=== PATIENT | male | born 1970 | race Caucasian/White ===

== ENCOUNTER 2022-08-15 14:50 | Inpatient (IN) | payer OTHER, MEDICAID, SELFPAY ==
--- NOTE | 2022-08-15 | ECG_ITS ---
Test Reason : medical clearance Blood Pressure : / mmHG Vent. Rate : 087 BPM Atrial Rate : 087 BPM P-R Int : 200 ms QRS Dur : 102 ms QT Int : 394 ms P-R-T Axes : 066 -36 052 degrees QTc Int : 474 ms Normal sinus rhythm Left axis deviation Borderline ECG No previous ECGs available Referred By: Ros Moreira Electronically Signed By:DOUG HALL
--- NOTE | ~2022-08-15 | XR_ITS ---
EXAMINATION: XR CHEST CLINICAL INFORMATION: Right rib pain COMPARISON: 02/07/2019 TECHNIQUE: 2 views of the chest were obtained. FINDINGS: The lungs are well expanded. There is no focal consolidation, edema, or effusion. No pneumothorax. The cardiomediastinal silhouette is within normal limits. No acute osseous abnormality. XR/XR chest 2V IMPRESSION: Clear lungs. No displaced fractures are seen.
[2022-08-15 15:13] VITALS: BP 103/72; BP 110/78; PULSE 80; PULSE 85; RESP 20; TEMP 36.6; O2SAT 95; O2SAT 96; BMI 25.7
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
[2022-08-15] MEDS: Lidocaine 4 % Patch ADH..PATCH 1 PATCH TRANSDERMA (16:22)
[2022-08-15] MEDS: LORazepam 1 MG TABLET 2 MG PO ×2 (16:22→23:20)
[2022-08-15 16:25] LABS: MANUAL DIFF FLAG NO
[2022-08-15 16:28] LABS: Basophils Absolute Auto 0.1 X10*3/uL (0.0-0.2); Basophils Percent Auto 0.9 % (0-2); Eosinophils Absolute Auto 0.3 X10*3/uL (0.0-0.4); Eosinophils Percent Auto 4.3 % (0-4); Hematocrit 39.9 % (42.0-52.0); Hemoglobin 13.8 g/dl (14.0-18.0); Imm Gran Abs Auto 0.02 X10*3/uL (0.00-0.03); Imm Gran Pct Auto 0.3 % (0.0-0.4); Lymphocytes Absolute Auto 2.2 X10*3/uL (1.2-4.9); Lymphocytes Percent Auto 37.1 % (20-40); Mean Corpuscular HGB Conc 34.6 g/dl (31.0-36.0); Mean Corpuscular Hemoglobin 32.3 pg (27.0-33.0); Mean Corpuscular Volume 93.4 fL (80.0-98.0); Mean Platelet Volume 10.5 fL (9.4-12.4); Monocytes Absolute Auto 0.4 X10*3/uL (0.1-1.2); Neutrophils Absolute Auto 2.9 x10*3/uL (2.0-8.3); Neutrophils Percent Auto 50.4 % (45-73); Platelet Count 159 X10*3/uL (160-400); Red Blood Count 4.27 X10*6/uL (4.60-5.80); Red Cell Distribution Width 15.7 % (11.0-16.0); White Blood Count 5.8 X10*3/uL (4.8-10.8)
--- NOTE | 2022-08-15 16:28 | PC.NURSE ---
labs drawn, 1:1 sitter at bedside, pt medicated per order, pt refused suboxone at this time as pt wished to eat prior to taking the med. provider has been notified, will continue to monitor
[2022-08-15 16:40] LABS: COVID-19 Test Negative (Negative); IDNOW Serial# BCCEAD1C
[2022-08-15 16:49] LABS: Ethanol 279 mg/dL
[2022-08-15 16:51] LABS: Alanine Aminotransferase 66 U/L (0-40); Albumin Level 3.7 g/dL (3.5-5.0); Alkaline Phosphatase 209 U/L (39-117); Anion Gap 17 (12-20); Aspartate Amino Transferase 147 U/L (5-37); Bilirubin Direct 0.2 mg/dL (0.0-0.5); Bilirubin Total 0.4 mg/dL (0.0-1.0); Blood Urea Nitrogen 5 mg/dL (9-16); Calcium 8.4 mg/dL (8.4-10.2); Carbon Dioxide 23 mmol/L (22-29); Chloride 108 mmol/L (96-108); Creatinine Clr Calc Pharmacy 113.2; Estimated Glomerular Filt Rate > 60; Glucose Random 112 mg/dL (60-115); Potassium 2.9 mmol/L (3.3-5.1); Sodium 145 mmol/L (135-145); Total Protein 7.4 g/dL (6.5-8.0)
[2022-08-15 17:35] VITALS: BP 131/66; PULSE 91; RESP 20; TEMP 36.7; O2SAT 89
[2022-08-15 18:00] VITALS: BP 108/76; PULSE 82; RESP 16; TEMP 36.7; O2SAT 91
--- NOTE | 2022-08-15 19:48 | PC.NURSE ---
Assumed care of pt. at 1900. Pt. asleep in bed at this time. Respirations are even and unlabored. 1:1 sitter is at bedside. Will continue to monitor.
[2022-08-15] MEDS: Potassium Chloride ER 20 MEQ TAB.ER.PRT 40 MEQ PO (20:44)
[2022-08-15 20:58] LABS: Appearance Urine Clear; Color Urine Dark Yellow; Glucose Urine UA Negative (Negative); Leukocyte Esterase Urine Negative (Negative); Nitrite Urine Negative (Negative); PH 5.5 (5.0-9.0); UMIC TRIGGER UA YES; Urine Blood Negative (Negative); Urine Ketones Trace mg/dL (Negative); Urine Protein 30 (1+) mg/dL (Neg-Trace)
[2022-08-15 21:08] LABS: Amphetamine Screen Urine Not Detected (Not Detect); Barbiturates, Urine POSITIVE (Not Detect); Benzodiazepines Screen Urine Not Detected (Not Detect); Cannabinoid Screen Urine Not Detected (Not Detect); Cocaine Screen Urine Not Detected (Not Detect); Fentanyl, urine Not Detected (Not Detect); Opiate Screen Urine Not Detected (Not Detect); Phencyclidine Screen Urine Not Detected (Not Detect)
[2022-08-15 21:17] LABS: Bacteria Urine None Seen (None Seen); Hyaline Casts Urine 0-2 /LPF (0-2); RBC Urine 0-2 /HPF (0-2); Squamous Epithelial Cell Urine 0-2 /HPF (0-2); WBC Urine 0-5 /HPF (0-5)
[2022-08-15] MEDS: Albuterol Sulfate 90 MCG 8 GM INHALER 1 PUFF INHALE (23:16)
[2022-08-15] MEDS: Ibuprofen 400 MG TABLET PO (23:19)
[2022-08-15] MEDS: Gabapentin 300 MG CAPSULE PO ×2 (23:20→23:22)
[2022-08-16 04:29] VITALS: BP 133/88; PULSE 103; RESP 17; O2SAT 95
[2022-08-16] MEDS: LORazepam 1 MG TABLET 2 MG PO ×2 (05:06→18:11)
--- NOTE | 2022-08-16 05:33 | PC.NURSE ---
Patient slept through the night, no distress observed/reported at this time, Ativan 2 mg PO administered at 2329 & 0506, CIWA at 0502 was 8, patient intermittently reporting ribs pain, PRN ibuprofen administered as ordered, patient will be evaluated by care team in the morning, VSS, medication compliant, will continue to monitor.
[2022-08-16] MEDS: Albuterol Sulfate 90 MCG 8 GM INHALER 1 PUFF INHALE ×2 (07:39→17:30)
--- NOTE | 2022-08-16 07:45 | PC.NURSE ---
Diffuse wheezing heard. Speaking full sentences. airway patent. pt given prn Albuterol.
[2022-08-16 07:57] VITALS: BP 136/84; PULSE 95; RESP 15; TEMP 36.6; O2SAT 95
[2022-08-16] MEDS: Docusate Sodium 100 MG CAPSULE PO ×2 (08:36→20:27)
[2022-08-16] MEDS: FLUoxetine HCl 20 MG CAPSULE 40 MG PO (08:36)
--- NOTE | 2022-08-16 10:19 | MHC.CARE ---
Patient's [facility] Plant Reliability Engineer Jake Darren [phone] or [phone] would like to be called with disposition information when patient placement.
[2022-08-16] MEDS: hydrOXYzine HCL 50 MG TABLET PO (10:20)
--- NOTE | 2022-08-16 11:33 | MHC.CARE ---
t/w left VM w patient's Pediatric Genetic Counselor, Jake Banks re: patient dispo to [facility].
[2022-08-16 11:50] LABS: Alanine Aminotransferase 61 U/L (0-40); Albumin Level 3.5 g/dL (3.5-5.0); Alkaline Phosphatase 203 U/L (39-117); Anion Gap 13 (12-20); Aspartate Amino Transferase 118 U/L (5-37); Bilirubin Total 0.8 mg/dL (0.0-1.0); Blood Urea Nitrogen 8 mg/dL (9-16); Calcium 8.6 mg/dL (8.4-10.2); Carbon Dioxide 26 mmol/L (22-29); Chloride 105 mmol/L (96-108); Creatinine Clr Calc Pharmacy 119.4; Estimated Glomerular Filt Rate > 60; Glucose Random 106 mg/dL (60-115); Potassium 3.4 mmol/L (3.3-5.1); Sodium 141 mmol/L (135-145); Total Protein 6.9 g/dL (6.5-8.0)
[2022-08-16 13:39] VITALS: BP 149/98; PULSE 84; RESP 16; TEMP 37.8; O2SAT 95
[2022-08-16] MEDS: Gabapentin 300 MG CAPSULE PO ×2 (16:10→20:28)
[2022-08-16 16:14] VITALS: TEMP 37.9
[2022-08-16 17:03] LABS: Influenza A PCR NEGATIVE (Negative); Influenza B PCR NEGATIVE (Negative); Resp Syncy Virus RNA Qual PCR NEGATIVE (Negative); SARS COV2 PCR INHOUSE NEGATIVE (Negative)
[2022-08-16 17:50] VITALS: BP 135/89; PULSE 73; TEMP 37.4
[2022-08-16] MEDS: Acetaminophen 325 MG TABLET 650 MG PO (18:10)
[2022-08-16] MEDS: traZODone HCL 50 MG TABLET PO (20:27)
[2022-08-16] MEDS: Ibuprofen 400 MG TABLET PO (20:31)
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
[2022-08-17] MEDS: Ibuprofen 400 MG TABLET PO ×2 (03:40→19:40)
[2022-08-17] MEDS: LORazepam 1 MG TABLET 2 MG PO ×2 (03:40→09:58)
[2022-08-17] MEDS: Albuterol Sulfate 90 MCG 8 GM INHALER 1 PUFF INHALE ×3 (03:41→19:57)
[2022-08-17 07:00] VITALS: BMI 25.6
[2022-08-17 08:35] VITALS: BP 152/91; PULSE 66; RESP 16; TEMP 37.7; O2SAT 97
[2022-08-17] MEDS: Thiamine HCL 100 MG TABLET PO (09:05)
[2022-08-17] MEDS: Docusate Sodium 100 MG CAPSULE PO ×2 (09:05→19:39)
[2022-08-17] MEDS: FLUoxetine HCl 20 MG CAPSULE 40 MG PO (09:05)
[2022-08-17] MEDS: Multivitamin TABLET 1 TAB PO (09:05)
[2022-08-17] MEDS: Acetaminophen 325 MG TABLET 650 MG PO (09:05)
[2022-08-17] MEDS: Gabapentin 300 MG CAPSULE PO ×3 (09:05→19:38)
[2022-08-17] MEDS: Buprenorphine/Naloxone 8/2 mg FILM 3 FILM SUBLINGUAL (09:11)
--- NOTE | 2022-08-17 09:11 | PC.NURSE ---
pt reports he takes suboxone 8mg/2mg TID; ordered dose is 3 8mg/2mg once daily; provider notified
[2022-08-17 09:16] LABS: Estimated Average Glucose 91 mg/dL; Hemoglobin A1c % 4.8 %
[2022-08-17 09:53] LABS: Cholesterol 172 mg/dL; HDL Cholesterol 30 mg/dL; LDL Cholesterol Calculated 110 mg/dl; Magnesium 1.5 mg/dL (1.6-2.6); Triglycerides 160 mg/dL
[2022-08-17 10:03] LABS: Free T4 (Free Thyroxine) 0.88 ng/dL (0.71-1.85); Thyroid Stimulating Hormone 0.68 uIU/mL (0.32-4.0)
[2022-08-17 10:16] LABS: Folate 9.1 ng/mL (> or = 4.0); Vitamin B12 308 pg/mL (200-900)
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
--- NOTE | 2022-08-17 12:20 | MHC.CLN ---
RE: CONSULT HT70 WT 179# IBW 166#+/-10% PT IS 108% IBW INDICATES ADEQUATE WT FOR HT; BMI 25.7 PT REPORTS 22# WT LOSS R/T PANCREATITIS UBW 200# REVIEWED LABS -UNREMARKABLE DIET REGULAR-APPROPRIATE PLAN: MONITOR PO INTAKE CLOSELY IF POOR PO X3 DAYS (</=25%); ADD ENSURE SUPPLEMENT TID SUPP WILL PROVIDE 1050KCALS, 60G PROTEIN WITH 100% ACCEPTANCE
[2022-08-17] MEDS: LORazepam 1 MG TABLET PO ×3 (12:56→19:38)
[2022-08-17] MEDS: Nicotine 21 MG PATCH.TD24 TRANSDERMA (12:56)
[2022-08-17 13:03] VITALS: TEMP 36.7
[2022-08-17] MEDS: Buprenorphine/Naloxone 8/2 mg FILM 1 FILM SUBLINGUAL (14:36)
[2022-08-17 17:42] VITALS: BP 124/84; PULSE 106; TEMP 36.6; O2SAT 93
[2022-08-17] MEDS: hydrOXYzine HCL 25 MG TABLET PO (19:37)
[2022-08-17] MEDS: traZODone HCL 50 MG TABLET PO (19:39)
[2022-08-18] MEDS: Albuterol Sulfate 90 MCG 8 GM INHALER 1 PUFF INHALE (05:14)
[2022-08-18 08:30] VITALS: BP 124/77; PULSE 93; RESP 17; TEMP 37.1; O2SAT 91
[2022-08-18] MEDS: Buprenorphine/Naloxone 8/2 mg FILM 1 FILM SUBLINGUAL ×2 (08:31→14:12)
[2022-08-18] MEDS: Nicotine 21 MG PATCH.TD24 TRANSDERMA (08:31)
[2022-08-18] MEDS: Thiamine HCL 100 MG TABLET PO (08:31)
[2022-08-18] MEDS: Acamprosate Calcium 333 MG TABLET.DR PO ×2 (08:31→14:12)
[2022-08-18] MEDS: Folic Acid 1 MG TABLET PO (08:32)
[2022-08-18] MEDS: Multivitamin TABLET 1 TAB PO (08:32)
[2022-08-18] MEDS: Docusate Sodium 100 MG CAPSULE PO ×2 (08:32→20:47)
[2022-08-18] MEDS: Gabapentin 300 MG CAPSULE PO ×3 (08:32→20:46)
[2022-08-18] MEDS: FLUoxetine HCl 20 MG CAPSULE 60 MG PO (08:32)
--- NOTE | 2022-08-18 08:40 | P.PNPSI_ITS ---
Subjective Subjective Date of Service: 08/18/22 Reason For Visit: Depression, SI, Polysubstance/ETOH Use D/O; Grief Interim History: met w/ patient; discussed in Teams; reviewed nursing notes and still scoring on CIWA so will keep assessment Pt remains depressed, tearful; talks about missing his and how unhappy his current situation is, worries about money and being lonely. pt has intermittent passive SI. Reports continued etoh w/drawal symptoms. Agrees to start Acamprosate tomorrow (he was already prescribed this at home). Discussed medications and pt agrees to start Zyprexa (policy writer typist discussed this med; pt did not want to know risks/side-effects at this time) Mental Status Exam Mental Status Exam Narrative: Pt is alert and oriented; behavior is cooperative, friendly, tearful; patient is in emotional distress; dressed in Hospital attire, improved grooming and adequate hygiene; mood is described as depressed and affect congruent, tearful; eye contact appropriate; Speech is normal rate, volume and prosody and not pressured; some psychomotor retardation present; thought process is organized and goal directed; Thought content is on missing his , struggles with family members, tx; otherwise pertinent to relevant topics and without any delusional content, paranoid ideations or grandiosity; passive SI; no HI. No AVH and no evidence of perceptual disturbance. Patients insight and judgment are impaired. Diagnostics Vital Signs (24Hr): Vital Signs - 24 hr 08/17/22 13:03 08/17/22 17:42 Temperature 98.0 F 97.8 F Pulse Rate 106 H Blood Pressure 124/84 Pulse Oximetry 93 Oxygen Delivery Method Room Air BMI result Body Mass Index 25.6 Labs 08/15/22 16:18 08/16/22 11:27 Labs: Laboratory Results - last 48 hr 08/16/22 08/16/22 08/17/22 11:27 16:20 08:34 Sodium 141 Potassium 3.4 Chloride 105 Carbon Dioxide 26 Anion Gap 13 BUN 8 L Creatinine 0.73 Estim Creat Clear Calc 119.4 Estimated GFR > 60 Random Glucose 106 Estimat Average Glucose 91 Hemoglobin A1c % 4.8 Calcium 8.6 Magnesium Total Bilirubin 0.8 AST 118 H ALT 61 H Alkaline Phosphatase 203 H Total Protein 6.9 Albumin 3.5 Triglycerides Cholesterol LDL Cholesterol, Calc HDL Cholesterol Vitamin B12 Folate TSH Free T4 Influenza Type A (PCR) NEGATIVE Influenza Type B (PCR) NEGATIVE RSV RNA Qual (PCR) NEGATIVE SARS-CoV-2 RNA (RT-PCR) NEGATIVE 08/17/22 08/17/22 08:34 08:34 Sodium Potassium Chloride Carbon Dioxide Anion Gap BUN Creatinine Estim Creat Clear Calc Estimated GFR Random Glucose Estimat Average Glucose Hemoglobin A1c % Calcium Magnesium 1.5 L Total Bilirubin AST ALT Alkaline Phosphatase Total Protein Albumin Triglycerides 160 Cholesterol 172 LDL Cholesterol, Calc 110 HDL Cholesterol 30 Vitamin B12 308 Folate 9.1 TSH 0.68 Free T4 0.88 Influenza Type A (PCR) Influenza Type B (PCR) RSV RNA Qual (PCR) SARS-CoV-2 RNA (RT-PCR) Imaging Radiology Impressions: ITS Impressions Chest X-Ray 08/15/22 15:58 IMPRESSION: Clear lungs. No displaced fractures are seen. Medications Medications Current Medications Acamprosate (Acamprosate Calcium 333 Mg Tablet.) 333 mg PO TID [facility] Last Admin: 08/18/22 08:31 Dose: 333 mg Acetaminophen (Acetaminophen 325 Mg Tablet) 650 mg PO Q6H PRN PRN Reason: Headache/Pain Mild Scale (1-3) Last Admin: 08/17/22 09:05 Dose: 650 mg Al Hydroxide/Mg Hydroxide (Magnesium Hydrox/Alum Hydrox 30 Ml Oral.Susp) 30 ml PO Q6H PRN PRN Reason: Heartburn/Nausea Albuterol Sulfate (Albuterol Sulfate 90 Mcg 8 Gm Inhaler) 1 puff INHALE Q6H PRN PRN Reason: wheezing Last Admin: 08/18/22 05:14 Dose: 1 puff Buprenorphine/Naloxone (Buprenorphine/Naloxone 8/2 Mg Film) 1 film SUBLINGUAL TID [facility] Last Admin: 08/18/22 08:31 Dose: 1 film Docusate Sodium (Docusate Sodium 100 Mg Capsule) 100 mg PO BID [facility] Last Admin: 08/18/22 08:32 Dose: 100 mg Fluoxetine HCl (Fluoxetine Hcl 20 Mg Capsule) 60 mg PO DAILY [facility] Last Admin: 08/18/22 08:32 Dose: 60 mg Folic Acid (Folic Acid 1 Mg Tablet) 1 mg PO DAILY [facility] Last Admin: 08/18/22 08:32 Dose: 1 mg Gabapentin (Gabapentin 300 Mg Capsule) 300 mg PO TID [facility] Last Admin: 08/18/22 08:32 Dose: 300 mg Hydroxyzine HCl (Hydroxyzine Hcl 25 Mg Tablet) 25 mg PO Q6H PRN PRN Reason: Anxiety Last Admin: 08/17/22 19:37 Dose: 25 mg Ibuprofen (Ibuprofen 400 Mg Tablet) 400 mg PO TID PRN PRN Reason: mild pain Last Admin: 08/17/22 19:40 Dose: 400 mg Lorazepam (Lorazepam 1 Mg Tablet) 1 mg PO Q2H PRN PRN Reason: CIWA 6-10 Lorazepam (Lorazepam 1 Mg Tablet) 2 mg PO Q2H PRN PRN Reason: CIWA 11 and above Lorazepam (Lorazepam 1 Mg Tablet) 1 mg PO BID [facility] Stop: 08/20/22 23:50 Lorazepam (Lorazepam 1 Mg Tablet) 1 mg PO DAILY [facility] Lorazepam (Lorazepam 1 Mg Tablet) 1 mg PO TID [facility] Stop: 08/18/22 23:50 Last Admin: 08/17/22 19:38 Dose: 1 mg Magnesium Hydroxide (Milk Of Magnesia 30 Ml Oral.Susp) 30 ml PO DAILY PRN PRN Reason: Constipation Multivitamins/Vitamin C (Multivitamin Tablet) 1 tab PO DAILY [facility] Last Admin: 08/18/22 08:32 Dose: 1 tab Multivitamins/Vitamin C (Multivitamin Tablet) 1 tab PO DAILY [facility] Nicotine (Nicotine 21 Mg Patch.Td24) 21 mg TRANSDERMA DAILY [facility] Last Admin: 08/18/22 08:31 Dose: 21 mg Thiamine HCl (Thiamine Hcl 100 Mg Tablet) 100 mg PO DAILY [facility] Last Admin: 08/18/22 08:31 Dose: 100 mg Trazodone HCl (Trazodone Hcl 50 Mg Tablet) 50 mg PO BEDTIME PRN PRN Reason: Insomnia Last Admin: 08/17/22 19:39 Dose: 50 mg Allergies Allergies Allergy/AdvReac Type Severity Reaction Status Date / Time levofloxacin Allergy Unknown Unknown Verified 08/16/22 16:48 chlorpromazine Allergy Unknown unknown Uncoded 08/16/22 16:47 Assessment & Plan Assessment & Plan (1) MDD (major depressive disorder): Status: Acute Code(s): F32.9 - Major depressive disorder, single episode, unspecified (2) Alcohol use disorder, severe, dependence: Status: Acute Code(s): F10.20 - Alcohol dependence, uncomplicated Plan pt is a 52 yo male with hx of depression/anxiety and alcohol dependence, hx pancreatitis, currently with (rt?) fractured rib who presents for depression/SI in the face of 's 6 months ago and continued alcoholism -Chronic depression plus mourning , worsened by chronic alcoholism; active SI resolved, but passive remains -Ciwa and ativan taper for etoh w/drawal; Will increase Prozac; pt wants to start acamproset; his gabapentin was increased in ED and may just leave on it -pt would like help w/ aftercare, including support group -pt minimizes etoh abuse, but talks about pursuing sobriety Admit for safety, to tx w/drawal and med management Hospital Course: 08/19 remains depressed; passive SI and feeling miserable about his life. Start Zyprexa 2.5mg for anxious depression PLAN: CV q15min will START Zyprexa 2.5mg for anxious depression CIWA/ativan prn Ativan Taper Gabapentin 300mg TID (had been increased in ED from 100mg TID); may leave or taper START Acamprosate 333mg TID on 08/19 INCREASE prozac to 60mg repeat lft's pt reports appointment with GI as outpatient for possible Endoscopy? will reschedule Patient educated on: diagnosis, medication risk/benefits and substance abuse Informed Consent: understands Reason for contiued inpatient stay Substantial Risk for: rapid decompensation Time Spent With Patient Time: Total time managing care of this patient today ____ minutes.
[2022-08-18] MEDS: LORazepam 1 MG TABLET PO ×3 (08:46→20:47)
[2022-08-18] MEDS: OLANZapine 2.5 MG TABLET PO (15:56)
[2022-08-18] MEDS: Acetaminophen 325 MG TABLET 650 MG PO (17:28)
[2022-08-18] MEDS: LORazepam 1 MG TABLET 2 MG PO (17:29)
[2022-08-18 21:14] VITALS: BP 109/59; PULSE 68; RESP 16; TEMP 36; O2SAT 91
[2022-08-19] MEDS: Albuterol Sulfate 90 MCG 8 GM INHALER 1 PUFF INHALE ×2 (05:39→20:16)
[2022-08-19 06:00] VITALS: BP 128/82; PULSE 70; RESP 16; TEMP 36.9; O2SAT 95
[2022-08-19] MEDS: LORazepam 1 MG TABLET PO ×3 (08:38→20:09)
[2022-08-19] MEDS: Nicotine 21 MG PATCH.TD24 TRANSDERMA (08:38)
[2022-08-19] MEDS: Buprenorphine/Naloxone 8/2 mg FILM 1 FILM SUBLINGUAL ×2 (08:38→15:53)
[2022-08-19] MEDS: Docusate Sodium 100 MG CAPSULE PO ×2 (08:39→20:09)
[2022-08-19] MEDS: Acetaminophen 325 MG TABLET 650 MG PO ×2 (08:39→14:01)
[2022-08-19] MEDS: Gabapentin 300 MG CAPSULE PO ×3 (08:39→20:09)
[2022-08-19] MEDS: FLUoxetine HCl 20 MG CAPSULE 60 MG PO (08:40)
[2022-08-19] MEDS: OLANZapine 2.5 MG TABLET PO (08:40)
[2022-08-19] MEDS: hydrOXYzine HCL 25 MG TABLET PO ×2 (08:40→20:12)
[2022-08-19] MEDS: Folic Acid 1 MG TABLET PO (08:40)
[2022-08-19] MEDS: Thiamine HCL 100 MG TABLET PO (08:40)
[2022-08-19] MEDS: Multivitamin TABLET 1 TAB PO (08:41)
[2022-08-19] MEDS: LORazepam 1 MG TABLET 2 MG PO ×2 (11:06→14:01)
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
[2022-08-19 18:00] VITALS: BP 129/72; PULSE 87; TEMP 36.3; O2SAT 99
[2022-08-19] MEDS: traZODone HCL 50 MG TABLET PO (20:12)
[2022-08-20] MEDS: Albuterol Sulfate 90 MCG 8 GM INHALER 1 PUFF INHALE ×2 (06:10→14:18)
[2022-08-20 08:09] VITALS: BP 130/77; PULSE 85; RESP 16; TEMP 37.1; O2SAT 95
[2022-08-20] MEDS: Nicotine 21 MG PATCH.TD24 TRANSDERMA (08:25)
[2022-08-20] MEDS: Buprenorphine/Naloxone 8/2 mg FILM 1 FILM SUBLINGUAL ×3 (08:25→19:27)
[2022-08-20] MEDS: Gabapentin 300 MG CAPSULE PO ×3 (08:26→19:29)
[2022-08-20] MEDS: FLUoxetine HCl 20 MG CAPSULE 60 MG PO (08:26)
[2022-08-20] MEDS: Acamprosate Calcium 333 MG TABLET.DR PO ×3 (08:27→19:29)
[2022-08-20] MEDS: Docusate Sodium 100 MG CAPSULE PO ×2 (08:27→19:28)
[2022-08-20] MEDS: Thiamine HCL 100 MG TABLET PO (08:27)
[2022-08-20] MEDS: Multivitamin TABLET 1 TAB PO (08:27)
[2022-08-20] MEDS: LORazepam 1 MG TABLET PO ×5 (08:27→19:28)
[2022-08-20] MEDS: Folic Acid 1 MG TABLET PO (08:27)
[2022-08-20] MEDS: OLANZapine 2.5 MG TABLET PO (08:27)
--- NOTE | 2022-08-20 13:55 | HO.PSYCHPN ---
Subjective Subjective Date of Service: 08/20/22 Reason For Visit: Depression, SI, Polysubstance/ETOH Use D/O; Grief Interim History: met w/ patient; discussed with nursing. Continues to report anxiety and shakes . He appears better than he was yesterday in terms of objective tremors. He reports ongoing sadness over the loss of his . Reports the more I don't want to drink the more I want to drink. He has restarted Acamprosate for cravings and tolerating well. He continues to think he sees his 's shadow.Says he is having nightmares. Still scoring on CIWA so will keep assessment. Ativan is helpful. Review of Systems Review of Systems Constitutional : No Fever, No Chills ENT/Mouth : No Ear Pain, No Nasal Congestion, No sore throat Eyes: No Eye Pain, No Swelling, No Redness Cardiovascular : No Chest Pain, No SOB Chest: pos rib pain Respiratory : No Cough, No Sputum, No Dyspnea Gastrointestinal : No Nausea, No Vomiting, No Diarrhea, No Hematochezia, No Melena Genitourinary : No Dysuria, No Urinary Frequency, No Hematuria Musculoskeletal : No Myalgias Skin : No Skin Lesions, No rash Neuro : No Weakness, No Numbness, No Paresthesias, No Dizziness, No Headache Psych : positive Anxiety, positive Depression, positive SI no HI Heme/Lymph: No Lymphadenopathy Endocrine : No Polyuria, No Polydipsia All other systems reviewed and are negative Mental Status Exam Mental Status Exam Narrative: Pt is alert and oriented; behavior is cooperative, friendly, tearful; patient is in emotional distress; dressed in Hospital attire, improved grooming and adequate hygiene; mood is described as depressed and affect congruent, tearful; eye contact appropriate; Speech is normal rate, volume and prosody and not pressured; some psychomotor retardation present; thought process is organized and goal directed; Thought content is on missing his , struggles with family members, tx; otherwise pertinent to relevant topics and without any delusional content, paranoid ideations or grandiosity; passive SI; no HI. No AVH and no evidence of perceptual disturbance. Patients insight and judgment are impaired. Diagnostics Vital Signs (24Hr): Vital Signs - 24 hr 08/20/22 08:09 08/20/22 16:55 Temperature 98.7 F 98.2 F Pulse Rate 85 91 Respiratory Rate 16 16 Blood Pressure 130/77 122/66 Pulse Oximetry 95 97 Oxygen Delivery Method Room Air Room Air BMI result Body Mass Index 25.6 Labs 08/15/22 16:18 08/16/22 11:27 Imaging Radiology Impressions: ITS Impressions Chest X-Ray 08/15/22 15:58 IMPRESSION: Clear lungs. No displaced fractures are seen. Medications Medications Current Medications Acamprosate (Acamprosate Calcium 333 Mg Tablet.Dr) 333 mg PO TID [facility] Last Admin: 08/20/22 19:29 Dose: 333 mg Acetaminophen (Acetaminophen 325 Mg Tablet) 650 mg PO Q6H PRN PRN Reason: Headache/Pain Mild Scale (1-3) Last Admin: 08/19/22 14:01 Dose: 650 mg Al Hydroxide/Mg Hydroxide (Magnesium Hydrox/Alum Hydrox 30 Ml Oral.Susp) 30 ml PO Q6H PRN PRN Reason: Heartburn/Nausea Albuterol Sulfate (Albuterol Sulfate 90 Mcg 8 Gm Inhaler) 1 puff INHALE Q6H PRN PRN Reason: wheezing Last Admin: 08/20/22 14:18 Dose: 1 puff Buprenorphine/Naloxone (Buprenorphine/Naloxone 8/2 Mg Film) 1 film SUBLINGUAL TID [facility] Last Admin: 08/20/22 19:27 Dose: 1 film Docusate Sodium (Docusate Sodium 100 Mg Capsule) 100 mg PO BID [facility] Last Admin: 08/20/22 19:28 Dose: 100 mg Fluoxetine HCl (Fluoxetine Hcl 20 Mg Capsule) 60 mg PO DAILY [facility] Last Admin: 08/20/22 08:26 Dose: 60 mg Folic Acid (Folic Acid 1 Mg Tablet) 1 mg PO DAILY [facility] Last Admin: 08/20/22 08:27 Dose: 1 mg Gabapentin (Gabapentin 300 Mg Capsule) 300 mg PO TID [facility] Last Admin: 08/20/22 19:29 Dose: 300 mg Hydroxyzine HCl (Hydroxyzine Hcl 25 Mg Tablet) 25 mg PO Q6H PRN PRN Reason: Anxiety Last Admin: 08/20/22 21:36 Dose: 25 mg Ibuprofen (Ibuprofen 400 Mg Tablet) 400 mg PO TID PRN PRN Reason: mild pain Last Admin: 08/17/22 19:40 Dose: 400 mg Lorazepam (Lorazepam 1 Mg Tablet) 1 mg PO Q2H PRN PRN Reason: CIWA 6-10 Last Admin: 08/20/22 17:33 Dose: 1 mg Lorazepam (Lorazepam 1 Mg Tablet) 2 mg PO Q2H PRN PRN Reason: CIWA 11 and above Last Admin: 08/19/22 14:01 Dose: 2 mg Lorazepam (Lorazepam 1 Mg Tablet) 1 mg PO BID [facility] Stop: 08/20/22 23:50 Last Admin: 08/20/22 19:28 Dose: 1 mg Lorazepam (Lorazepam 1 Mg Tablet) 1 mg PO DAILY [facility] Magnesium Hydroxide (Milk Of Magnesia 30 Ml Oral.Susp) 30 ml PO DAILY PRN PRN Reason: Constipation Multivitamins/Vitamin C (Multivitamin Tablet) 1 tab PO DAILY [facility] Last Admin: 08/20/22 08:27 Dose: 1 tab Nicotine (Nicotine 21 Mg Patch.Td24) 21 mg TRANSDERMA DAILY [facility] Last Admin: 08/20/22 08:25 Dose: 21 mg Olanzapine (Olanzapine 2.5 Mg Tablet) 2.5 mg PO DAILY [facility] Last Admin: 08/20/22 08:27 Dose: 2.5 mg Thiamine HCl (Thiamine Hcl 100 Mg Tablet) 100 mg PO DAILY [facility] Last Admin: 08/20/22 08:27 Dose: 100 mg Trazodone HCl (Trazodone Hcl 50 Mg Tablet) 50 mg PO BEDTIME PRN PRN Reason: Insomnia Last Admin: 08/20/22 21:36 Dose: 50 mg Allergies Allergies Allergy/AdvReac Type Severity Reaction Status Date / Time levofloxacin Allergy Unknown Unknown Verified 08/16/22 16:48 chlorpromazine Allergy Unknown unknown Uncoded 08/16/22 16:47 Assessment & Plan Assessment & Plan (1) MDD (major depressive disorder): Status: Acute Code(s): F32.9 - Major depressive disorder, single episode, unspecified (2) Alcohol use disorder, severe, dependence: Status: Acute Code(s): F10.20 - Alcohol dependence, uncomplicated Plan pt is a 52 yo male with hx of depression/anxiety and alcohol dependence, hx pancreatitis, currently with (rt?) fractured rib who presents for depression/SI in the face of 's 6 months ago and continued alcoholism -Chronic depression plus mourning , worsened by chronic alcoholism; active SI resolved, but passive remains -Ciwa and ativan taper for etoh w/drawal; Will increase Prozac; pt wants to start acamproset; his gabapentin was increased in ED and may just leave on it -pt would like help w/ aftercare, including support group -pt minimizes etoh abuse, but talks about pursuing sobriety Admit for safety, to tx w/drawal and med management Hospital Course: 08/18 remains depressed; passive SI and feeling miserable about his life. Start Zyprexa 2.5mg for anxious depression 08/19: Continue current tx plan. 08/20: Continue tx plan. PLAN: CV q15min will START Zyprexa 2.5mg for anxious depression CIWA/ativan prn Ativan Taper Gabapentin 300mg TID (had been increased in ED from 100mg TID); may leave or taper START Acamprosate 333mg TID on 08/19 INCREASE prozac to 60mg repeat lft's pt reports appointment with GI as outpatient for possible Endoscopy? will reschedule Reason for contiued inpatient stay Substantial Risk for: harm to self, inability to function and rapid decompensation Time Spent With Patient Time: Total time managing care of this patient today ____ minutes.
[2022-08-20 16:55] VITALS: BP 122/66; PULSE 91; RESP 16; TEMP 36.8; O2SAT 97
[2022-08-20] MEDS: hydrOXYzine HCL 25 MG TABLET PO (21:36)
[2022-08-20] MEDS: traZODone HCL 50 MG TABLET PO (21:36)
[2022-08-21 08:02] VITALS: BP 125/90; PULSE 97; RESP 16; TEMP 37.2; O2SAT 90
[2022-08-21] MEDS: Acamprosate Calcium 333 MG TABLET.DR PO ×2 (08:05→12:41)
[2022-08-21] MEDS: Albuterol Sulfate 90 MCG 8 GM INHALER 1 PUFF INHALE (08:05)
[2022-08-21] MEDS: FLUoxetine HCl 20 MG CAPSULE 60 MG PO (08:05)
[2022-08-21] MEDS: Thiamine HCL 100 MG TABLET PO (08:05)
[2022-08-21] MEDS: OLANZapine 2.5 MG TABLET PO (08:05)
[2022-08-21] MEDS: Multivitamin TABLET 1 TAB PO (08:06)
[2022-08-21] MEDS: LORazepam 1 MG TABLET PO (08:06)
[2022-08-21] MEDS: Folic Acid 1 MG TABLET PO (08:06)
[2022-08-21] MEDS: Docusate Sodium 100 MG CAPSULE PO (08:06)
[2022-08-21] MEDS: Gabapentin 300 MG CAPSULE PO ×2 (08:06→12:41)
[2022-08-21] MEDS: Nicotine 21 MG PATCH.TD24 TRANSDERMA (08:08)
[2022-08-21] MEDS: Buprenorphine/Naloxone 8/2 mg FILM 1 FILM SUBLINGUAL (08:08)
[2022-08-21 08:20] VITALS: O2SAT 94
--- NOTE | 2022-08-21 11:59 | PM.PSYDC ---
DS: Providers Provider Date of Service: 08/21/22 Date of admission: 08/16/22 16:46 Date of discharge: 08/21/22 Primary care physician: Daniel Cottrell MD Attending physician on admission: Pk Rey Attending physician on discharge: Pk Rey DS: Diagnosis Discharge Diagnosis (1) MDD (major depressive disorder): Status: Acute (2) Alcohol use disorder, severe, dependence: Status: Acute DS: Medications Discharge Medications Home Medications: Home Medications Medication Instructions Recorded Confirmed albuterol sulfate 90 mcg/actuation 1 puff inhalation Q6H PRN wheezing 08/15/22 08/15/22 aerosol inhaler (Ventolin HFA) buprenorphine 8 mg-naloxone 2 mg 3 strip sublingual DAILY 08/15/22 08/15/22 sublingual film (Suboxone) docusate sodium 100 mg capsule 1 cap PO BID 08/15/22 08/15/22 gabapentin 100 mg capsule 3 cap PO TID 08/15/22 08/15/22 ibuprofen 400 mg tablet 1 tab PO TID PRN mild pain 08/15/22 08/15/22 Previous Rx's Medication Instructions Recorded acamprosate 333 mg tablet,delayed 333 mg PO TID #0 tabs 08/21/22 release fluoxetine 20 mg capsule 60 mg PO DAILY 30 days #90 caps 08/21/22 folic acid 1 mg tablet 1 mg PO DAILY 30 days #30 tabs 08/21/22 lorazepam 1 mg tablet 1 mg PO DAILY 3 days #3 tabs 08/21/22 multivitamin (Daily-Melania tablet) 1 tab PO DAILY 30 days #30 tabs 08/21/22 nicotine 21 mg/24 hr daily 21 mg transdermal DAILY #0 ea 08/21/22 transdermal patch olanzapine 2.5 mg tablet 2.5 mg PO DAILY 30 days #30 tabs 08/21/22 thiamine mononitrate (vit B1) 100 100 mg PO DAILY 30 days #30 tabs 08/21/22 mg tablet trazodone 50 mg tablet 50 mg PO BEDTIME PRN Insomnia 30 08/21/22 days #30 tabs Mental Status Exam Mental Status Exam Narrative: Pt is alert and oriented; behavior is cooperative, friendly, cam; dressed in casual attire, adequate hygiene; mood is described as a little better and affect congruent; calm; eye contact appropriate; Speech is normal rate, volume and prosody and not pressured; no psychomotor retardation present; thought process is organized and goal directed; Thought content is on missing his , tx, aftercare; otherwise pertinent to relevant topics and without any delusional content, paranoid ideations or grandiosity; no SI; no HI. No AVH and no evidence of perceptual disturbance. Patients insight and judgment are fair. Data Data Completed and Pending Completed studies during hospitalization [Text1]: 08/15/22 08/15/22 08/15/22 16:18 16:18 16:18 WBC 5.8 RBC 4.27 L Hgb 13.8 L Hct 39.9 L MCV 93.4 MCH 32.3 MCHC 34.6 RDW 15.7 Plt Count 159 L MPV 10.5 Immature Gran % (Auto) 0.3 Neut % (Auto) 50.4 Lymph % (Auto) 37.1 [place] % (Auto) 7.0 Eos % (Auto) 4.3 H Baso % (Auto) 0.9 Lymph # (Auto) 2.2 [place] # (Auto) 0.4 Eos # (Auto) 0.3 Baso # (Auto) 0.1 Abs Immat Gran (auto) 0.02 Absolute Neuts (auto) 2.9 Absolute Nucleated RBC 0.000 Nucleated RBC % (auto) 0.0 Sodium 145 Potassium 2.9 L Chloride 108 Carbon Dioxide 23 Anion Gap 17 BUN 5 L Creatinine 0.77 Estim Creat Clear Calc 113.2 Estimated GFR > 60 Random Glucose 112 Estimat Average Glucose Hemoglobin A1c % Calcium 8.4 Magnesium Total Bilirubin 0.4 Direct Bilirubin 0.2 AST 147 H ALT 66 H Alkaline Phosphatase 209 H Total Protein 7.4 Albumin 3.7 Triglycerides Cholesterol LDL Cholesterol, Calc HDL Cholesterol Vitamin B12 Folate TSH Free T4 Urine Color Urine Appearance Urine pH Ur Specific [place] Urine Protein Urine Glucose (UA) Urine Ketones Urine Blood Urine Nitrite Ur Leukocyte Esterase Urine RBC Urine WBC Ur Squamous Epith Cells Urine Bacteria Hyaline Casts Urine Opiates Screen Urine Fentanyl Screen Ur Barbiturates Screen Ur Phencyclidine Scrn Ur Amphetamines Screen U Benzodiazepines Scrn Urine Cocaine Screen U Marijuana (THC) Screen Ethyl Alcohol COVID-19 (BD) Negative COVID-19 Clin Com See Note Influenza Type A (PCR) Influenza Type B (PCR) RSV RNA Qual (PCR) SARS-CoV-2 RNA (RT-PCR) 0108/15/22 08/15/22 16:18 20:49 20:49 WBC RBC Hgb Hct MCV MCH MCHC RDW Plt Count MPV Immature Gran % (Auto) Neut % (Auto) Lymph % (Auto) [place] % (Auto) Eos % (Auto) Baso % (Auto) Lymph # (Auto) [place] # (Auto) Eos # (Auto) Baso # (Auto) Abs Immat Gran (auto) Absolute Neuts (auto) Absolute Nucleated RBC Nucleated RBC % (auto) Sodium Potassium Chloride Carbon Dioxide Anion Gap BUN Creatinine Estim Creat Clear Calc Estimated GFR Random Glucose Estimat Average Glucose Hemoglobin A1c % Calcium Magnesium Total Bilirubin Direct Bilirubin AST ALT Alkaline Phosphatase Total Protein Albumin Triglycerides Cholesterol LDL Cholesterol, Calc HDL Cholesterol Vitamin B12 Folate TSH Free T4 Urine Color Dark Yellow Urine Appearance Clear Urine pH 5.5 Ur Specific [place] 1.020 Urine Protein 30 (1+) H Urine Glucose (UA) Negative Urine Ketones Trace Urine Blood Negative Urine Nitrite Negative Ur Leukocyte Esterase Negative Urine RBC 0-2 Urine WBC 0-5 Ur Squamous Epith Cells 0-2 Urine Bacteria None Seen Hyaline Casts 0-2 Urine Opiates Screen Not Detected Urine Fentanyl Screen Not Detected Ur Barbiturates Screen POSITIVE H Ur Phencyclidine Scrn Not Detected Ur Amphetamines Screen Not Detected U Benzodiazepines Scrn Not Detected Urine Cocaine Screen Not Detected U Marijuana (THC) Screen Not Detected Ethyl Alcohol 279 COVID-19 (DB) COVID-19 Clin Com Influenza Type A (PCR) Influenza Type B (PCR) RSV RNA Qual (PCR) SARS-CoV-2 RNA (RT-PCR) 08/16/22 08/16/22 08/17/22 11:27 16:20 08:34 WBC RBC Hgb Hct MCV MCH MCHC RDW Plt Count MPV Immature Gran % (Auto) Neut % (Auto) Lymph % (Auto) [place] % (Auto) Eos % (Auto) Baso % (Auto) Lymph # (Auto) [place] # (Auto) Eos # (Auto) Baso # (Auto) Abs Immat Gran (auto) Absolute Neuts (auto) Absolute Nucleated RBC Nucleated RBC % (auto) Sodium 141 Potassium 3.4 Chloride 105 Carbon Dioxide 26 Anion Gap 13 BUN 8 L Creatinine 0.73 Estim Creat Clear Calc 119.4 Estimated GFR > 60 Random Glucose 106 Estimat Average Glucose 91 Hemoglobin A1c % 4.8 Calcium 8.6 Magnesium Total Bilirubin 0.8 Direct Bilirubin AST 118 H ALT 61 H Alkaline Phosphatase 203 H Total Protein 6.9 Albumin 3.5 Triglycerides Cholesterol LDL Cholesterol, Calc HDL Cholesterol Vitamin B12 Folate TSH Free T4 Urine Color Urine Appearance Urine pH Ur Specific [place] Urine Protein Urine Glucose (UA) Urine Ketones Urine Blood Urine Nitrite Ur Leukocyte Esterase Urine RBC Urine WBC Ur Squamous Epith Cells Urine Bacteria Hyaline Casts Urine Opiates Screen Urine Fentanyl Screen Ur Barbiturates Screen Ur Phencyclidine Scrn Ur Amphetamines Screen U Benzodiazepines Scrn Urine Cocaine Screen U Marijuana (THC) Screen Ethyl Alcohol COVID-19 (DB) COVID-19 Clin Com Influenza Type A (PCR) NEGATIVE Influenza Type B (PCR) NEGATIVE RSV RNA Qual (PCR) NEGATIVE SARS-CoV-2 RNA (RT-PCR) NEGATIVE 08/17/22 08/17/22 08:34 08:34 WBC RBC Hgb Hct MCV MCH MCHC RDW Plt Count MPV Immature Gran % (Auto) Neut % (Auto) Lymph % (Auto) [place] % (Auto) Eos % (Auto) Baso % (Auto) Lymph # (Auto) [place] # (Auto) Eos # (Auto) Baso # (Auto) Abs Immat Gran (auto) Absolute Neuts (auto) Absolute Nucleated RBC Nucleated RBC % (auto) Sodium Potassium Chloride Carbon Dioxide Anion Gap BUN Creatinine Estim Creat Clear Calc Estimated GFR Random Glucose Estimat Average Glucose Hemoglobin A1c % Calcium Magnesium 1.5 L Total Bilirubin Direct Bilirubin AST ALT Alkaline Phosphatase Total Protein Albumin Triglycerides 160 Cholesterol 172 LDL Cholesterol, Calc 110 HDL Cholesterol 30 Vitamin B12 308 Folate 9.1 TSH 0.68 Free T4 0.88 Urine Color Urine Appearance Urine pH Ur Specific [place] Urine Protein Urine Glucose (UA) Urine Ketones Urine Blood Urine Nitrite Ur Leukocyte Esterase Urine RBC Urine WBC Ur Squamous Epith Cells Urine Bacteria Hyaline Casts Urine Opiates Screen Urine Fentanyl Screen Ur Barbiturates Screen Ur Phencyclidine Scrn Ur Amphetamines Screen U Benzodiazepines Scrn Urine Cocaine Screen U Marijuana (THC) Screen Ethyl Alcohol COVID-19 (DB) COVID-19 Clin Com Influenza Type A (PCR) Influenza Type B (PCR) RSV RNA Qual (PCR) SARS-CoV-2 RNA (RT-PCR) Imaging Diagnostic Imaging Impressions Chest X-Ray 08/15/22 15:58 IMPRESSION: Clear lungs. No displaced fractures are seen. DS: Summary Hospital Course Hospital Course: pt is a 52 yo male with hx of depression/anxiety and alcohol dependence, hx pancreatitis, currently with (rt?) fractured rib who presents for depression/SI in the face of 's 6 months ago and continued alcoholism -Chronic depression plus mourning , worsened by chronic alcoholism; active SI resolved, but passive remains, however patient denies he would never actually hurt himself. Hospital Course: On admission, patient was depressed; passive SI and feeling miserable about his life. He was started on Zyprexa 2.5mg for anxious depression which he found helpful. Patient's Prozac was increased to 60 mg. Patient was detoxed from alcohol without issue; during detox he was started on gabapentin which proved helpful for anxiety and so was continued; patient also started on Acamprosate which outpatient provider had already prescribed but pt had not yet taken. Soon, patient's mood improved. He said he would never actually harm himself but that he was just very sad and felt lost without her. He was engaged in treatment and had aftercare plans to join a would towards group as well as go to meetings for alcoholism. Throughout his stay, patient patient was overall appropriate with peers and staff (though would sometimes make sexually inappropriate comments with females), demonstrating good behavioral and impulse control. Though tearful when talking about his , he felt his mood had improved and he continued to deny any SI. He was social in the milieu, socializing frequently and reported feeling better. Pt eating and sleeping well. Patient felt stable and able to return home. Though depressed, He remained future oriented. While patient remains vulnerable to relapse and decompensation, he is not in imminent risk for harm to self or others and his request for discharge honored. Time spent discussing smoking cessation with patient: 3 to 10 minutes Status at Discharge Functional status at discharge: independent ambulation Overall status at discharge: patient is progressing back to baseline Time Spent with Patient Time attestation: Total time managing care of this patient today ____ minutes. Time spent: Less than 30 minutes Discharge Plan Discharge Anticipated Discharge Date/Time: 08/21/22 13:00 Patient Disposition: Home, Self-Care Discharge Diagnosis: MDD, recurrent, severe without psychotic symptoms, in partial remission Referrals: [facility] [Other] - 09/20/22 7:00 pm (Group Sessions: Sunday's @ 7pm-8:30pm, September 20-December 20 ) Therapy Intake: Gela Linder ([facility]) [Other] - 08/24/22 2:00 pm (In person at the office- after this appointment you can request future therapy appointments are Telehealth ) Psych Prescriber: Shayna Saucedo ([facility]) [Other] - 09/21/22 9:00 am (Telehealth- Shayna will call your phone at the appointment time; your next appointment is scheduled at the office but you can ask at this time to change it to Telehealth.) Psych Prescriber: Shayna Saucedo ([facility]) [Other] - 10/18/22 10:00 am (Appointment is scheduled in person at the office but you can request it be changed to Telehealth during upcoming therapy or psych appointments ) Offset Duplicating Machine Operator: Jake Banks ([facility]) [Other] - 1 Day (Call Jake will you arrive home to schedule your intake assessment with him. Call for support and assistance with obtaining any further services as needed.) Daniel Cottrell MD [Primary Care Provider] - 1 Week (office will call pt.at home with f/u appointment.) Discharge Medications: New nicotine 21 mg/24 hr Patch 24 Hour 21 mg transdermal DAILY Qty: 0 0RF trazodone 50 mg Tablet 50 mg PO BEDTIME PRN (Reason: Insomnia) 30 Days Qty: 30 0RF folic acid 1 mg Tablet 1 mg PO DAILY 30 Days Qty: 30 0RF thiamine mononitrate (vit B1) 100 mg Tablet 100 mg PO DAILY 30 Days Qty: 30 0RF Continued docusate sodium 100 mg capsule 1 cap PO BID gabapentin 100 mg capsule 3 cap PO TID albuterol sulfate [Ventolin HFA] 90 mcg/actuation HFA aerosol inhaler 1 puff INHALATION Q6H PRN (Reason: wheezing) 30 Days Qty: 6.7 1RF Changed fluoxetine 20 mg capsule 60 mg PO DAILY 30 Days Qty: 90 1RF Discontinued acetaminophen 325 mg tablet 2 tab PO Q4H No Action clonidine HCl 0.1 mg Tablet 0.1 mg PO Q4H PRN (Reason: anxiety) 30 Days Qty: 60 0RF Protocol: Hold for SBP< HOLD for SBP < : 90 olanzapine 2.5 mg Tablet 2.5 mg PO BID@0900,1400 30 Days Qty: 60 0RF bupropion HCl 300 mg Tablet Extended Release 24 Hr 300 mg PO DAILY 30 Days Qty: 30 0RF prednisone 10 mg tablet 40 mg PO DAILY Qty: 16 0RF buprenorphine-naloxone [Suboxone] 8-2 mg film 1 film sublingual TID PRN (Reason: pain, severe) 4 Days Qty: 10 0RF Discharge Orders: Discharge Order (Routine); Ordered 08/21/22 Ordered By: Pk Rey Diet: Regular diet Activity on Discharge: As tolerated Stand Alone Forms: Patient Portal Discharge page, Community Support Care Plan Goals: Maintain mood and safe behaviors Take medications as prescribed Continue to pursue sobriety Practice coping skills Continue with outpatient providers and reach out to them as needed Health Concerns: Mood stability and behaviors Sobriety COPD Plan of Treatment: Follow up with your PCP, psychiatric provider and other outpatient providers regarding above concerns Take medications as prescribed Assessment: Risk assessment at time of discharge:? Patient was interviewed prior to discharge and found to be fully oriented and without any SI or HI. Patient has insight and demonstrates good judgment in terms of wanting to pursue treatment. Patient is not in imminent risk of harm to self or others and has a safety plan that includes presenting to the closest ER or calling 911 if feeling unsafe.? Patient has been observed closely by nursing and unit staff throughout admission; patient has not engaged in any behaviors that suggest dangerousness to self or others and has demonstrated appropriate behaviors and impulse control Discharge Date/Time: 08/21/22 13:15
[2022-08-21] MEDS: hydrOXYzine HCL 25 MG TABLET PO (12:41)
== END 2022-08-21 13:15 | disposition home or self-care (01) | DRG 751 ==
LOC: HO.ED 08-16 14:40 → HO.PM5 08-16 16:57
PROVIDERS: Emergency Medicine; Admitting Provider Clinical Nurse Specialist Psychiatric/Mental Health, Adult; Emergency Provider Emergency Medicine; PCP Internal Medicine; Visit Provider Psychiatry & Neurology Psychiatry
DX: F33.2 Major depressive disorder, recurrent severe without psychotic features (principal); R45.851 Suicidal ideations; F10.20 Alcohol dependence, uncomplicated; F11.20 Opioid dependence, uncomplicated; F41.9 Anxiety disorder, unspecified; F17.210 Nicotine dependence, cigarettes, uncomplicated; J45.909 Unspecified asthma, uncomplicated; Y90.8 Blood alcohol level of 240 mg/100 ml or more; Z20.822 Contact with and (suspected) exposure to COVID-19; Z71.6 Tobacco abuse counseling; Z88.8 Allergy status to other drugs, medicaments and biological substances; Z79.899 Other long term (current) drug therapy
CPT/HCPCS: 0241U; 36415; 71046; 80048; 80053; 80061; 80076; 80307; 81001; 82077; 82607; 82746; 83036; 83735; 84439; 84443; 85025; 87635; 93005; 99285; S9485

== ENCOUNTER 2022-08-25 13:12 | Inpatient (IN) | payer MEDICAID, OTHER, SELFPAY ==
--- NOTE | 2022-08-25 | ECG_ITS ---
Test Reason : MEDICAL CLEARANCE/POISON CONTROL Blood Pressure : / mmHG Vent. Rate : 079 BPM Atrial Rate : 079 BPM P-R Int : 176 ms QRS Dur : 092 ms QT Int : 416 ms P-R-T Axes : 025 -28 030 degrees QTc Int : 477 ms Normal sinus rhythm Low voltage QRS Borderline ECG When compared with ECG of 25-AUG-2022 14:27, No significant change was found Referred By: Yael Sutherland Electronically Signed By:Meño Muller
--- NOTE | ~2022-08-25 | XR_ITS ---
EXAMINATION: XR CHEST CLINICAL INFORMATION: Short of breath COMPARISON: 08/15/2022 TECHNIQUE: Frontal view of the chest was obtained. FINDINGS: The lungs are well expanded. Linear left basilar atelectasis. No dense consolidation. No edema or effusion. No pneumothorax. The cardiomediastinal silhouette is within normal limits. No osseous abnormality. XR/XR chest 1V IMPRESSION: Linear left basilar atelectasis. Otherwise clear lungs.
[2022-08-25 13:47] VITALS: BP 107/65; BP 113/78; PULSE 79; PULSE 84; RESP 16; TEMP 36.8; O2SAT 92; O2SAT 93; BMI 25.5
--- NOTE | 2022-08-25 14:05 | ECG_ITS ---
Test Reason : od Blood Pressure : / mmHG Vent. Rate : 083 BPM Atrial Rate : 083 BPM P-R Int : 174 ms QRS Dur : 082 ms QT Int : 384 ms P-R-T Axes : 035 -19 039 degrees QTc Int : 451 ms Normal sinus rhythm Possible Inferior infarct , age undetermined Abnormal ECG When compared with ECG of 15-AUG-2022 17:00, QRS duration has decreased Referred By: Generic ED Physician Electronically Signed By:Meño Muller
[2022-08-25 14:29] VITALS: BP 96/60; PULSE 82; RESP 13; O2SAT 95
[2022-08-25 14:34] LABS: MANUAL DIFF FLAG NO
[2022-08-25 14:37] LABS: Basophils Absolute Auto 0.1 X10*3/uL (0.0-0.2); Basophils Percent Auto 1.1 % (0-2); Eosinophils Absolute Auto 0.2 X10*3/uL (0.0-0.4); Eosinophils Percent Auto 2.8 % (0-4); Hemoglobin 12.1 g/dl (14.0-18.0); Imm Gran Abs Auto 0.03 X10*3/uL (0.00-0.03); Imm Gran Pct Auto 0.4 % (0.0-0.4); Lymphocytes Absolute Auto 1.5 X10*3/uL (1.2-4.9); Lymphocytes Percent Auto 20.6 % (20-40); Mean Corpuscular HGB Conc 33.6 g/dl (31.0-36.0); Mean Corpuscular Hemoglobin 32.4 pg (27.0-33.0); Mean Corpuscular Volume 96.3 fL (80.0-98.0); Monocytes Absolute Auto 0.6 X10*3/uL (0.1-1.2); Monocytes Percent Auto 8.6 % (2-11); Neutrophils Absolute Auto 4.9 x10*3/uL (2.0-8.3); Neutrophils Percent Auto 66.5 % (45-73); Platelet Count 168 X10*3/uL (160-400); Red Blood Count 3.74 X10*6/uL (4.60-5.80); Red Cell Distribution Width 15.1 % (11.0-16.0); White Blood Count 7.4 X10*3/uL (4.8-10.8)
[2022-08-25 14:39] LABS: Appearance Urine Clear; Color Urine Yellow; Glucose Urine UA Negative (Negative); Leukocyte Esterase Urine Negative (Negative); Nitrite Urine Negative (Negative); Urine Blood Negative (Negative); Urine Ketones Negative (Negative); Urine Protein Negative (Neg-Trace)
[2022-08-25 14:44] LABS: Bacteria Urine None Seen (None Seen); Hyaline Casts Urine 0-2 /LPF (0-2); RBC Urine 0-2 /HPF (0-2); Squamous Epithelial Cell Urine 0-2 /HPF (0-2); WBC Urine 0-5 /HPF (0-5)
[2022-08-25 14:48] LABS: Amphetamine Screen Urine Not Detected (Not Detect); Barbiturates, Urine POSITIVE (Not Detect); Benzodiazepines Screen Urine Not Detected (Not Detect); Cannabinoid Screen Urine Not Detected (Not Detect); Cocaine Screen Urine Not Detected (Not Detect); Fentanyl, urine Not Detected (Not Detect); Opiate Screen Urine Not Detected (Not Detect); Phencyclidine Screen Urine Not Detected (Not Detect)
[2022-08-25 14:54] LABS: COVID-19 Test Negative (Negative); IDNOW Serial# 9DB6401D
[2022-08-25 14:59] LABS: Alanine Aminotransferase 56 U/L (0-40); Albumin Level 3.7 g/dL (3.5-5.0); Alkaline Phosphatase 175 U/L (39-117); Anion Gap 14 (12-20); Aspartate Amino Transferase 116 U/L (5-37); Bilirubin Direct < 0.2 mg/dL (0.0-0.5); Bilirubin Total 0.4 mg/dL (0.0-1.0); Blood Urea Nitrogen 4 mg/dL (9-16); Calcium 8.5 mg/dL (8.4-10.2); Carbon Dioxide 22 mmol/L (22-29); Chloride 108 mmol/L (96-108); Creatinine Clr Calc Pharmacy 134.1; Estimated Glomerular Filt Rate > 60; Glucose Random 89 mg/dL (60-115); Lipase 38 U/L (8-78); Potassium 3.4 mmol/L (3.3-5.1); Sodium 141 mmol/L (135-145); Total Protein 7.1 g/dL (6.5-8.0)
[2022-08-25 15:00] LABS: Ethanol 197 mg/dL
--- NOTE | 2022-08-25 15:16 | ED.PSYCH ---
HPI - Psych General Chief Complaint: Psychiatric Symptoms Stated Complaint: SI,TOOK [id number] PROZAC Time Seen by Provider: 08/25/22 14:22 Source: patient Mode of arrival: EMS Limitations: no limitations History of Present Illness HPI Narrative: patient is an alcoholic and is losing everything. Patient was admitted last week to . Patient states he tried to kill himself by taking 18 prozacs 3 hours ago. MD complaint: suicidal ideation Onset (ago): year(s) Duration: constant Context: recent alcohol abuse Associated psychiatric symptoms: depression and suicidal ideation If self harm: admits thoughts of self harm, has plan and has acted on plan Related Data Home Medications Medication Instructions Recorded Confirmed buprenorphine 8 mg-naloxone 2 mg 1 strip sublingual TID 08/15/22 08/25/22 sublingual film (Suboxone) docusate sodium 100 mg capsule 1 cap PO BID 08/15/22 08/25/22 gabapentin 100 mg capsule 3 cap PO TID 08/15/22 08/25/22 Previous Rx's Medication Instructions Recorded acamprosate 333 mg tablet,delayed 333 mg PO TID #0 tabs 08/21/22 release fluoxetine 20 mg capsule 60 mg PO DAILY 30 days #90 caps 08/21/22 folic acid 1 mg tablet 1 mg PO DAILY 30 days #30 tabs 08/21/22 nicotine 21 mg/24 hr daily 21 mg transdermal DAILY #0 ea 08/21/22 transdermal patch olanzapine 2.5 mg tablet 2.5 mg PO DAILY 30 days #30 tabs 08/21/22 thiamine mononitrate (vit B1) 100 100 mg PO DAILY 30 days #30 tabs 08/21/22 mg tablet trazodone 50 mg tablet 50 mg PO BEDTIME PRN Insomnia 30 08/21/22 days #30 tabs albuterol sulfate 90 mcg/actuation 1 puff inhalation Q6H PRN wheezing 08/23/22 aerosol inhaler (Ventolin HFA) 30 days #6.7 grams Allergies Allergy/AdvReac Type Severity Reaction Status Date / Time levofloxacin Allergy Unknown Unknown Verified 08/16/22 16:48 chlorpromazine Allergy Unknown unknown Uncoded 08/16/22 16:47 Review of Systems Review of Systems: Yes all other systems are reviewed and are negative Neurologic: Denies Sensory deficit (Neuro) Psychiatric: Psychiatric: Reports suicidal ideation PMFSH Past Medical History Medical History Alcohol use disorder, severe, dependence Asthma COPD (chronic obstructive pulmonary disease) MDD (major depressive disorder) Pancreatitis Social History Social History Household Members: None Housing: Apartment Do you presently have visiting nurse or other home services: No Alcohol intake: current Alcohol intake frequency: a few times a week Patient Tobacco Use Status: Current everyday Tobacco user Tobacco use type: Cigarette Cigarette Packs Per Day: 0.5 Cigarettes Per Day: 10.0 Years Smoked: 38 e-Cigarette/Vaping Use: Never Used Second Hand Smoke Exposure: Yes Advance Directives: No Advance Directives Information Provided: No Healthcare Proxy: No Guardian: No service: No Sexual orientation: Straight/Heterosexual Physical Exam Vital Signs: Vital Signs: Last Vital Signs Temp 97.1 F 08/25/22 22:03 Pulse 66 08/25/22 22:03 Resp 18 08/25/22 22:03 BP 112/75 08/25/22 22:03 Pulse Ox 98 08/25/22 22:03 O2 Del Method 08/25/22 22:03 O2 Flow Rate 2 08/25/22 16:00 BMI result Body Mass Index 25.5 Const: Other: tearful General: healthy appearing Nutritional Appearance: average body habitus Orientation/consciousness: oriented to person and patient oriented x3 Limitations: no limitations HEENT: Head: Yes normal to inspection Ears: external ears normal General nose exam: Normal external nose present Mouth: Normal oral and palatal mucosa present and oropharynx normal Throat: Yes posterior oropharynx normal Eyes: General: appearance normal, both eyes and all related structures Neck: Other: supple Neck: Yes normal visual inspection Chest: Chest palpation & inspection: normal inspection of the chest Resp: Auscultation: clear to auscultation bilaterally Cardio: Jugular venous distension: no JVD Rate: regular rate Rhythm: regular rhythm Heart sounds: S1 normal heart sound present and S2 normal heart sound present GI: Inspection: Yes normal to inspection Palpation (GI): Soft to palpation, nontender and No hepatosplenomegaly present Auscultation: normal bowel sounds : General: Yes no CVA tenderness Back/Spine/Pelvis: Back: no CVA tenderness Skin: General skin exam: no rashes or lesions noted Neuro: General: oriented to person and patient oriented x3 Cranial nerves: Yes CN's II-XII intact bilaterally Motor exam (neuro): 5/5 motor strength present throughout Sensory Exam: No Sensory deficit (Neuro) Extrem: General: Yes normal to inspection Psych: Other: tearful Medications Administered Discontinued Medications Generic Name Dose Route Start Last Admin Trade Name Freq PRN Reason Stop Dose Admin Albuterol Sulfate 5 mg 08/25/22 19:47 08/25/22 20:14 Albuterol Sulfate (0.083%) 2.5 Mg/3 Ml Vial.Neb INHALE 08/25/22 19:48 5 mg ONCE ONE Administration Medical Decision Making Differential Diagnosis Differential Diagnoses: The differential diagnosis associated with the presentation includes (depression, overdose, suicide attempt) Lab Data 08/25/22 14:27 08/25/22 14:27 Labs: Lab Results 08/25/22 08/25/22 08/25/22 Range/Units 14:27 14:27 14:27 WBC 7.4 (4.8-10.8) X10*3/uL RBC 3.74 L (4.60-5.80) X10*6/uL Hgb 12.1 L (14.0-18.0) g/dl Hct 36.0 L (42.0-52.0) % MCV 96.3 (80.0-98.0) fL MCH 32.4 (27.0-33.0) pg MCHC 33.6 (31.0-36.0) g/dl RDW 15.1 (11.0-16.0) % Plt Count 168 (160-400) X10*3/uL MPV 11.0 (9.4-12.4) fL Immature Gran % (Auto) 0.4 (0.0-0.4) % Neut % (Auto) 66.5 (45-73) % Lymph % (Auto) 20.6 (20-40) % [place] % (Auto) 8.6 (2-11) % Eos % (Auto) 2.8 (0-4) % Baso % (Auto) 1.1 (0-2) % Lymph # (Auto) 1.5 (1.2-4.9) X10*3/uL [place] # (Auto) 0.6 (0.1-1.2) X10*3/uL Eos # (Auto) 0.2 (0.0-0.4) X10*3/uL Baso # (Auto) 0.1 (0.0-0.2) X10*3/uL Abs Immat Gran (auto) 0.03 (0.00-0.03) X10*3/uL Absolute Neuts (auto) 4.9 (2.0-8.3) x10*3/uL Absolute Nucleated RBC 0.000 (0.0-0.012) X10*3/uL Nucleated RBC % (auto) 0.0 (0.0-0.2) /100WBC Sodium 141 (135-145) mmol/L Potassium 3.4 (3.3-5.1) mmol/L Chloride 108 (96-108) mmol/L Carbon Dioxide 22 (22-29) mmol/L Anion Gap 14 (12-20) BUN 4 L (9-16) mg/dL Creatinine 0.65 (0.5-1.4) mg/dL Estim Creat Clear Calc 134.1 Estimated GFR > 60 Random Glucose 89 (60-115) mg/dL Calcium 8.5 (8.4-10.2) mg/dL Magnesium (1.6-2.6) mg/dL Total Bilirubin 0.4 (0.0-1.0) mg/dL Direct Bilirubin < 0.2 (0.0-0.5) mg/dL AST 116 H (5-37) U/L ALT 56 H (0-40) U/L Alkaline Phosphatase 175 H (39-117) U/L Total Protein 7.1 (6.5-8.0) g/dL Albumin 3.7 (3.5-5.0) g/dL Lipase 38 (8-78) U/L Urine Color Urine Appearance Urine pH (5.0-9.0) Ur Specific [place] (1.005-1.025) Urine Protein (Neg-Trace) mg/dL Urine Glucose (UA) (Negative) mg/dL Urine Ketones (Negative) mg/dL Urine Blood (Negative) Urine Nitrite (Negative) Ur Leukocyte Esterase (Negative) Urine RBC (0-2) /HPF Urine WBC (0-5) /HPF Ur Squamous Epith Cells (0-2) /HPF Urine Bacteria (None Seen) Hyaline Casts (0-2) /LPF Salicylates (15-30) mg/dL Urine Opiates Screen (Not Detect) Urine Fentanyl Screen (Not Detect) Acetaminophen (<30) mcg/mL Ur Barbiturates Screen (Not Detect) Ur Phencyclidine Scrn (Not Detect) Ur Amphetamines Screen (Not Detect) U Benzodiazepines Scrn (Not Detect) Urine Cocaine Screen (Not Detect) U Marijuana (THC) Screen (Not Detect) Ethyl Alcohol 197 mg/dL COVID-19 (DB) (Negative) COVID-19 Clin Com 08/25/22 08/25/22 08/25/22 Range/Units 14:27 14:27 14:27 WBC (4.8-10.8) X10*3/uL RBC (4.60-5.80) X10*6/uL Hgb (14.0-18.0) g/dl Hct (42.0-52.0) % MCV (80.0-98.0) fL MCH (27.0-33.0) pg MCHC (31.0-36.0) g/dl RDW (11.0-16.0) % Plt Count (160-400) X10*3/uL MPV (9.4-12.4) fL Immature Gran % (Auto) (0.0-0.4) % Neut % (Auto) (45-73) % Lymph % (Auto) (20-40) % [place] % (Auto) (2-11) % Eos % (Auto) (0-4) % Baso % (Auto) (0-2) % Lymph # (Auto) (1.2-4.9) X10*3/uL [place] # (Auto) (0.1-1.2) X10*3/uL Eos # (Auto) (0.0-0.4) X10*3/uL Baso # (Auto) (0.0-0.2) X10*3/uL Abs Immat Gran (auto) (0.00-0.03) X10*3/uL Absolute Neuts (auto) (2.0-8.3) x10*3/uL Absolute Nucleated RBC (0.0-0.012) X10*3/uL Nucleated RBC % (auto) (0.0-0.2) /100WBC Sodium (135-145) mmol/L Potassium (3.3-5.1) mmol/L Chloride (96-108) mmol/L Carbon Dioxide (22-29) mmol/L Anion Gap (12-20) BUN (9-16) mg/dL Creatinine (0.5-1.4) mg/dL Estim Creat Clear Calc Estimated GFR Random Glucose (60-115) mg/dL Calcium (8.4-10.2) mg/dL Magnesium (1.6-2.6) mg/dL Total Bilirubin (0.0-1.0) mg/dL Direct Bilirubin (0.0-0.5) mg/dL AST (5-37) U/L ALT (0-40) U/L Alkaline Phosphatase (39-117) U/L Total Protein (6.5-8.0) g/dL Albumin (3.5-5.0) g/dL Lipase (8-78) U/L Urine Color Yellow Urine Appearance Clear Urine pH 6.0 (5.0-9.0) Ur Specific [place] 1.010 (1.005-1.025) Urine Protein Negative (Neg-Trace) mg/dL Urine Glucose (UA) Negative (Negative) mg/dL Urine Ketones Negative (Negative) mg/dL Urine Blood Negative (Negative) Urine Nitrite Negative (Negative) Ur Leukocyte Esterase Negative (Negative) Urine RBC 0-2 (0-2) /HPF Urine WBC 0-5 (0-5) /HPF Ur Squamous Epith Cells 0-2 (0-2) /HPF Urine Bacteria None Seen (None Seen) Hyaline Casts 0-2 (0-2) /LPF Salicylates (15-30) mg/dL Urine Opiates Screen Not Detected (Not Detect) Urine Fentanyl Screen Not Detected (Not Detect) Acetaminophen (<30) mcg/mL Ur Barbiturates Screen POSITIVE H (Not Detect) Ur Phencyclidine Scrn Not Detected (Not Detect) Ur Amphetamines Screen Not Detected (Not Detect) U Benzodiazepines Scrn Not Detected (Not Detect) Urine Cocaine Screen Not Detected (Not Detect) U Marijuana (THC) Screen Not Detected (Not Detect) Ethyl Alcohol mg/dL COVID-19 (DB) Negative (Negative) COVID-19 Clin Com See Note 02/03/23 Range/Units 16:01 WBC (4.8-10.8) X10*3/uL RBC (4.60-5.80) X10*6/uL Hgb (14.0-18.0) g/dl Hct (42.0-52.0) % MCV (80.0-98.0) fL MCH (27.0-33.0) pg MCHC (31.0-36.0) g/dl RDW (11.0-16.0) % Plt Count (160-400) X10*3/uL MPV (9.4-12.4) fL Immature Gran % (Auto) (0.0-0.4) % Neut % (Auto) (45-73) % Lymph % (Auto) (20-40) % [place] % (Auto) (2-11) % Eos % (Auto) (0-4) % Baso % (Auto) (0-2) % Lymph # (Auto) (1.2-4.9) X10*3/uL [place] # (Auto) (0.1-1.2) X10*3/uL Eos # (Auto) (0.0-0.4) X10*3/uL Baso # (Auto) (0.0-0.2) X10*3/uL Abs Immat Gran (auto) (0.00-0.03) X10*3/uL Absolute Neuts (auto) (2.0-8.3) x10*3/uL Absolute Nucleated RBC (0.0-0.012) X10*3/uL Nucleated RBC % (auto) (0.0-0.2) /100WBC Sodium (135-145) mmol/L Potassium (3.3-5.1) mmol/L Chloride (96-108) mmol/L Carbon Dioxide (22-29) mmol/L Anion Gap (12-20) BUN (9-16) mg/dL Creatinine (0.5-1.4) mg/dL Estim Creat Clear Calc Estimated GFR Random Glucose (60-115) mg/dL Calcium (8.4-10.2) mg/dL Magnesium 1.8 (1.6-2.6) mg/dL Total Bilirubin (0.0-1.0) mg/dL Direct Bilirubin (0.0-0.5) mg/dL AST (5-37) U/L ALT (0-40) U/L Alkaline Phosphatase (39-117) U/L Total Protein (6.5-8.0) g/dL Albumin (3.5-5.0) g/dL Lipase (8-78) U/L Urine Color Urine Appearance Urine pH (5.0-9.0) Ur Specific [place] (1.005-1.025) Urine Protein (Neg-Trace) mg/dL Urine Glucose (UA) (Negative) mg/dL Urine Ketones (Negative) mg/dL Urine Blood (Negative) Urine Nitrite (Negative) Ur Leukocyte Esterase (Negative) Urine RBC (0-2) /HPF Urine WBC (0-5) /HPF Ur Squamous Epith Cells (0-2) /HPF Urine Bacteria (None Seen) Hyaline Casts (0-2) /LPF Salicylates < 5.0 L (15-30) mg/dL Urine Opiates Screen (Not Detect) Urine Fentanyl Screen (Not Detect) Acetaminophen < 17 (<30) mcg/mL Ur Barbiturates Screen (Not Detect) Ur Phencyclidine Scrn (Not Detect) Ur Amphetamines Screen (Not Detect) U Benzodiazepines Scrn (Not Detect) Urine Cocaine Screen (Not Detect) U Marijuana (THC) Screen (Not Detect) Ethyl Alcohol mg/dL COVID-19 (DB) (Negative) COVID-19 Clin Com Independent Interpretation I performed an independent interpretation of an: EKG (sinus 80, no st or twave changes) Discharge Plan Discharge Clinical Impression: Suicidal ideation, MDD (major depressive disorder), Suicide attempt by substance overdose Patient Disposition: Admitted As Inpatient Interventions: [place]on-Suicide Risk Severity Scale Last Done: 08/25/22 21:08
--- NOTE | 2022-08-25 15:28 | PC.NURSE ---
pt belongings is in locker 8 in the pod.
[2022-08-25 16:00] VITALS: BP 106/70; PULSE 74; RESP 16; TEMP 36.8; O2SAT 95
--- NOTE | 2022-08-25 16:23 | PC.NURSE ---
Patient talking inappropriately with MHT saying he can make her feel real good and other things. Going to switch her out with male MHT.
[2022-08-25 16:26] LABS: Acetaminophen LAB < 17 mcg/mL (<30); Magnesium 1.8 mg/dL (1.6-2.6); Salicylate < 5.0 mg/dL (15-30)
[2022-08-25 18:00] VITALS: BP 102/74; PULSE 86; RESP 16; TEMP 37.1; O2SAT 96
[2022-08-25] MEDS: Albuterol Sulfate (0.083%) 2.5 MG/3 ML VIAL.NEB 5 MG INHALE (20:14)
--- NOTE | 2022-08-25 20:38 | PC.NURSE ---
Spoke with poison control for an update on the pt. Reported pt has been stable, vitals WNL, pt is A&Ox4. Poison Control reccomended 1 EKG prior to transfer upstairs. Yael aware, order will be put in.
[2022-08-25 22:03] VITALS: BP 112/75; PULSE 66; RESP 18; TEMP 36.2; O2SAT 98
--- NOTE | 2022-08-25 22:42 | PC.NURSE ---
Spoke with poison control to report results of EKG.
[2022-08-26 00:19] VITALS: BP 110/63; PULSE 77; RESP 13; TEMP 36.8; O2SAT 94
[2022-08-26 00:46] VITALS: BP 140/84; PULSE 96; RESP 18; TEMP 36.9; O2SAT 95
[2022-08-26] MEDS: Albuterol Sulfate 90 MCG 8 GM INHALER 1 PUFF INHALE ×3 (01:14→23:15)
[2022-08-26] MEDS: LORazepam 1 MG TABLET 2 MG PO ×4 (01:17→23:10)
[2022-08-26] MEDS: traZODone HCL 50 MG TABLET PO ×2 (01:17→23:10)
[2022-08-26] MEDS: hydrOXYzine HCL 25 MG TABLET PO ×2 (01:17→23:10)
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
[2022-08-26 06:00] VITALS: BP 138/82; PULSE 88; RESP 16; TEMP 36.7; O2SAT 95
[2022-08-26] MEDS: Acetaminophen 325 MG TABLET 650 MG PO (10:12)
[2022-08-26] MEDS: Folic Acid 1 MG TABLET PO (10:12)
[2022-08-26] MEDS: FLUoxetine HCl 20 MG CAPSULE 60 MG PO (10:12)
[2022-08-26] MEDS: Acamprosate Calcium 333 MG TABLET.DR PO ×3 (10:12→23:09)
[2022-08-26] MEDS: Gabapentin 300 MG CAPSULE PO ×3 (10:13→23:10)
[2022-08-26] MEDS: Thiamine HCL 100 MG TABLET PO (10:13)
[2022-08-26] MEDS: Docusate Sodium 100 MG CAPSULE PO ×2 (10:13→23:10)
[2022-08-26] MEDS: Nicotine 21 MG PATCH.TD24 TRANSDERMA (10:13)
[2022-08-26] MEDS: OLANZapine 2.5 MG TABLET PO (10:13)
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
[2022-08-26 22:55] VITALS: BP 139/89; PULSE 65; RESP 18; TEMP 37.2; O2SAT 93
[2022-08-27 06:00] VITALS: BP 128/82; PULSE 68; RESP 16; TEMP 36.8; O2SAT 95
[2022-08-27] MEDS: Folic Acid 1 MG TABLET PO (08:27)
[2022-08-27] MEDS: Acetaminophen 325 MG TABLET 650 MG PO ×2 (08:27→21:32)
[2022-08-27] MEDS: Acamprosate Calcium 333 MG TABLET.DR PO ×3 (08:27→21:32)
[2022-08-27] MEDS: LORazepam 1 MG TABLET 2 MG PO ×2 (08:28→15:16)
[2022-08-27] MEDS: OLANZapine 2.5 MG TABLET PO (08:28)
[2022-08-27] MEDS: Thiamine HCL 100 MG TABLET PO (08:28)
[2022-08-27] MEDS: FLUoxetine HCl 20 MG CAPSULE 60 MG PO (08:28)
[2022-08-27] MEDS: Nicotine 21 MG PATCH.TD24 TRANSDERMA (08:28)
[2022-08-27] MEDS: Gabapentin 300 MG CAPSULE PO ×3 (08:28→21:31)
[2022-08-27] MEDS: Docusate Sodium 100 MG CAPSULE PO ×2 (08:28→21:32)
--- NOTE | 2022-08-27 15:42 | P.PNPSI_ITS ---
Subjective Subjective Date of Service: 08/27/22 Reason For Visit: Suicide attempt Interim History: same presentation as yesterday. lying in bed in darkened room. feeling crappy, and physically week. per staff, no change from yesterday. isolative, wants sleep. scoring 12-ry on CIWA. declining suboxone. anx/dep /. slept well overnight. Mental Status Exam Mental Status Exam Narrative: Pt is rousable and oriented; behavior is cooperative; patient is not in emoti onal distress; dressed in Hospital attire, scruffy, unkempt hair, marginal hygiene; mood is described as crappy and affect congruent; eye contact appropriate; Speech is normal rate, volume and prosody are not pressured; some psychomotor retardation present; thought process is organized and goal directed; Thought content is on missing his ; denies SI/HI/AVH. Patients insight and judgment are intact. Diagnostics Vital Signs (24Hr): Vital Signs - 24 hr 08/26/22 22:55 08/27/22 06:00 Temperature 99.0 F 98.3 F Pulse Rate 65 68 Respiratory Rate 18 16 Blood Pressure 139/89 128/82 Pulse Oximetry 93 95 Oxygen Delivery Method Room Air Room Air BMI result Body Mass Index 25.5 Labs 08/25/22 14:27 08/25/22 14:27 Labs: Laboratory Results - last 48 hr 08/25/22 16:01 Magnesium 1.8 Salicylates < 5.0 L Acetaminophen < 17 Medications Medications Current Medications Acamprosate (Acamprosate Calcium 333 Mg Tablet.) 333 mg PO TID [facility] Last Admin: 08/27/22 15:16 Dose: 333 mg Acetaminophen (Acetaminophen 325 Mg Tablet) 650 mg PO Q6H PRN PRN Reason: Headache/Pain Mild Scale (1-3) Last Admin: 08/27/22 08:27 Dose: 650 mg Al Hydroxide/Mg Hydroxide (Magnesium Hydrox/Alum Hydrox 30 Ml Oral.Susp) 30 ml PO Q6H PRN PRN Reason: Heartburn/Nausea Albuterol Sulfate (Albuterol Sulfate 90 Mcg 8 Gm Inhaler) 1 puff INHALE RQ6H PRN PRN Reason: wheezing Last Admin: 08/26/22 23:15 Dose: 1 puff Buprenorphine/Naloxone (Buprenorphine/Naloxone 8/2 Mg Film) 1 film SUBLINGUAL TID PRN PRN Reason: severe pain Docusate Sodium (Docusate Sodium 100 Mg Capsule) 100 mg PO BID [facility] Last Admin: 08/27/22 08:28 Dose: 100 mg Fluoxetine HCl (Fluoxetine Hcl 20 Mg Capsule) 60 mg PO DAILY [facility] Last Admin: 08/27/22 08:28 Dose: 60 mg Folic Acid (Folic Acid 1 Mg Tablet) 1 mg PO DAILY [facility] Last Admin: 08/27/22 08:27 Dose: 1 mg Gabapentin (Gabapentin 300 Mg Capsule) 300 mg PO TID [facility] Last Admin: 08/27/22 15:16 Dose: 300 mg Hydroxyzine HCl (Hydroxyzine Hcl 25 Mg Tablet) 25 mg PO Q6H PRN PRN Reason: Anxiety Last Admin: 08/26/22 23:10 Dose: 25 mg Lorazepam (Lorazepam 1 Mg Tablet) 1 mg PO Q2H PRN PRN Reason: CIWA 8-11 Lorazepam (Lorazepam 1 Mg Tablet) 2 mg PO Q2H PRN PRN Reason: CIWA > 11 Last Admin: 08/27/22 15:16 Dose: 2 mg Magnesium Hydroxide (Milk Of Magnesia 30 Ml Oral.Susp) 30 ml PO DAILY PRN PRN Reason: Constipation Nicotine (Nicotine 21 Mg Patch.Td24) 21 mg TRANSDERMA DAILY [facility] Last Admin: 08/27/22 08:28 Dose: 21 mg Nicotine Polacrilex (Nicotine Polacrilex 2 Mg Gum) 4 mg BUCCAL Q2H PRN PRN Reason: Nicotine Cravings Olanzapine (Olanzapine 2.5 Mg Tablet) 2.5 mg PO DAILY [facility] Last Admin: 08/27/22 08:28 Dose: 2.5 mg Thiamine HCl (Thiamine Hcl 100 Mg Tablet) 100 mg PO DAILY [facility] Last Admin: 08/27/22 08:28 Dose: 100 mg Trazodone HCl (Trazodone Hcl 50 Mg Tablet) 50 mg PO BEDTIME PRN PRN Reason: Insomnia Last Admin: 08/26/22 23:10 Dose: 50 mg Trazodone HCl (Trazodone Hcl 50 Mg Tablet) 50 mg PO BEDTIME MRX1 PRN PRN Reason: Insomnia Last Admin: 08/26/22 01:17 Dose: 50 mg Allergies Allergies Allergy/AdvReac Type Severity Reaction Status Date / Time levofloxacin Allergy Unknown Unknown Verified 08/16/22 16:48 chlorpromazine Allergy Unknown unknown Uncoded 08/16/22 16:47 Assessment & Plan Assessment & Plan (1) Suicide attempt by substance overdose: Status: Acute Code(s): T65.92XA - Toxic effect of unspecified substance, intentional self-harm, initial encounter (2) Alcohol use disorder, severe, dependence: Status: Acute Code(s): F10.20 - Alcohol dependence, uncomplicated (3) Opioid use disorder: Status: Acute Code(s): F11.90 - Opioid use, unspecified, uncomplicated (4) MDD (major depressive disorder): Status: Acute Code(s): F32.9 - Major depressive disorder, single episode, unspecified Plan 08/26: restart meds from most recent stay on [facility]. detox from alcohol and barbiturates, although pt denies use of barbiturates and only discharged from [facility] 5 days ago. 08/27: make suboxone PRN as pt declined it and says he only takes it for pain. plan to structure taper tomorrow. otherwise continue current mgmt. Reason for contiued inpatient stay Substantial Risk for: harm to self, inability to function and rapid decompensation Time Spent With Patient Time: Total time managing care of this patient today ____ minutes.
[2022-08-27] MEDS: Albuterol Sulfate 90 MCG 8 GM INHALER 1 PUFF INHALE (21:28)
[2022-08-27 21:30] VITALS: BP 136/83; PULSE 74; RESP 20; TEMP 36.8; O2SAT 93
[2022-08-27] MEDS: traZODone HCL 50 MG TABLET PO (21:31)
[2022-08-28 08:50] VITALS: BP 125/89; PULSE 89; TEMP 36.9; O2SAT 97
[2022-08-28] MEDS: Albuterol Sulfate 90 MCG 8 GM INHALER 1 PUFF INHALE ×2 (08:50→18:03)
[2022-08-28] MEDS: FLUoxetine HCl 20 MG CAPSULE 60 MG PO (08:55)
[2022-08-28] MEDS: Nicotine 21 MG PATCH.TD24 TRANSDERMA (08:55)
[2022-08-28] MEDS: Acamprosate Calcium 333 MG TABLET.DR PO (08:56)
[2022-08-28] MEDS: Gabapentin 300 MG CAPSULE PO ×3 (08:56→20:47)
[2022-08-28] MEDS: Docusate Sodium 100 MG CAPSULE PO ×2 (08:56→20:47)
[2022-08-28] MEDS: Thiamine HCL 100 MG TABLET PO (08:57)
[2022-08-28] MEDS: OLANZapine 2.5 MG TABLET PO (08:57)
[2022-08-28] MEDS: Folic Acid 1 MG TABLET PO (08:57)
[2022-08-28] MEDS: Buprenorphine/Naloxone 8/2 mg FILM 1 FILM SUBLINGUAL (09:01)
--- NOTE | 2022-08-28 14:20 | HO.PSYCHPN ---
Subjective Subjective Date of Service: 08/28/22 Reason For Visit: Suicide attempt Interim History: up and about today, seen eating at his desk with room lights on. able to laugh, engaged, clearly no longer as physically uncomfortable as prior. anxious, depressed, though. interested in antabuse, informed of ativan taper to be done today. campral DCed. per staff, isolative, napping. pleasant but guarded. did not eat yesterday. scored 2, 3 on CIWA today. 12s yesterday. Mental Status Exam Mental Status Exam Narrative: Pt is alert and oriented; behavior is cooperative; patient is not in emotional distress; dressed in street clothes, adequate hygiene; moo depressed and anxious; eye contact appropriate; Speech is normal rate, volume and prosody are not pressured; some psychomotor agitation present - leg bouncing; thought process is organized and goal directed; Thought content is on missing his ; denies SI/HI/AVH. Patients insight and judgment are intact. Diagnostics Vital Signs (24Hr): Vital Signs - 24 hr 08/27/22 21:30 08/28/22 08:50 Temperature 98.2 F 98.5 F Pulse Rate 74 89 Respiratory Rate 20 Blood Pressure 136/83 125/89 Pulse Oximetry 93 97 Oxygen Delivery Method Room Air Room Air BMI result Body Mass Index 25.5 Labs 08/25/22 14:27 08/25/22 14:27 Medications Medications Current Medications Acetaminophen (Acetaminophen 325 Mg Tablet) 650 mg PO Q6H PRN PRN Reason: Headache/Pain Mild Scale (1-3) Last Admin: 08/27/22 21:32 Dose: 650 mg Al Hydroxide/Mg Hydroxide (Magnesium Hydrox/Alum Hydrox 30 Ml Oral.Susp) 30 ml PO Q6H PRN PRN Reason: Heartburn/Nausea Albuterol Sulfate (Albuterol Sulfate 90 Mcg 8 Gm Inhaler) 1 puff INHALE RQ6H PRN PRN Reason: wheezing Last Admin: 08/28/22 08:50 Dose: 1 puff Buprenorphine/Naloxone (Buprenorphine/Naloxone 8/2 Mg Film) 1 film SUBLINGUAL TID PRN PRN Reason: severe pain Last Admin: 08/28/22 09:01 Dose: 1 film Docusate Sodium (Docusate Sodium 100 Mg Capsule) 100 mg PO BID [facility] Last Admin: 08/28/22 08:56 Dose: 100 mg Fluoxetine HCl (Fluoxetine Hcl 20 Mg Capsule) 60 mg PO DAILY [facility] Last Admin: 08/28/22 08:55 Dose: 60 mg Folic Acid (Folic Acid 1 Mg Tablet) 1 mg PO DAILY [facility] Last Admin: 08/28/22 08:57 Dose: 1 mg Gabapentin (Gabapentin 300 Mg Capsule) 300 mg PO TID [facility] Last Admin: 08/28/22 08:56 Dose: 300 mg Hydroxyzine HCl (Hydroxyzine Hcl 25 Mg Tablet) 25 mg PO Q6H PRN PRN Reason: Anxiety Last Admin: 08/26/22 23:10 Dose: 25 mg Lorazepam (Lorazepam 1 Mg Tablet) 1 mg PO Q2H PRN PRN Reason: CIWA 8-11 Lorazepam (Lorazepam 1 Mg Tablet) 2 mg PO Q2H PRN PRN Reason: CIWA > 11 Last Admin: 08/27/22 15:16 Dose: 2 mg Magnesium Hydroxide (Milk Of Magnesia 30 Ml Oral.Susp) 30 ml PO DAILY PRN PRN Reason: Constipation Nicotine (Nicotine 21 Mg Patch.Td24) 21 mg TRANSDERMA DAILY [facility] Last Admin: 08/28/22 08:55 Dose: 21 mg Nicotine Polacrilex (Nicotine Polacrilex 2 Mg Gum) 4 mg BUCCAL Q2H PRN PRN Reason: Nicotine Cravings Olanzapine (Olanzapine 2.5 Mg Tablet) 2.5 mg PO DAILY [facility] Last Admin: 08/28/22 08:57 Dose: 2.5 mg Thiamine HCl (Thiamine Hcl 100 Mg Tablet) 100 mg PO DAILY [facility] Last Admin: 08/28/22 08:57 Dose: 100 mg Trazodone HCl (Trazodone Hcl 50 Mg Tablet) 50 mg PO BEDTIME PRN PRN Reason: Insomnia Last Admin: 08/27/22 21:31 Dose: 50 mg Trazodone HCl (Trazodone Hcl 50 Mg Tablet) 50 mg PO BEDTIME MRX1 PRN PRN Reason: Insomnia Last Admin: 08/26/22 01:17 Dose: 50 mg Allergies Allergies Allergy/AdvReac Type Severity Reaction Status Date / Time levofloxacin Allergy Unknown Unknown Verified 08/16/22 16:48 chlorpromazine Allergy Unknown unknown Uncoded 08/16/22 16:47 Assessment & Plan Assessment & Plan (1) Suicide attempt by substance overdose: Status: Acute Code(s): T65.92XA - Toxic effect of unspecified substance, intentional self-harm, initial encounter (2) Alcohol use disorder, severe, dependence: Status: Acute Code(s): F10.20 - Alcohol dependence, uncomplicated (3) Opioid use disorder: Status: Acute Code(s): F11.90 - Opioid use, unspecified, uncomplicated (4) MDD (major depressive disorder): Status: Acute Code(s): F32.9 - Major depressive disorder, single episode, unspecified Plan 08/26: restart meds from most recent stay on [facility]. detox from alcohol and barbiturates, although pt denies use of barbiturates and only discharged from [facility] 5 days ago. 08/27: make suboxone PRN as pt declined it and says he only takes it for pain. plan to structure taper tomorrow. otherwise continue current mgmt. 08/28: ativan taper, DC CIWA and PRN ativan. DC campral and start antabuse. arrange for supportive neonatal social worker after discharge. Reason for contiued inpatient stay Substantial Risk for: harm to self, inability to function and rapid decompensation Time Spent With Patient Time: Total time managing care of this patient today __25__ minutes.
[2022-08-28] MEDS: LORazepam 1 MG TABLET PO ×3 (15:33→20:47)
[2022-08-28] MEDS: Acetaminophen 325 MG TABLET 650 MG PO (18:03)
[2022-08-28 20:00] VITALS: BP 121/75; PULSE 83; RESP 16; TEMP 36.8; O2SAT 93
[2022-08-28] MEDS: traZODone HCL 50 MG TABLET PO (20:47)
[2022-08-29 06:00] VITALS: BP 124/87; PULSE 75; RESP 18; TEMP 37.1; O2SAT 92
[2022-08-29] MEDS: Albuterol Sulfate 90 MCG 8 GM INHALER 1 PUFF INHALE ×2 (08:54→15:54)
[2022-08-29] MEDS: FLUoxetine HCl 20 MG CAPSULE 60 MG PO (09:05)
[2022-08-29] MEDS: Nicotine 21 MG PATCH.TD24 TRANSDERMA (09:05)
[2022-08-29] MEDS: Docusate Sodium 100 MG CAPSULE PO ×2 (09:06→20:19)
[2022-08-29] MEDS: LORazepam 1 MG TABLET PO ×2 (09:06→20:19)
[2022-08-29] MEDS: Gabapentin 300 MG CAPSULE PO ×3 (09:06→20:19)
[2022-08-29] MEDS: Thiamine HCL 100 MG TABLET PO (09:06)
[2022-08-29] MEDS: Folic Acid 1 MG TABLET PO (09:06)
[2022-08-29] MEDS: OLANZapine 2.5 MG TABLET PO (09:06)
[2022-08-29] MEDS: Buprenorphine/Naloxone 8/2 mg FILM 1 FILM SUBLINGUAL ×2 (09:50→15:43)
--- NOTE | 2022-08-29 19:15 | HO.PSYCHPN ---
Subjective Subjective Date of Service: 08/29/22 Reason For Visit: Suicide attempt Interim History: feeling improved in mood, c/o withdrawal Sx. educated re ativan taper and likelihood of some discomfort. shaky, feel like crap. tough sleeping. more future oriented, talking about plans to work and get services. 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 per staff, dep/anx 05/01. insomnia, hopelessness. pain 8 - ribs. eating well. attending to ADLs. slept through the night. Mental Status Exam Mental Status Exam Narrative: Pt is alert and oriented; behavior is cooperative; patient is not in emotional distress; dressed in street clothes, adequate hygiene; mood depressed and anxious; eye contact appropriate; Speech is normal rate, volume and prosody are not pressured; no PMA/PMR; thought process is organized and goal directed; Thought content is on getting a job, getting SS income; no SI/HI/AVH expressed. Patient's insight and judgment are intact. Diagnostics Vital Signs (24Hr): Vital Signs - 24 hr 08/28/22 20:00 08/29/22 06:00 Temperature 98.3 F 98.8 F Pulse Rate 83 75 Respiratory Rate 16 18 Blood Pressure 121/75 124/87 Pulse Oximetry 93 92 Oxygen Delivery Method Room Air Room Air BMI result Body Mass Index 25.5 Labs 08/25/22 14:27 08/25/22 14:27 Medications Medications Current Medications Acetaminophen (Acetaminophen 325 Mg Tablet) 650 mg PO Q6H PRN PRN Reason: Headache/Pain Mild Scale (1-3) Last Admin: 08/28/22 18:03 Dose: 650 mg Al Hydroxide/Mg Hydroxide (Magnesium Hydrox/Alum Hydrox 30 Ml Oral.Susp) 30 ml PO Q6H PRN PRN Reason: Heartburn/Nausea Albuterol Sulfate (Albuterol Sulfate 90 Mcg 8 Gm Inhaler) 1 puff INHALE RQ6H PRN PRN Reason: wheezing Last Admin: 08/29/22 15:54 Dose: 1 puff Buprenorphine/Naloxone (Buprenorphine/Naloxone 8/2 Mg Film) 1 film SUBLINGUAL TID PRN PRN Reason: severe pain Last Admin: 08/29/22 15:43 Dose: 1 film Docusate Sodium (Docusate Sodium 100 Mg Capsule) 100 mg PO BID [facility] Last Admin: 08/29/22 09:06 Dose: 100 mg Fluoxetine HCl (Fluoxetine Hcl 20 Mg Capsule) 60 mg PO DAILY [facility] Last Admin: 08/29/22 09:05 Dose: 60 mg Folic Acid (Folic Acid 1 Mg Tablet) 1 mg PO DAILY [facility] Last Admin: 08/29/22 09:06 Dose: 1 mg Gabapentin (Gabapentin 300 Mg Capsule) 300 mg PO TID [facility] Last Admin: 08/29/22 15:23 Dose: 300 mg Hydroxyzine HCl (Hydroxyzine Hcl 25 Mg Tablet) 25 mg PO Q6H PRN PRN Reason: Anxiety Last Admin: 08/26/22 23:10 Dose: 25 mg Lorazepam (Lorazepam 1 Mg Tablet) 1 mg PO BID [facility] Stop: 08/29/22 21:01 Last Admin: 08/29/22 09:06 Dose: 1 mg Lorazepam (Lorazepam 0.5 Mg Tablet) 0.5 mg PO BID [facility] Stop: 08/30/22 21:01 Magnesium Hydroxide (Milk Of Magnesia 30 Ml Oral.Susp) 30 ml PO DAILY PRN PRN Reason: Constipation Nicotine (Nicotine 21 Mg Patch.Td24) 21 mg TRANSDERMA DAILY [facility] Last Admin: 08/29/22 09:05 Dose: 21 mg Nicotine Polacrilex (Nicotine Polacrilex 2 Mg Gum) 4 mg BUCCAL Q2H PRN PRN Reason: Nicotine Cravings Olanzapine (Olanzapine 2.5 Mg Tablet) 2.5 mg PO DAILY [facility] Last Admin: 08/29/22 09:06 Dose: 2.5 mg Thiamine HCl (Thiamine Hcl 100 Mg Tablet) 100 mg PO DAILY [facility] Last Admin: 08/29/22 09:06 Dose: 100 mg Trazodone HCl (Trazodone Hcl 50 Mg Tablet) 50 mg PO BEDTIME PRN PRN Reason: Insomnia Last Admin: 08/28/22 20:47 Dose: 50 mg Trazodone HCl (Trazodone Hcl 50 Mg Tablet) 50 mg PO BEDTIME MRX1 PRN PRN Reason: Insomnia Last Admin: 08/26/22 01:17 Dose: 50 mg Allergies Allergies Allergy/AdvReac Type Severity Reaction Status Date / Time levofloxacin Allergy Unknown Unknown Verified 08/16/22 16:48 chlorpromazine Allergy Unknown unknown Uncoded 08/16/22 16:47 Assessment & Plan Assessment & Plan (1) Suicide attempt by substance overdose: Status: Acute Code(s): T65.92XA - Toxic effect of unspecified substance, intentional self-harm, initial encounter (2) Alcohol use disorder, severe, dependence: Status: Acute Code(s): F10.20 - Alcohol dependence, uncomplicated (3) Opioid use disorder: Status: Acute Code(s): F11.90 - Opioid use, unspecified, uncomplicated (4) MDD (major depressive disorder): Status: Acute Code(s): F32.9 - Major depressive disorder, single episode, unspecified Plan 08/26: restart meds from most recent stay on [facility]. detox from alcohol and barbiturates, although pt denies use of barbiturates and only discharged from [facility] 5 days ago. 08/27: make suboxone PRN as pt declined it and says he only takes it for pain. plan to structure taper tomorrow. otherwise continue current mgmt. 08/28: ativan taper, DC CIWA and PRN ativan. DC campral and start antabuse. arrange for supportive social work associate after discharge. 08/29: awaiting antabuse arrival from [facility]. continue detox taper. mtg with [facility] staff tomorrow. more future-oriented and appearing more relaxed. Reason for contiued inpatient stay Substantial Risk for: harm to self, inability to function and med/psych decompensation Time Spent With Patient Time: Total time managing care of this patient today __25__ minutes.
[2022-08-29 19:45] VITALS: BP 132/56; PULSE 79; RESP 16; TEMP 36.2; O2SAT 92
[2022-08-29] MEDS: Acetaminophen 325 MG TABLET 650 MG PO (20:19)
[2022-08-29] MEDS: traZODone HCL 50 MG TABLET PO (20:19)
[2022-08-30] MEDS: Albuterol Sulfate 90 MCG 8 GM INHALER 1 PUFF INHALE ×3 (04:18→22:02)
[2022-08-30 07:55] VITALS: BP 111/77; PULSE 67; RESP 18; TEMP 36.3; O2SAT 94
[2022-08-30] MEDS: Nicotine 21 MG PATCH.TD24 TRANSDERMA (08:07)
[2022-08-30] MEDS: OLANZapine 2.5 MG TABLET PO (08:07)
[2022-08-30] MEDS: Docusate Sodium 100 MG CAPSULE PO ×2 (08:07→20:07)
[2022-08-30] MEDS: FLUoxetine HCl 20 MG CAPSULE 60 MG PO (08:07)
[2022-08-30] MEDS: Thiamine HCL 100 MG TABLET PO (08:07)
[2022-08-30] MEDS: Gabapentin 300 MG CAPSULE PO ×3 (08:07→20:07)
[2022-08-30] MEDS: Folic Acid 1 MG TABLET PO (08:07)
[2022-08-30] MEDS: LORazepam 0.5 MG TABLET PO ×2 (08:07→20:07)
[2022-08-30] MEDS: Buprenorphine/Naloxone 8/2 mg FILM 1 FILM SUBLINGUAL (13:42)
--- NOTE | 2022-08-30 15:05 | P.PNPSI_ITS ---
Subjective Subjective Date of Service: 08/30/22 Reason For Visit: Suicide attempt Interim History: calm, cooperative. c/o the shakes, did not appear to have a tremor. c/o depressed mood. meds reviewed, prozac recently increased. educated re wellbutrin, interested to give it a try. agrees to start at 150 mg daily. had mtg with [place] and [facility] peraza today, feeling optimistic for services after discharge. per staff, dep/anx 05/01. safe on unit. feling like someone is grabbing his leg at night. seeing orange dots. Mental Status Exam Mental Status Exam Narrative: Pt is alert and oriented; behavior is cooperative; patient is not in emotional distress; dressed in street clothes, adequate hygiene; mood depressed and anxious; eye contact appropriate; Speech is normal rate, volume and prosody; no PMA/PMR; thought process is organized and goal directed; Thought content is on f eeling the shakes, depressed mood; no SI/HI/AVH expressed. Patient's insight and judgment are intact. Diagnostics Vital Signs (24Hr): Vital Signs - 24 hr 08/29/22 19:45 08/30/22 07:55 Temperature 97.1 F 97.4 F Pulse Rate 79 67 Respiratory Rate 16 18 Blood Pressure 132/56 L 111/77 Pulse Oximetry 92 94 Oxygen Delivery Method Room Air Room Air BMI result Body Mass Index 25.5 Labs 08/25/22 14:27 08/25/22 14:27 Medications Medications Current Medications Acetaminophen (Acetaminophen 325 Mg Tablet) 650 mg PO Q6H PRN PRN Reason: Headache/Pain Mild Scale (1-3) Last Admin: 08/29/22 20:19 Dose: 650 mg Al Hydroxide/Mg Hydroxide (Magnesium Hydrox/Alum Hydrox 30 Ml Oral.Susp) 30 ml PO Q6H PRN PRN Reason: Heartburn/Nausea Albuterol Sulfate (Albuterol Sulfate 90 Mcg 8 Gm Inhaler) 1 puff INHALE RQ6H PRN PRN Reason: wheezing Last Admin: 08/30/22 14:18 Dose: 1 puff Buprenorphine/Naloxone (Buprenorphine/Naloxone 8/2 Mg Film) 1 film SUBLINGUAL TID PRN PRN Reason: severe pain Last Admin: 08/30/22 13:42 Dose: 1 film Bupropion HCl (Bupropion Hcl Xl 150 Mg Tab.Er.24h) 150 mg PO DAILY [facility] Docusate Sodium (Docusate Sodium 100 Mg Capsule) 100 mg PO BID [facility] Last Admin: 08/30/22 08:07 Dose: 100 mg Fluoxetine HCl (Fluoxetine Hcl 20 Mg Capsule) 60 mg PO DAILY [facility] Last Admin: 08/30/22 08:07 Dose: 60 mg Folic Acid (Folic Acid 1 Mg Tablet) 1 mg PO DAILY [facility] Last Admin: 08/30/22 08:07 Dose: 1 mg Gabapentin (Gabapentin 300 Mg Capsule) 300 mg PO TID [facility] Last Admin: 08/30/22 14:53 Dose: 300 mg Hydroxyzine HCl (Hydroxyzine Hcl 25 Mg Tablet) 25 mg PO Q6H PRN PRN Reason: Anxiety Last Admin: 08/26/22 23:10 Dose: 25 mg Lorazepam (Lorazepam 0.5 Mg Tablet) 0.5 mg PO BID [facility] Stop: 08/30/22 21:01 Last Admin: 08/30/22 08:07 Dose: 0.5 mg Magnesium Hydroxide (Milk Of Magnesia 30 Ml Oral.Susp) 30 ml PO DAILY PRN PRN Reason: Constipation Nicotine (Nicotine 21 Mg Patch.Td24) 21 mg TRANSDERMA DAILY [facility] Last Admin: 08/30/22 08:07 Dose: 21 mg Nicotine Polacrilex (Nicotine Polacrilex 2 Mg Gum) 4 mg BUCCAL Q2H PRN PRN Reason: Nicotine Cravings Olanzapine (Olanzapine 2.5 Mg Tablet) 2.5 mg PO DAILY [facility] Last Admin: 08/30/22 08:07 Dose: 2.5 mg Thiamine HCl (Thiamine Hcl 100 Mg Tablet) 100 mg PO DAILY [facility] Last Admin: 08/30/22 08:07 Dose: 100 mg Trazodone HCl (Trazodone Hcl 50 Mg Tablet) 50 mg PO BEDTIME PRN PRN Reason: Insomnia Last Admin: 08/29/22 20:19 Dose: 50 mg Trazodone HCl (Trazodone Hcl 50 Mg Tablet) 50 mg PO BEDTIME MRX1 PRN PRN Reason: Insomnia Last Admin: 08/26/22 01:17 Dose: 50 mg Allergies Allergies Allergy/AdvReac Type Severity Reaction Status Date / Time levofloxacin Allergy Unknown Unknown Verified 08/16/22 16:48 chlorpromazine Allergy Unknown unknown Uncoded 08/16/22 16:47 Assessment & Plan Assessment & Plan (1) Suicide attempt by substance overdose: Status: Acute Code(s): T65.92XA - Toxic effect of unspecified substance, intentional self-harm, initial encounter (2) Alcohol use disorder, severe, dependence: Status: Acute Code(s): F10.20 - Alcohol dependence, uncomplicated (3) Opioid use disorder: Status: Acute Code(s): F11.90 - Opioid use, unspecified, uncomplicated (4) MDD (major depressive disorder): Status: Acute Code(s): F32.9 - Major depressive disorder, single episode, unspecified Plan 08/26: restart meds from most recent stay on [facility]. detox from alcohol and barbiturates, although pt denies use of barbiturates and only discharged from [facility] 5 days ago. 08/27: make suboxone PRN as pt declined it and says he only takes it for pain. plan to structure taper tomorrow. otherwise continue current mgmt. 08/28: ativan taper, DC CIWA and PRN ativan. DC campral and start antabuse. arrange for supportive social work specialist after discharge. 08/29: awaiting antabuse arrival from [facility]. continue detox taper. mtg with [facility] staff tomorrow. more future-oriented and appearing more relaxed. 08/30: [facility] ordering antabuse, hopefully will arrive tomorrow. detox taper ends today. added wellbutrin 150 mg daily today for antidepressant augmentation. met with [facility] staff and [facility] peraza, feeling optimistic about the mtg. Reason for contiued inpatient stay Substantial Risk for: harm to self, inability to function and rapid decompensation Time Spent With Patient Time: Total time managing care of this patient today __25__ minutes.
[2022-08-30] MEDS: traZODone HCL 50 MG TABLET PO ×2 (20:07→22:03)
[2022-08-30 20:09] VITALS: BP 100/62; PULSE 73; RESP 20; TEMP 36.7; O2SAT 93
[2022-08-30] MEDS: Acetaminophen 325 MG TABLET 650 MG PO (22:02)
[2022-08-31] MEDS: Albuterol Sulfate 90 MCG 8 GM INHALER 1 PUFF INHALE ×2 (06:21→14:53)
[2022-08-31 08:00] VITALS: BP 115/77; PULSE 60; RESP 16; TEMP 36.6; O2SAT 95
[2022-08-31] MEDS: Folic Acid 1 MG TABLET PO (08:17)
[2022-08-31] MEDS: Nicotine 21 MG PATCH.TD24 TRANSDERMA (08:17)
[2022-08-31] MEDS: FLUoxetine HCl 20 MG CAPSULE 60 MG PO (08:17)
[2022-08-31] MEDS: OLANZapine 2.5 MG TABLET PO (08:18)
[2022-08-31] MEDS: buPROPion HCl XL 150 MG TAB.ER.24H PO (08:18)
[2022-08-31] MEDS: Gabapentin 300 MG CAPSULE PO ×3 (08:18→21:30)
[2022-08-31] MEDS: Thiamine HCL 100 MG TABLET PO (08:18)
[2022-08-31] MEDS: Docusate Sodium 100 MG CAPSULE PO ×2 (08:18→21:30)
--- NOTE | 2022-08-31 12:25 | HO.PSYCHPN ---
Subjective Subjective Date of Service: 08/31/22 Reason For Visit: Suicide attempt Interim History: calm, cooperative. seen as he was lying in bed. c/o feeling in withdrawal, agrees to one-time dose of valium for comfort and to cover any lingering barbiturate withdrawal (despite pt's denial of using said medications class). discuss increase in wellbutrin on sunday, likely D/C early next week. informed pt [facility] attempting to obtain antabuse presently. per staff, high anx/dep. shaking from withdrawal, per his report. c/o the hand sensation on his leg at NOC. Mental Status Exam Mental Status Exam Narrative: Pt is alert and oriented; behavior is cooperative; patient is not in emotional distress; dressed in street clothes, adequate hygiene; mood depressed and anxious; eye contact appropriate; Speech is normal rate, volume and prosody; no PMA/PMR; thought process is organized and goal directed; Thought content is on feeling the shakes, depressed mood; no SI/HI/AVH expressed. Patient's insight and judgment are intact. Diagnostics Vital Signs (24Hr): Vital Signs - 24 hr 08/30/22 20:09 08/31/22 08:00 Temperature 98.1 F 97.9 F Pulse Rate 73 60 Respiratory Rate 20 16 Blood Pressure 100/62 115/77 Pulse Oximetry 93 95 Oxygen Delivery Method Room Air Room Air BMI result Body Mass Index 25.5 Labs 08/25/22 14:27 08/25/22 14:27 Medications Medications Current Medications Acetaminophen (Acetaminophen 325 Mg Tablet) 650 mg PO Q6H PRN PRN Reason: Headache/Pain Mild Scale (1-3) Last Admin: 08/30/22 22:02 Dose: 650 mg Al Hydroxide/Mg Hydroxide (Magnesium Hydrox/Alum Hydrox 30 Ml Oral.Susp) 30 ml PO Q6H PRN PRN Reason: Heartburn/Nausea Albuterol Sulfate (Albuterol Sulfate 90 Mcg 8 Gm Inhaler) 1 puff INHALE Q2H PRN PRN Reason: wheezing Buprenorphine/Naloxone (Buprenorphine/Naloxone 8/2 Mg Film) 1 film SUBLINGUAL TID PRN PRN Reason: severe pain Last Admin: 08/30/22 13:42 Dose: 1 film Bupropion HCl (Bupropion Hcl Xl 150 Mg Tab.Er.24h) 150 mg PO DAILY [facility] Stop: 09/02/22 09:01 Last Admin: 08/31/22 08:18 Dose: 150 mg Bupropion HCl (Bupropion Hcl Xl 300 Mg Tab.Er.24h) 300 mg PO DAILY [facility] Docusate Sodium (Docusate Sodium 100 Mg Capsule) 100 mg PO BID [facility] Last Admin: 08/31/22 08:18 Dose: 100 mg Fluoxetine HCl (Fluoxetine Hcl 20 Mg Capsule) 60 mg PO DAILY [facility] Last Admin: 08/31/22 08:17 Dose: 60 mg Folic Acid (Folic Acid 1 Mg Tablet) 1 mg PO DAILY [facility] Last Admin: 08/31/22 08:17 Dose: 1 mg Gabapentin (Gabapentin 300 Mg Capsule) 300 mg PO TID [facility] Last Admin: 08/31/22 08:18 Dose: 300 mg Hydroxyzine HCl (Hydroxyzine Hcl 25 Mg Tablet) 25 mg PO Q6H PRN PRN Reason: Anxiety Last Admin: 08/26/22 23:10 Dose: 25 mg Magnesium Hydroxide (Milk Of Magnesia 30 Ml Oral.Susp) 30 ml PO DAILY PRN PRN Reason: Constipation Nicotine (Nicotine 21 Mg Patch.Td24) 21 mg TRANSDERMA DAILY [facility] Last Admin: 08/31/22 08:17 Dose: 21 mg Nicotine Polacrilex (Nicotine Polacrilex 2 Mg Gum) 4 mg BUCCAL Q2H PRN PRN Reason: Nicotine Cravings Olanzapine (Olanzapine 2.5 Mg Tablet) 2.5 mg PO DAILY [facility] Last Admin: 08/31/22 08:18 Dose: 2.5 mg Thiamine HCl (Thiamine Hcl 100 Mg Tablet) 100 mg PO DAILY [facility] Last Admin: 08/31/22 08:18 Dose: 100 mg Trazodone HCl (Trazodone Hcl 50 Mg Tablet) 50 mg PO BEDTIME PRN PRN Reason: Insomnia Last Admin: 08/30/22 20:07 Dose: 50 mg Trazodone HCl (Trazodone Hcl 50 Mg Tablet) 50 mg PO BEDTIME MRX1 PRN PRN Reason: Insomnia Last Admin: 08/30/22 22:03 Dose: 50 mg Allergies Allergies Allergy/AdvReac Type Severity Reaction Status Date / Time levofloxacin Allergy Unknown Unknown Verified 08/16/22 16:48 chlorpromazine Allergy Unknown unknown Uncoded 08/16/22 16:47 Assessment & Plan Assessment & Plan (1) Suicide attempt by substance overdose: Status: Acute Code(s): T65.92XA - Toxic effect of unspecified substance, intentional self-harm, initial encounter (2) Alcohol use disorder, severe, dependence: Status: Acute Code(s): F10.20 - Alcohol dependence, uncomplicated (3) Opioid use disorder: Status: Acute Code(s): F11.90 - Opioid use, unspecified, uncomplicated (4) MDD (major depressive disorder): Status: Acute Code(s): F32.9 - Major depressive disorder, single episode, unspecified Plan 08/26: restart meds from most recent stay on [facility]. detox from alcohol and barbiturates, although pt denies use of barbiturates and only discharged from [facility] 5 days ago. 08/27: make suboxone PRN as pt declined it and says he only takes it for pain. plan to structure taper tomorrow. otherwise continue current mgmt. 08/28: ativan taper, DC CIWA and PRN ativan. DC campral and start antabuse. arrange for supportive social service coordinator after discharge. 08/29: awaiting antabuse arrival from [facility]. continue detox taper. mtg with [facility] staff tomorrow. more future-oriented and appearing more relaxed. 08/30: [facility] ordering antabuse, hopefully will arrive tomorrow. detox taper ends today. added wellbutrin 150 mg daily today for antidepressant augmentation. met with [facility] staff and KALI peraza, feeling optimistic about the mtg. 08/31: antabuse unavailable per [facility], they will continue to attempt to obtain it. no issues with wellbutrin today. dose increase to 300 mg on sunday. valium 5 one time for any lingering barbiturate withdrawal. planning for discharge early next week. Reason for contiued inpatient stay Substantial Risk for: harm to self, inability to function and rapid decompensation Time Spent With Patient Time: Total time managing care of this patient today __25__ minutes.
[2022-08-31] MEDS: diazePAM 5 MG TABLET PO (12:29)
[2022-08-31] MEDS: Buprenorphine/Naloxone 8/2 mg FILM 1 FILM SUBLINGUAL (14:40)
[2022-08-31] MEDS: hydrOXYzine HCL 25 MG TABLET PO (16:23)
[2022-08-31] MEDS: Acetaminophen 325 MG TABLET 650 MG PO (21:30)
[2022-08-31] MEDS: traZODone HCL 50 MG TABLET PO (21:30)
[2022-09-01] MEDS: Albuterol Sulfate 90 MCG 8 GM INHALER 1 PUFF INHALE ×3 (04:59→22:40)
[2022-09-01 08:00] VITALS: BP 101/73; PULSE 61; RESP 16; TEMP 36.5; O2SAT 96
[2022-09-01] MEDS: Nicotine 21 MG PATCH.TD24 TRANSDERMA (08:14)
[2022-09-01] MEDS: buPROPion HCl XL 150 MG TAB.ER.24H PO (08:14)
[2022-09-01] MEDS: Thiamine HCL 100 MG TABLET PO (08:15)
[2022-09-01] MEDS: OLANZapine 2.5 MG TABLET PO ×2 (08:15→13:25)
[2022-09-01] MEDS: Gabapentin 300 MG CAPSULE PO ×3 (08:15→21:24)
[2022-09-01] MEDS: Docusate Sodium 100 MG CAPSULE PO ×2 (08:15→21:24)
[2022-09-01] MEDS: FLUoxetine HCl 20 MG CAPSULE 60 MG PO (08:15)
[2022-09-01] MEDS: Folic Acid 1 MG TABLET PO (08:15)
[2022-09-01] MEDS: hydrOXYzine HCL 25 MG TABLET PO ×2 (08:30→17:27)
[2022-09-01 08:35] VITALS: BMI 25.7
--- NOTE | 2022-09-01 09:56 | P.PNPSI_ITS ---
Subjective Subjective Date of Service: 09/01/22 Reason For Visit: Suicide attempt Interim History: met with pt; discussed in teams; reviewed progress notes pt reports he relapsed w/ etoh after discharge; shares how sad he is w/out his . Pt denies SI and says he will not hurt himself, but that his whole life was his and he's having trouble not being sad. Discussed medications and he would like Wellbturin to be increased sooner than later. Asks for anxiety med and agrees to trial of clonidine. Pt remains future oriented and has a plan to secure more finances so he won't lose housing. Mental Status Exam Mental Status Exam Narrative: Pt is alert and oriented; behavior is cooperative; patient tearful but in behavioral control; dressed in street clothes, scruffy and unkempt but with adequate hygiene; mood depressed and anxious; eye contact appropriate; Speech is normal rate, volume and prosody; thought process is organized and goal directed; Thought content is on missing his ; housing; no SI/HI/AVH expressed. Patient's insight and judgment are intact. Diagnostics Vital Signs (24Hr): Vital Signs - 24 hr 09/01/22 08:00 Temperature 97.7 F Pulse Rate 61 Respiratory Rate 16 Blood Pressure 101/73 Pulse Oximetry 96 Oxygen Delivery Method Room Air BMI result Body Mass Index 25.7 Labs 08/25/22 14:27 08/25/22 14:27 Medications Medications Current Medications Acetaminophen (Acetaminophen 325 Mg Tablet) 650 mg PO Q6H PRN PRN Reason: Headache/Pain Mild Scale (1-3) Last Admin: 08/31/22 21:30 Dose: 650 mg Al Hydroxide/Mg Hydroxide (Magnesium Hydrox/Alum Hydrox 30 Ml Oral.Susp) 30 ml PO Q6H PRN PRN Reason: Heartburn/Nausea Albuterol Sulfate (Albuterol Sulfate 90 Mcg 8 Gm Inhaler) 1 puff INHALE Q2H PRN PRN Reason: wheezing Last Admin: 09/01/22 04:59 Dose: 1 puff Buprenorphine/Naloxone (Buprenorphine/Naloxone 8/2 Mg Film) 1 film SUBLINGUAL TID PRN PRN Reason: severe pain Last Admin: 08/31/22 14:40 Dose: 1 film Bupropion HCl (Bupropion Hcl Xl 150 Mg Tab.Er.24h) 150 mg PO DAILY [facility] Stop: 09/02/22 09:01 Last Admin: 09/01/22 08:14 Dose: 150 mg Bupropion HCl (Bupropion Hcl Xl 300 Mg Tab.Er.24h) 300 mg PO DAILY [facility] Docusate Sodium (Docusate Sodium 100 Mg Capsule) 100 mg PO BID [facility] Last Admin: 09/01/22 08:15 Dose: 100 mg Fluoxetine HCl (Fluoxetine Hcl 20 Mg Capsule) 60 mg PO DAILY [facility] Last Admin: 09/01/22 08:15 Dose: 60 mg Folic Acid (Folic Acid 1 Mg Tablet) 1 mg PO DAILY [facility] Last Admin: 09/01/22 08:15 Dose: 1 mg Gabapentin (Gabapentin 300 Mg Capsule) 300 mg PO TID [facility] Last Admin: 09/01/22 08:15 Dose: 300 mg Hydroxyzine HCl (Hydroxyzine Hcl 25 Mg Tablet) 25 mg PO Q6H PRN PRN Reason: Anxiety Last Admin: 09/01/22 08:30 Dose: 25 mg Magnesium Hydroxide (Milk Of Magnesia 30 Ml Oral.Susp) 30 ml PO DAILY PRN PRN Reason: Constipation Nicotine (Nicotine 21 Mg Patch.Td24) 21 mg TRANSDERMA DAILY [facility] Last Admin: 09/01/22 08:14 Dose: 21 mg Nicotine Polacrilex (Nicotine Polacrilex 2 Mg Gum) 4 mg BUCCAL Q2H PRN PRN Reason: Nicotine Cravings Olanzapine (Olanzapine 2.5 Mg Tablet) 2.5 mg PO DAILY [facility] Last Admin: 09/01/22 08:15 Dose: 2.5 mg Thiamine HCl (Thiamine Hcl 100 Mg Tablet) 100 mg PO DAILY [facility] Last Admin: 09/01/22 08:15 Dose: 100 mg Trazodone HCl (Trazodone Hcl 50 Mg Tablet) 50 mg PO BEDTIME PRN PRN Reason: Insomnia Last Admin: 08/31/22 21:30 Dose: 50 mg Trazodone HCl (Trazodone Hcl 50 Mg Tablet) 50 mg PO BEDTIME MRX1 PRN PRN Reason: Insomnia Last Admin: 08/30/22 22:03 Dose: 50 mg Allergies Allergies Allergy/AdvReac Type Severity Reaction Status Date / Time levofloxacin Allergy Unknown Unknown Verified 08/16/22 16:48 chlorpromazine Allergy Unknown unknown Uncoded 08/16/22 16:47 Assessment & Plan Assessment & Plan (1) MDD (major depressive disorder): Status: Acute Code(s): F32.9 - Major depressive disorder, single episode, unspecified (2) Suicide attempt by substance overdose: Status: Acute Code(s): T65.92XA - Toxic effect of unspecified substance, intentional self-harm, initial encounter (3) Alcohol use disorder, severe, dependence: Status: Acute Code(s): F10.20 - Alcohol dependence, uncomplicated (4) Opioid use disorder: Status: Acute Code(s): F11.90 - Opioid use, unspecified, uncomplicated Plan 08/26: restart meds from most recent stay on [facility]. detox from alcohol and barbiturates, although pt denies use of barbiturates and only discharged from [facility] 5 days ago. 08/27: make suboxone PRN as pt declined it and says he only takes it for pain. plan to structure taper tomorrow. otherwise continue current mgmt. 08/28: ativan taper, DC CIWA and PRN ativan. DC campral and start antabuse. arrange for supportive social service technician after discharge. 08/29: awaiting antabuse arrival from [facility]. continue detox taper. mtg with [facility] staff tomorrow. more future-oriented and appearing more relaxed. 08/30: [facility] ordering antabuse, hopefully will arrive tomorrow. detox taper ends today. added wellbutrin 150 mg daily today for antidepressant augmentation. met with [facility] staff and KALI peraza, feeling optimistic about the mtg. 08/31: antabuse unavailable per [facility], they will continue to attempt to obtain it. no issues with wellbutrin today. dose increase to 300 mg on sunday. valium 5 one time for any lingering barbiturate withdrawal. planning for discharge early next week. 09/02 sad, tearful, but no SI and future oriented. Increase wellbutrin; agreed to add scheduled zyprexa (reviewed risks/side-effects) PLAN: CV q15min checks Start Clonidine 0.05mg q4prn for anxiety Increase Zyprexa 2.5mg to BID Increase WEllbutinXL to 300mg Patient educated on: diagnosis, medication risk/benefits and therapeutic strategies Informed Consent: understands Reason for contiued inpatient stay Substantial Risk for: rapid decompensation Time Spent With Patient Time: Total time managing care of this patient today ____ minutes.
[2022-09-01 13:13] VITALS: BP 113/68; PULSE 78
[2022-09-01] MEDS: cloNIDine HCL 0.1 MG TABLET 0.05 MG PO ×3 (13:24→21:22)
[2022-09-01] MEDS: Buprenorphine/Naloxone 8/2 mg FILM 1 FILM SUBLINGUAL (15:17)
[2022-09-01 18:00] VITALS: BP 111/80; PULSE 78; RESP 16; TEMP 36.7; O2SAT 98
[2022-09-01] MEDS: traZODone HCL 50 MG TABLET PO (21:24)
[2022-09-02] MEDS: Albuterol Sulfate 90 MCG 8 GM INHALER 1 PUFF INHALE ×3 (06:33→20:19)
[2022-09-02] MEDS: FLUoxetine HCl 20 MG CAPSULE 60 MG PO (08:25)
[2022-09-02] MEDS: Gabapentin 300 MG CAPSULE PO ×3 (08:25→20:40)
[2022-09-02] MEDS: Folic Acid 1 MG TABLET PO (08:25)
[2022-09-02] MEDS: buPROPion HCl XL 300 MG TAB.ER.24H PO (08:25)
[2022-09-02] MEDS: Thiamine HCL 100 MG TABLET PO (08:25)
[2022-09-02] MEDS: OLANZapine 2.5 MG TABLET PO ×2 (08:25→14:18)
[2022-09-02] MEDS: Nicotine 21 MG PATCH.TD24 TRANSDERMA (08:25)
[2022-09-02] MEDS: Docusate Sodium 100 MG CAPSULE PO ×2 (08:26→20:40)
[2022-09-02 08:33] VITALS: BP 100/59; PULSE 66; RESP 18; TEMP 36.7; O2SAT 95
[2022-09-02] MEDS: hydrOXYzine HCL 25 MG TABLET PO ×2 (12:15→18:34)
[2022-09-02] MEDS: Buprenorphine/Naloxone 8/2 mg FILM 1 FILM SUBLINGUAL (16:54)
--- NOTE | 2022-09-02 18:53 | P.PNPSI_ITS ---
Subjective Subjective Date of Service: 09/02/22 Reason For Visit: Suicide attempt Interim History: met w/ patient; discussed in teams pt reports better mood, still anxious but able to be social with peers; does not feel much difference with increased wellbutrin but does not feel need for further med changes. Says he's planning to DC on Sunday. Mental Status Exam Mental Status Exam Narrative: Pt is alert and oriented; behavior is cooperative; patient tearful but in behavioral control; dressed in street clothes, scruffy and unkempt but with adequate hygiene; mood little better, anxious; affect congruent; eye contact appropriate; Speech is normal rate, volume and prosody; thought process is organized and goal directed; Thought content is on missing his ; housing; no SI/HI/AVH expressed. Patient's insight and judgment are intact. Diagnostics Vital Signs (24Hr): Vital Signs - 24 hr 09/02/22 08:33 Temperature 98.1 F Pulse Rate 66 Respiratory Rate 18 Blood Pressure 100/59 L Pulse Oximetry 95 Oxygen Delivery Method Room Air BMI result Body Mass Index 25.7 Labs 08/25/22 14:27 08/25/22 14:27 Medications Medications Current Medications Acetaminophen (Acetaminophen 325 Mg Tablet) 650 mg PO Q6H PRN PRN Reason: Headache/Pain Mild Scale (1-3) Last Admin: 08/31/22 21:30 Dose: 650 mg Al Hydroxide/Mg Hydroxide (Magnesium Hydrox/Alum Hydrox 30 Ml Oral.Susp) 30 ml PO Q6H PRN PRN Reason: Heartburn/Nausea Albuterol Sulfate (Albuterol Sulfate 90 Mcg 8 Gm Inhaler) 1 puff INHALE Q2H PRN PRN Reason: wheezing Last Admin: 09/02/22 14:18 Dose: 1 puff Buprenorphine/Naloxone (Buprenorphine/Naloxone 8/2 Mg Film) 1 film SUBLINGUAL TID PRN PRN Reason: severe pain Last Admin: 09/02/22 16:54 Dose: 1 film Bupropion HCl (Bupropion Hcl Xl 300 Mg Tab.Er.24h) 300 mg PO DAILY [facility] Last Admin: 09/02/22 08:25 Dose: 300 mg Clonidine HCl (Clonidine Hcl 0.1 Mg Tablet) 0.05 mg PO Q4H PRN; Protocol PRN Reason: anxiety Last Admin: 09/01/22 21:22 Dose: 0.05 mg Docusate Sodium (Docusate Sodium 100 Mg Capsule) 100 mg PO BID [facility] Last Admin: 09/02/22 08:26 Dose: 100 mg Fluoxetine HCl (Fluoxetine Hcl 20 Mg Capsule) 60 mg PO DAILY [facility] Last Admin: 09/02/22 08:25 Dose: 60 mg Folic Acid (Folic Acid 1 Mg Tablet) 1 mg PO DAILY [facility] Last Admin: 09/02/22 08:25 Dose: 1 mg Gabapentin (Gabapentin 300 Mg Capsule) 300 mg PO TID [facility] Last Admin: 09/02/22 14:18 Dose: 300 mg Hydroxyzine HCl (Hydroxyzine Hcl 25 Mg Tablet) 25 mg PO Q6H PRN PRN Reason: Anxiety Last Admin: 09/02/22 18:34 Dose: 25 mg Magnesium Hydroxide (Milk Of Magnesia 30 Ml Oral.Susp) 30 ml PO DAILY PRN PRN Reason: Constipation Nicotine (Nicotine 21 Mg Patch.Td24) 21 mg TRANSDERMA DAILY [facility] Last Admin: 09/02/22 08:25 Dose: 21 mg Nicotine Polacrilex (Nicotine Polacrilex 2 Mg Gum) 4 mg BUCCAL Q2H PRN PRN Reason: Nicotine Cravings Olanzapine (Olanzapine 2.5 Mg Tablet) 2.5 mg PO BID@0900,1400 [facility] Last Admin: 09/02/22 14:18 Dose: 2.5 mg Thiamine HCl (Thiamine Hcl 100 Mg Tablet) 100 mg PO DAILY [facility] Last Admin: 09/02/22 08:25 Dose: 100 mg Trazodone HCl (Trazodone Hcl 50 Mg Tablet) 50 mg PO BEDTIME PRN PRN Reason: Insomnia Last Admin: 09/01/22 21:24 Dose: 50 mg Trazodone HCl (Trazodone Hcl 50 Mg Tablet) 50 mg PO BEDTIME MRX1 PRN PRN Reason: Insomnia Last Admin: 08/30/22 22:03 Dose: 50 mg Allergies Allergies Allergy/AdvReac Type Severity Reaction Status Date / Time levofloxacin Allergy Unknown Unknown Verified 08/16/22 16:48 chlorpromazine Allergy Unknown unknown Uncoded 08/16/22 16:47 Assessment & Plan Assessment & Plan (1) MDD (major depressive disorder): Status: Acute Code(s): F32.9 - Major depressive disorder, single episode, unspecified (2) Suicide attempt by substance overdose: Status: Acute Code(s): T65.92XA - Toxic effect of unspecified substance, intentional self-harm, initial encounter (3) Alcohol use disorder, severe, dependence: Status: Acute Code(s): F10.20 - Alcohol dependence, uncomplicated (4) Opioid use disorder: Status: Acute Code(s): F11.90 - Opioid use, unspecified, uncomplicated Plan 08/26: restart meds from most recent stay on [facility]. detox from alcohol and barbiturates, although pt denies use of barbiturates and only discharged from [facility] 5 days ago. 08/27: make suboxone PRN as pt declined it and says he only takes it for pain. plan to structure taper tomorrow. otherwise continue current mgmt. 08/28: ativan taper, DC CIWA and PRN ativan. DC campral and start antabuse. arrange for supportive protective services social worker after discharge. 08/29: awaiting antabuse arrival from [facility]. continue detox taper. mtg with [facility] staff tomorrow. more future-oriented and appearing more relaxed. 08/30: [facility] ordering antabuse, hopefully will arrive tomorrow. detox taper ends today. added wellbutrin 150 mg daily today for antidepressant augmentation. met with [facility] staff and KAL[facility] peraza, feeling optimistic about the mtg. 08/31: antabuse unavailable per [facility], they will continue to attempt to obtain it. no issues with wellbutrin today. dose increase to 300 mg on sunday. valium 5 one time for any lingering barbiturate withdrawal. planning for discharge early next week. 09/01 sad, tearful, but no SI and future oriented. Increase wellbutrin; agreed to add scheduled zyprexa (reviewed risks/side-effects) 09/02 mood is better, though still anxious; no SI; planning to dc sunday. Future oriented with plans for housing and aftercare. PLAN:? CV q15min checks continue Clonidine 0.05mg q4prn for anxiety Continue Zyprexa 2.5mg to BID Continue WEllbutinXL to 300mg Patient educated on: diagnosis and medication risk/benefits Informed Consent: understands Reason for contiued inpatient stay Substantial Risk for: med/psych decompensation Time Spent With Patient Time: Total time managing care of this patient today ____ minutes.
[2022-09-02 20:39] VITALS: BP 109/60; PULSE 72; RESP 18; TEMP 36.7; O2SAT 94
[2022-09-02] MEDS: traZODone HCL 50 MG TABLET PO (20:40)
[2022-09-03 04:00] VITALS: BP 112/75; PULSE 71; RESP 20; O2SAT 91
[2022-09-03] MEDS: Albuterol Sulfate 90 MCG 8 GM INHALER 1 PUFF INHALE ×5 (04:01→21:10)
[2022-09-03] MEDS: cloNIDine HCL 0.1 MG TABLET 0.05 MG PO ×2 (04:05→09:58)
[2022-09-03 08:00] VITALS: BP 104/69; PULSE 70; RESP 18; TEMP 36.7; O2SAT 94
[2022-09-03] MEDS: buPROPion HCl XL 300 MG TAB.ER.24H PO (08:39)
[2022-09-03] MEDS: FLUoxetine HCl 20 MG CAPSULE 60 MG PO (08:39)
[2022-09-03] MEDS: Gabapentin 300 MG CAPSULE PO ×3 (08:40→21:25)
[2022-09-03] MEDS: OLANZapine 2.5 MG TABLET PO ×3 (08:40→22:44)
[2022-09-03] MEDS: Thiamine HCL 100 MG TABLET PO (08:41)
[2022-09-03] MEDS: Nicotine 21 MG PATCH.TD24 TRANSDERMA (08:41)
[2022-09-03] MEDS: Docusate Sodium 100 MG CAPSULE PO ×2 (08:41→21:25)
[2022-09-03] MEDS: Buprenorphine/Naloxone 8/2 mg FILM 1 FILM SUBLINGUAL ×2 (10:01→16:11)
[2022-09-03] MEDS: Folic Acid 1 MG TABLET PO (10:02)
--- NOTE | 2022-09-03 12:12 | P.PNPSI_ITS ---
Subjective Subjective Date of Service: 09/03/22 Reason For Visit: Suicide attempt Interim History: With patient; discussed in teams. Patient says he is feeling better. He still misses his very much but is able to distract himself. Feels that medications are helping a little bit. Asks that clonidine could be raised a little however. Patient denies any SI. He says it is tough to go home since that is where his however he is future oriented and talks about getting a job and getting involved in the [employer] meeting. Patient also called a friend this weekend to make sure that alcohol was removed from the house. Mental Status Exam Mental Status Exam Narrative: Pt is alert and oriented; behavior is cooperative, more calm; dressed in street clothes, scruffy and unkempt but with adequate hygiene; mood little better; affect congruent; eye contact appropriate; Speech is normal rate, volume and prosody; thought process is organized and goal directed; Thought content is on missing his ; housing; no SI/HI/AVH expressed. Patient's insight and judgment are intact. Diagnostics Vital Signs (24Hr): Vital Signs - 24 hr 09/02/22 20:39 09/03/22 04:00 09/03/22 08:00 Temperature 98.1 F 98.1 F Pulse Rate 72 71 70 Respiratory Rate 18 20 18 Blood Pressure 109/60 112/75 104/69 Pulse Oximetry 94 91 L 94 Oxygen Delivery Method Room Air Room Air Room Air BMI result Body Mass Index 25.7 Labs 08/25/22 14:27 08/25/22 14:27 Medications Medications Current Medications Acetaminophen (Acetaminophen 325 Mg Tablet) 650 mg PO Q6H PRN PRN Reason: Headache/Pain Mild Scale (1-3) Last Admin: 08/31/22 21:30 Dose: 650 mg Al Hydroxide/Mg Hydroxide (Magnesium Hydrox/Alum Hydrox 30 Ml Oral.Susp) 30 ml PO Q6H PRN PRN Reason: Heartburn/Nausea Albuterol Sulfate (Albuterol Sulfate 90 Mcg 8 Gm Inhaler) 1 puff INHALE Q2H PRN PRN Reason: wheezing Last Admin: 09/03/22 09:07 Dose: 1 puff Buprenorphine/Naloxone (Buprenorphine/Naloxone 8/2 Mg Film) 1 film SUBLINGUAL TID PRN PRN Reason: severe pain Last Admin: 09/03/22 10:01 Dose: 1 film Bupropion HCl (Bupropion Hcl Xl 300 Mg Tab.Er.24h) 300 mg PO DAILY [facility] Last Admin: 09/03/22 08:39 Dose: 300 mg Clonidine HCl (Clonidine Hcl 0.1 Mg Tablet) 0.05 mg PO Q4H PRN; Protocol PRN Reason: anxiety Last Admin: 09/03/22 09:58 Dose: 0.05 mg Docusate Sodium (Docusate Sodium 100 Mg Capsule) 100 mg PO BID [facility] Last Admin: 09/03/22 08:41 Dose: 100 mg Fluoxetine HCl (Fluoxetine Hcl 20 Mg Capsule) 60 mg PO DAILY [facility] Last Admin: 09/03/22 08:39 Dose: 60 mg Folic Acid (Folic Acid 1 Mg Tablet) 1 mg PO DAILY [facility] Last Admin: 09/03/22 10:02 Dose: 1 mg Gabapentin (Gabapentin 300 Mg Capsule) 300 mg PO TID [facility] Last Admin: 09/03/22 08:40 Dose: 300 mg Hydroxyzine HCl (Hydroxyzine Hcl 25 Mg Tablet) 25 mg PO Q6H PRN PRN Reason: Anxiety Last Admin: 09/02/22 18:34 Dose: 25 mg Magnesium Hydroxide (Milk Of Magnesia 30 Ml Oral.Susp) 30 ml PO DAILY PRN PRN Reason: Constipation Nicotine (Nicotine 21 Mg Patch.Td24) 21 mg TRANSDERMA DAILY [facility] Last Admin: 09/03/22 08:41 Dose: 21 mg Nicotine Polacrilex (Nicotine Polacrilex 2 Mg Gum) 4 mg BUCCAL Q2H PRN PRN Reason: Nicotine Cravings Olanzapine (Olanzapine 2.5 Mg Tablet) 2.5 mg PO BID@0900,1400 [facility] Last Admin: 09/03/22 08:40 Dose: 2.5 mg Thiamine HCl (Thiamine Hcl 100 Mg Tablet) 100 mg PO DAILY [facility] Last Admin: 09/03/22 08:41 Dose: 100 mg Trazodone HCl (Trazodone Hcl 50 Mg Tablet) 50 mg PO BEDTIME PRN PRN Reason: Insomnia Last Admin: 09/02/22 20:40 Dose: 50 mg Trazodone HCl (Trazodone Hcl 50 Mg Tablet) 50 mg PO BEDTIME MRX1 PRN PRN Reason: Insomnia Last Admin: 08/30/22 22:03 Dose: 50 mg Allergies Allergies Allergy/AdvReac Type Severity Reaction Status Date / Time levofloxacin Allergy Unknown Unknown Verified 08/16/22 16:48 chlorpromazine Allergy Unknown unknown Uncoded 08/16/22 16:47 Assessment & Plan Assessment & Plan (1) MDD (major depressive disorder): Status: Acute Code(s): F32.9 - Major depressive disorder, single episode, unspecified (2) Suicide attempt by substance overdose: Status: Acute Code(s): T65.92XA - Toxic effect of unspecified substance, intentional self-harm, initial encounter (3) Alcohol use disorder, severe, dependence: Status: Acute Code(s): F10.20 - Alcohol dependence, uncomplicated (4) Opioid use disorder: Status: Acute Code(s): F11.90 - Opioid use, unspecified, uncomplicated Plan 08/26: restart meds from most recent stay on M5. detox from alcohol and barbiturates, although pt denies use of barbiturates and only discharged from M5 5 days ago. 08/27: make suboxone PRN as pt declined it and says he only takes it for pain. plan to structure taper tomorrow. otherwise continue current mgmt. 08/28: ativan taper, DC CIWA and PRN ativan. DC campral and start antabuse. arrange for supportive social service worker after discharge. 08/29: awaiting antabuse arrival from [facility]. continue detox taper. mtg with [facility] staff tomorrow. more future-oriented and appearing more relaxed. 08/30: [facility] ordering antabuse, hopefully will arrive tomorrow. detox taper ends today. added wellbutrin 150 mg daily today for antidepressant augmentation. met with [facility] staff and [facility], feeling optimistic about the mtg. 08/31: antabuse unavailable per [facility], they will continue to attempt to obtain it. no issues with wellbutrin today. dose increase to 300 mg on sunday. valium 5 one time for any lingering barbiturate withdrawal. planning for discharge early next week. 09/01 sad, tearful, but no SI and future oriented. Increase wellbutrin; agreed to add scheduled zyprexa (reviewed risks/side-effects) 09/02 mood is better, though still anxious; no SI; planning to dc sunday. Future oriented with plans for housing and aftercare. 09/03 patient says medications are helping a little; no SI; future oriented. Knows that he will continue to struggle with sadness but says he very much wants to stay sober and move on. Talking about finding work, attending would worries meeting. Patient a course remains vulnerable to relapse and continued sadness however he is not in imminent risk for harm to self or others and is able to continue treatment in the community. PLAN:? CV q15min checks Increased to Clonidine 0.1 mg q4prn for anxiety Continue Zyprexa 2.5mg to BID Continue WEllbutinXL to 300mg Patient educated on: diagnosis, medication risk/benefits and substance abuse Informed Consent: understands Reason for contiued inpatient stay Substantial Risk for: stable for discharge Time Spent With Patient Time: Total time managing care of this patient today ____ minutes.
[2022-09-03 16:20] VITALS: BP 88/51; PULSE 86; TEMP 36.4; O2SAT 96
[2022-09-03] MEDS: cloNIDine HCL 0.1 MG TABLET PO (18:16)
[2022-09-03 21:12] VITALS: BP 90/53; PULSE 63; RESP 18; TEMP 36.6; O2SAT 91
[2022-09-03] MEDS: hydrOXYzine HCL 25 MG TABLET PO (21:25)
[2022-09-03] MEDS: traZODone HCL 50 MG TABLET PO (21:25)
[2022-09-04] MEDS: Albuterol Sulfate 90 MCG 8 GM INHALER 1 PUFF INHALE ×5 (00:22→14:26)
[2022-09-04 04:50] VITALS: O2SAT 83
[2022-09-04 05:05] VITALS: O2SAT 87
[2022-09-04] MEDS: hydrOXYzine HCL 25 MG TABLET PO (05:10)
[2022-09-04] MEDS: Albuterol/Iprat 2.5/0.5MG 3 ML AMPUL.NEB INHALE (05:30)
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
[2022-09-04] MEDS: methylPREDNISolone Sod Succ 40 MG/ML VIAL IM (06:03)
[2022-09-04] MEDS: Acetaminophen 325 MG TABLET 650 MG PO (06:13)
[2022-09-04 07:10] LABS: Venous Blood Gas Refer to POC result
[2022-09-04 07:13] LABS: VBG HCO3 30 mmol/L (22-26); VBG pCO2 52 mmHg; VBG pH 7.37 (7.32-7.43); VBG pO2 52 mmHg
[2022-09-04 07:25] LABS: Alanine Aminotransferase 66 U/L (0-40); Albumin Level 4.2 g/dL (3.5-5.0); Alkaline Phosphatase 138 U/L (39-117); Anion Gap 15 (12-20); Aspartate Amino Transferase 79 U/L (5-37); Bilirubin Total 0.4 mg/dL (0.0-1.0); Blood Urea Nitrogen 13 mg/dL (9-16); Calcium 9.4 mg/dL (8.4-10.2); Carbon Dioxide 26 mmol/L (22-29); Chloride 104 mmol/L (96-108); Creatinine Clr Calc Pharmacy 119.4; Estimated Glomerular Filt Rate > 60; Glucose Random 99 mg/dL (60-115); Potassium 4.5 mmol/L (3.3-5.1); Sodium 140 mmol/L (135-145); Total Protein 7.8 g/dL (6.5-8.0)
[2022-09-04 07:29] LABS: B Type Natriuretic Peptide 115 pg/mL (<100)
--- NOTE | 2022-09-04 07:52 | PC.NURSE ---
Pt c/o SOB throughout the evening and night, received prn albuterol inhaler with no effect. At approx. 0500 pt c/o SOB and was heard wheezing, O2 sats in the 80s. Provider devops consultant notified and hospitalist consult was ordered. Pt was placed on O2 @ 2 L via nasal cannula, received a duoneb updraft and solu-medrol 40 mg IM, and chest xray was performed. Pt reported positive effects from the duoneb and O2. Pt placed on 1:1 while on continuous O2.
[2022-09-04 08:30] VITALS: BP 94/55; PULSE 67; RESP 18; TEMP 36.6; O2SAT 92
--- NOTE | 2022-09-04 08:34 | P.PNPSI_ITS ---
Subjective Subjective Reason For Visit: Suicide attempt Diagnostics Vital Signs (24Hr): Vital Signs - 24 hr 09/03/22 16:20 09/03/22 21:12 09/04/22 04:50 Temperature 97.6 F 97.8 F Pulse Rate 86 63 Respiratory Rate 18 Blood Pressure 88/51 L 90/53 L Pulse Oximetry 96 91 L 83 L Oxygen Delivery Method Room Air Room Air Room Air 09/04/22 05:05 Temperature Pulse Rate Respiratory Rate Blood Pressure Pulse Oximetry 87 L Oxygen Delivery Method Room Air BMI result Body Mass Index 25.7 Labs 08/25/22 14:27 09/04/22 07:03 Labs: Laboratory Results - last 48 hr 09/04/22 09/04/22 09/04/22 07:03 07:03 07:07 VBG pH 7.37 VBG pCO2 52 VBG pO2 52 VBG HCO3 30 H VBG O2 Saturation 75.0 VBG Base Excess 4.0 Sodium 140 Potassium 4.5 D Chloride 104 Carbon Dioxide 26 Anion Gap 15 BUN 13 Creatinine 0.73 Estim Creat Clear Calc 119.4 Estimated GFR > 60 Random Glucose 99 Calcium 9.4 D Total Bilirubin 0.4 AST 79 H ALT 66 H Alkaline Phosphatase 138 H B-Natriuretic Peptide 115 H Total Protein 7.8 Albumin 4.2 Imaging Radiology Impressions: ITS Impressions Chest X-Ray 09/04/22 05:55 IMPRESSION: Linear left basilar atelectasis. Otherwise clear lungs. Medications Medications Current Medications Acetaminophen (Acetaminophen 325 Mg Tablet) 650 mg PO Q6H PRN PRN Reason: Headache/Pain Mild Scale (1-3) Last Admin: 09/04/22 06:13 Dose: 650 mg Al Hydroxide/Mg Hydroxide (Magnesium Hydrox/Alum Hydrox 30 Ml Oral.Susp) 30 ml PO Q6H PRN PRN Reason: Heartburn/Nausea Albuterol Sulfate (Albuterol Sulfate 90 Mcg 8 Gm Inhaler) 1 puff INHALE Q2H PRN PRN Reason: wheezing Last Admin: 09/04/22 05:04 Dose: 1 puff Albuterol/Ipratropium (Albuterol/Iprat 2.5/0.5mg 3 Ml Ampul.Neb) 3 ml INHALE RQ4H PRN PRN Reason: Shortness of Breath/Wheezing Last Admin: 09/04/22 05:30 Dose: 3 ml Albuterol/Ipratropium (Albuterol/Iprat 2.5/0.5mg 3 Ml Ampul.Neb) 3 ml INHALE RQ4H WHILE AWAKE [facility] Buprenorphine/Naloxone (Buprenorphine/Naloxone 8/2 Mg Film) 1 film SUBLINGUAL TID PRN PRN Reason: severe pain Last Admin: 09/03/22 16:11 Dose: 1 film Bupropion HCl (Bupropion Hcl Xl 300 Mg Tab.Er.24h) 300 mg PO DAILY [facility] Last Admin: 09/03/22 08:39 Dose: 300 mg Clonidine HCl (Clonidine Hcl 0.1 Mg Tablet) 0.1 mg PO Q4H PRN; Protocol PRN Reason: anxiety Last Admin: 09/03/22 18:16 Dose: 0.1 mg Docusate Sodium (Docusate Sodium 100 Mg Capsule) 100 mg PO BID [facility] Last Admin: 09/03/22 21:25 Dose: 100 mg Fluoxetine HCl (Fluoxetine Hcl 20 Mg Capsule) 60 mg PO DAILY [facility] Last Admin: 09/03/22 08:39 Dose: 60 mg Folic Acid (Folic Acid 1 Mg Tablet) 1 mg PO DAILY [facility] Last Admin: 09/03/22 10:02 Dose: 1 mg Gabapentin (Gabapentin 300 Mg Capsule) 300 mg PO TID [facility] Last Admin: 09/03/22 21:25 Dose: 300 mg Hydroxyzine HCl (Hydroxyzine Hcl 25 Mg Tablet) 25 mg PO Q6H PRN PRN Reason: Anxiety Last Admin: 09/04/22 05:10 Dose: 25 mg Magnesium Hydroxide (Milk Of Magnesia 30 Ml Oral.Susp) 30 ml PO DAILY PRN PRN Reason: Constipation Nicotine (Nicotine 21 Mg Patch.Td24) 21 mg TRANSDERMA DAILY [facility] Last Admin: 09/03/22 08:41 Dose: 21 mg Nicotine Polacrilex (Nicotine Polacrilex 2 Mg Gum) 4 mg BUCCAL Q2H PRN PRN Reason: Nicotine Cravings Olanzapine (Olanzapine 2.5 Mg Tablet) 2.5 mg PO BID@0900,1400 [facility] Last Admin: 09/03/22 14:19 Dose: 2.5 mg Thiamine HCl (Thiamine Hcl 100 Mg Tablet) 100 mg PO DAILY [facility] Last Admin: 09/03/22 08:41 Dose: 100 mg Trazodone HCl (Trazodone Hcl 50 Mg Tablet) 50 mg PO BEDTIME PRN PRN Reason: Insomnia Last Admin: 09/03/22 21:25 Dose: 50 mg Trazodone HCl (Trazodone Hcl 50 Mg Tablet) 50 mg PO BEDTIME MRX1 PRN PRN Reason: Insomnia Last Admin: 08/30/22 22:03 Dose: 50 mg Allergies Allergies Allergy/AdvReac Type Severity Reaction Status Date / Time levofloxacin Allergy Unknown Unknown Verified 08/16/22 16:48 chlorpromazine Allergy Unknown unknown Uncoded 08/16/22 16:47 Assessment & Plan Assessment & Plan (1) MDD (major depressive disorder): Status: Acute Code(s): F32.9 - Major depressive disorder, single episode, unspecified (2) Suicide attempt by substance overdose: Status: Acute Code(s): T65.92XA - Toxic effect of unspecified substance, intentional self-harm, initial encounter (3) Alcohol use disorder, severe, dependence: Status: Acute Code(s): F10.20 - Alcohol dependence, uncomplicated (4) Opioid use disorder: Status: Acute Code(s): F11.90 - Opioid use, unspecified, uncomplicated Plan 08/26: restart meds from most recent stay on M5. detox from alcohol and b arbiturates, although pt denies use of barbiturates and only discharged from M5 5 days ago. 08/27: make suboxone PRN as pt declined it and says he only takes it for pain. plan to structure taper tomorrow. otherwise continue current mgmt. 08/28: ativan taper, DC CIWA and PRN ativan. DC campral and start antabuse. arrange for supportive social media marketing analyst after discharge. 08/29: awaiting antabuse arrival from [facility]. continue detox taper. mtg with [facility] staff tomorrow. more future-oriented and appearing more relaxed. 08/30: [facility] ordering antabuse, hopefully will arrive tomorrow. detox taper ends today. added wellbutrin 150 mg daily today for antidepressant augmentation. met with [facility] staff and [facility], feeling optimistic about the mtg. 08/31: antabuse unavailable per [facility], they will continue to attempt to obtain it. no issues with wellbutrin today. dose increase to 300 mg on sunday. valium 5 one time for any lingering barbiturate withdrawal. planning for discharge early next week. 09/01 sad, tearful, but no SI and future oriented. Increase wellbutrin; agreed to add scheduled zyprexa (reviewed risks/side-effects) 09/02 mood is better, though still anxious; no SI; planning to dc sunday. Future oriented with plans for housing and aftercare. 09/03 patient says medications are helping a little; no SI; future oriented. Knows that he will continue to struggle with sadness but says he very much wants to stay sober and move on. Talking about finding work, attending would worries meeting. Patient a course remains vulnerable to relapse and continued sadness however he is not in imminent risk for harm to self or others and is able to continue treatment in the community. PLAN:? CV q15min checks Increased to Clonidine 0.1 mg q4prn for anxiety Continue Zyprexa 2.5mg to BID Continue WEllbutinXL to 300mg Time Spent With Patient Time: Total time managing care of this patient today ____ minutes.
[2022-09-04 08:44] LABS: COVID-19 Test Negative (Negative); IDNOW Serial# 9DB6401D
[2022-09-04 08:50] VITALS: BP 102/66; PULSE 63; RESP 20; TEMP 36.7; O2SAT 92
[2022-09-04] MEDS: FLUoxetine HCl 20 MG CAPSULE 60 MG PO (08:53)
[2022-09-04] MEDS: buPROPion HCl XL 300 MG TAB.ER.24H PO (08:54)
[2022-09-04] MEDS: Thiamine HCL 100 MG TABLET PO (08:54)
[2022-09-04] MEDS: OLANZapine 2.5 MG TABLET PO ×2 (08:54→13:27)
[2022-09-04] MEDS: Gabapentin 300 MG CAPSULE PO ×2 (08:55→14:27)
[2022-09-04] MEDS: Folic Acid 1 MG TABLET PO (08:55)
[2022-09-04] MEDS: Docusate Sodium 100 MG CAPSULE PO (08:55)
[2022-09-04] MEDS: Nicotine 21 MG PATCH.TD24 TRANSDERMA (08:56)
[2022-09-04] MEDS: cloNIDine HCL 0.1 MG TABLET PO ×2 (09:36→13:28)
--- NOTE | 2022-09-04 12:03 | PM.EVENT ---
Event Note Date of Service: 09/04/22 Event Note: 52-year-old man admitted to inpatient adult psych. History of asthma with wheezing and hypoxia noted. Oxygen saturation as low as 83%. Placed on oxygen overnight with significant improvement. Given IM injection of Solu-Medrol. Awaiting discharge from psychiatric perspective Patient alert and oriented x3 Lung sounds mild expiratory wheezing Abdomen soft Heart regular rate and rhythm Asthma exacerbation. Mild. Hypoxia resolved. Will send home with short course of prednisone Continue inhalers as needed Encouraged to quit smoking Time Spent With Patient Time: Total time managing care of this patient today ____ minutes.
[2022-09-04] MEDS: Buprenorphine/Naloxone 8/2 mg FILM 1 FILM SUBLINGUAL (12:28)
--- NOTE | 2022-09-04 12:35 | P.DS_ITS ---
DS: Providers Provider Date of Service: 09/04/22 Date of admission: 08/26/22 00:02 Date of discharge: 09/04/22 Primary care physician: Daniel Cottrell MD Attending physician on admission: Sebas Milan Consults: 09/04/22 05:03 Consult to Hospitalist Stat Consulting Provider: Hospitalist Reason For Exam: SOB, O2 83% Attending physician on discharge: Pk Rey DS: Diagnosis Discharge Diagnosis (1) MDD (major depressive disorder): Status: Acute (2) Suicide attempt by substance overdose: Status: Resolved (3) Alcohol use disorder, severe, dependence: Status: Acute (4) Opioid use disorder: Status: Inactive DS: Medications Discharge Medications Home Medications: Home Medications Medication Instructions Recorded Confirmed docusate sodium 100 mg capsule 1 cap PO BID 08/15/22 08/25/22 gabapentin 100 mg capsule 3 cap PO TID 08/15/22 08/25/22 Previous Rx's Medication Instructions Recorded fluoxetine 20 mg capsule 60 mg PO DAILY 30 days #90 caps 08/21/22 folic acid 1 mg tablet 1 mg PO DAILY 30 days #30 tabs 08/21/22 nicotine 21 mg/24 hr daily 21 mg transdermal DAILY #0 ea 08/21/22 transdermal patch thiamine mononitrate (vit B1) 100 100 mg PO DAILY 30 days #30 tabs 08/21/22 mg tablet trazodone 50 mg tablet 50 mg PO BEDTIME PRN Insomnia 30 08/21/22 days #30 tabs albuterol sulfate 90 mcg/actuation 1 puff inhalation Q6H PRN wheezing 08/23/22 aerosol inhaler (Ventolin HFA) 30 days #6.7 grams buprenorphine 8 mg-naloxone 2 mg 1 film sublingual TID PRN pain, 09/04/22 sublingual film (Suboxone) severe 4 days #10 ea bupropion HCl 300 mg 24 hr tablet, 300 mg PO DAILY 30 days #30 tabs 09/04/22 extended release clonidine HCl 0.1 mg tablet 0.1 mg PO Q4H PRN anxiety 30 days 09/04/22 #60 tabs olanzapine 2.5 mg tablet 2.5 mg PO BID@0900,1400 30 days 09/04/22 #60 tabs prednisone 10 mg tablet 40 mg PO DAILY #16 tabs 09/04/22 Mental Status Exam Mental Status Exam Narrative: Pt is alert and oriented; behavior is cooperative, calm, friendly; dressed in street clothes and with adequate hygiene; mood little better; affect congruent; eye contact appropriate; Speech is normal rate, volume and prosody; thought process is organized and goal directed; Thought content is on missing his ; housing, discharge; no SI/HI. Patient's insight and judgment are intact. Data Data Completed and Pending Completed studies during hospitalization [Text1]: 09/04/22 09/04/22 09/04/22 07:03 07:03 07:07 VBG pH 7.37 VBG pCO2 52 VBG pO2 52 VBG HCO3 30 H VBG O2 Saturation 75.0 VBG Base Excess 4.0 Sodium 140 Potassium 4.5 D Chloride 104 Carbon Dioxide 26 Anion Gap 15 BUN 13 Creatinine 0.73 Estim Creat Clear Calc 119.4 Estimated GFR > 60 Random Glucose 99 Calcium 9.4 D Total Bilirubin 0.4 AST 79 H ALT 66 H Alkaline Phosphatase 138 H B-Natriuretic Peptide 115 H Total Protein 7.8 Albumin 4.2 COVID-19 (DB) COVID-19 Clin Com 09/04/22 08:10 VBG pH VBG pCO2 VBG pO2 VBG HCO3 VBG O2 Saturation VBG Base Excess Sodium Potassium Chloride Carbon Dioxide Anion Gap BUN Creatinine Estim Creat Clear Calc Estimated GFR Random Glucose Calcium Total Bilirubin AST ALT Alkaline Phosphatase B-Natriuretic Peptide Total Protein Albumin COVID-19 (DB) Negative COVID-19 Clin Com See Note Imaging Diagnostic Imaging Impressions Chest X-Ray 09/04/22 05:55 IMPRESSION: Linear left basilar atelectasis. Otherwise clear lungs. DS: Summary Hospital Course Hospital Course: Patient is a 52-year-old male with history of depression cut of alcoholism, who recently lost his beloved who presents for intentional overdose of Prozac after recently being discharged for depression in the face of relapse. On admission, patient was depressed; he was detoxed from alcohol without incident. Patient no longer wanted to end his life, however he still had intermittent passive SI. He was started on Wellbutrin which was titrated and Zyprexa was scheduled b.i.d.; also clonidine made more available. Over the next several days, patient's mood improved. He remained tearful when talking about his however was more future oriented, saying what he did was a mistake and that he no longer has any SI. Patient wanted to get on Antabuse however it was not available and so agreed to discuss this with outpatient provider. Patient's mood continued to improve, he was social in the milieu, eating and sleeping well and remained without any SI; demonstrated good behaviors and impulse control and was appropriate with peers and staff. Patient became optimistic and continually reported that it is mood was better; he talked about wanting to get a job and again talked about joining support group for would hours. Pt has safety plan to reach out for help if he feels he again becomes unsafe. He also had plans to secure his housing situation which significantly reduce his anxiety. Patient felt ready for discharge. While he remains mourning the loss of his , he agrees much of this will only resolve with time and therapy with which he is willing to engage; he also understands that his alcoholism is what makes the depression unbearable and patient says he very much wants to remain sober and has plans in place to do so. He remains chronically vulnerable to relapse with alcohol, however he is not in imminent risk for harm to self or ot hers and his request for discharge honored. Early on the day of planned discharge, patient had low O2 sat was put on oxygen and he significantly improved. Hospitalist was called who saw patient, gave him an IM injection of Solu-Medrol; he was then started on a prednisone taper. Shaping Machine Tender discussed case with hospitalist SILVIA who felt patient was medically stable and appropriate for discharge home to follow-up in the community. Shaping Machine Tender also met with patient who said he was feeling fine, breathing fine and that he felt ready for discharge; he said he would follow up with his PCP, appointment anahy y having been made for this week. Time spent discussing smoking cessation with patient: 3 to 10 minutes Status at Discharge Functional status at discharge: independent ambulation Overall status at discharge: patient is back to baseline Time Spent with Patient Time attestation: Total time managing care of this patient today ____ minutes. Time spent: Greater than 30 minutes Discharge Plan Discharge Anticipated Discharge Date/Time: 09/04/22 11:30 Patient Disposition: Home, Self-Care Discharge Diagnosis: MDD, recurrent, severe in partial remission Referrals: Jake Banks (Director Of Rehabilitation) [facility] [Other] - 1 Week (Please follow up with Jake over the phone once you are discharged from the unit) Michele Linder (Therapy) [Other] - 09/05/22 2:00 pm (IN OFFICE APPOINTMENT -Please arrive to your appointment fifteen minutes early in order to complete the necessary paperwork ) Manuela Collado (Psychiatry) [Other] - 09/27/22 9:00 am (IN OFFICE APPOINTMENT -Psychiatric Evaluation ) Manuela Collado (Psychiatry) [Other] - 10/26/22 10:20 am (IN OFFICE APPOINTMENT -Medication Management ) Daniel Cottrell MD [Primary Care Provider] - 09/07/22 3:20 pm (no appts till september, so they will be calling patient to follow up for appt) Discharge Medications: New clonidine HCl 0.1 mg Tablet 0.1 mg PO Q4H PRN (Reason: anxiety) 30 Days Qty: 60 0RF Protocol: Hold for SBP< HOLD for SBP < : 90 olanzapine 2.5 mg Tablet 2.5 mg PO BID@0900,1400 30 Days Qty: 60 0RF bupropion HCl 300 mg Tablet Extended Release 24 Hr 300 mg PO DAILY 30 Days Qty: 30 0RF prednisone 10 mg tablet 40 mg PO DAILY Qty: 16 0RF Continued docusate sodium 100 mg capsule 1 cap PO BID gabapentin 100 mg capsule 3 cap PO TID nicotine 21 mg/24 hr Patch 24 Hour 21 mg transdermal DAILY Qty: 0 0RF trazodone 50 mg Tablet 50 mg PO BEDTIME PRN (Reason: Insomnia) 30 Days Qty: 30 0RF fluoxetine 20 mg capsule 60 mg PO DAILY 30 Days Qty: 90 1RF folic acid 1 mg Tablet 1 mg PO DAILY 30 Days Qty: 30 0RF thiamine mononitrate (vit B1) 100 mg Tablet 100 mg PO DAILY 30 Days Qty: 30 0RF albuterol sulfate [Ventolin HFA] 90 mcg/actuation HFA aerosol inhaler 1 puff INHALATION Q6H PRN (Reason: wheezing) 30 Days Qty: 6.7 1RF Changed buprenorphine-naloxone [Suboxone] 8-2 mg film 1 film sublingual TID PRN (Reason: pain, severe) 4 Days Qty: 10 0RF Discontinued olanzapine 2.5 mg Tablet 2.5 mg PO DAILY 30 Days Qty: 30 0RF acamprosate 333 mg Tablet,Delayed Release (Dr/Ec) 333 mg PO TID Qty: 0 0RF Discharge Orders: Discharge Order (Routine); Ordered 09/04/22 Ordered By: Pk Rey Diet: Regular diet Activity on Discharge: As tolerated Stand Alone Forms: Patient Portal Discharge page, Community Support Care Plan Goals: Maintain mood and safe behaviors Take medications as prescribed Continue to pursue sobriety Practice coping skills Continue with outpatient providers and reach out to them as needed Health Concerns: Mood stability and behaviors Sobriety COPD (concern for) Plan of Treatment: Follow up with your PCP, psychiatric provider and other outpatient providers regarding above concerns Take medications as prescribed Assessment: Risk assessment at time of discharge:? Patient was interviewed prior to discharge and found to be fully oriented and without any SI or HI. Patient has insight and demonstrates good judgment in terms of wanting to pursue treatment. Patient is not in imminent risk of harm to self or others and has a safety plan that includes presenting to the closest ER or calling 911 if feeling unsafe.? Patient has been observed closely by nursing and unit staff throughout admission; patient has not engaged in any behaviors that suggest dangerousness to self or others and has demonstrated appropriate behaviors and impulse control Discharge Date/Time: 09/04/22 15:20
[2022-09-04 13:25] VITALS: BP 130/74; PULSE 83; RESP 20; TEMP 36.6; O2SAT 95
[2022-09-04] MEDS: Naloxone HCl Nasal TAKE HOME 4 MG SPRAY NOSTRILALT (14:30)
--- NOTE | 2022-09-04 15:33 | PC.NURSE ---
Pt ready and aware of discharge . Denies SI/HI/AV/AH at present time. Pt verbalized understanding of instructions and medications.
== END 2022-09-04 15:20 | disposition home or self-care (01) | DRG 754 ==
LOC: HO.ED 23:38 → HO.PADLT16 08-26 00:07
PROVIDERS: Clinical Nurse Specialist Psychiatric/Mental Health; Internal Medicine; Admitting Provider Psychiatry & Neurology Psychiatry; Emergency Provider Emergency Medicine; PCP Internal Medicine; Visit Provider Psychiatry & Neurology Psychiatry
DX: F32.9 Major depressive disorder, single episode, unspecified (principal); R45.851 Suicidal ideations; F17.210 Nicotine dependence, cigarettes, uncomplicated; T43.222A Poisoning by selective serotonin reuptake inhibitors, intentional self-harm, initial encounter; F10.20 Alcohol dependence, uncomplicated; Z20.822 Contact with and (suspected) exposure to COVID-19; Y90.6 Blood alcohol level of 120-199 mg/100 ml; Z71.6 Tobacco abuse counseling; Z88.1 Allergy status to other antibiotic agents; Z88.8 Allergy status to other drugs, medicaments and biological substances; Z79.52 Long term (current) use of systemic steroids; Z79.899 Other long term (current) drug therapy
CPT/HCPCS: 36415; 71045; 80048; 80053; 80076; 80143; 80179; 80307; 81001; 82077; 82803; 83690; 83735; 83880; 85025; 87635; 93005; 99285; J2920; S9485

== ENCOUNTER 2022-10-05 14:41 | Inpatient (IN) | payer MEDICAID, OTHER, SELFPAY ==
--- NOTE | ~2022-10-05 | XR_ITS ---
EXAMINATION: XR ANKLE, RIGHT CLINICAL INFORMATION: Right ankle pain, edema COMPARISON: None available. TECHNIQUE: AP, lateral, and mortise views of the right ankle. FINDINGS: Prominent soft tissue swelling superficial to the lateral malleolus. No fracture. No radiopaque foreign body or soft tissue gas. The ankle mortise is preserved. XR/XR ankle RT min 3V IMPRESSION: Lateral soft tissue swelling. No fracture.
[2022-10-05 14:48] VITALS: BP 111/75; BP 134/70; PULSE 100; PULSE 90; RESP 18; TEMP 37.2; O2SAT 95; O2SAT 98; BMI 29.8
[2022-10-05 15:20] LABS: Amphetamine Screen Urine Not Detected (Not Detect); Barbiturates, Urine Not Detected (Not Detect); Benzodiazepines Screen Urine Not Detected (Not Detect); Cannabinoid Screen Urine Not Detected (Not Detect); Cocaine Screen Urine Not Detected (Not Detect); Fentanyl, urine Not Detected (Not Detect); Opiate Screen Urine Not Detected (Not Detect); Phencyclidine Screen Urine Not Detected (Not Detect)
[2022-10-05 15:20] LABS: MANUAL DIFF FLAG NO
[2022-10-05 15:22] LABS: Basophils Percent Auto 0.5 % (0-2); Eosinophils Absolute Auto 0.3 X10*3/uL (0.0-0.4); Eosinophils Percent Auto 3.2 % (0-4); Hematocrit 39.5 % (42.0-52.0); Hemoglobin 13.4 g/dl (14.0-18.0); Imm Gran Abs Auto 0.01 X10*3/uL (0.00-0.03); Imm Gran Pct Auto 0.1 % (0.0-0.4); Lymphocytes Absolute Auto 1.9 X10*3/uL (1.2-4.9); Lymphocytes Percent Auto 24.2 % (20-40); Mean Corpuscular HGB Conc 33.9 g/dl (31.0-36.0); Mean Corpuscular Hemoglobin 31.5 pg (27.0-33.0); Mean Corpuscular Volume 92.9 fL (80.0-98.0); Mean Platelet Volume 10.5 fL (9.4-12.4); Monocytes Absolute Auto 0.4 X10*3/uL (0.1-1.2); Monocytes Percent Auto 5.3 % (2-11); Neutrophils Absolute Auto 5.1 x10*3/uL (2.0-8.3); Neutrophils Percent Auto 66.7 % (45-73); Platelet Count 124 X10*3/uL (160-400); Red Blood Count 4.25 X10*6/uL (4.60-5.80); Red Cell Distribution Width 13.5 % (11.0-16.0); White Blood Count 7.7 X10*3/uL (4.8-10.8)
[2022-10-05 15:30] LABS: COVID-19 Test Negative (Negative); IDNOW Serial# 6674DD1D
--- NOTE | 2022-10-05 15:32 | ED.GENADULT ---
HPI - General Adult General Chief complaint: Psychiatric Symptoms Stated complaint: SI Time Seen by Provider: 10/05/22 15:31 Source: patient and EMS Mode of arrival: EMS Limitations: no limitations History of Present Illness HPI narrative: Patient is a 52 year old assigned male at with a history of COPD and MDD presenting to the emergency department today with suicidal ideation. Patient states that lately he has been having thoughts of harming himself. Patient denies any dizziness, lightheadedness, abdominal pain, nausea, vomiting, fever, chills, blurry vision, double vision, loss of vision, chest pain, difficulty breathing, shortness of breath, back pain, night sweats, pain with urination, increased urinary frequency, increased urinary urgency, blood in his urine or stool, syncope or a near syncopal episode, recent trauma or falls, bowel incontinence, bladder incontinence, bowel retention, bladder retention, or any other complaints at this time. Relieving factors: none Exacerbating factors: none Associated symptoms: denies other symptoms Treatments prior to arrival: none Related Data Home Medications Medication Instructions Recorded Confirmed buprenorphine 8 mg-naloxone 2 mg 1 film buccal TID 10/05/22 10/05/22 sublingual film (Suboxone) clonidine HCl 0.1 mg tablet 0.1 mg PO QID PRN Anxiety 10/05/22 10/05/22 fluoxetine 10 mg capsule (Prozac) 60 mg PO DAILY 10/05/22 10/05/22 fluticasone propionate 110 2 puff inhalation BID 10/05/22 10/05/22 mcg/actuation HFA aerosol inhaler hydroxyzine pamoate 25 mg capsule 25 mg PO TID 10/05/22 10/05/22 olanzapine 2.5 mg tablet 2.5 mg PO BID 10/05/22 10/05/22 quetiapine 25 mg tablet 1 - 3 tab PO BEDTIME PRN Insomnia 10/05/22 10/05/22 trazodone 50 mg tablet 50 mg PO BEDTIME 10/05/22 10/05/22 Allergies Allergy/AdvReac Type Severity Reaction Status Date / Time levofloxacin Allergy Unknown Unknown Verified 08/16/22 16:48 chlorpromazine Allergy Unknown unknown Uncoded 08/16/22 16:47 Review of Systems Constitutional: Constitutional: Reports no additional constitutional complaints, Denies chills, Denies fever(s) and Denies night sweats Eyes: Eyes: Reports no additional eye complaints, Denies blurry vision, Denies change in vision, Denies diplopia, Denies eye discharge, Denies loss of vision and Denies eye pain ENT: Denies dizziness Cardiovascular: Cardiovascular: Reports no additional cardiovascular complaints, Denies chest pain, Denies lightheadedness, Denies Loss of Consciousness and Denies dyspnea Respiratory: Respiratory: Reports no additional respiratory complaints and Denies dyspnea Gastrointestinal: Gastrointestinal: Reports no additional gastrointestinal complaints, Denies abdominal pain, Denies melena, Denies hematochezia, Denies change in bowel habits and Denies change in stool character Genitourinary: Genitourinary: Reports no additional male genitourinary complaints, Denies hematuria, Denies oliguria, Denies difficulty urinating, Denies dysuria, Denies urinary frequency, Denies urinary hesitancy, Denies urinary incontinence and Denies urinary urgency Musculoskeletal: Musculoskeletal: Reports no additional musculoskeletal complaints, Denies numbness and Denies tingling Neurologic: Denies dizziness, Denies loss of vision, Denies numbness and Denies tingling Psychiatric: Psychiatric: Reports no additional psychiatric complaints and Reports suicidal ideation Endocrine: Endocrine: Reports no additional endocrine complaints Hematologic/Lymphatic: Hematologic/Lymphatic: Reports no additional hematologic/lymphatic complaints Allergic/Immunologic: Allergic/Immunologic: Reports no additional allergic/immunologic complaints PMF Past Medical History Attestation statement: The following information was validated with the patient. Source: old records reviewed and nursing notes reviewed Medical History Acute respiratory failure with hypoxia Alcohol use disorder, severe, dependence Asthma COPD (chronic obstructive pulmonary disease) MDD (major depressive disorder) Opioid use disorder Pancreatitis Social History Social History Household Members: None Housing: Apartment Do you presently have visiting nurse or other home services: No Alcohol intake: current Alcohol intake frequency: a few times a week Patient Tobacco Use Status: Current everyday Tobacco user Tobacco use type: Cigarette Cigarette Packs Per Day: 0.5 Cigarettes Per Day: 10.0 Years Smoked: 38 e-Cigarette/Vaping Use: Never Used Second Hand Smoke Exposure: Yes Advance Directives: No Advance Directives Information Provided: No service: No Sexual orientation: Straight/Heterosexual Physical Exam ED Vital Signs: Vital Signs - 24 hr 10/05/22 14:48 Temperature 99 F Pulse Rate 90 Respiratory Rate 18 Blood Pressure 111/75 Pulse Oximetry 95 Oxygen Delivery Method Room Air BMI result Body Mass Index 29.8 Const General: cooperative, no acute distress, alert and awake Nutritional Appearance: well nourished Orientation/consciousness: patient oriented x3 Limitations: no limitations HENMT Head: Yes normal to inspection and Yes atraumatic Ears: hearing grossly normal bilaterally and external ears normal General nose exam: Normal external nose present, no nasal discharge noted and no epistaxis Face and sinus: Yes normal facial exam, No abrasion and No laceration Mouth: Normal oral and palatal mucosa present, no drooling and no muffled voice Eyes General: appearance normal, both eyes and all related structures Periorbital: periorbital findings normal Eyelids: Yes eyelids normal Conjunctivae: conjunctivae normal Pupils: Equal, round and reactive pupils present EOM: EOMs intact bilaterally Neck Neck: Yes normal visual inspection, Yes full ROM and Yes no lymphadenopathy Chest Chest palpation & inspection: normal inspection of the chest Resp Effort & Inspection: normal respiratory effort and able to speak in complete sentences Auscultation: clear to auscultation bilaterally Cardio Rate: regular rate Rhythm: regular rhythm GI Inspection: Yes normal to inspection Palpation (GI): Soft to palpation, not firm, nontender, no guarding and not rigid Neuro General: patient oriented x3 and moves all extremities Cranial nerves: Yes Equal, round and reactive pupils present Cognition (Neuro): normal cognition Motor exam (neuro): 5/5 motor strength present throughout Sensory Exam: Normal double simultaneous stimulation for sensation Coordination: [id number] test normal Extrem General: Yes normal to inspection, Yes full ROM and Yes capillary refill normal Psych Appearance: grossly normal Mental Status: mental status grossly normal Affect: normal affect Attitude: cooperative Thought process: Normal thought process present Thought content: Normal thought content present Insight: Good insight present (Psych) Medical Decision Making Medical Decision Making MDM Narrative: Patient is a 52 year old assigned male at with a history of MDD and COPD presenting to the emergency department today with suicidal ideation. Patient's physical exam was unremarkable. Patient's blood work was unremarkable. I explained my physical exam findings as well as all test results to the patient. I answered all questions asked by the patient. Patient is pending CARE evaluation. Differential Diagnosis Differential Diagnoses: The differential diagnosis associated with the presentation includes suicidal ideation Lab Data MDM Lab Attestation statement: I reviewed the patient's lab results. 10/05/22 15:15 10/05/22 15:15 Labs: Lab Results 10/05/22 10/05/22 10/05/22 Range/Units 15:00 15:00 15:15 WBC 7.7 (4.8-10.8) X10*3/uL RBC 4.25 L (4.60-5.80) X10*6/uL Hgb 13.4 L (14.0-18.0) g/dl Hct 39.5 L (42.0-52.0) % MCV 92.9 (80.0-98.0) fL MCH 31.5 (27.0-33.0) pg MCHC 33.9 (31.0-36.0) g/dl RDW 13.5 (11.0-16.0) % Plt Count 124 L D (160-400) X10*3/uL MPV 10.5 (9.4-12.4) fL Immature Gran % (Auto) 0.1 (0.0-0.4) % Neut % (Auto) 66.7 (45-73) % Lymph % (Auto) 24.2 (20-40) % [place] % (Auto) 5.3 (2-11) % Eos % (Auto) 3.2 (0-4) % Baso % (Auto) 0.5 (0-2) % Lymph # (Auto) 1.9 (1.2-4.9) X10*3/uL [place] # (Auto) 0.4 (0.1-1.2) X10*3/uL Eos # (Auto) 0.3 (0.0-0.4) X10*3/uL Baso # (Auto) 0.0 (0.0-0.2) X10*3/uL Abs Immat Gran (auto) 0.01 (0.00-0.03) X10*3/uL Absolute Neuts (auto) 5.1 (2.0-8.3) x10*3/uL Absolute Nucleated RBC 0.000 (0.0-0.012) X10*3/uL Nucleated RBC % (auto) 0.0 (0.0-0.2) /100WBC Sodium (135-145) mmol/L Potassium (3.3-5.1) mmol/L Chloride (96-108) mmol/L Carbon Dioxide (22-29) mmol/L Anion Gap (12-20) BUN (9-16) mg/dL Creatinine (0.5-1.4) mg/dL Estim Creat Clear Calc Estimated GFR Random Glucose (60-115) mg/dL Calcium (8.4-10.2) mg/dL Total Bilirubin (0.0-1.0) mg/dL AST (5-37) U/L ALT (0-40) U/L Alkaline Phosphatase (39-117) U/L Total Protein (6.5-8.0) g/dL Albumin (3.5-5.0) g/dL Urine Opiates Screen Not Detected (Not Detect) Urine Fentanyl Screen Not Detected (Not Detect) Ur Barbiturates Screen Not Detected (Not Detect) Ur Phencyclidine Scrn Not Detected (Not Detect) Ur Amphetamines Screen Not Detected (Not Detect) U Benzodiazepines Scrn Not Detected (Not Detect) Urine Cocaine Screen Not Detected (Not Detect) U Marijuana (THC) Screen Not Detected (Not Detect) COVID-19 (DB) Negative (Negative) COVID-19 Clin Com See Note 10/05/22 Range/Units 15:15 WBC (4.8-10.8) X10*3/uL RBC (4.60-5.80) X10*6/uL Hgb (14.0-18.0) g/dl Hct (42.0-52.0) % MCV (80.0-98.0) fL MCH (27.0-33.0) pg MCHC (31.0-36.0) g/dl RDW (11.0-16.0) % Plt Count (160-400) X10*3/uL MPV (9.4-12.4) fL Immature Gran % (Auto) (0.0-0.4) % Neut % (Auto) (45-73) % Lymph % (Auto) (20-40) % [place] % (Auto) (2-11) % Eos % (Auto) (0-4) % Baso % (Auto) (0-2) % Lymph # (Auto) (1.2-4.9) X10*3/uL [place] # (Auto) (0.1-1.2) X10*3/uL Eos # (Auto) (0.0-0.4) X10*3/uL Baso # (Auto) (0.0-0.2) X10*3/uL Abs Immat Gran (auto) (0.00-0.03) X10*3/uL Absolute Neuts (auto) (2.0-8.3) x10*3/uL Absolute Nucleated RBC (0.0-0.012) X10*3/uL Nucleated RBC % (auto) (0.0-0.2) /100WBC Sodium 143 (135-145) mmol/L Potassium 3.1 L D (3.3-5.1) mmol/L Chloride 105 (96-108) mmol/L Carbon Dioxide 25 (22-29) mmol/L Anion Gap 16 (12-20) BUN 9 (9-16) mg/dL Creatinine 0.81 (0.5-1.4) mg/dL Estim Creat Clear Calc 105.9 Estimated GFR > 60 Random Glucose 88 (60-115) mg/dL Calcium 8.6 D (8.4-10.2) mg/dL Total Bilirubin 0.8 (0.0-1.0) mg/dL AST 75 H (5-37) U/L ALT 48 H (0-40) U/L Alkaline Phosphatase 130 H (39-117) U/L Total Protein 7.1 (6.5-8.0) g/dL Albumin 3.7 (3.5-5.0) g/dL Urine Opiates Screen (Not Detect) Urine Fentanyl Screen (Not Detect) Ur Barbiturates Screen (Not Detect) Ur Phencyclidine Scrn (Not Detect) Ur Amphetamines Screen (Not Detect) U Benzodiazepines Scrn (Not Detect) Urine Cocaine Screen (Not Detect) U Marijuana (THC) Screen (Not Detect) COVID-19 (DB) (Negative) COVID-19 Clin Com Discharge Plan Discharge Clinical Impression: MDD (major depressive disorder) Patient Disposition: Still a Patient Prescriptions: No Action quetiapine 25 mg tablet 1 - 3 tab PO BEDTIME PRN (Reason: Insomnia) clonidine HCl 0.1 mg Tablet 0.1 mg PO QID PRN (Reason: Anxiety) trazodone 50 mg Tablet 50 mg PO BEDTIME olanzapine 2.5 mg Tablet 2.5 mg PO BID fluoxetine [Prozac] 10 mg Capsule 60 mg PO DAILY fluticasone propionate [Flovent] 110 mcg/actuation Hfa Aerosol Inhaler 2 puff INHALATION BID hydroxyzine pamoate 25 mg Capsule 25 mg PO TID buprenorphine-naloxone [Suboxone] 8-2 mg Film 1 film BUCCAL TID
[2022-10-05 15:37] LABS: Alanine Aminotransferase 48 U/L (0-40); Albumin Level 3.7 g/dL (3.5-5.0); Alkaline Phosphatase 130 U/L (39-117); Anion Gap 16 (12-20); Aspartate Amino Transferase 75 U/L (5-37); Bilirubin Total 0.8 mg/dL (0.0-1.0); Blood Urea Nitrogen 9 mg/dL (9-16); Calcium 8.6 mg/dL (8.4-10.2); Carbon Dioxide 25 mmol/L (22-29); Chloride 105 mmol/L (96-108); Creatinine Clr Calc Pharmacy 105.9; Estimated Glomerular Filt Rate > 60; Glucose Random 88 mg/dL (60-115); Potassium 3.1 mmol/L (3.3-5.1); Sodium 143 mmol/L (135-145); Total Protein 7.1 g/dL (6.5-8.0)
--- NOTE | 2022-10-05 18:34 | PC.NURSE ---
Patient requested breathuing treatment charge nurse called down to respiratory to administer also MD made aware that med rec was complete which includes patients inhaler.
[2022-10-05] MEDS: Fluticasone Propionate 100 MCG BLST.W.DEV 2 PUFF INHALE ×2 (18:42→19:23)
[2022-10-05 19:43] VITALS: BP 127/86; PULSE 89; RESP 18; TEMP 37.4; O2SAT 93
[2022-10-05 19:46] LABS: Ethanol 195 mg/dL
[2022-10-05] MEDS: OLANZapine 2.5 MG TABLET PO (20:21)
[2022-10-05] MEDS: traZODone HCL 50 MG TABLET PO (20:21)
[2022-10-05] MEDS: hydrOXYzine HCL 25 MG TABLET PO (20:21)
[2022-10-05] MEDS: Nicotine 21 MG PATCH.TD24 TRANSDERMA (21:08)
[2022-10-06 03:04] VITALS: BP 152/92; PULSE 69; RESP 18; TEMP 36.6; O2SAT 96
[2022-10-06] MEDS: Albuterol Sulfate 90 MCG 8 GM INHALER 2 PUFF INHALE (04:03)
--- NOTE | 2022-10-06 05:30 | PC.NURSE ---
Patient slept through the night, no distress observed/reported except wheezing secondary to COPD, scheduled Flovent administered and PRN Ventolin administered at 0403 with + effect, patient compliant with medication, asymptomatic of ETOH withdrawal at this time, disposition per care team is section 12 inpatient bed search, VSS, SpO2 95% at RA, behavior non concerning, will continue to monitor.
[2022-10-06] MEDS: hydrOXYzine HCL 25 MG TABLET PO ×3 (08:06→22:03)
[2022-10-06] MEDS: OLANZapine 2.5 MG TABLET PO ×2 (08:06→22:03)
[2022-10-06] MEDS: FLUoxetine HCl 20 MG CAPSULE 60 MG PO (08:06)
--- NOTE | 2022-10-06 08:38 | ECG_ITS ---
Test Reason : MED CLEARENCE Blood Pressure : / mmHG Vent. Rate : 064 BPM Atrial Rate : 064 BPM P-R Int : 178 ms QRS Dur : 096 ms QT Int : 440 ms P-R-T Axes : 015 -54 037 degrees QTc Int : 453 ms Normal sinus rhythm Left axis deviation Low voltage QRS Incomplete right bundle branch block Inferior infarct , age undetermined Abnormal ECG When compared with ECG of 25-AUG-2022 21:05, No significant change was found Referred By: Glenroy Gold Electronically Signed By:Meño Muller
[2022-10-06 10:16] VITALS: BP 147/87; PULSE 69; RESP 17; TEMP 37.3; O2SAT 93
[2022-10-06 15:30] VITALS: BP 139/106; PULSE 91; RESP 20; TEMP 37.1; O2SAT 96
[2022-10-06] MEDS: Potassium Chloride ER 20 MEQ TAB.ER.PRT PO (15:46)
[2022-10-06] MEDS: LORazepam 1 MG TABLET 2 MG PO (15:47)
--- NOTE | 2022-10-06 15:51 | PC.NURSE ---
pt reports daily etoh and feeling withdrawl , no tremors, alert, speech clear, skin wpd, medicated as ordered. pleasant and cooperative
[2022-10-06] MEDS: LORazepam 1 MG TABLET PO (22:03)
[2022-10-06] MEDS: traZODone HCL 50 MG TABLET PO (22:03)
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
[2022-10-07 08:06] VITALS: BP 142/90; PULSE 85; RESP 16; TEMP 36.7; O2SAT 95
[2022-10-07] MEDS: OLANZapine 2.5 MG TABLET PO ×2 (09:07→19:55)
[2022-10-07] MEDS: FLUoxetine HCl 20 MG CAPSULE 60 MG PO (09:07)
[2022-10-07] MEDS: hydrOXYzine HCL 25 MG TABLET PO ×3 (09:07→19:55)
[2022-10-07] MEDS: Nicotine 21 MG PATCH.TD24 TRANSDERMA (09:08)
[2022-10-07] MEDS: Albuterol Sulfate 90 MCG 8 GM INHALER 2 PUFF INHALE ×2 (09:08→16:07)
[2022-10-07 09:24] LABS: Alanine Aminotransferase 36 U/L (0-40); Albumin Level 3.6 g/dL (3.5-5.0); Alkaline Phosphatase 135 U/L (39-117); Anion Gap 15 (12-20); Aspartate Amino Transferase 50 U/L (5-37); Bilirubin Total 1.3 mg/dL (0.0-1.0); Blood Urea Nitrogen 10 mg/dL (9-16); Calcium 9.1 mg/dL (8.4-10.2); Carbon Dioxide 26 mmol/L (22-29); Chloride 105 mmol/L (96-108); Cholesterol 175 mg/dL; Estimated Glomerular Filt Rate > 60; Glucose Fasting 86 mg/dL (60-99); HDL Cholesterol 30 mg/dL; LDL Cholesterol Calculated 124 mg/dl; Potassium 3.6 mmol/L (3.3-5.1); Sodium 142 mmol/L (135-145); Total Protein 6.9 g/dL (6.5-8.0); Triglycerides 107 mg/dL
[2022-10-07] MEDS: cloNIDine HCL 0.1 MG TABLET PO (14:19)
[2022-10-07] MEDS: Buprenorphine/Naloxone 8/2 mg FILM 1 FILM BUCCAL ×2 (14:19→19:56)
[2022-10-07 14:20] VITALS: BP 127/91; PULSE 103
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
[2022-10-07] MEDS: LORazepam 1 MG TABLET 2 MG PO (16:03)
[2022-10-07] MEDS: Acetaminophen 325 MG TABLET 650 MG PO (16:47)
[2022-10-07] MEDS: Prazosin HCL 1 MG CAPSULE 2 MG PO (19:55)
[2022-10-07] MEDS: LORazepam 1 MG TABLET PO (19:55)
[2022-10-07] MEDS: Mirtazapine 15 MG TABLET PO (19:55)
[2022-10-07] MEDS: traZODone HCL 50 MG TABLET PO (19:55)
[2022-10-07] MEDS: QUEtiapine Fumarate 50 MG TABLET PO (19:55)
[2022-10-07 20:26] VITALS: BP 130/82; PULSE 70
[2022-10-08] MEDS: hydrOXYzine HCL 25 MG TABLET PO ×3 (00:12→20:48)
[2022-10-08] MEDS: traZODone HCL 50 MG TABLET PO ×2 (00:12→20:48)
[2022-10-08] MEDS: LORazepam 1 MG TABLET PO ×4 (00:13→20:55)
[2022-10-08 07:46] VITALS: BP 101/66; PULSE 88; RESP 16; TEMP 36.9; O2SAT 94
[2022-10-08] MEDS: OLANZapine 2.5 MG TABLET PO ×2 (08:17→20:48)
[2022-10-08] MEDS: Nicotine 21 MG PATCH.TD24 TRANSDERMA (08:18)
[2022-10-08] MEDS: Buprenorphine/Naloxone 8/2 mg FILM 1 FILM BUCCAL ×3 (09:22→20:47)
--- NOTE | 2022-10-08 11:49 | P.PNPSI_ITS ---
Subjective Subjective Date of Service: 10/08/22 Reason For Visit: Suicidal Subjective Notes: Conditional Voluntary Medical Problems Affecting Mental Status: No Interim History: Met with patient. Has been spending a lot of time in his room. Continues to feel depressed and hopeless. Also wants help and does feel supported here. Reports usually at baseline liking space and time to himself and therefore the unit can be difficult when it is loud people are intrusive, which is the case currently. Intermittent thoughts of suicide. No plans. Sleep has been trying to nap during daytime. No psychosis. Agreed to medication adjustments at nighttime for sleep. Educated her on Remeron replacement Prozac, despite this being given at nighttime. We also discussed withdrawals likely impacting sleep and mood. Primary team tomorrow in treatment planning maximizing support. Review of Systems Review of Systems Yes all other systems are reviewed and are negative Mental Status Exam Mental Status Exam Narrative: Pleasant. Engaged. Hospital clothing. Depressed. Self-care is limited. Thoughts of and suicide but no plans or intent. Feels supported. No HI. No agitation. No psychosis. Insight and judgment good Diagnostics Vital Signs (24Hr): Vital Signs - 24 hr 10/07/22 14:20 10/07/22 20:26 10/08/22 07:46 Temperature 98.5 F Pulse Rate 103 H 70 88 Respiratory Rate 16 Blood Pressure 127/91 H 130/82 101/66 Pulse Oximetry 94 Oxygen Delivery Method Room Air BMI result Body Mass Index 29.8 Labs 10/05/22 15:15 10/07/22 07:54 Labs: Laboratory Results - last 48 hr 10/07/22 07:54 Sodium 142 Potassium 3.6 Chloride 105 Carbon Dioxide 26 Anion Gap 15 BUN 10 Creatinine 0.78 Estim Creat Clear Calc 110.0 Estimated GFR > 60 Fasting Glucose 86 Calcium 9.1 Total Bilirubin 1.3 H AST 50 H ALT 36 Alkaline Phosphatase 135 H Total Protein 6.9 Albumin 3.6 Triglycerides 107 Cholesterol 175 LDL Cholesterol, Calc 124 HDL Cholesterol 30 Medications Medications Current Medications Acetaminophen (Acetaminophen 325 Mg Tablet) 650 mg PO Q6H PRN PRN Reason: Headache/Pain Mild Scale (1-3) Last Admin: 10/07/22 16:47 Dose: 650 mg Al Hydroxide/Mg Hydroxide (Magnesium Hydrox/Alum Hydrox 30 Ml Oral.Susp) 30 ml PO Q6H PRN PRN Reason: Heartburn/Nausea Albuterol Sulfate (Albuterol Sulfate 90 Mcg 8 Gm Inhaler) 2 puff INHALE Q4H PRN PRN Reason: wheezing, shortness of breath Last Admin: 10/07/22 16:07 Dose: 2 puff Buprenorphine/Naloxone (Buprenorphine/Naloxone 8/2 Mg Film) 1 film BUCCAL TID@1000,1500,2000 [facility] Last Admin: 10/08/22 09:23 Dose: Not Given Clonidine HCl (Clonidine Hcl 0.1 Mg Tablet) 0.1 mg PO QID PRN; Protocol PRN Reason: Anxiety Last Admin: 10/07/22 14:19 Dose: 0.1 mg Fluticasone Propionate (Fluticasone Propionate 100 Mcg Blst.W.Dev) 2 puff INHALE RBID [facility] Last Admin: 10/08/22 08:19 Dose: Not Given Hydroxyzine HCl (Hydroxyzine Hcl 25 Mg Tablet) 25 mg PO TID [facility] Last Admin: 10/08/22 08:17 Dose: 25 mg Hydroxyzine HCl (Hydroxyzine Hcl 25 Mg Tablet) 25 mg PO Q6H PRN PRN Reason: Anxiety Last Admin: 10/08/22 00:12 Dose: 25 mg Lorazepam (Lorazepam 1 Mg Tablet) 1 mg PO Q4H PRN PRN Reason: Alcohol Withdrawal Last Admin: 10/08/22 08:57 Dose: 1 mg Magnesium Hydroxide (Milk Of Magnesia 30 Ml Oral.Susp) 30 ml PO DAILY PRN PRN Reason: Constipation Mirtazapine (Mirtazapine 15 Mg Tablet) 15 mg PO BEDTIME [facility] Last Admin: 10/07/22 19:55 Dose: 15 mg Nicotine (Nicotine 21 Mg Patch.Td24) 21 mg TRANSDERMA DAILY [facility] Last Admin: 10/08/22 08:18 Dose: 21 mg Olanzapine (Olanzapine 2.5 Mg Tablet) 2.5 mg PO BID [facility] Last Admin: 10/08/22 08:17 Dose: 2.5 mg Prazosin HCl (Prazosin Hcl 1 Mg Capsule) 2 mg PO BEDTIME [facility]; Protocol Last Admin: 10/07/22 19:55 Dose: 2 mg Quetiapine Fumarate (Quetiapine Fumarate 50 Mg Tablet) 50 mg PO BEDTIME PRN PRN Reason: Insomnia Last Admin: 10/07/22 19:55 Dose: 50 mg Trazodone HCl (Trazodone Hcl 50 Mg Tablet) 50 mg PO BEDTIME [facility] Last Admin: 10/07/22 19:55 Dose: 50 mg Trazodone HCl (Trazodone Hcl 50 Mg Tablet) 50 mg PO BEDTIME MRX1 PRN PRN Reason: Insomnia Last Admin: 10/08/22 00:12 Dose: 50 mg Allergies Allergies Allergy/AdvReac Type Severity Reaction Status Date / Time levofloxacin Allergy Unknown Unknown Verified 08/16/22 16:48 chlorpromazine Allergy Unknown unknown Uncoded 08/16/22 16:47 Assessment & Plan Assessment & Plan (1) MDD (major depressive disorder): Status: Acute Code(s): F32.9 - Major depressive disorder, single episode, unspecified (2) Alcohol use disorder, severe, dependence: Status: Acute Code(s): F10.20 - Alcohol dependence, uncomplicated Plan Presents with major depression and likely PTSD and alcohol use disorder. Will discontinue Prozac and start Remeron 15 mg and prazosin 2 mg. Will do CIWA protocol. 10/08/2022, will increase prazosin to 4 mg. Reason for contiued inpatient stay Substantial Risk for: harm to self Time Spent With Patient Time: Total time managing care of this patient today ____ minutes.
[2022-10-08 18:00] VITALS: BP 108/72; PULSE 82; RESP 16; TEMP 36.9; O2SAT 96
[2022-10-08] MEDS: Prazosin HCL 1 MG CAPSULE 4 MG PO (20:47)
[2022-10-08] MEDS: Mirtazapine 15 MG TABLET PO (20:48)
[2022-10-08] MEDS: QUEtiapine Fumarate 50 MG TABLET PO (20:48)
--- NOTE | 2022-10-08 22:31 | PC.NURSE ---
pt reported to have picked a scab on right lower anterior leg which was bleeding. wound care provided and band aid applied.
[2022-10-09] MEDS: hydrOXYzine HCL 25 MG TABLET PO ×3 (08:38→20:00)
[2022-10-09] MEDS: OLANZapine 2.5 MG TABLET PO ×2 (08:38→20:00)
[2022-10-09] MEDS: Nicotine 21 MG PATCH.TD24 TRANSDERMA (08:38)
[2022-10-09] MEDS: LORazepam 1 MG TABLET PO ×3 (08:48→20:11)
[2022-10-09 08:50] VITALS: BP 99/66; PULSE 75; RESP 18; TEMP 36.7; O2SAT 93
[2022-10-09] MEDS: Buprenorphine/Naloxone 8/2 mg FILM 1 FILM BUCCAL ×3 (09:40→20:00)
[2022-10-09] MEDS: Acetaminophen 325 MG TABLET 650 MG PO (13:41)
--- NOTE | 2022-10-09 16:29 | P.PNPSI_ITS ---
Subjective Subjective Date of Service: 10/09/22 Reason For Visit: Suicidal Interim History: Met with patient; discussed with team; reviewed covering providers notes Patient reports continued depression; passive SI. He did not take medications post discharge; he says he tried not to drink but eventually succumbed and relapsed. On admission, patient reports he told provider that Prozac was not working however he agrees he has given it little chance to do so and understands that while abusing alcohol it is not possible for to prove effective. Patient also agrees that at prior admissions, he was overall feeling better on Prozac, Wellbutrin and olanzapine and agrees to make medication changes. Patient says right now he still withdrawing and still hard for him to want to be around people. Assessment Specialist and patient discussed disulfiram, including risks/side effects of this medication and patient said he would like to try it; he says that last admission he was supposed to get on a but was unavailable. He agrees that without sobriety he is not going to be able to recover from his depression. Patient discussed CSS however he has cat that would need caring for and is also worried about losing his apartment so he is not sure how to manage that at this time. Mental Status Exam Mental Status Exam Narrative: Pt is alert and oriented; behavior is cooperative, tearful but in behavioral control; dressed in street clothes, scruffy and unkempt but with adequate hygiene; mood depressed and anxious; eye contact appropriate; Speech is normal rate, volume and prosody; thought process is organized and goal directed; Thought content is on missing his , treatment; housing; passive SI; no HI; no AVH expressed. Patient's insight and judgment are impaired Diagnostics Vital Signs (24Hr): Vital Signs - 24 hr 10/08/22 18:00 10/09/22 08:50 Temperature 98.4 F 98.1 F Pulse Rate 82 75 Respiratory Rate 16 18 Blood Pressure 108/72 99/66 Pulse Oximetry 96 93 Oxygen Delivery Method Room Air Room Air BMI result Body Mass Index 29.8 Labs 10/05/22 15:15 10/07/22 07:54 Medications Medications Current Medications Acetaminophen (Acetaminophen 325 Mg Tablet) 650 mg PO Q6H PRN PRN Reason: Headache/Pain Mild Scale (1-3) Last Admin: 10/09/22 13:41 Dose: 650 mg Al Hydroxide/Mg Hydroxide (Magnesium Hydrox/Alum Hydrox 30 Ml Oral.Susp) 30 ml PO Q6H PRN PRN Reason: Heartburn/Nausea Albuterol Sulfate (Albuterol Sulfate 90 Mcg 8 Gm Inhaler) 2 puff INHALE Q4H PRN PRN Reason: wheezing, shortness of breath Last Admin: 10/07/22 16:07 Dose: 2 puff Buprenorphine/Naloxone (Buprenorphine/Naloxone 8/2 Mg Film) 1 film BUCCAL TID@1000,1500,2000 [facility] Last Admin: 10/09/22 15:06 Dose: 1 film Clonidine HCl (Clonidine Hcl 0.1 Mg Tablet) 0.1 mg PO QID PRN; Protocol PRN Reason: Anxiety Last Admin: 10/07/22 14:19 Dose: 0.1 mg Fluticasone Propionate (Fluticasone Propionate 100 Mcg Blst.W.Dev) 2 puff INHALE RBID [facility] Last Admin: 10/09/22 09:11 Dose: Not Given Hydroxyzine HCl (Hydroxyzine Hcl 25 Mg Tablet) 25 mg PO TID [facility] Last Admin: 10/09/22 15:06 Dose: 25 mg Hydroxyzine HCl (Hydroxyzine Hcl 25 Mg Tablet) 25 mg PO Q6H PRN PRN Reason: Anxiety Last Admin: 10/08/22 00:12 Dose: 25 mg Lorazepam (Lorazepam 1 Mg Tablet) 1 mg PO Q4H PRN PRN Reason: Alcohol Withdrawal Last Admin: 10/09/22 13:36 Dose: 1 mg Magnesium Hydroxide (Milk Of Magnesia 30 Ml Oral.Susp) 30 ml PO DAILY PRN PRN Reason: Constipation Mirtazapine (Mirtazapine 15 Mg Tablet) 15 mg PO BEDTIME [facility] Last Admin: 10/08/22 20:48 Dose: 15 mg Nicotine (Nicotine 21 Mg Patch.Td24) 21 mg TRANSDERMA DAILY [facility] Last Admin: 10/09/22 08:38 Dose: 21 mg Olanzapine (Olanzapine 2.5 Mg Tablet) 2.5 mg PO BID [facility] Last Admin: 10/09/22 08:38 Dose: 2.5 mg Prazosin HCl (Prazosin Hcl 1 Mg Capsule) 4 mg PO BEDTIME [facility]; Protocol Last Admin: 10/08/22 20:47 Dose: 4 mg Quetiapine Fumarate (Quetiapine Fumarate 50 Mg Tablet) 50 mg PO BEDTIME [facility] Last Admin: 10/08/22 20:48 Dose: 50 mg Trazodone HCl (Trazodone Hcl 50 Mg Tablet) 50 mg PO BEDTIME [facility] Last Admin: 10/08/22 20:48 Dose: 50 mg Trazodone HCl (Trazodone Hcl 50 Mg Tablet) 50 mg PO BEDTIME MRX1 PRN PRN Reason: Insomnia Last Admin: 10/08/22 00:12 Dose: 50 mg Allergies Allergies Allergy/AdvReac Type Severity Reaction Status Date / Time levofloxacin Allergy Unknown Unknown Verified 08/16/22 16:48 chlorpromazine Allergy Unknown unknown Uncoded 08/16/22 16:47 Assessment & Plan Assessment & Plan (1) MDD (major depressive disorder): Status: Acute Code(s): F32.9 - Major depressive disorder, single episode, unspecified (2) Alcohol use disorder, severe, dependence: Status: Acute Code(s): F10.20 - Alcohol dependence, uncomplicated Plan Presents with major depression and likely PTSD and alcohol use disorder, who presents for depression and SI in the face of non medication adherence and relapse with alcohol. 10/08/2022, will increase prazosin to 4 mg. 10/09 patient remains depressed; SI is passive. Patient lamenting his 's ; agrees that alcohol abuse is making it impossible for him to process feelings some recover from depression regarding his 's and would like to try disulfiram which she wanted to get on and last admission; senior medical writer reviewed risks/side effects which patient understood and ask questions about and wants to continue to pursue; ambivalent about CSS since he has to care for his cat Plan: CV Q 15 minute checks CIWA with Ativan p.r.n. Will DC mirtazapine (on admission patient told provider Prozac did not work however in hindsight he reassess this and agrees to restart) Restart Prozac 10 mg Restart Zyprexa 2.5 mg b.i.d. for anxious depression which helped last time Continue prazosin to 4 mg. Will consider restarting Wellbutrin Patient would like to start disulfiram Patient educated on: diagnosis, medication risk/benefits, substance abuse and therapeutic strategies Informed Consent: understands Reason for contiued inpatient stay Substantial Risk for: rapid decompensation Time Spent With Patient Time: Total time managing care of this patient today ____ minutes.
[2022-10-09] MEDS: FLUoxetine HCl 10 MG CAPSULE PO (16:56)
[2022-10-09 18:00] VITALS: BP 108/72; PULSE 87; TEMP 36.4; O2SAT 95
[2022-10-09] MEDS: Prazosin HCL 1 MG CAPSULE 4 MG PO (20:00)
[2022-10-09] MEDS: QUEtiapine Fumarate 50 MG TABLET PO (20:00)
[2022-10-09] MEDS: traZODone HCL 50 MG TABLET PO (20:00)
--- NOTE | 2022-10-09 20:58 | PC.NURSE ---
At 1850 patient approached this song writer and said that he was having a lot of itching on his right lower leg. Patient said his cat had scratched him several days ago and the affected area had gotten larger in size. Patient afebrile. This song writer looked at his right leg and noted a few scratches. Area slightly warm to touch, no streaking or redness. Dr. Rey was Grady texted along with several pictures.
[2022-10-09 21:38] VITALS: TEMP 37
[2022-10-09] MEDS: Albuterol Sulfate 90 MCG 8 GM INHALER 2 PUFF INHALE (22:21)
[2022-10-10] MEDS: LORazepam 1 MG TABLET PO ×3 (06:22→20:59)
[2022-10-10] MEDS: hydrOXYzine HCL 25 MG TABLET PO ×4 (06:22→19:48)
[2022-10-10] MEDS: FLUoxetine HCl 10 MG CAPSULE PO (08:38)
[2022-10-10] MEDS: OLANZapine 2.5 MG TABLET PO ×2 (08:38→19:48)
[2022-10-10] MEDS: Nicotine 21 MG PATCH.TD24 TRANSDERMA (08:38)
[2022-10-10 08:53] VITALS: BP 107/75; PULSE 74; RESP 18; TEMP 36.8; O2SAT 92
[2022-10-10] MEDS: Buprenorphine/Naloxone 8/2 mg FILM 1 FILM BUCCAL ×3 (11:03→19:53)
--- NOTE | 2022-10-10 11:38 | HO.PSYCHPN ---
Subjective Subjective Date of Service: 10/10/22 Reason For Visit: Suicidal Interim History: Discussed with team; met with patient Patient remains depressed though no SI. He says he is having trouble sleeping and still feels withdrawal symptoms so agrees to starting gabapentin to help mitigate withdrawal symptoms. Discussed medication and patient would like to restart Wellbutrin and will do so tomorrow. Also discussed his feelings about disulfiram; he remains ambivalent about this medication and at this point does not want to start it, anxious about being on too many medications and potential side effects. Teletypesetter Operator examined patient's right lower limb where he sustained several scratches from his cat; this point it does not look infected however will get hospitalist to rule out cellulitis Mental Status Exam Mental Status Exam Narrative: Pt is alert and oriented; behavior is cooperative, tearful but in behavioral control; dressed in street clothes, scruffy and unkempt but with adequate hygiene; mood depressed and anxious; eye contact appropriate; Speech is normal rate, volume and prosody; thought process is organized and goal directed; Thought content is on missing his , treatment; housing; intermittent passive SI; no HI; no AVH expressed. Patient's insight and judgment are impaired Diagnostics Vital Signs (24Hr): Vital Signs - 24 hr 10/09/22 18:00 10/09/22 21:38 10/10/22 08:53 Temperature 97.6 F 98.6 F 98.3 F Pulse Rate 87 74 Respiratory Rate 18 Blood Pressure 108/72 107/75 Pulse Oximetry 95 92 Oxygen Delivery Method Room Air Room Air BMI result Body Mass Index 29.8 Labs 10/05/22 15:15 10/07/22 07:54 Medications Medications Current Medications Acetaminophen (Acetaminophen 325 Mg Tablet) 650 mg PO Q6H PRN PRN Reason: Headache/Pain Mild Scale (1-3) Last Admin: 10/09/22 13:41 Dose: 650 mg Al Hydroxide/Mg Hydroxide (Magnesium Hydrox/Alum Hydrox 30 Ml Oral.Susp) 30 ml PO Q6H PRN PRN Reason: Heartburn/Nausea Albuterol Sulfate (Albuterol Sulfate 90 Mcg 8 Gm Inhaler) 2 puff INHALE Q4H PRN PRN Reason: wheezing, shortness of breath Last Admin: 10/09/22 22:21 Dose: 2 puff Buprenorphine/Naloxone (Buprenorphine/Naloxone 8/2 Mg Film) 1 film BUCCAL TID@1000,1500,2000 [facility] Last Admin: 10/10/22 11:03 Dose: 1 film Clonidine HCl (Clonidine Hcl 0.1 Mg Tablet) 0.1 mg PO QID PRN; Protocol PRN Reason: Anxiety Last Admin: 10/07/22 14:19 Dose: 0.1 mg Fluoxetine HCl (Fluoxetine Hcl 10 Mg Capsule) 10 mg PO DAILY [facility] Last Admin: 10/10/22 08:38 Dose: 10 mg Fluticasone Propionate (Fluticasone Propionate 100 Mcg Blst.W.Dev) 2 puff INHALE RBID [facility] Last Admin: 10/10/22 08:41 Dose: Not Given Hydroxyzine HCl (Hydroxyzine Hcl 25 Mg Tablet) 25 mg PO TID [facility] Last Admin: 10/10/22 08:39 Dose: 25 mg Hydroxyzine HCl (Hydroxyzine Hcl 25 Mg Tablet) 25 mg PO Q6H PRN PRN Reason: Anxiety Last Admin: 10/10/22 06:22 Dose: 25 mg Lorazepam (Lorazepam 1 Mg Tablet) 1 mg PO Q4H PRN PRN Reason: Alcohol Withdrawal Last Admin: 10/10/22 06:22 Dose: 1 mg Magnesium Hydroxide (Milk Of Magnesia 30 Ml Oral.Susp) 30 ml PO DAILY PRN PRN Reason: Constipation Nicotine (Nicotine 21 Mg Patch.Td24) 21 mg TRANSDERMA DAILY [facility] Last Admin: 10/10/22 08:38 Dose: 21 mg Olanzapine (Olanzapine 2.5 Mg Tablet) 2.5 mg PO BID [facility] Last Admin: 10/10/22 08:38 Dose: 2.5 mg Prazosin HCl (Prazosin Hcl 1 Mg Capsule) 4 mg PO BEDTIME [facility]; Protocol Last Admin: 10/09/22 20:00 Dose: 4 mg Quetiapine Fumarate (Quetiapine Fumarate 50 Mg Tablet) 50 mg PO BEDTIME [facility] Last Admin: 10/09/22 20:00 Dose: 50 mg Trazodone HCl (Trazodone Hcl 50 Mg Tablet) 50 mg PO BEDTIME [facility] Last Admin: 10/09/22 20:00 Dose: 50 mg Trazodone HCl (Trazodone Hcl 50 Mg Tablet) 50 mg PO BEDTIME MRX1 PRN PRN Reason: Insomnia Last Admin: 10/08/22 00:12 Dose: 50 mg Allergies Allergies Allergy/AdvReac Type Severity Reaction Status Date / Time levofloxacin Allergy Unknown Unknown Verified 08/16/22 16:48 chlorpromazine Allergy Unknown unknown Uncoded 08/16/22 16:47 Assessment & Plan Assessment & Plan (1) MDD (major depressive disorder): Status: Acute Code(s): F32.9 - Major depressive disorder, single episode, unspecified (2) Alcohol use disorder, severe, dependence: Status: Acute Code(s): F10.20 - Alcohol dependence, uncomplicated Plan Presents with major depression and likely PTSD and alcohol use disorder, who presents for depression and SI in the face of non medication adherence and relapse with alcohol. 10/08/2022, will increase prazosin to 4 mg. 10/09 patient remains depressed; SI is passive. Patient lamenting his 's ; agrees that alcohol abuse is making it impossible for him to process feelings some recover from depression regarding his 's and would like to try disulfiram which she wanted to get on and last admission; automobile service writer reviewed risks/side effects which patient understood and ask questions about and wants to continue to pursue; ambivalent about CSS since he has to care for his cat 10/10 remains depressed, but SI mostly resolved other than intermittent passive thoughts; agrees to get back on Wellbutrin and will also start gabapentin for residual withdrawal symptoms; will also titrate Prozac. Patient ambivalent about disulfiram and at this point does not want to start this medication. -hospitalist consult placed to rule out cellulitis right lower limb Plan: CV Q 15 minute checks CIWA with Ativan p.r.n. Will DC mirtazapine (on admission patient told provider Prozac did not work however in hindsight he reassess this and agrees to restart) Restart Prozac 10 mg Start Wellbutrin xl 150mg Restart Zyprexa 2.5 mg b.i.d. for anxious depression which helped last time Continue prazosin to 4 mg. Will consider restarting Wellbutrin Patient would like to start disulfiram Patient educated on: diagnosis, medication risk/benefits, substance abuse and medical condition Informed Consent: understands Reason for contiued inpatient stay Substantial Risk for: rapid decompensation Time Spent With Patient Time: Total time managing care of this patient today ____ minutes.
[2022-10-10] MEDS: Albuterol Sulfate 90 MCG 8 GM INHALER 2 PUFF INHALE (13:22)
[2022-10-10] MEDS: Gabapentin 300 MG CAPSULE PO ×2 (16:12→19:48)
--- NOTE | 2022-10-10 17:16 | PM.EVENT ---
Event Note Date of Service: 10/10/22 Event Note: Pt with history asthma/copd overlap, MDD, opioid use disorder on suboxone, and alcohol abuse admitted to psychiatry with consult placed to medicine for evaluation of cat scratches with question of cellulitis. Pt reports his cat regularly playfully claws at his legs causing small punctures from the claws. Several days ago he sustained a deeper scratch on the right anterior tibia. Denies any cat bite. There has been no drainage, significant discomfort, fevers. On exam, there are tiny punctures on the lower right leg with a linear abrasion with dried scab and mild inflammation/erythema of the borders. No drainage or significant erythema or evidence of overt acute cellulitis. Recommend prophylactically covering for pasteurella infection with augmentin 875mg BID x 7 days. Thank you for allowing me to participate in this consult. Signing off at this time. Please do not hesitate to call for further questions or if worsening symptoms. Time Spent With Patient Time: Total time managing care of this patient today ____ minutes.
[2022-10-10 18:00] VITALS: BP 132/82; PULSE 98; RESP 16; TEMP 37.1; O2SAT 92
[2022-10-10] MEDS: traZODone HCL 50 MG TABLET PO (19:48)
[2022-10-10] MEDS: Amoxicillin/Potassium Clav 875 MG TABLET PO (19:48)
[2022-10-10] MEDS: Prazosin HCL 1 MG CAPSULE 4 MG PO (19:48)
[2022-10-10] MEDS: QUEtiapine Fumarate 50 MG TABLET PO (19:49)
[2022-10-11] MEDS: Albuterol Sulfate 90 MCG 8 GM INHALER 2 PUFF INHALE (06:48)
[2022-10-11] MEDS: OLANZapine 2.5 MG TABLET PO ×2 (08:20→14:08)
[2022-10-11] MEDS: Nicotine 21 MG PATCH.TD24 TRANSDERMA (08:20)
[2022-10-11] MEDS: Gabapentin 300 MG CAPSULE PO ×3 (08:20→20:11)
[2022-10-11] MEDS: FLUoxetine HCl 10 MG CAPSULE PO (08:20)
[2022-10-11] MEDS: buPROPion HCl XL 150 MG TAB.ER.24H PO (08:20)
[2022-10-11] MEDS: Amoxicillin/Potassium Clav 875 MG TABLET PO ×2 (08:20→20:48)
[2022-10-11] MEDS: hydrOXYzine HCL 25 MG TABLET PO (08:20)
[2022-10-11] MEDS: LORazepam 1 MG TABLET PO (08:24)
[2022-10-11] MEDS: Fluticasone Propionate 100 MCG BLST.W.DEV 2 PUFF INHALE ×2 (08:24→20:11)
[2022-10-11] MEDS: Buprenorphine/Naloxone 8/2 mg FILM 1 FILM BUCCAL ×2 (09:19→21:00)
[2022-10-11 09:35] VITALS: BP 134/82; PULSE 102; RESP 18; TEMP 36.7; O2SAT 97
--- NOTE | 2022-10-11 17:41 | HO.PSYCHPN ---
Subjective Subjective Date of Service: 10/11/22 Reason For Visit: Suicidal Interim History: Met with patient; discussed with team; discussed with hospitalist Patient remains depressed but feeling a little better. Said he got better sleep last night and that the gabapentin is helping. Would like Wellbutrin to be further titrated. At this point his decided against disulfiram. Patient is going out into the milieu however still not socializing much saying that he is not quite ready to Mental Status Exam Mental Status Exam Narrative: Pt is alert and oriented; behavior is cooperative, calm; dressed in street clothes, scruffy and unkempt but with adequate hygiene; mood depressed and anxious; eye contact appropriate; Speech is normal rate, volume and prosody; thought process is organized and goal directed; psychomotor retardation present; Thought content is on missing his , treatment; housing; intermittent passive SI; no HI; no AVH expressed. Patient's insight and judgment are impaired but improving. Diagnostics Vital Signs (24Hr): Vital Signs - 24 hr 10/10/22 18:00 10/11/22 09:35 Temperature 98.7 F 98.0 F Pulse Rate 98 102 H Respiratory Rate 16 18 Blood Pressure 132/82 134/82 Pulse Oximetry 92 97 Oxygen Delivery Method Room Air Room Air BMI result Body Mass Index 29.8 Labs 10/05/22 15:15 10/07/22 07:54 Medications Medications Current Medications Acetaminophen (Acetaminophen 325 Mg Tablet) 650 mg PO Q6H PRN PRN Reason: Headache/Pain Mild Scale (1-3) Last Admin: 10/09/22 13:41 Dose: 650 mg Al Hydroxide/Mg Hydroxide (Magnesium Hydrox/Alum Hydrox 30 Ml Oral.Susp) 30 ml PO Q6H PRN PRN Reason: Heartburn/Nausea Albuterol Sulfate (Albuterol Sulfate 90 Mcg 8 Gm Inhaler) 2 puff INHALE Q4H PRN PRN Reason: wheezing, shortness of breath Last Admin: 10/11/22 06:48 Dose: 2 puff Amoxicillin/Clavulanate Potassium (Amoxicillin/Potassium Clav 875 Mg Tablet) 875 mg PO Q12H [facility] Stop: 10/17/22 08:01 Last Admin: 10/11/22 08:20 Dose: 875 mg Buprenorphine/Naloxone (Buprenorphine/Naloxone 8/2 Mg Film) 1 film BUCCAL TID@1000,1500,2000 [facility] Last Admin: 10/11/22 14:09 Dose: Not Given Bupropion HCl (Bupropion Hcl Xl 300 Mg Tab.Er.24h) 300 mg PO DAILY [facility] Clonidine HCl (Clonidine Hcl 0.1 Mg Tablet) 0.1 mg PO QID PRN; Protocol PRN Reason: Anxiety Last Admin: 10/07/22 14:19 Dose: 0.1 mg Fluoxetine HCl (Fluoxetine Hcl 20 Mg Capsule) 20 mg PO DAILY [facility] Fluticasone Propionate (Fluticasone Propionate 100 Mcg Blst.W.Dev) 2 puff INHALE RBID [facility] Last Admin: 10/11/22 08:24 Dose: 2 puff Gabapentin (Gabapentin 300 Mg Capsule) 300 mg PO TID [facility] Last Admin: 10/11/22 14:08 Dose: 300 mg Hydroxyzine HCl (Hydroxyzine Hcl 25 Mg Tablet) 25 mg PO Q6H PRN PRN Reason: Anxiety Last Admin: 10/10/22 06:22 Dose: 25 mg Magnesium Hydroxide (Milk Of Magnesia 30 Ml Oral.Susp) 30 ml PO DAILY PRN PRN Reason: Constipation Nicotine (Nicotine 21 Mg Patch.Td24) 21 mg TRANSDERMA DAILY [facility] Last Admin: 10/11/22 08:20 Dose: 21 mg Olanzapine (Olanzapine 2.5 Mg Tablet) 2.5 mg PO BID@0900,1400 [facility] Last Admin: 10/11/22 14:08 Dose: 2.5 mg Prazosin HCl (Prazosin Hcl 1 Mg Capsule) 4 mg PO BEDTIME [facility]; Protocol Last Admin: 10/10/22 19:48 Dose: 4 mg Quetiapine Fumarate (Quetiapine Fumarate 50 Mg Tablet) 50 mg PO BEDTIME [facility] Last Admin: 10/10/22 19:49 Dose: 50 mg Trazodone HCl (Trazodone Hcl 50 Mg Tablet) 50 mg PO BEDTIME [facility] Last Admin: 10/10/22 19:48 Dose: 50 mg Trazodone HCl (Trazodone Hcl 50 Mg Tablet) 50 mg PO BEDTIME MRX1 PRN PRN Reason: Insomnia Last Admin: 10/08/22 00:12 Dose: 50 mg Allergies Allergies Allergy/AdvReac Type Severity Reaction Status Date / Time levofloxacin Allergy Unknown Unknown Verified 08/16/22 16:48 chlorpromazine Allergy Unknown unknown Uncoded 08/16/22 16:47 Assessment & Plan Assessment & Plan (1) MDD (major depressive disorder): Status: Acute Code(s): F32.9 - Major depressive disorder, single episode, unspecified (2) Alcohol use disorder, severe, dependence: Status: Acute Code(s): F10.20 - Alcohol dependence, uncomplicated Plan Presents with major depression and likely PTSD and alcohol use disorder, who presents for depression and SI in the face of non medication adherence and relapse with alcohol. 10/08/2022, will increase prazosin to 4 mg. 10/09 patient remains depressed; SI is passive. Patient lamenting his 's ; agrees that alcohol abuse is making it impossible for him to process feelings some recover from depression regarding his 's and would like to try disulfiram which she wanted to get on and last admission; story writer reviewed risks/side effects which patient understood and ask questions about and wants to continue to pursue; ambivalent about CSS since he has to care for his cat 10/10 remains depressed, but SI mostly resolved other than intermittent passive thoughts; agrees to get back on Wellbutrin and will also start gabapentin for residual withdrawal symptoms; will also titrate Prozac. Patient ambivalent about disulfiram and at this point does not want to start this medication. -hospitalist consult placed to rule out cellulitis right lower limb 10/11 agrees to increase Wellbutrin; discussed antibiotic as prophylactics measure Plan: CV Q 15 minute checks DC CIWA Continue gabapentin 300 mg t.i.d.; will decide whether not to taper and discontinue Increased to Prozac 20 mg Increase to Wellbutrin xl 300 mg starting 10/12 Continue Zyprexa 2.5 mg b.i.d. at 09: for anxious depression which helped last time Continue prazosin to 4 mg. DC mirtazapine (on admission patient told provider Prozac did not work however in hindsight he reassess this and agrees to restart) Patient educated on: diagnosis and medication risk/benefits Informed Consent: understands Reason for contiued inpatient stay Substantial Risk for: rapid decompensation Time Spent With Patient Time: Total time managing care of this patient today ____ minutes.
[2022-10-11 18:00] VITALS: BP 115/68; PULSE 89; RESP 18; TEMP 37.7; O2SAT 93
[2022-10-11] MEDS: Prazosin HCL 1 MG CAPSULE 4 MG PO (20:11)
[2022-10-11] MEDS: QUEtiapine Fumarate 50 MG TABLET PO (20:11)
[2022-10-11] MEDS: traZODone HCL 50 MG TABLET PO (20:11)
[2022-10-11 20:26] VITALS: BP 109/70; PULSE 84; RESP 18; TEMP 36.9; O2SAT 94
[2022-10-12] MEDS: OLANZapine 2.5 MG TABLET PO ×2 (08:28→14:19)
[2022-10-12] MEDS: Nicotine 21 MG PATCH.TD24 TRANSDERMA (08:28)
[2022-10-12] MEDS: Gabapentin 300 MG CAPSULE PO ×3 (08:28→19:39)
[2022-10-12] MEDS: FLUoxetine HCl 20 MG CAPSULE PO (08:29)
[2022-10-12] MEDS: Amoxicillin/Potassium Clav 875 MG TABLET PO ×2 (08:29→19:39)
[2022-10-12] MEDS: buPROPion HCl XL 300 MG TAB.ER.24H PO (08:29)
[2022-10-12 08:30] VITALS: BP 104/66; PULSE 73; RESP 18; TEMP 36.4; O2SAT 94
[2022-10-12] MEDS: Fluticasone Propionate 100 MCG BLST.W.DEV 2 PUFF INHALE ×2 (09:01→19:40)
[2022-10-12] MEDS: Buprenorphine/Naloxone 8/2 mg FILM 1 FILM BUCCAL ×3 (09:25→19:40)
--- NOTE | 2022-10-12 12:22 | P.PNPSI_ITS ---
Subjective Subjective Date of Service: 10/12/22 Reason For Visit: Suicidal Interim History: Met with patient; discussed with team Patient reports continued depression however he is feeling a little better and his affect is indeed a little bit brighter; he still has intermittent thoughts o f killing himself however SI remains passive. Patient also continues to have nightmares about his 's but he does not want any other medication. Patient is pushing himself to engage in milieu therapy. He feels the increase in Wellbutrin is helpful. Patient remains ambivalent about what to do regarding aftercare. Discussed options including that it is essential he finds daytime activities with which to engage Mental Status Exam Mental Status Exam Narrative: Pt is alert and oriented; behavior is cooperative, calm; dressed in street clothes, scruffy and unkempt but with adequate hygiene; mood depressed and anxious, but affect a little brighter; eye contact appropriate; Speech is normal rate, volume and prosody; thought process is organized and goal directed; psychomotor retardation present; Thought content is on missing his , treatment; housing; intermittent passive SI; no HI; no AVH expressed. Patient's insight and judgment are impaired but improving. Diagnostics Vital Signs (24Hr): Vital Signs - 24 hr 10/11/22 18:00 10/11/22 20:26 10/12/22 08:30 Temperature 100 F 98.4 F 97.5 F Pulse Rate 89 84 73 Respiratory Rate 18 18 18 Blood Pressure 115/68 109/70 104/66 Pulse Oximetry 93 94 94 Oxygen Delivery Method Room Air Room Air Room Air BMI result Body Mass Index 29.8 Labs 10/05/22 15:15 10/07/22 07:54 Medications Medications Current Medications Acetaminophen (Acetaminophen 325 Mg Tablet) 650 mg PO Q6H PRN PRN Reason: Headache/Pain Mild Scale (1-3) Last Admin: 10/09/22 13:41 Dose: 650 mg Al Hydroxide/Mg Hydroxide (Magnesium Hydrox/Alum Hydrox 30 Ml Oral.Susp) 30 ml PO Q6H PRN PRN Reason: Heartburn/Nausea Albuterol Sulfate (Albuterol Sulfate 90 Mcg 8 Gm Inhaler) 2 puff INHALE Q4H PRN PRN Reason: wheezing, shortness of breath Last Admin: 10/11/22 06:48 Dose: 2 puff Amoxicillin/Clavulanate Potassium (Amoxicillin/Potassium Clav 875 Mg Tablet) 875 mg PO Q12H [facility] [place] Stop: 10/17/22 08:01 Last Admin: 10/12/22 08:29 Dose: 875 mg Buprenorphine/Naloxone (Buprenorphine/Naloxone 8/2 Mg Film) 1 film BUCCAL TID@1000,1500,2000 [facility] [place] Last Admin: 10/12/22 09:25 Dose: 1 film Bupropion HCl (Bupropion Hcl Xl 300 Mg Tab.Er.24h) 300 mg PO DAILY [facility] [place] Last Admin: 10/12/22 08:29 Dose: 300 mg Clonidine HCl (Clonidine Hcl 0.1 Mg Tablet) 0.1 mg PO QID PRN; Protocol PRN Reason: Anxiety Last Admin: 10/07/22 14:19 Dose: 0.1 mg Fluoxetine HCl (Fluoxetine Hcl 20 Mg Capsule) 20 mg PO DAILY [facility] Last Admin: 10/12/22 08:29 Dose: 20 mg Fluticasone Propionate (Fluticasone Propionate 100 Mcg Blst.W.Dev) 2 puff INHALE RBID [facility] [place] Last Admin: 10/12/22 09:01 Dose: 2 puff Gabapentin (Gabapentin 300 Mg Capsule) 300 mg PO TID [facility] Last Admin: 10/12/22 08:28 Dose: 300 mg Hydroxyzine HCl (Hydroxyzine Hcl 25 Mg Tablet) 25 mg PO Q6H PRN PRN Reason: Anxiety Last Admin: 10/10/22 06:22 Dose: 25 mg Magnesium Hydroxide (Milk Of Magnesia 30 Ml Oral.Susp) 30 ml PO DAILY PRN PRN Reason: Constipation Nicotine (Nicotine 21 Mg Patch.Td24) 21 mg TRANSDERMA DAILY [facility] [place] Last Admin: 10/12/22 08:28 Dose: 21 mg Olanzapine (Olanzapine 2.5 Mg Tablet) 2.5 mg PO BID@0900,1400 [facility] [place] Last Admin: 10/12/22 08:28 Dose: 2.5 mg Prazosin HCl (Prazosin Hcl 1 Mg Capsule) 4 mg PO BEDTIME [facility] [place]; Protocol Last Admin: 10/11/22 20:11 Dose: 4 mg Quetiapine Fumarate (Quetiapine Fumarate 50 Mg Tablet) 50 mg PO BEDTIME [facility] [place] Last Admin: 10/11/22 20:11 Dose: 50 mg Trazodone HCl (Trazodone Hcl 50 Mg Tablet) 50 mg PO BEDTIME [facility] [place] Last Admin: 10/11/22 20:11 Dose: 50 mg Trazodone HCl (Trazodone Hcl 50 Mg Tablet) 50 mg PO BEDTIME MRX1 PRN PRN Reason: Insomnia Last Admin: 10/08/22 00:12 Dose: 50 mg Allergies Allergies Allergy/AdvReac Type Severity Reaction Status Date / Time levofloxacin Allergy Unknown Unknown Verified 08/16/22 16:48 chlorpromazine Allergy Unknown unknown Uncoded 08/16/22 16:47 Assessment & Plan Assessment & Plan (1) MDD (major depressive disorder): Status: Acute Code(s): F32.9 - Major depressive disorder, single episode, unspecified (2) Alcohol use disorder, severe, dependence: Status: Acute Code(s): F10.20 - Alcohol dependence, uncomplicated Plan Presents with major depression and likely PTSD and alcohol use disorder, who presents for depression and SI in the face of non medication adherence and relapse with alcohol. 10/08/2022, will increase prazosin to 4 mg. 10/09 patient remains depressed; SI is passive. Patient lamenting his 's ; agrees that alcohol abuse is making it impossible for him to process feelings some recover from depression regarding his 's and would like to try disulfiram which she wanted to get on and last admission; headline writer reviewed risks/side effects which patient understood and ask questions about and wants to continue to pursue; ambivalent about CSS since he has to care for his cat 10/10 remains depressed, but SI mostly resolved other than intermittent passive thoughts; agrees to get back on Wellbutrin and will also start gabapentin for residual withdrawal symptoms; will also titrate Prozac. Patient ambivalent about disulfiram and at this point does not want to start this medication. -hospitalist consult placed to rule out cellulitis right lower limb 10/11 agrees to increase Wellbutrin; discussed antibiotic as prophylactics measure 10/12 a little bit better though remains depressed with passive SI. Patient is pushing himself to engage in milieu therapy and discussing plans for aftercare: continue current regimen for now Plan: CV Q 15 minute checks DC CIWA Continue gabapentin 300 mg t.i.d.; will likely taper Increased to Prozac 20 mg Increase to Wellbutrin xl 300 mg starting 10/12 Continue Zyprexa 2.5 mg b.i.d. at 09: for anxious depression which helped last time Continue prazosin to 4 mg. DC mirtazapine (on admission patient told provider Prozac did not work however in hindsight he reassess this and agrees to restart) Patient educated on: diagnosis, medication risk/benefits, substance abuse and therapeutic strategies Informed Consent: understands Reason for contiued inpatient stay Substantial Risk for: rapid decompensation Time Spent With Patient Time: Total time managing care of this patient today ____ minutes.
[2022-10-12 13:42] VITALS: BMI 30.4
[2022-10-12 18:00] VITALS: BP 116/71; PULSE 135
[2022-10-12] MEDS: Prazosin HCL 1 MG CAPSULE 4 MG PO (19:38)
[2022-10-12] MEDS: QUEtiapine Fumarate 50 MG TABLET PO (19:39)
[2022-10-12] MEDS: traZODone HCL 50 MG TABLET PO (19:40)
[2022-10-12] MEDS: Albuterol Sulfate 90 MCG 8 GM INHALER 2 PUFF INHALE (22:39)
[2022-10-13] MEDS: FLUoxetine HCl 20 MG CAPSULE PO (08:18)
[2022-10-13] MEDS: buPROPion HCl XL 300 MG TAB.ER.24H PO (08:18)
[2022-10-13] MEDS: Amoxicillin/Potassium Clav 875 MG TABLET PO ×2 (08:18→20:03)
[2022-10-13] MEDS: Fluticasone Propionate 100 MCG BLST.W.DEV 2 PUFF INHALE ×2 (08:18→20:03)
[2022-10-13] MEDS: Gabapentin 300 MG CAPSULE PO ×3 (08:18→20:03)
[2022-10-13] MEDS: OLANZapine 2.5 MG TABLET PO ×2 (08:18→13:23)
[2022-10-13] MEDS: Nicotine 21 MG PATCH.TD24 TRANSDERMA (08:19)
[2022-10-13 08:27] VITALS: BP 122/71; PULSE 81; RESP 16; TEMP 36.8; O2SAT 92
[2022-10-13] MEDS: Buprenorphine/Naloxone 8/2 mg FILM 1 FILM BUCCAL ×3 (09:08→20:03)
--- NOTE | 2022-10-13 10:16 | HO.PSYCHPN ---
Subjective Subjective Date of Service: 10/13/22 Reason For Visit: Suicidal Interim History: Met with patient; discussed with team Patient reports that he is starting to feel better . Though he intermittently struggles with passive SI, He says I am not going to hurt myself. Patient discussed coping strategies and agrees that he needs to get out of the house more, interact with others; he says that it is difficult but also says he knows he needs to do it and that often he enjoys interacting with others. Discussed going to the [facility] and patient agreed that perhaps he has hesitated because doing so would consciously acknowledge that his is not coming back; talked more about the morning process and patient feels that he will be able to continue grieving and the [facility]. Discussed sobriety. Patient said that he thinks he will be ready to go early next week. Of note, patient's affect is noticeably brighter; he is in the milieu much more often and joking with staff more Mental Status Exam Mental Status Exam Narrative: Pt is alert and oriented; behavior is cooperative, calm; dressed in street clothes, scruffy and unkempt but with adequate hygiene; mood depressed and anxious, but noticeably brighter; eye contact appropriate; Speech is normal rate, volume and prosody; thought process is organized and goal directed; no psychomotor retardation present; Thought content is on mournng his , treatment; housing; intermittent passive SI; no HI; no AVH expressed. Patient's insight and judgment are fair and at baseline. Diagnostics Vital Signs (24Hr): Vital Signs - 24 hr 10/12/22 18:00 10/13/22 08:27 Temperature 98.3 F Pulse Rate 135 H 81 Respiratory Rate 16 Blood Pressure 116/71 122/71 Pulse Oximetry 92 Oxygen Delivery Method Room Air BMI result Body Mass Index 30.4 Labs 10/05/22 15:15 10/07/22 07:54 Medications Medications Current Medications Acetaminophen (Acetaminophen 325 Mg Tablet) 650 mg PO Q6H PRN PRN Reason: Headache/Pain Mild Scale (1-3) Last Admin: 10/09/22 13:41 Dose: 650 mg Al Hydroxide/Mg Hydroxide (Magnesium Hydrox/Alum Hydrox 30 Ml Oral.Susp) 30 ml PO Q6H PRN PRN Reason: Heartburn/Nausea Albuterol Sulfate (Albuterol Sulfate 90 Mcg 8 Gm Inhaler) 2 puff INHALE Q4H PRN PRN Reason: wheezing, shortness of breath Last Admin: 10/12/22 22:39 Dose: 2 puff Amoxicillin/Clavulanate Potassium (Amoxicillin/Potassium Clav 875 Mg Tablet) 875 mg PO Q12H [facility] Stop: 10/17/22 08:01 Last Admin: 10/13/22 08:18 Dose: 875 mg Buprenorphine/Naloxone (Buprenorphine/Naloxone 8/2 Mg Film) 1 film BUCCAL TID@1000,1500,2000 [facility] Last Admin: 10/13/22 09:08 Dose: 1 film Bupropion HCl (Bupropion Hcl Xl 300 Mg Tab.Er.24h) 300 mg PO DAILY [facility] Last Admin: 10/13/22 08:18 Dose: 300 mg Clonidine HCl (Clonidine Hcl 0.1 Mg Tablet) 0.1 mg PO QID PRN; Protocol PRN Reason: Anxiety Last Admin: 10/07/22 14:19 Dose: 0.1 mg Fluoxetine HCl (Fluoxetine Hcl 20 Mg Capsule) 20 mg PO DAILY [facility] Last Admin: 10/13/22 08:18 Dose: 20 mg Fluticasone Propionate (Fluticasone Propionate 100 Mcg Blst.W.Dev) 2 puff INHALE RBID [facility] Last Admin: 10/13/22 08:18 Dose: 2 puff Gabapentin (Gabapentin 300 Mg Capsule) 300 mg PO TID [facility] Last Admin: 10/13/22 08:18 Dose: 300 mg Hydroxyzine HCl (Hydroxyzine Hcl 25 Mg Tablet) 25 mg PO Q6H PRN PRN Reason: Anxiety Last Admin: 10/10/22 06:22 Dose: 25 mg Magnesium Hydroxide (Milk Of Magnesia 30 Ml Oral.Susp) 30 ml PO DAILY PRN PRN Reason: Constipation Nicotine (Nicotine 21 Mg Patch.Td24) 21 mg TRANSDERMA DAILY [facility] Last Admin: 10/13/22 08:19 Dose: 21 mg Olanzapine (Olanzapine 2.5 Mg Tablet) 2.5 mg PO BID@0900,1400 [facility] Last Admin: 10/13/22 08:18 Dose: 2.5 mg Prazosin HCl (Prazosin Hcl 1 Mg Capsule) 4 mg PO BEDTIME [facility]; Protocol Last Admin: 10/12/22 19:38 Dose: 4 mg Quetiapine Fumarate (Quetiapine Fumarate 50 Mg Tablet) 50 mg PO BEDTIME [facility] Last Admin: 10/12/22 19:39 Dose: 50 mg Trazodone HCl (Trazodone Hcl 50 Mg Tablet) 50 mg PO BEDTIME [facility] Last Admin: 10/12/22 19:40 Dose: 50 mg Trazodone HCl (Trazodone Hcl 50 Mg Tablet) 50 mg PO BEDTIME MRX1 PRN PRN Reason: Insomnia Last Admin: 10/08/22 00:12 Dose: 50 mg Allergies Allergies Allergy/AdvReac Type Severity Reaction Status Date / Time levofloxacin Allergy Unknown Unknown Verified 08/16/22 16:48 chlorpromazine Allergy Unknown unknown Uncoded 08/16/22 16:47 Assessment & Plan Assessment & Plan (1) MDD (major depressive disorder): Status: Acute Code(s): F32.9 - Major depressive disorder, single episode, unspecified (2) Alcohol use disorder, severe, dependence: Status: Acute Code(s): F10.20 - Alcohol dependence, uncomplicated Plan Presents with major depression and likely PTSD and alcohol use disorder, who presents for depression and SI in the face of non medication adherence and relapse with alcohol. 10/08/2022, will increase prazosin to 4 mg. 10/09 patient remains depressed; SI is passive. Patient lamenting his 's ; agrees that alcohol abuse is making it impossible for him to process feelings some recover from depression regarding his 's and would like to try disulfiram which she wanted to get on and last admission; curriculum writer reviewed risks/side effects which patient understood and ask questions about and wants to continue to pursue; ambivalent about CSS since he has to care for his cat 10/10 remains depressed, but SI mostly resolved other than intermittent passive thoughts; agrees to get back on Wellbutrin and will also start gabapentin for residual withdrawal symptoms; will also titrate Prozac. Patient ambivalent about disulfiram and at this point does not want to start this medication. -hospitalist consult placed to rule out cellulitis right lower limb 10/11 agrees to increase Wellbutrin; discussed antibiotic as prophylactics measure 10/12 a little bit better though remains depressed with passive SI. Patient is pushing himself to engage in milieu therapy and discussing plans for aftercare: continue current regimen for now 10/13 mood is improved; intermittent passive SI, but patient feels safe and denies any intent or plans and knows that he will stay safe. Discussed aftercare plans and is future oriented. Patient discussed discharge early next week Plan: CV Q 15 minute checks DC CIWA Continue gabapentin 300 mg t.i.d.; will likely taper Increased to Prozac 20 mg Increase to Wellbutrin xl 300 mg starting 10/12 Continue Zyprexa 2.5 mg b.i.d. at 09: for anxious depression which helped last time Continue prazosin to 4 mg. DC mirtazapine (on admission patient told provider Prozac did not work however in hindsight he reassess this and agrees to restart) Patient educated on: diagnosis, medication risk/benefits, substance abuse and therapeutic strategies Informed Consent: understands Reason for contiued inpatient stay Substantial Risk for: med/psych decompensation Time Spent With Patient Time: Total time managing care of this patient today ____ minutes.
[2022-10-13] MEDS: Prazosin HCL 1 MG CAPSULE 4 MG PO (20:02)
[2022-10-13] MEDS: cloNIDine HCL 0.1 MG TABLET PO (20:03)
[2022-10-13] MEDS: QUEtiapine Fumarate 50 MG TABLET PO (20:03)
[2022-10-13] MEDS: traZODone HCL 50 MG TABLET PO (20:03)
[2022-10-13 20:07] VITALS: BP 134/80; PULSE 75
[2022-10-14] MEDS: OLANZapine 2.5 MG TABLET PO ×2 (09:15→14:43)
[2022-10-14] MEDS: FLUoxetine HCl 20 MG CAPSULE PO (09:15)
[2022-10-14] MEDS: buPROPion HCl XL 300 MG TAB.ER.24H PO (09:15)
[2022-10-14] MEDS: Gabapentin 300 MG CAPSULE PO ×2 (09:15→14:43)
[2022-10-14] MEDS: Amoxicillin/Potassium Clav 875 MG TABLET PO ×2 (09:15→20:15)
[2022-10-14] MEDS: Nicotine 21 MG PATCH.TD24 TRANSDERMA (09:16)
[2022-10-14] MEDS: Fluticasone Propionate 100 MCG BLST.W.DEV 2 PUFF INHALE ×2 (09:18→21:15)
[2022-10-14 09:41] VITALS: BP 111/72; PULSE 73; RESP 16; TEMP 36.2; O2SAT 94
[2022-10-14] MEDS: Buprenorphine/Naloxone 8/2 mg FILM 1 FILM BUCCAL ×3 (10:16→21:14)
[2022-10-14] MEDS: hydrOXYzine HCL 25 MG TABLET PO ×2 (10:16→20:15)
[2022-10-14] MEDS: Acetaminophen 325 MG TABLET 650 MG PO (11:54)
--- NOTE | 2022-10-14 16:25 | P.PNPSI_ITS ---
Subjective Subjective Date of Service: 10/14/22 Reason For Visit: Suicidal Interim History: Review with nursing/team. Reporting foot/leg pain. Compression stockings discussed- pt cramping at times. Discussed nightmares, passive SI Engaged in milieu. Medication Compliance: Yes Side effects from medications: No Attending Groups: Yes Review of Systems Acute medical concerns: No Medical Review of Systems: unchanged Mental Status Exam Mental Status Exam Patient Appearance: Fatigued Patient Orientation: Person, Place, Time and Situation Level of Consciousness: Alert Patient Behavior: Talkative Mood Description: Depressed and Anxious Affect Description: Flat Patient Cognition Impaired: No Ability to Follow Directions: Good Speech Pattern: Spontaneous Speech Memory Description: Episodic Impaired Hallucinations: None Perceptual Disturbances: Depersonalization Thought Process: Distracted and Rumination Thought Content: positive for Perseveration Depressive Symptoms: Increased Anxiety and Unhappiness Judgement: Fair Diagnostics Vital Signs (24Hr): Vital Signs - 24 hr 10/13/22 20:07 10/14/22 09:41 Temperature 97.2 F Pulse Rate 75 73 Respiratory Rate 16 Blood Pressure 134/80 111/72 Pulse Oximetry 94 Oxygen Delivery Method Room Air BMI result Body Mass Index 30.4 Labs 10/05/22 15:15 10/07/22 07:54 Medications Medications Current Medications Acetaminophen (Acetaminophen 325 Mg Tablet) 650 mg PO Q6H PRN PRN Reason: Headache/Pain Mild Scale (1-3) Last Admin: 10/14/22 11:54 Dose: 650 mg Al Hydroxide/Mg Hydroxide (Magnesium Hydrox/Alum Hydrox 30 Ml Oral.Susp) 30 ml PO Q6H PRN PRN Reason: Heartburn/Nausea Albuterol Sulfate (Albuterol Sulfate 90 Mcg 8 Gm Inhaler) 2 puff INHALE Q4H PRN PRN Reason: wheezing, shortness of breath Last Admin: 10/12/22 22:39 Dose: 2 puff Amoxicillin/Clavulanate Potassium (Amoxicillin/Potassium Clav 875 Mg Tablet) 875 mg PO Q12H [facility] Stop: 10/17/22 08:01 Last Admin: 10/14/22 09:15 Dose: 875 mg Buprenorphine/Naloxone (Buprenorphine/Naloxone 8/2 Mg Film) 1 film BUCCAL TID@1000,1500,2000 [facility] Last Admin: 10/14/22 15:10 Dose: 1 film Bupropion HCl (Bupropion Hcl Xl 300 Mg Tab.Er.24h) 300 mg PO DAILY [facility] Last Admin: 10/14/22 09:15 Dose: 300 mg Clonidine HCl (Clonidine Hcl 0.1 Mg Tablet) 0.1 mg PO QID PRN; Protocol PRN Reason: Anxiety Last Admin: 10/13/22 20:03 Dose: 0.1 mg Fluoxetine HCl (Fluoxetine Hcl 20 Mg Capsule) 20 mg PO DAILY [facility] Last Admin: 10/14/22 09:15 Dose: 20 mg Fluticasone Propionate (Fluticasone Propionate 100 Mcg Blst.W.Dev) 2 puff INHALE RBID [facility] Last Admin: 10/14/22 09:18 Dose: 2 puff Gabapentin (Gabapentin 300 Mg Capsule) 300 mg PO TID [facility] Last Admin: 10/14/22 14:43 Dose: 300 mg Hydroxyzine HCl (Hydroxyzine Hcl 25 Mg Tablet) 25 mg PO Q6H PRN PRN Reason: Anxiety Last Admin: 10/14/22 10:16 Dose: 25 mg Magnesium Hydroxide (Milk Of Magnesia 30 Ml Oral.Susp) 30 ml PO DAILY PRN PRN Reason: Constipation Nicotine (Nicotine 21 Mg Patch.Td24) 21 mg TRANSDERMA DAILY [facility] Last Admin: 10/14/22 09:16 Dose: 21 mg Olanzapine (Olanzapine 2.5 Mg Tablet) 2.5 mg PO BID@0900,1400 [facility] Last Admin: 10/14/22 14:43 Dose: 2.5 mg Prazosin HCl (Prazosin Hcl 1 Mg Capsule) 4 mg PO BEDTIME [facility]; Protocol Last Admin: 10/13/22 20:02 Dose: 4 mg Quetiapine Fumarate (Quetiapine Fumarate 50 Mg Tablet) 50 mg PO BEDTIME [facility] Last Admin: 10/13/22 20:03 Dose: 50 mg Trazodone HCl (Trazodone Hcl 50 Mg Tablet) 50 mg PO BEDTIME [facility] Last Admin: 10/13/22 20:03 Dose: 50 mg Trazodone HCl (Trazodone Hcl 50 Mg Tablet) 50 mg PO BEDTIME MRX1 PRN PRN Reason: Insomnia Last Admin: 10/08/22 00:12 Dose: 50 mg Allergies Allergies Allergy/AdvReac Type Severity Reaction Status Date / Time levofloxacin Allergy Unknown Unknown Verified 08/16/22 16:48 chlorpromazine Allergy Unknown unknown Uncoded 08/16/22 16:47 Assessment & Plan Assessment & Plan (1) MDD (major depressive disorder): Status: Acute Code(s): F32.9 - Major depressive disorder, single episode, unspecified (2) Alcohol use disorder, severe, dependence: Status: Acute Code(s): F10.20 - Alcohol dependence, uncomplicated Plan Presents with major depression and likely PTSD and alcohol use disorder, who presents for depression and SI in the face of non medication adherence and relapse with alcohol. 10/08/2022, will increase prazosin to 4 mg. 10/09 patient remains depressed; SI is passive. Patient lamenting his 's ; agrees that alcohol abuse is making it impossible for him to process feelings some recover from depression regarding his 's and would like to try disulfiram which she wanted to get on and last admission; policy writer sales reviewed risks/side effects which patient understood and ask questions about and wants to continue to pursue; ambivalent about CSS since he has to care for his cat 10/10 remains depressed, but SI mostly resolved other than intermittent passive thoughts; agrees to get back on Wellbutrin and will also start gabapentin for residual withdrawal symptoms; will also titrate Prozac. Patient ambivalent about disulfiram and at this point does not want to start this medication. -hospitalist consult placed to rule out cellulitis right lower limb 10/11 agrees to increase Wellbutrin; discussed antibiotic as prophylactics measure 10/12 a little bit better though remains depressed with passive SI. Patient is pushing himself to engage in milieu therapy and discussing plans for aftercare: continue current regimen for now 10/14/22: Increase Gabapentin temporarily- to address reports of neuropathic pain. Plan: CV Q 15 minute checks DC CIWA Continue gabapentin 300 mg t.i.d.; will likely taper Increased to Prozac 20 mg Increase to Wellbutrin xl 300 mg starting 10/12 Continue Zyprexa 2.5 mg b.i.d. at 09: for anxious depression which helped last time Continue prazosin to 4 mg. DC mirtazapine (on admission patient told provider Prozac did not work however in hindsight he reassess this and agrees to restart) Informed Consent: understands Reason for contiued inpatient stay Substantial Risk for: rapid decompensation Time Spent With Patient Time: Total time managing care of this patient today ____ minutes.
[2022-10-14 18:50] VITALS: BP 117/67; O2SAT 96
[2022-10-14] MEDS: Prazosin HCL 1 MG CAPSULE 4 MG PO (20:14)
[2022-10-14] MEDS: Gabapentin 400 MG CAPSULE PO (20:15)
[2022-10-14] MEDS: QUEtiapine Fumarate 50 MG TABLET PO (20:15)
[2022-10-14] MEDS: traZODone HCL 50 MG TABLET PO ×2 (20:15→22:07)
[2022-10-14] MEDS: cloNIDine HCL 0.1 MG TABLET PO (22:07)
[2022-10-14] MEDS: Albuterol Sulfate 90 MCG 8 GM INHALER 2 PUFF INHALE (23:04)
[2022-10-15] MEDS: Nicotine 21 MG PATCH.TD24 TRANSDERMA (07:58)
[2022-10-15] MEDS: OLANZapine 2.5 MG TABLET PO ×2 (07:59→13:02)
[2022-10-15] MEDS: Gabapentin 400 MG CAPSULE PO ×3 (07:59→19:27)
[2022-10-15] MEDS: Amoxicillin/Potassium Clav 875 MG TABLET PO ×2 (07:59→19:27)
[2022-10-15] MEDS: buPROPion HCl XL 300 MG TAB.ER.24H PO (07:59)
[2022-10-15] MEDS: FLUoxetine HCl 20 MG CAPSULE PO (07:59)
[2022-10-15 08:28] VITALS: BP 111/74; PULSE 84; RESP 16; TEMP 36.7; O2SAT 94
[2022-10-15] MEDS: Fluticasone Propionate 100 MCG BLST.W.DEV 2 PUFF INHALE ×2 (08:33→20:11)
[2022-10-15] MEDS: cloNIDine HCL 0.1 MG TABLET PO ×2 (08:34→13:31)
[2022-10-15] MEDS: hydrOXYzine HCL 25 MG TABLET PO (08:34)
[2022-10-15] MEDS: Buprenorphine/Naloxone 8/2 mg FILM 1 FILM BUCCAL ×3 (09:31→19:30)
[2022-10-15 11:21] LABS: Alanine Aminotransferase 37 U/L (0-40); Albumin Level 3.9 g/dL (3.5-5.0); Alkaline Phosphatase 113 U/L (39-117); Anion Gap 13 (12-20); Aspartate Amino Transferase 53 U/L (5-37); Bilirubin Total 0.4 mg/dL (0.0-1.0); Blood Urea Nitrogen 12 mg/dL (9-16); Calcium 9.3 mg/dL (8.4-10.2); Carbon Dioxide 29 mmol/L (22-29); Chloride 102 mmol/L (96-108); Creatinine Clr Calc Pharmacy 106.9; Estimated Glomerular Filt Rate > 60; Glucose Random 65 mg/dL (60-115); Potassium 4.8 mmol/L (3.3-5.1); Sodium 139 mmol/L (135-145); Total Protein 7.2 g/dL (6.5-8.0)
[2022-10-15 13:25] VITALS: BP 120/74; PULSE 84
--- NOTE | 2022-10-15 19:09 | HO.PSYCHPN ---
Subjective Subjective Date of Service: 10/15/22 Reason For Visit: Suicidal Interim History: Some relief with compression stockings Review with team/nursing Continues to report nightmares, sleep interruption-review of sleep hygiene Medication Compliance: Yes Side effects from medications: No Attending Groups: Yes Review of Systems Acute medical concerns: No Medical Review of Systems: unchanged Mental Status Exam Mental Status Exam Patient Appearance: Fatigued Patient Orientation: Person, Place, Time and Situation Level of Consciousness: Alert Patient Behavior: Talkative Mood Description: Depressed and Anxious Affect Description: Flat Patient Cognition Impaired: No Ability to Follow Directions: Good Speech Pattern: Spontaneous Speech Memory Description: Episodic Impaired Hallucinations: None Perceptual Disturbances: Depersonalization Thought Process: Distracted and Rumination Thought Content: positive for Perseveration Depressive Symptoms: Increased Anxiety and Unhappiness Judgement: Fair Diagnostics Vital Signs (24Hr): Vital Signs - 24 hr 10/15/22 08:28 10/15/22 13:25 Temperature 98.1 F Pulse Rate 84 84 Respiratory Rate 16 Blood Pressure 111/74 120/74 Pulse Oximetry 94 Oxygen Delivery Method Room Air BMI result Body Mass Index 30.4 Labs 10/05/22 15:15 10/15/22 10:49 Labs: Laboratory Results - last 48 hr 10/15/22 10:49 Sodium 139 Potassium 4.8 D Chloride 102 Carbon Dioxide 29 Anion Gap 13 BUN 12 Creatinine 0.81 Estim Creat Clear Calc 106.9 Estimated GFR > 60 Random Glucose 65 Calcium 9.3 Total Bilirubin 0.4 AST 53 H ALT 37 Alkaline Phosphatase 113 Total Protein 7.2 Albumin 3.9 Imaging Radiology Impressions: ITS Impressions Ankle X-Ray 10/14/22 17:11 IMPRESSION: Lateral soft tissue swelling. No fracture. Medications Medications Current Medications Acetaminophen (Acetaminophen 325 Mg Tablet) 650 mg PO Q6H PRN PRN Reason: Headache/Pain Mild Scale (1-3) Last Admin: 10/14/22 11:54 Dose: 650 mg Al Hydroxide/Mg Hydroxide (Magnesium Hydrox/Alum Hydrox 30 Ml Oral.Susp) 30 ml PO Q6H PRN PRN Reason: Heartburn/Nausea Albuterol Sulfate (Albuterol Sulfate 90 Mcg 8 Gm Inhaler) 2 puff INHALE Q4H PRN PRN Reason: wheezing, shortness of breath Last Admin: 10/14/22 23:04 Dose: 2 puff Amoxicillin/Clavulanate Potassium (Amoxicillin/Potassium Clav 875 Mg Tablet) 875 mg PO Q12H [facility] Stop: 10/17/22 08:01 Last Admin: 10/15/22 07:59 Dose: 875 mg Buprenorphine/Naloxone (Buprenorphine/Naloxone 8/2 Mg Film) 1 film BUCCAL TID@1000,1500,2000 [facility] Last Admin: 10/15/22 14:24 Dose: 1 film Bupropion HCl (Bupropion Hcl Xl 300 Mg Tab.Er.24h) 300 mg PO DAILY [facility] Last Admin: 10/15/22 07:59 Dose: 300 mg Clonidine HCl (Clonidine Hcl 0.1 Mg Tablet) 0.1 mg PO QID PRN; Protocol PRN Reason: Anxiety Last Admin: 10/15/22 13:31 Dose: 0.1 mg Fluoxetine HCl (Fluoxetine Hcl 20 Mg Capsule) 20 mg PO DAILY [facility] Last Admin: 10/15/22 07:59 Dose: 20 mg Fluticasone Propionate (Fluticasone Propionate 100 Mcg Blst.W.Dev) 2 puff INHALE RBID [facility] Last Admin: 10/15/22 08:33 Dose: 2 puff Gabapentin (Gabapentin 400 Mg Capsule) 400 mg PO TID [facility] Last Admin: 10/15/22 14:24 Dose: 400 mg Hydroxyzine HCl (Hydroxyzine Hcl 25 Mg Tablet) 25 mg PO Q6H PRN PRN Reason: Anxiety Last Admin: 10/15/22 08:34 Dose: 25 mg Magnesium Hydroxide (Milk Of Magnesia 30 Ml Oral.Susp) 30 ml PO DAILY PRN PRN Reason: Constipation Nicotine (Nicotine 21 Mg Patch.Td24) 21 mg TRANSDERMA DAILY [facility] Last Admin: 10/15/22 07:58 Dose: 21 mg Olanzapine (Olanzapine 2.5 Mg Tablet) 2.5 mg PO BID@0900,1400 [facility] Last Admin: 10/15/22 13:02 Dose: 2.5 mg Prazosin HCl (Prazosin Hcl 1 Mg Capsule) 4 mg PO BEDTIME [facility]; Protocol Last Admin: 10/14/22 20:14 Dose: 4 mg Quetiapine Fumarate (Quetiapine Fumarate 50 Mg Tablet) 50 mg PO BEDTIME [facility] Last Admin: 10/14/22 20:15 Dose: 50 mg Trazodone HCl (Trazodone Hcl 50 Mg Tablet) 50 mg PO BEDTIME [facility] Last Admin: 10/14/22 20:15 Dose: 50 mg Trazodone HCl (Trazodone Hcl 50 Mg Tablet) 50 mg PO BEDTIME MRX1 PRN PRN Reason: Insomnia Last Admin: 10/14/22 22:07 Dose: 50 mg Allergies Allergies Allergy/AdvReac Type Severity Reaction Status Date / Time levofloxacin Allergy Unknown Unknown Verified 08/16/22 16:48 chlorpromazine Allergy Unknown unknown Uncoded 08/16/22 16:47 Assessment & Plan Assessment & Plan (1) MDD (major depressive disorder): Status: Acute Code(s): F32.9 - Major depressive disorder, single episode, unspecified (2) Alcohol use disorder, severe, dependence: Status: Acute Code(s): F10.20 - Alcohol dependence, uncomplicated Plan Presents with major depression and likely PTSD and alcohol use disorder, who presents for depression and SI in the face of non medication adherence and relapse with alcohol. 10/08/2022, will increase prazosin to 4 mg. 10/09 patient remains depressed; SI is passive. Patient lamenting his 's ; agrees that alcohol abuse is making it impossible for him to process feelings some recover from depression regarding his 's and would like to try disulfiram which she wanted to get on and last admission; mortgage or loan underwriter reviewed risks/side effects which patient understood and ask questions about and wants to continue to pursue; ambivalent about CSS since he has to care for his cat 10/10 remains depressed, but SI mostly resolved other than intermittent passive thoughts; agrees to get back on Wellbutrin and will also start gabapentin for residual withdrawal symptoms; will also titrate Prozac. Patient ambivalent about disulfiram and at this point does not want to start this medication. -hospitalist consult placed to rule out cellulitis right lower limb 10/11 agrees to increase Wellbutrin; discussed antibiotic as prophylactics measure 10/12 a little bit better though remains depressed with passive SI. Patient is pushing himself to engage in milieu therapy and discussing plans for aftercare: continue current regimen for now 10/15/22 CMP 10/16, continue compression stocking trial. Plan: CV Q 15 minute checks DC [facility]WA Continue gabapentin 300 mg t.i.d.; will likely taper Increased to Prozac 20 mg Increase to Wellbutrin xl 300 mg starting 10/12 Continue Zyprexa 2.5 mg b.i.d. at 09: for anxious depression which helped last time Continue prazosin to 4 mg. DC mirtazapine (on admission patient told provider Prozac did not work however in hindsight he reassess this and agrees to restart) Informed Consent: understands Reason for contiued inpatient stay Substantial Risk for: rapid decompensation Time Spent With Patient Time: Total time managing care of this patient today ____ minutes.
[2022-10-15] MEDS: Prazosin HCL 1 MG CAPSULE 4 MG PO (19:26)
[2022-10-15] MEDS: QUEtiapine Fumarate 50 MG TABLET PO (19:27)
[2022-10-15] MEDS: traZODone HCL 50 MG TABLET PO (19:27)
[2022-10-15 19:30] VITALS: BP 97/69; PULSE 68; RESP 16; TEMP 36.4; O2SAT 98
[2022-10-15] MEDS: Acetaminophen 325 MG TABLET 650 MG PO (23:12)
[2022-10-16] MEDS: FLUoxetine HCl 20 MG CAPSULE PO (08:04)
[2022-10-16] MEDS: Fluticasone Propionate 100 MCG BLST.W.DEV 2 PUFF INHALE (08:04)
[2022-10-16] MEDS: buPROPion HCl XL 300 MG TAB.ER.24H PO (08:04)
[2022-10-16] MEDS: OLANZapine 2.5 MG TABLET PO (08:04)
[2022-10-16] MEDS: Gabapentin 400 MG CAPSULE PO (08:04)
[2022-10-16] MEDS: Amoxicillin/Potassium Clav 875 MG TABLET PO (08:04)
[2022-10-16] MEDS: Nicotine 21 MG PATCH.TD24 TRANSDERMA (08:07)
[2022-10-16 08:48] VITALS: BP 113/69; PULSE 75; RESP 18; TEMP 36.1; O2SAT 90
[2022-10-16] MEDS: cloNIDine HCL 0.1 MG TABLET PO (09:38)
[2022-10-16] MEDS: Buprenorphine/Naloxone 8/2 mg FILM 1 FILM BUCCAL (09:38)
[2022-10-16] MEDS: hydrOXYzine HCL 25 MG TABLET PO (09:38)
[2022-10-16] MEDS: Magnesium Hydrox/Alum Hydrox 30 ML ORAL.SUSP PO (09:43)
--- NOTE | 2022-10-16 11:00 | P.DS_ITS ---
DS: Providers Provider Date of Service: 10/16/22 Date of admission: 10/06/22 17:58 Date of discharge: 10/16/22 Primary care physician: Daniel Cottrell MD Attending physician on admission: Pk Rey Consults: 10/10/22 15:01 Consult to Hospitalist Routine Consulting Provider: Hospitalist Reason For Exam: right leg cat scratch; r/o cellulitis Attending physician on discharge: Pk Rey DS: Diagnosis Discharge Diagnosis (1) MDD (major depressive disorder): Status: Acute (2) Alcohol use disorder, severe, dependence: Status: Acute DS: Medications Discharge Medications Home Medications: Home Medications Medication Instructions Recorded Confirmed buprenorphine 8 mg-naloxone 2 mg 1 film buccal TID 10/05/22 10/05/22 sublingual film (Suboxone) Previous Rx's Medication Instructions Recorded albuterol sulfate 90 mcg/actuation 2 puff inhalation Q4H PRN 10/16/22 aerosol inhaler (Ventolin HFA) wheezing, shortness of breath 30 days #6.7 grams amoxicillin 875 mg-potassium 1 tab PO BID 4 days #7 tabs 10/16/22 clavulanate 125 mg tablet bupropion HCl 300 mg 24 hr tablet, 300 mg PO DAILY 30 days #30 tabs 10/16/22 extended release clonidine HCl 0.1 mg tablet 0.1 mg PO BID PRN Anxiety 30 days 10/16/22 #60 tabs fluoxetine 20 mg capsule 20 mg PO DAILY 30 days #30 caps 10/16/22 fluticasone propionate 110 2 puff inhalation BID 30 days #12 10/16/22 mcg/actuation HFA aerosol inhaler grams gabapentin 400 mg capsule 400 mg PO TID 30 days #90 caps 10/16/22 hydroxyzine pamoate 25 mg capsule 25 mg PO TID PRN anxiety 30 days 10/16/22 #60 caps nicotine 21 mg/24 hr daily 1 patch topical DAILY PRN nicotine 10/16/22 transdermal patch cravings 28 days #28 ea olanzapine 2.5 mg tablet 2.5 mg PO BID@0900,1400 30 days 10/16/22 #60 tabs prazosin 2 mg capsule 4 mg PO BEDTIME 30 days #60 caps 10/16/22 quetiapine 50 mg tablet 50 mg PO BEDTIME 30 days #30 tabs 10/16/22 trazodone 50 mg tablet 50 mg PO BEDTIME PRN insomnia 30 10/16/22 days #30 tabs Mental Status Exam Mental Status Exam Narrative: Pt is alert and oriented; behavior is cooperative, calm; dressed in street clothes, clean shaven with good hygiene; mood better and affect congruent and noticeably; eye contact appropriate; Speech is normal rate, volume and prosody; thought process is organized and goal directed; no psychomotor retardation present; Thought content is on mournng his , treatment; housing; no SI; no HI; no AVH expressed. Patient's insight and judgment are fair and at baseline. Data Data Completed and Pending Completed studies during hospitalization [Text1]: 10/15/22 10:49 Sodium 139 Potassium 4.8 D Chloride 102 Carbon Dioxide 29 Anion Gap 13 BUN 12 Creatinine 0.81 Estim Creat Clear Calc 106.9 Estimated GFR > 60 Random Glucose 65 Calcium 9.3 Total Bilirubin 0.4 AST 53 H ALT 37 Alkaline Phosphatase 113 Total Protein 7.2 Albumin 3.9 Imaging Diagnostic Imaging Impressions Ankle X-Ray 10/14/22 17:11 IMPRESSION: Lateral soft tissue swelling. No fracture. DS: Summary Hospital Course Hospital Course: Presents with major depression, PTSD and alcohol use disorder, who presents for depression and SI in the face of non medication adherence and relapse with alcohol. Hospital course: On admission, patient was depressed and withdrawing from alcohol; he had intermittent passive SI. Patient detoxed without incident. He was restarted on his medication. Initially patient was started on mirtazapine however and hindsight patient agreed that both Prozac and Wellbutrin had helped and so he was switched back to these medications. Patient had cat scratches on his leg and was started on antibiotic as a prophylactic measure; also towards the end of admission he developed some lower limb edema and was put on Bari stockings. Over the subsequent days, patient's mood slowly improved and SI fully resolved. Eventually, with medications titrated and milieu therapy, patient's began to dissipate and though he remained sad in missing his , he once again became future oriented and optimistic about recovery. 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 Patient remained with good behavioral impulse control throughout his stay in the unit and was appropriate with peers and staff; once patient had stabilized he attended groups and was social in the milieu. Patient returned to baseline and felt ready for discharge. While he remains at risk for relapse or dysregulation, patient is not in imminent risk for harm to self or others and his request for discharge honored. Time spent discussing smoking cessation with patient: 3 to 10 minutes Status at Discharge Functional status at discharge: independent ambulation Overall status at discharge: patient is back to baseline Time Spent with Patient Time attestation: Total time managing care of this patient today ____ minutes. Time spent: Less than 30 minutes Discharge Plan Discharge Anticipated Discharge Date/Time: 10/16/22 11:30 Patient Disposition: Home, Self-Care Discharge Diagnosis: MDD, recurrent, severe w/out psychosis, in partial remission Referrals: [facility] Therapy Tena Mendoza [Other] - 10/17/22 9:15 am (Telehealth) [facility] Med Management Manuela Collado [Other] - 10/25/22 10:40 am (Telehealth) [facility] [Other] - 1 Week (They will contact you with an intake. If they do not, be sure to call them to follow up. They will provide transportation to and from the [facility]. ) [facility] [facility] [Other] - 1 Week ( [employer] covers trips for all of [place] except for [facility] and [facility]. For appointments only. ) [facility] [Other] - 10/18/22 3:45 pm (Anish if you need to change the appointment please call and let them know.) Daniel Cottrell MD [Primary Care Provider] - 1 Week (pt. states he has an appointment in november not sure what date. they cancel his october appointment due to not being in office. ) Discharge Medications: New amoxicillin-pot clavulanate 875-125 mg Tablet 1 tab PO BID 4 Days Qty: 7 0RF albuterol sulfate [Ventolin HFA] 90 mcg/actuation Hfa Aerosol Inhaler 2 puff inhalation Q4H PRN (Reason: wheezing, shortness of breath) 30 Days Qt y: 6.7 0RF prazosin 2 mg capsule 4 mg PO BEDTIME 30 Days Qty: 60 0RF quetiapine 50 mg Tablet 50 mg PO BEDTIME 30 Days Qty: 30 0RF bupropion HCl 300 mg Tablet Extended Release 24 Hr 300 mg PO DAILY 30 Days Qty: 30 0RF fluoxetine 20 mg Capsule 20 mg PO DAILY 30 Days Qty: 30 0RF gabapentin 400 mg Capsule 400 mg PO TID 30 Days Qty: 90 0RF buprenorphine-naloxone 8-2 mg Film 1 film buccal TID@1000,1500,2000 3 Days Qty: 8 0RF Continued buprenorphine-naloxone [Suboxone] 8-2 mg Film 1 film BUCCAL TID fluticasone propionate 110 mcg/actuation Hfa Aerosol Inhaler 2 puff INHALATION BID 30 Days Qty: 12 0RF Changed clonidine HCl 0.1 mg Tablet 0.1 mg PO BID PRN (Reason: Anxiety) 30 Days Qty: 60 0RF trazodone 50 mg Tablet 50 mg PO BEDTIME PRN (Reason: insomnia) 30 Days Qty: 30 0RF olanzapine 2.5 mg Tablet 2.5 mg PO BID@0900,1400 30 Days Qty: 60 0RF nicotine 21 mg/24 hr patch 24 hour 1 patch topical DAILY PRN (Reason: nicotine cravings) 28 Days Qty: 28 0RF hydroxyzine pamoate 25 mg Capsule 25 mg PO TID PRN (Reason: anxiety) 30 Days Qty: 60 0RF Discontinued quetiapine 25 mg tablet 1 - 3 tab PO BEDTIME PRN (Reason: Insomnia) fluoxetine [Prozac] 10 mg Capsule 60 mg PO DAILY Discharge Orders: Discharge Order (Routine); Ordered 10/16/22 Ordered By: Pk Rey Diet: Regular diet Activity on Discharge: As tolerated Stand Alone Forms: Patient Portal Discharge page, Community Support Care Plan Goals: Maintain mood and safe behaviors Take medications as prescribed Continue to pursue sobriety Practice coping skills Continue with outpatient providers and reach out to them as needed Health Concerns: Mood stability and behaviors Sobriety COPD Plan of Treatment: Follow up with your PCP, psychiatric provider and other outpatient providers regarding above concerns Take medications as prescribed Assessment: Risk assessment at time of discharge:? Patient was interviewed prior to discharge and found to be fully oriented and without any SI or HI. Patient has insight and demonstrates good judgment in terms of wanting to pursue treatment. Patient is not in imminent risk of harm to self or others and has a safety plan that includes presenting to the closest ER or calling 911 if feeling unsafe.? Patient has been observed closely by nursing and unit staff throughout admission; patient has not engaged in any behaviors that suggest dangerousness to self or others and has demonstrated appropriate behaviors and impulse control Discharge Date/Time: 10/16/22 12:00
--- NOTE | 2022-10-16 12:07 | PC.NURSE ---
Patient easily engaged, full range of affect. Reports mood is stable, feels ready for discharge. Endorses anxiety but manageable. Denies SI/HI plan or intent. Denies perceptual disturbances, no overt psychosis or expressed delusions. Future oriented, reports he has things to do, I need to take care of some things I want to see my cat . Motivated for sobriety. Discharge paperwork reviewed with patient. Appointments reviewed, reports understanding. Medications reviewed, reports understanding. All belongings taken with patient. Narcan provided to patient. Crisis numbers provided. D/C summary faxed to .
== END 2022-10-16 12:00 | disposition home or self-care (01) | DRG 751 ==
LOC: HO.ED 10-06 15:40 → HO.PM5 10-06 18:06
PROVIDERS: Clinical Nurse Specialist Psychiatric/Mental Health, Adult; Admitting Provider Psychiatry & Neurology Psychiatry; Emergency Provider Emergency Medicine; PCP Internal Medicine; Visit Provider Psychiatry & Neurology Psychiatry
DX: F33.2 Major depressive disorder, recurrent severe without psychotic features (principal); R45.851 Suicidal ideations; F11.20 Opioid dependence, uncomplicated; F10.20 Alcohol dependence, uncomplicated; F17.210 Nicotine dependence, cigarettes, uncomplicated; Y90.6 Blood alcohol level of 120-199 mg/100 ml; J44.9 Chronic obstructive pulmonary disease, unspecified; Z20.822 Contact with and (suspected) exposure to COVID-19; Z71.6 Tobacco abuse counseling; Z79.51 Long term (current) use of inhaled steroids; Z79.899 Other long term (current) drug therapy
CPT/HCPCS: 36415; 73610; 80053; 80061; 80307; 82077; 85025; 87635; 93005; 99285; S9485

== ENCOUNTER 2022-11-08 23:51 | Inpatient (IN) | payer OTHER, SELFPAY ==
--- NOTE | ~2022-11-08 | US_ITS ---
EXAMINATION: US VENOUS ULTRASOUND WITH DOPPLER LOWER EXTREMITY, BILATERAL CLINICAL INFORMATION: Bilateral calf tenderness COMPARISON: Left lower extremity exam June 2014 TECHNIQUE: Ultrasound of the deep veins is performed from the hip to the calf with compression sonography and color and pulse Doppler assessment. Spectral analysis with color-flow imaging is performed. FINDINGS: RIGHT: There is normal venous compression and respiratory variation and augmented flow. The visualized common femoral vein, superficial femoral vein, profunda femoral vein, popliteal vein, and the trifurcation region shows no evidence of deep venous thrombosis. There is no significant popliteal fossa cyst. LEFT: There is normal venous compression and respiratory variation and augmented flow. The visualized common femoral vein, superficial femoral vein, profunda femoral vein, popliteal vein, and the trifurcation region shows no evidence of deep venous thrombosis. There is no significant popliteal fossa cyst. US/US venous duplex LE BI IMPRESSION: No DVT demonstrated in the bilateral lower extremity.
[2022-11-08 23:56] VITALS: BP 135/96; PULSE 91; RESP 16; TEMP 36.9; O2SAT 95; BMI 25.1
--- NOTE | 2022-11-09 | ECG_ITS ---
Test Reason : CHECK QT Blood Pressure : / mmHG Vent. Rate : 080 BPM Atrial Rate : 080 BPM P-R Int : 172 ms QRS Dur : 094 ms QT Int : 400 ms P-R-T Axes : 029 -39 037 degrees QTc Int : 461 ms Normal sinus rhythm Left axis deviation Incomplete right bundle branch block Cannot rule out Anterior infarct , age undetermined Abnormal ECG When compared with ECG of 06-OCT-2022 08:52, No significant change was found Referred By: José Miguel Luu Electronically Signed By:DOUG HALL
--- NOTE | 2022-11-09 00:10 | ED_ITS ---
HPI - Psych General Chief Complaint: Psychiatric Symptoms Stated Complaint: si History of Present Illness HPI Narrative: Patient is a 52-year-old male presented today with having thoughts of wanting to kill himself. Patient was thinking about his 's aunt . Has been drinking. In the house. Denies any fever chills coughing congestion upper respiratory symptoms no recreational drug use other than alcohol. Patient has thoughts to cut himself on the wrist. Decided contact EMS instead. Patient was sent in for further evaluation. Related Data Home Medications Medication Instructions Recorded Confirmed olanzapine 2.5 mg tablet 2.5 mg PO BID 11/08/22 11/08/22 trazodone 50 mg tablet 50 mg PO BEDTIME 11/08/22 11/08/22 fluoxetine 20 mg capsule 60 mg PO DAILY 11/09/22 11/09/22 Previous Rx's Medication Instructions Recorded albuterol sulfate 90 mcg/actuation 2 puff inhalation Q4H PRN 10/16/22 aerosol inhaler (Ventolin HFA) wheezing, shortness of breath 30 days #6.7 grams bupropion HCl 300 mg 24 hr tablet, 300 mg PO DAILY 30 days #30 tabs 10/16/22 extended release clonidine HCl 0.1 mg tablet 0.1 mg PO BID PRN Anxiety 30 days 10/16/22 #60 tabs fluticasone propionate 110 2 puff inhalation BID 30 days #12 10/16/22 mcg/actuation HFA aerosol inhaler grams gabapentin 400 mg capsule 400 mg PO TID 30 days #90 caps 10/16/22 hydroxyzine pamoate 25 mg capsule 25 mg PO TID PRN anxiety 30 days 10/16/22 #60 caps nicotine 21 mg/24 hr daily 1 patch topical DAILY PRN nicotine 10/16/22 transdermal patch cravings 28 days #28 ea quetiapine 50 mg tablet 50 mg PO BEDTIME 30 days #30 tabs 10/16/22 Allergies Allergy/AdvReac Type Severity Reaction Status Date / Time levofloxacin Allergy Unknown Unknown Verified 08/16/22 16:48 chlorpromazine Allergy Unknown unknown Uncoded 08/16/22 16:47 Review of Systems Review of Systems: Positive ETOH Positive suicidal ideation Yes all other systems are reviewed and are negative FORMERLY [facility], [facility] Past Medical History Attestation statement: The following information was validated with the patient. Medical History Acute respiratory failure with hypoxia Alcohol use disorder, severe, dependence Asthma COPD (chronic obstructive pulmonary disease) MDD (major depressive disorder) Opioid use disorder Pancreatitis Social History Social History Household Members: None Housing: Apartment Do you presently have visiting nurse or other home services: No Alcohol intake: current Alcohol intake frequency: a few times a week Patient Tobacco Use Status: Current everyday Tobacco user Tobacco use type: Cigarette Cigarette Packs Per Day: 0.5 Cigarettes Per Day: 10.0 Years Smoked: 38 e-Cigarette/Vaping Use: Former Use Second Hand Smoke Exposure: No service: No Sexual orientation: Straight/Heterosexual Physical Exam Vital Signs: Vital Signs: Last Vital Signs Temp 98.4 F 11/08/22 23:56 Pulse 91 11/08/22 23:56 Resp 16 11/08/22 23:56 BP 135/96 H 11/08/22 23:56 Pulse Ox 95 11/08/22 23:56 O2 Del Method Room Air 11/08/22 23:56 BMI result Body Mass Index 25.1 Appearance: Alert. Oriented X3. No acute distress. Eyes: Pupils equal, round and reactive to light. ENT: Pharynx normal. Neck: Normal inspection. Neck supple. No lymph nodes noted. No crepitus CVS: Normal heart rate and rhythm. Pulses normal. Normal S1 and S2 Respiratory: No respiratory distress. Breath sounds normal. No Wheezing. No rales Abdomen: Soft and nontender. No rigidity. No distention. good BS x4 Skin: Skin warm and dry. Normal skin color. Normal skin turgor. Extremities: No lower extremity edema. Neurovascular intact to all extremities. No Lacerations. No Rash Neuro: Oriented X 3. No motor deficit. No sensory deficit. Moving all extermities. No slurred speech. Cranial nerve intact Medical Decision Making Medical Decision Making MDM Narrative: Well-appearing no acute distress. Positive suicidal ideation with plans of wanting to cut himself. These will get crisis to evaluate. Alcohol Qi ordered. In stable condition. Differential Diagnosis Differential Diagnoses: The differential diagnosis associated with the presentation includes Depression, suicidal ideation Discharge Plan Discharge Clinical Impression: Alcohol use disorder, severe, dependence, Depression, Suicidal ideation Patient Disposition: Still a Patient Prescriptions: No Action albuterol sulfate [Ventolin HFA] 90 mcg/actuation Hfa Aerosol Inhaler 2 puff inhalation Q4H PRN (Reason: wheezing, shortness of breath) 30 Days Qty: 6.7 0RF quetiapine 50 mg Tablet 50 mg PO BEDTIME 30 Days Qty: 30 0RF bupropion HCl 300 mg Tablet Extended Release 24 Hr 300 mg PO DAILY 30 Days Qty: 30 0RF gabapentin 400 mg Capsule 400 mg PO TID 30 Days Qty: 90 0RF clonidine HCl 0.1 mg Tablet 0.1 mg PO BID PRN (Reason: Anxiety) 30 Days Qty: 60 0RF nicotine 21 mg/24 hr patch 24 hour 1 patch topical DAILY PRN (Reason: nicotine cravings) 28 Days Qty: 28 0RF fluticasone propionate 110 mcg/actuation Hfa Aerosol Inhaler 2 puff INHALATION BID 30 Days Qty: 12 0RF hydroxyzine pamoate 25 mg Capsule 25 mg PO TID PRN (Reason: anxiety) 30 Days Qty: 60 0RF trazodone 50 mg tablet 50 mg PO BEDTIME olanzapine 2.5 mg tablet 2.5 mg PO BID fluoxetine 20 mg capsule 60 mg PO DAILY Interventions: Gordon-Suicide Risk Severity Scale Last Done: 11/09/22 00:00
[2022-11-09 00:17] LABS: Appearance Urine Clear; Color Urine Yellow; Glucose Urine UA Negative (Negative); Leukocyte Esterase Urine Negative (Negative); Nitrite Urine Negative (Negative); PH 6.5 (5.0-9.0); Specific Gravity - Urine 1.025 (1.005-1.025); UMIC TRIGGER UA YES; Urine Blood Negative (Negative); Urine Ketones Trace mg/dL (Negative); Urine Protein 30 (1+) mg/dL (Neg-Trace)
[2022-11-09 00:22] LABS: Bacteria Urine None Seen (None Seen); Hyaline Casts Urine 0-2 /LPF (0-2); RBC Urine 0-2 /HPF (0-2); Squamous Epithelial Cell Urine 0-2 /HPF (0-2); WBC Urine 0-5 /HPF (0-5)
[2022-11-09 00:25] LABS: MANUAL DIFF FLAG NO
[2022-11-09 00:26] LABS: Basophils Absolute Auto 0.1 X10*3/uL (0.0-0.2); Basophils Percent Auto 0.8 % (0-2); Eosinophils Absolute Auto 0.1 X10*3/uL (0.0-0.4); Eosinophils Percent Auto 1.6 % (0-4); Hematocrit 41.7 % (42.0-52.0); Hemoglobin 14.3 g/dl (14.0-18.0); Imm Gran Abs Auto 0.02 X10*3/uL (0.00-0.03); Imm Gran Pct Auto 0.3 % (0.0-0.4); Lymphocytes Absolute Auto 2.2 X10*3/uL (1.2-4.9); Lymphocytes Percent Auto 31.3 % (20-40); Mean Corpuscular HGB Conc 34.3 g/dl (31.0-36.0); Mean Corpuscular Hemoglobin 31.4 pg (27.0-33.0); Mean Corpuscular Volume 91.4 fL (80.0-98.0); Mean Platelet Volume 9.8 fL (9.4-12.4); Monocytes Absolute Auto 0.5 X10*3/uL (0.1-1.2); Monocytes Percent Auto 6.5 % (2-11); Neutrophils Absolute Auto 4.2 x10*3/uL (2.0-8.3); Neutrophils Percent Auto 59.5 % (45-73); Platelet Count 125 X10*3/uL (160-400); Red Blood Count 4.56 X10*6/uL (4.60-5.80); Red Cell Distribution Width 15.4 % (11.0-16.0); White Blood Count 7.1 X10*3/uL (4.8-10.8)
[2022-11-09 00:29] LABS: COVID-19 Test Negative (Negative); IDNOW Serial# BCCEAD1C
[2022-11-09 00:30] LABS: Amphetamine Screen Urine Not Detected (Not Detect); Barbiturates, Urine POSITIVE (Not Detect); Benzodiazepines Screen Urine Not Detected (Not Detect); Cannabinoid Screen Urine Not Detected (Not Detect); Cocaine Screen Urine Not Detected (Not Detect); Fentanyl, urine Not Detected (Not Detect); Opiate Screen Urine Not Detected (Not Detect); Phencyclidine Screen Urine Not Detected (Not Detect)
[2022-11-09 00:43] LABS: Alanine Aminotransferase 128 U/L (0-40); Alkaline Phosphatase 202 U/L (39-117); Anion Gap 16 (12-20); Aspartate Amino Transferase 235 U/L (5-37); Bilirubin Total 0.3 mg/dL (0.0-1.0); Blood Urea Nitrogen 6 mg/dL (9-16); Calcium 8.6 mg/dL (8.4-10.2); Carbon Dioxide 25 mmol/L (22-29); Chloride 109 mmol/L (96-108); Creatinine Clr Calc Pharmacy 95.8; Estimated Glomerular Filt Rate > 60; Ethanol 293 mg/dL; Glucose Random 118 mg/dL (60-115); Potassium 2.8 mmol/L (3.3-5.1); Sodium 147 mmol/L (135-145); Total Protein 7.8 g/dL (6.5-8.0)
[2022-11-09] MEDS: chlordiazePOXIDE HCl 25 MG CAPSULE PO (03:11)
[2022-11-09] MEDS: Albuterol Sulfate 90 MCG 8 GM INHALER 2 PUFF INHALE (05:06)
[2022-11-09] MEDS: FLUoxetine HCl 20 MG CAPSULE 60 MG PO (08:31)
[2022-11-09] MEDS: Gabapentin 400 MG CAPSULE PO ×3 (08:31→22:11)
[2022-11-09] MEDS: buPROPion HCl XL 300 MG TAB.ER.24H PO (08:32)
[2022-11-09] MEDS: hydrOXYzine HCL 25 MG TABLET PO (08:32)
[2022-11-09] MEDS: cloNIDine HCL 0.1 MG TABLET PO (08:32)
[2022-11-09] MEDS: OLANZapine 2.5 MG TABLET PO ×2 (08:32→22:11)
[2022-11-09 08:38] VITALS: BP 143/96; PULSE 98; RESP 18; TEMP 37.3; O2SAT 95
--- NOTE | 2022-11-09 08:39 | PC.NURSE ---
pt woke up this morning with tremors, nausea and sever headache. CIWA score 19 due to these symptoms. ED provider aware. patient calm and cooperative with staff. able to make needs known. will CTM
[2022-11-09] MEDS: LORazepam 1 MG TABLET 2 MG PO (09:04)
[2022-11-09] MEDS: Ondansetron ODT 4 MG TAB.RAPDIS TRANSLINGU (09:04)
--- NOTE | 2022-11-09 09:10 | PC.NURSE ---
ativan and zofran given for withdrawal symptoms. will CTM
[2022-11-09 13:13] VITALS: BP 126/79; PULSE 75; RESP 16; TEMP 36.6; O2SAT 95
--- NOTE | 2022-11-09 13:37 | MHC.CARE ---
Patient seen by CARE team, he is an inpatient LOC bed search.
[2022-11-09] MEDS: Potassium Chloride Packet 20 MEQ PACKET 40 MEQ PO (14:52)
[2022-11-09] MEDS: LORazepam 1 MG TABLET PO ×2 (15:11→23:14)
[2022-11-09 17:05] LABS: Alanine Aminotransferase 109 U/L (0-40); Albumin Level 3.5 g/dL (3.5-5.0); Alkaline Phosphatase 172 U/L (39-117); Anion Gap 12 (12-20); Aspartate Amino Transferase 180 U/L (5-37); Bilirubin Total 0.4 mg/dL (0.0-1.0); Blood Urea Nitrogen 6 mg/dL (9-16); Calcium 8.1 mg/dL (8.4-10.2); Carbon Dioxide 31 mmol/L (22-29); Chloride 103 mmol/L (96-108); Creatinine Clr Calc Pharmacy 101.3; Estimated Glomerular Filt Rate > 60; Glucose Random 101 mg/dL (60-115); Potassium 3.6 mmol/L (3.3-5.1); Sodium 142 mmol/L (135-145); Total Protein 6.5 g/dL (6.5-8.0)
--- NOTE | 2022-11-09 18:40 | PC.NURSE ---
CIWA score trending downwards. will CTM. patient calm and cooperative with staff. able to make needs known
[2022-11-09] MEDS: Fluticasone Propionate 100 MCG BLST.W.DEV 2 PUFF INHALE (21:58)
[2022-11-09] MEDS: traZODone HCL 50 MG TABLET PO (22:11)
[2022-11-09] MEDS: QUEtiapine Fumarate 50 MG TABLET PO (22:11)
[2022-11-09 22:30] VITALS: BP 136/92; PULSE 81; RESP 18; TEMP 36.7; O2SAT 97
--- NOTE | 2022-11-10 00:19 | PC.ADMIT ---
A , white male age 52 admitted on CV at 2245 from [facility] ED POD with SI with various plans, recent attempt via OD on Prozac earlier this year. T 98.1, BP 136/92, P 81. PT non compliant with medications due to them making him tired, flat with low energy. PT continues to drink alcohol daily, up to 10-12 nips daily, BAL 293 upon arrival to ED. PT has been inpatient 3 times in the past 4 months, known to . PT currently denies SI/HI, reports + AH of footsteps of . PT reports poor sleep with dreams and frequent awakening. Ativan 1mg given at 2314 for ETOH withdrawal. Safety tool and initial treatment plan started. PMH of COPD, bilateral knee and back pain with hx of back surgery in 1999, pancreatitis and gallbladder issues. PT currently resting in bed with eyes closed on 15 minute safety checks.
[2022-11-10 06:00] VITALS: BP 140/97; PULSE 80; RESP 14; TEMP 36.6
[2022-11-10 08:21] LABS: Estimated Average Glucose 97 mg/dL
[2022-11-10 08:39] VITALS: BP 140/97; PULSE 80; RESP 16; TEMP 37.1
[2022-11-10] MEDS: FLUoxetine HCl 20 MG CAPSULE 60 MG PO (08:42)
[2022-11-10] MEDS: buPROPion HCl XL 300 MG TAB.ER.24H PO (08:42)
[2022-11-10] MEDS: Gabapentin 400 MG CAPSULE PO ×3 (08:42→20:35)
[2022-11-10] MEDS: OLANZapine 2.5 MG TABLET PO ×2 (08:42→20:34)
[2022-11-10] MEDS: LORazepam 1 MG TABLET PO ×3 (08:42→13:46)
[2022-11-10] MEDS: Nicotine 21 MG PATCH.TD24 TRANSDERMA (08:47)
[2022-11-10 08:55] LABS: Alanine Aminotransferase 98 U/L (0-40); Albumin Level 3.6 g/dL (3.5-5.0); Alkaline Phosphatase 193 U/L (39-117); Anion Gap 12 (12-20); Aspartate Amino Transferase 124 U/L (5-37); Bilirubin Total 0.6 mg/dL (0.0-1.0); Blood Urea Nitrogen 9 mg/dL (9-16); Calcium 8.1 mg/dL (8.4-10.2); Carbon Dioxide 31 mmol/L (22-29); Chloride 103 mmol/L (96-108); Cholesterol 148 mg/dL; Estimated Glomerular Filt Rate > 60; Glucose Fasting 88 mg/dL (60-99); HDL Cholesterol 31 mg/dL; LDL Cholesterol Calculated 94 mg/dl; Magnesium 1.4 mg/dL (1.6-2.6); Potassium 3.5 mmol/L (3.3-5.1); Sodium 142 mmol/L (135-145); Total Protein 6.9 g/dL (6.5-8.0); Triglycerides 118 mg/dL
[2022-11-10 09:06] LABS: Folate 8.8 ng/mL (> or = 4.0); Free T4 (Free Thyroxine) 0.64 ng/dL (0.71-1.85); Thyroid Stimulating Hormone 1.13 uIU/mL (0.32-4.0); Vitamin B12 294 pg/mL (200-900)
[2022-11-10] MEDS: hydrOXYzine HCL 25 MG TABLET PO ×2 (11:44→20:30)
[2022-11-10] MEDS: cloNIDine HCL 0.1 MG TABLET PO ×2 (11:46→20:35)
--- NOTE | 2022-11-10 12:43 | PM.EVENT ---
Event Note Date of Service: 11/10/22 Event Note: Medical consult for hypomagnesmia of 1.4. Pt has also been experiencing constipation. Will prescribe magnesium oxide 400mg bid. Can recheck BMP in 2-3 days. Dosage should be stopped or reduced if pt experiences diarrhea. Thank you for allowing us to participate in the care of this patient. Signing off at this time. Please let us know if there are any acute complaints or questions. Time Spent With Patient Time: Total time managing care of this patient today ____ minutes.
[2022-11-10] MEDS: Magnesium Oxide 400 MG TABLET PO ×2 (13:47→16:30)
--- NOTE | 2022-11-10 13:53 | HO.PSYADMNOT ---
HPI Date of Service: 11/10/22 Chief Complaint: recurrent severe major depression, alcohol use d/o Sources of Information: patient interviewed, chart reviewed and crisis/core team assessment reviewed HPI Subjective Notes: [place] Warning and Conditional Voluntary Narrative: Pt is 52-year-old male with MDD, PTSD and alcohol use disorder, who presents for 4th admission in the past 4 months for depression and SI in the face of non-medication adherence, relapse with alcohol and mourning his recently . Patient discharged on 10/16. He says he states over for a few days but soon relapsed, stop taking his medications, depression worsened and he again developed suicidal thinking with thoughts to cut his wrist. He called and self presented instead. Patient reports suicidality has resolved. He is future oriented and has aware to help him keep his apartment. Patient reports he knows he needs help staying sober; says he is willing to try Antabuse this time. Patient has hypo magnesium me a; started on magnesium oxide 400 mg b.i.d. Past Psychiatric History: was admitted to and 3 following overdose attempt this year. [facility] services prescribed Prozac 60 mg, Vistaril 25 mg and clonidine 0.1 mg. Previously on Zoloft. Never n Remeron, prazosin or Effexor. Medical Evaluation Reviewed: Yes [facility] Medical History (Updated 11/10/22 @ 16:39 by Pk Rey MD) Acute respiratory failure with hypoxia Alcohol use disorder, severe, dependence Asthma COPD (chronic obstructive pulmonary disease) MDD (major depressive disorder) Opioid use disorder Pancreatitis Family History: brother: substance abuse Social History: March 2022. Had been together for 15 years. estranged from several family; angry at mother; does not get to see grandson. two adult children born in 1984 in 1994. 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 Substance History: Long history of alcohol dependence; sober for years while ; has relapsed consistently since Trauma History: deferred Diagnostics Vital Signs (24Hr): Vital Signs - 24 hr 11/09/22 22:30 11/10/22 08:39 11/10/22 06:00 Temperature 98.1 F 98.8 F 98 F Pulse Rate 81 80 80 Respiratory Rate 18 16 14 Blood Pressure 136/92 H 140/97 H 140/97 H Pulse Oximetry 97 Oxygen Delivery Method Room Air BMI result Body Mass Index 25.1 Labs 11/09/22 00:20 11/10/22 08:01 Labs: Laboratory Results - last 48 hr 11/09/22 11/09/22 11/09/22 00:10 00:10 00:10 WBC RBC Hgb Hct MCV MCH MCHC RDW Plt Count MPV Immature Gran % (Auto) Neut % (Auto) Lymph % (Auto) [place] % (Auto) Eos % (Auto) Baso % (Auto) Lymph # (Auto) [place] # (Auto) Eos # (Auto) Baso # (Auto) Abs Immat Gran (auto) Absolute Neuts (auto) Absolute Nucleated RBC Nucleated RBC % (auto) Sodium Potassium Chloride Carbon Dioxide Anion Gap BUN Creatinine Estim Creat Clear Calc Estimated GFR Random Glucose Fasting Glucose Estimat Average Glucose Hemoglobin A1c % Calcium Magnesium Total Bilirubin AST ALT Alkaline Phosphatase Total Protein Albumin Triglycerides Cholesterol LDL Cholesterol, Calc HDL Cholesterol Vitamin B12 Folate TSH Free T4 Urine Color Yellow Urine Appearance Clear Urine pH 6.5 Ur Specific [place] 1.025 Urine Protein 30 (1+) H Urine Glucose (UA) Negative Urine Ketones Trace Urine Blood Negative Urine Nitrite Negative Ur Leukocyte Esterase Negative Urine RBC 0-2 Urine WBC 0-5 Ur Squamous Epith Cells 0-2 Urine Bacteria None Seen Hyaline Casts 0-2 Urine Opiates Screen Not Detected Urine Fentanyl Screen Not Detected Ur Barbiturates Screen POSITIVE H Ur Phencyclidine Scrn Not Detected Ur Amphetamines Screen Not Detected U Benzodiazepines Scrn Not Detected Urine Cocaine Screen Not Detected U Marijuana (THC) Screen Not Detected Ethyl Alcohol COVID-19 (DB) Negative COVID-19 Clin Com See Note 11/09/22 11/09/22 11/09/22 00:20 00:20 16:39 WBC 7.1 RBC 4.56 L Hgb 14.3 Hct 41.7 L MCV 91.4 MCH 31.4 MCHC 34.3 RDW 15.4 Plt Count 125 L MPV 9.8 Immature Gran % (Auto) 0.3 Neut % (Auto) 59.5 Lymph % (Auto) 31.3 [place] % (Auto) 6.5 Eos % (Auto) 1.6 Baso % (Auto) 0.8 Lymph # (Auto) 2.2 [place] # (Auto) 0.5 Eos # (Auto) 0.1 Baso # (Auto) 0.1 Abs Immat Gran (auto) 0.02 Absolute Neuts (auto) 4.2 Absolute Nucleated RBC 0.000 Nucleated RBC % (auto) 0.0 Sodium 147 H 142 Potassium 2.8 L D 3.6 D Chloride 109 H 103 Carbon Dioxide 25 31 H Anion Gap 16 12 BUN 6 L 6 L Creatinine 0.91 0.86 Estim Creat Clear Calc 95.8 101.3 Estimated GFR > 60 > 60 Random Glucose 118 H 101 Fasting Glucose Estimat Average Glucose Hemoglobin A1c % Calcium 8.6 D 8.1 L Magnesium Total Bilirubin 0.3 0.4 AST 235 H 180 H ALT 128 H 109 H Alkaline Phosphatase 202 H 172 H Total Protein 7.8 6.5 Albumin 4.0 3.5 Triglycerides Cholesterol LDL Cholesterol, Calc HDL Cholesterol Vitamin B12 Folate TSH Free T4 Urine Color Urine Appearance Urine pH Ur Specific [place] Urine Protein Urine Glucose (UA) Urine Ketones Urine Blood Urine Nitrite Ur Leukocyte Esterase Urine RBC Urine WBC Ur Squamous Epith Cells Urine Bacteria Hyaline Casts Urine Opiates Screen Urine Fentanyl Screen Ur Barbiturates Screen Ur Phencyclidine Scrn Ur Amphetamines Screen U Benzodiazepines Scrn Urine Cocaine Screen U Marijuana (THC) Screen Ethyl Alcohol 293 COVID-19 (DB) COVID-19 Clin Com 11/10/22 11/10/22 08:01 08:01 WBC RBC Hgb Hct MCV MCH MCHC RDW Plt Count MPV Immature Gran % (Auto) Neut % (Auto) Lymph % (Auto) [place] % (Auto) Eos % (Auto) Baso % (Auto) Lymph # (Auto) [place] # (Auto) Eos # (Auto) Baso # (Auto) Abs Immat Gran (auto) Absolute Neuts (auto) Absolute Nucleated RBC Nucleated RBC % (auto) Sodium 142 Potassium 3.5 Chloride 103 Carbon Dioxide 31 H Anion Gap 12 BUN 9 Creatinine 0.83 Estim Creat Clear Calc 105.0 Estimated GFR > 60 Random Glucose Fasting Glucose 88 Estimat Average Glucose 97 Hemoglobin A1c % 5.0 Calcium 8.1 L Magnesium 1.4 L* Total Bilirubin 0.6 AST 124 H ALT 98 H Alkaline Phosphatase 193 H Total Protein 6.9 Albumin 3.6 Triglycerides 118 Cholesterol 148 LDL Cholesterol, Calc 94 HDL Cholesterol 31 Vitamin B12 294 Folate 8.8 TSH 1.13 Free T4 0.64 L Urine Color Urine Appearance Urine pH Ur Specific [place] Urine Protein Urine Glucose (UA) Urine Ketones Urine Blood Urine Nitrite Ur Leukocyte Esterase Urine RBC Urine WBC Ur Squamous Epith Cells Urine Bacteria Hyaline Casts Urine Opiates Screen Urine Fentanyl Screen Ur Barbiturates Screen Ur Phencyclidine Scrn Ur Amphetamines Screen U Benzodiazepines Scrn Urine Cocaine Screen U Marijuana (THC) Screen Ethyl Alcohol COVID-19 (DB) COVID-19 Clin Com Meds/Allergies Meds Home Medications Medication Instructions Recorded Confirmed Type olanzapine 2.5 mg tablet 2.5 mg PO BID 11/08/22 11/08/22 History trazodone 50 mg tablet 50 mg PO BEDTIME 11/08/22 11/08/22 History fluoxetine 20 mg capsule 60 mg PO DAILY 11/09/22 11/09/22 History Allergies Allergies Allergy/AdvReac Type Severity Reaction Status Date / Time levofloxacin Allergy Unknown Unknown Verified 08/16/22 16:48 chlorpromazine Allergy Unknown unknown Uncoded 08/16/22 16:47 Mental Status Exam Mental Status Exam Narrative: Pt is alert and oriented; behavior is cooperative, tearful; patient is not in distress; dressed in hospital attire, scruffy and unkempt; mood is described as depressed and affect congruent, tearful; eye contact appropriate; Speech is normal rate, volume and prosody and not pressured; no psychomotor agitation/retardation present; thought process is organized and goal directed; Thought content is on tx; otherwise pertinent to relevant topics and without any delusional content, paranoid ideations or grandiosity; denies any SI/HI. There is no evidence of perceptual disturbance. Patients insight and judgment appear intact. Assessment & Plan Assessment & Plan (1) MDD (major depressive disorder): Status: Acute Code(s): F32.9 - Major depressive disorder, single episode, unspecified (2) Alcohol use disorder, severe, dependence: Status: Acute Code(s): F10.20 - Alcohol dependence, uncomplicated Plan Pt is 52-year-old male with MDD, PTSD and alcohol use disorder, who presents for 4th admission in the past 4 months for depression and SI in the face of non-medication adherence, relapse with alcohol and mourning his recently . Patient discharged on 10/16. He says he states over for a few days but soon relapsed, stop taking his medications, depression worsened and he again developed suicidal thinking with thoughts to cut his wrist. He called and self presented instead. Patient reports suicidality has resolved. He is future oriented and has aware to help him keep his apartment. Patient reports he knows he needs help staying sober; says he is willing to try Antabuse this time. Plan: CV Q 15 minute checks CIWA with Ativan p.r.n. Gabapentin 400 mg t.i.d. Prozac 60 mg was restarted Will hold Wellbutrin for now Seroquel 50 mg q.h.s. p.r.n. Trazodone 50 mg q.h.s. Zyprexa 2.5 mg b.i.d. Suboxone 8/2 mg t.i.d. Patient educated on: diagnosis, medication risk/benefits and substance abuse Informed Consent: understands Reason for continued inpatient stay Substantial Risk for: rapid decompensation Statement Statement: I have reviewed the history and physical and performed a pertinent examination on my patient. No changes have occurred unless specified. If the History and Physical was not performed prior to admission, the Hospitalist's service will be consulted for completing the admission physical. Time Spent With Patient Time: Total time managing care of this patient today ____ minutes.
[2022-11-10] MEDS: Buprenorphine/Naloxone 8/2 mg FILM 1 FILM SUBLINGUAL ×2 (16:30→20:35)
[2022-11-10 18:35] VITALS: BP 140/83; PULSE 95; TEMP 37.2; O2SAT 94
[2022-11-10] MEDS: LORazepam 1 MG TABLET 2 MG PO (18:45)
[2022-11-10] MEDS: QUEtiapine Fumarate 50 MG TABLET PO (20:30)
[2022-11-10] MEDS: traZODone HCL 50 MG TABLET PO (20:34)
[2022-11-11] MEDS: Gabapentin 400 MG CAPSULE PO ×3 (08:17→20:05)
[2022-11-11] MEDS: OLANZapine 2.5 MG TABLET PO ×2 (08:17→20:06)
[2022-11-11] MEDS: Buprenorphine/Naloxone 8/2 mg FILM 1 FILM SUBLINGUAL ×3 (08:17→20:05)
[2022-11-11] MEDS: Magnesium Oxide 400 MG TABLET PO ×2 (08:17→18:39)
[2022-11-11] MEDS: FLUoxetine HCl 20 MG CAPSULE 60 MG PO (08:17)
[2022-11-11] MEDS: LORazepam 1 MG TABLET 2 MG PO ×2 (08:20→12:53)
[2022-11-11 08:40] VITALS: BP 127/79; PULSE 96; RESP 16; TEMP 36.6; O2SAT 94
--- NOTE | 2022-11-11 09:37 | HO.PSYCHPN ---
Subjective Subjective Date of Service: 11/11/22 Reason For Visit: recurrent severe major depression, alcohol use d/o Subjective Notes: Conditional Voluntary Healthcare Proxy: No Guardianship: No Medical Problems Affecting Mental Status: No Interim History: Patient was seen and discussed in rounds today. Records and plans were reviewed. He has been pleasant and cooperative. He continues to feel depressed. Some improvement in his anxiety. He is concerned and preoccupied about his housing and possibly losing it. He is on a detox protocol. Eating and sleeping adequately. No active SI. No changes were made Medication Compliance: Yes Side effects from medications: No Attending Groups: Yes Review of Systems Review of Systems Yes all other systems are reviewed and are negative Diagnostics Vital Signs (24Hr): Vital Signs - 24 hr 11/10/22 18:35 11/11/22 08:40 Temperature 98.9 F 97.8 F Pulse Rate 95 96 Respiratory Rate 16 Blood Pressure 140/83 H 127/79 Pulse Oximetry 94 94 Oxygen Delivery Method Room Air Room Air BMI result Body Mass Index 25.1 Labs 11/09/22 00:20 11/10/22 08:01 Labs: Laboratory Results - last 48 hr 11/09/22 11/10/22 11/10/22 16:39 08:01 08:01 Sodium 142 142 Potassium 3.6 D 3.5 Chloride 103 103 Carbon Dioxide 31 H 31 H Anion Gap 12 12 BUN 6 L 9 Creatinine 0.86 0.83 Estim Creat Clear Calc 101.3 105.0 Estimated GFR > 60 > 60 Random Glucose 101 Fasting Glucose 88 Estimat Average Glucose 97 Hemoglobin A1c % 5.0 Calcium 8.1 L 8.1 L Magnesium 1.4 L* Total Bilirubin 0.4 0.6 AST 180 H 124 H ALT 109 H 98 H Alkaline Phosphatase 172 H 193 H Total Protein 6.5 6.9 Albumin 3.5 3.6 Triglycerides 118 Cholesterol 148 LDL Cholesterol, Calc 94 HDL Cholesterol 31 Vitamin B12 294 Folate 8.8 TSH 1.13 Free T4 0.64 L Medications Medications Current Medications Acetaminophen (Acetaminophen 325 Mg Tablet) 650 mg PO Q6H PRN PRN Reason: Headache/Pain Mild Scale (1-3) Al Hydroxide/Mg Hydroxide (Magnesium Hydrox/Alum Hydrox 30 Ml Oral.Susp) 30 ml PO Q6H PRN PRN Reason: Heartburn/Nausea Albuterol Sulfate (Albuterol Sulfate 90 Mcg 8 Gm Inhaler) 2 puff INHALE Q4H PRN PRN Reason: wheezing, shortness of breath Last Admin: 11/09/22 05:06 Dose: 2 puff Buprenorphine/Naloxone (Buprenorphine/Naloxone 8/2 Mg Film) 1 film SUBLINGUAL TID [facility] Last Admin: 11/11/22 08:17 Dose: 1 film Clonidine HCl (Clonidine Hcl 0.1 Mg Tablet) 0.1 mg PO BID PRN; Protocol PRN Reason: Anxiety Last Admin: 11/10/22 20:35 Dose: 0.1 mg Fluoxetine HCl (Fluoxetine Hcl 20 Mg Capsule) 60 mg PO DAILY [facility] Last Admin: 11/11/22 08:17 Dose: 60 mg Fluticasone Propionate (Fluticasone Propionate 100 Mcg Blst.W.Dev) 2 puff INHALE RBID [facility] Last Admin: 11/10/22 22:35 Dose: Not Given Gabapentin (Gabapentin 400 Mg Capsule) 400 mg PO TID [facility] Last Admin: 11/11/22 08:17 Dose: 400 mg Hydroxyzine HCl (Hydroxyzine Hcl 25 Mg Tablet) 25 mg PO TID PRN PRN Reason: anxiety Last Admin: 11/10/22 20:30 Dose: 25 mg Lorazepam (Lorazepam 1 Mg Tablet) 1 mg PO Q2H PRN PRN Reason: CIWA 6-10 Last Admin: 11/10/22 13:46 Dose: 1 mg Lorazepam (Lorazepam 1 Mg Tablet) 2 mg PO Q2H PRN PRN Reason: CIWA 11 and above Last Admin: 11/11/22 08:20 Dose: 2 mg Magnesium Hydroxide (Milk Of Magnesia 30 Ml Oral.Susp) 30 ml PO DAILY PRN PRN Reason: Constipation Magnesium Oxide ([facility] 400 Mg Tablet) [facility] Last Admin: 11/11/22 08:17 Dose: 400 mg Nicotine (Nicotine 21 Mg Patch.Td24) 21 mg TRANSDERMA DAILY PRN PRN Reason: nicotine cravings Last Admin: 11/10/22 08:47 Dose: 21 mg Olanzapine (Olanzapine 2.5 Mg Tablet) 2.5 mg PO BID [facility] Last Admin: 11/11/22 08:17 Dose: 2.5 mg Quetiapine Fumarate (Quetiapine Fumarate 50 Mg Tablet) 50 mg PO BEDTIME PRN PRN Reason: Insomnia Last Admin: 11/10/22 20:30 Dose: 50 mg Trazodone HCl (Trazodone Hcl 50 Mg Tablet) 50 mg PO BEDTIME [facility] Last Admin: 11/10/22 20:34 Dose: 50 mg Allergies Allergies Allergy/AdvReac Type Severity Reaction Status Date / Time levofloxacin Allergy Unknown Unknown Verified 08/16/22 16:48 chlorpromazine Allergy Unknown unknown Uncoded 08/16/22 16:47 Assessment & Plan Assessment & Plan (1) MDD (major depressive disorder): Status: Acute Code(s): F32.9 - Major depressive disorder, single episode, unspecified (2) Alcohol use disorder, severe, dependence: Status: Acute Code(s): F10.20 - Alcohol dependence, uncomplicated Plan Pt is 52-year-old male with MDD, PTSD and alcohol use disorder, who presents for 4th admission in the past 4 months for depression and SI in the face of non-medication adherence, relapse with alcohol and mourning his recently . Patient discharged on 10/16. He says he states over for a few days but soon relapsed, stop taking his medications, depression worsened and he again developed suicidal thinking with thoughts to cut his wrist. He called and self presented instead. Patient reports suicidality has resolved. He is future oriented and has aware to help him keep his apartment. Patient reports he knows he needs help staying sober; says he is willing to try Antabuse this time. Plan: CV Q 15 minute checks CIWA with Ativan p.r.n. Gabapentin 400 mg t.i.d. Prozac 60 mg was restarted Will hold Wellbutrin for now Seroquel 50 mg q.h.s. p.r.n. Trazodone 50 mg q.h.s. Zyprexa 2.5 mg b.i.d. Suboxone 8/2 mg t.i.d. 11/11: Continue current regimen and plans Reason for continued inpatient stay Substantial Risk for: harm to self and med/psych decompensation Time Spent With Patient Time: Total time managing care of this patient today ____ minutes.
[2022-11-11 10:24] VITALS: BP 114/85; PULSE 94; RESP 18; O2SAT 92
[2022-11-11] MEDS: Fluticasone Propionate 100 MCG BLST.W.DEV 2 PUFF INHALE (10:35)
[2022-11-11] MEDS: Albuterol Sulfate 90 MCG 8 GM INHALER 2 PUFF INHALE (14:03)
[2022-11-11 19:59] VITALS: BP 116/72; PULSE 98; TEMP 36.8; O2SAT 93
[2022-11-11] MEDS: cloNIDine HCL 0.1 MG TABLET PO (20:05)
[2022-11-11] MEDS: hydrOXYzine HCL 25 MG TABLET PO (20:05)
[2022-11-11] MEDS: QUEtiapine Fumarate 50 MG TABLET PO (20:06)
[2022-11-11] MEDS: traZODone HCL 50 MG TABLET PO (20:06)
[2022-11-11] MEDS: LORazepam 1 MG TABLET PO (20:06)
[2022-11-11] MEDS: Acetaminophen 325 MG TABLET 650 MG PO (20:10)
[2022-11-12] MEDS: Acetaminophen 325 MG TABLET 650 MG PO (05:58)
[2022-11-12] MEDS: hydrOXYzine HCL 25 MG TABLET PO (05:58)
[2022-11-12] MEDS: Albuterol Sulfate 90 MCG 8 GM INHALER 2 PUFF INHALE ×2 (06:00→19:30)
[2022-11-12] MEDS: Fluticasone Propionate 100 MCG BLST.W.DEV 2 PUFF INHALE (08:09)
[2022-11-12] MEDS: OLANZapine 2.5 MG TABLET PO ×2 (08:09→19:58)
[2022-11-12] MEDS: Magnesium Oxide 400 MG TABLET PO ×2 (08:09→17:32)
[2022-11-12] MEDS: Gabapentin 400 MG CAPSULE PO ×3 (08:09→19:58)
[2022-11-12] MEDS: FLUoxetine HCl 20 MG CAPSULE 60 MG PO (08:09)
[2022-11-12] MEDS: Nicotine 21 MG PATCH.TD24 TRANSDERMA (08:18)
[2022-11-12] MEDS: LORazepam 1 MG TABLET 2 MG PO ×3 (08:19→20:01)
[2022-11-12 08:21] VITALS: BP 113/76; PULSE 69; RESP 16; TEMP 36.7; O2SAT 96
[2022-11-12] MEDS: Buprenorphine/Naloxone 8/2 mg FILM 1 FILM SUBLINGUAL ×3 (09:00→19:59)
--- NOTE | 2022-11-12 09:14 | P.PNPSI_ITS ---
Subjective Subjective Date of Service: 11/11/22 Reason For Visit: recurrent severe major depression, alcohol use d/o Subjective Notes: Conditional Voluntary Healthcare Proxy: No Guardianship: No Medical Problems Affecting Mental Status: No Interim History: Patient was seen and discussed in rounds today. Records and plans were reviewed. He continues to complain of some anxiety and depression. He talked about dealing with an episode of severe headache yesterday. He continues to be isolative and in bed a lot. He is medication and meal compliant. Sleeping adequately. No complaints today. No changes were made Medication Compliance: Yes Side effects from medications: No Attending Groups: Yes Review of Systems Review of Systems Yes all other systems are reviewed and are negative Mental Status Exam Mental Status Exam Narrative: In today's visit he is alert, oriented and pleasant. Normal speech. Good eye contact. Appropriate affect. No overt signs of depression. Moderate dysphoria present. Moderate anxiety present. He denies any SI. No signs of psychosis. Cognitively intact. Judgment is intact Diagnostics Vital Signs (24Hr): Vital Signs - 24 hr 11/11/22 10:24 11/11/22 19:59 11/12/22 08:21 Temperature 98.2 F 98.1 F Pulse Rate 94 98 69 Respiratory Rate 18 16 Blood Pressure 114/85 116/72 113/76 Pulse Oximetry 92 93 96 Oxygen Delivery Method Room Air Room Air Room Air BMI result Body Mass Index 25.1 Labs 11/09/22 00:20 11/10/22 08:01 Medications Medications Current Medications Acetaminophen (Acetaminophen 325 Mg Tablet) 650 mg PO Q6H PRN PRN Reason: Headache/Pain Mild Scale (1-3) Last Admin: 11/12/22 05:58 Dose: 650 mg Al Hydroxide/Mg Hydroxide (Magnesium Hydrox/Alum Hydrox 30 Ml Oral.Susp) 30 ml PO Q6H PRN PRN Reason: Heartburn/Nausea Albuterol Sulfate (Albuterol Sulfate 90 Mcg 8 Gm Inhaler) 2 puff INHALE Q4H PRN PRN Reason: wheezing, shortness of breath Last Admin: 11/12/22 06:00 Dose: 2 puff Buprenorphine/Naloxone (Buprenorphine/Naloxone 8/2 Mg Film) 1 film SUBLINGUAL TID [facility] Last Admin: 11/12/22 09:00 Dose: 1 film Clonidine HCl (Clonidine Hcl 0.1 Mg Tablet) 0.1 mg PO BID PRN; Protocol PRN Reason: Anxiety Last Admin: 11/11/22 20:05 Dose: 0.1 mg Fluoxetine HCl (Fluoxetine Hcl 20 Mg Capsule) 60 mg PO DAILY [facility] Last Admin: 11/12/22 08:09 Dose: 60 mg Fluticasone Propionate (Fluticasone Propionate 100 Mcg Blst.W.Dev) 2 puff INHALE RBID [facility] Last Admin: 11/12/22 08:09 Dose: 2 puff Gabapentin (Gabapentin 400 Mg Capsule) 400 mg PO TID [facility] Last Admin: 11/12/22 08:09 Dose: 400 mg Hydroxyzine HCl (Hydroxyzine Hcl 25 Mg Tablet) 25 mg PO TID PRN PRN Reason: anxiety Last Admin: 11/12/22 05:58 Dose: 25 mg Lorazepam (Lorazepam 1 Mg Tablet) 1 mg PO Q2H PRN PRN Reason: CIWA 6-10 Last Admin: 11/11/22 20:06 Dose: 1 mg Lorazepam (Lorazepam 1 Mg Tablet) 2 mg PO Q2H PRN PRN Reason: CIWA 11 and above Last Admin: 11/12/22 08:19 Dose: 2 mg Magnesium Hydroxide (Milk Of Magnesia 30 Ml Oral.Susp) 30 ml PO DAILY PRN PRN Reason: Constipation Magnesium Oxide (Magnesium Oxide 400 Mg Tablet) 400 mg PO [facility]PC [facility] Last Admin: 11/12/22 08:09 Dose: 400 mg Nicotine (Nicotine 21 Mg Patch.Td24) 21 mg TRANSDERMA DAILY PRN PRN Reason: nicotine cravings Last Admin: 11/12/22 08:18 Dose: 21 mg Olanzapine (Olanzapine 2.5 Mg Tablet) 2.5 mg PO BID [facility] Last Admin: 11/12/22 08:09 Dose: 2.5 mg Quetiapine Fumarate (Quetiapine Fumarate 50 Mg Tablet) 50 mg PO BEDTIME PRN PRN Reason: Insomnia Last Admin: 11/11/22 20:06 Dose: 50 mg Trazodone HCl (Trazodone Hcl 50 Mg Tablet) 50 mg PO BEDTIME [facility] Last Admin: 11/11/22 20:06 Dose: 50 mg Allergies Allergies Allergy/AdvReac Type Severity Reaction Status Date / Time levofloxacin Allergy Unknown Unknown Verified 08/16/22 16:48 chlorpromazine Allergy Unknown unknown Uncoded 08/16/22 16:47 Assessment & Plan Assessment & Plan (1) MDD (major depressive disorder): Status: Acute Code(s): F32.9 - Major depressive disorder, single episode, unspecified (2) Alcohol use disorder, severe, dependence: Status: Acute Code(s): F10.20 - Alcohol dependence, uncomplicated Plan Pt is 52-year-old male with MDD, PTSD and alcohol use disorder, who presents for 4th admission in the past 4 months for depression and SI in the face of non- medication adherence, relapse with alcohol and mourning his recently . Patient discharged on 10/16. He says he states over for a few days but soon relapsed, stop taking his medications, depression worsened and he again d eveloped suicidal thinking with thoughts to cut his wrist. He called and self presented instead. Patient reports suicidality has resolved. He is future oriented and has aware to help him keep his apartment. Patient reports he knows he needs help staying sober; says he is willing to try Antabuse this time. Plan: CV Q 15 minute checks CIWA with Ativan p.r.n. Gabapentin 400 mg t.i.d. Prozac 60 mg was restarted Will hold Wellbutrin for now Seroquel 50 mg q.h.s. p.r.n. Trazodone 50 mg q.h.s. Zyprexa 2.5 mg b.i.d. Suboxone 8/2 mg t.i.d. 11/11: Continue current regimen and plans 11/12: Continue current regimen and plans Reason for continued inpatient stay Substantial Risk for: med/psych decompensation Time Spent With Patient Time: Total time managing care of this patient today ____ minutes.
[2022-11-12 18:00] VITALS: BP 131/76; PULSE 98; RESP 18; TEMP 36.5; O2SAT 96
[2022-11-12] MEDS: QUEtiapine Fumarate 50 MG TABLET PO (19:58)
[2022-11-12] MEDS: traZODone HCL 50 MG TABLET PO (19:58)
[2022-11-13 06:00] VITALS: BP 107/72; PULSE 91; RESP 16; TEMP 36.6; O2SAT 94
[2022-11-13] MEDS: FLUoxetine HCl 20 MG CAPSULE 60 MG PO (08:14)
[2022-11-13] MEDS: Magnesium Oxide 400 MG TABLET PO ×2 (08:15→18:08)
[2022-11-13] MEDS: OLANZapine 2.5 MG TABLET PO ×2 (08:15→20:46)
[2022-11-13] MEDS: Fluticasone Propionate 100 MCG BLST.W.DEV 2 PUFF INHALE (08:15)
[2022-11-13] MEDS: Gabapentin 400 MG CAPSULE PO ×3 (08:15→20:46)
--- NOTE | 2022-11-13 09:54 | P.PNPSI_ITS ---
Subjective Subjective Date of Service: 11/13/22 Reason For Visit: recurrent severe major depression, alcohol use d/o Interim History: Met with patient; discussed with team Patient reports continued depression, nightmares and that he still feeling sweaty at night; also complains of bilateral calf pain that started on Sunday. Focused physical exam reveals mild tenderness to bilateral calfs on palpation; strength 5/5 throughout bilateral lower extremities Diagnostics Vital Signs (24Hr): Vital Signs - 24 hr 11/12/22 18:00 11/13/22 06:00 Temperature 97.7 F 97.9 F Pulse Rate 98 91 Respiratory Rate 18 16 Blood Pressure 131/76 107/72 Pulse Oximetry 96 94 Oxygen Delivery Method Room Air Room Air BMI result Body Mass Index 25.1 Labs 11/09/22 00:20 11/10/22 08:01 Medications Medications Current Medications Acetaminophen (Acetaminophen 325 Mg Tablet) 650 mg PO Q6H PRN PRN Reason: Headache/Pain Mild Scale (1-3) Last Admin: 11/12/22 05:58 Dose: 650 mg Al Hydroxide/Mg Hydroxide (Magnesium Hydrox/Alum Hydrox 30 Ml Oral.Susp) 30 ml PO Q6H PRN PRN Reason: Heartburn/Nausea Albuterol Sulfate (Albuterol Sulfate 90 Mcg 8 Gm Inhaler) 2 puff INHALE Q4H PRN PRN Reason: wheezing, shortness of breath Last Admin: 11/12/22 19:30 Dose: 2 puff Buprenorphine/Naloxone (Buprenorphine/Naloxone 8/2 Mg Film) 1 film SUBLINGUAL TID [facility] Last Admin: 11/12/22 19:59 Dose: 1 film Clonidine HCl (Clonidine Hcl 0.1 Mg Tablet) 0.1 mg PO BID PRN; Protocol PRN Reason: Anxiety Last Admin: 11/11/22 20:05 Dose: 0.1 mg Fluoxetine HCl (Fluoxetine Hcl 20 Mg Capsule) 60 mg PO DAILY [facility] Last Admin: 11/13/22 08:14 Dose: 60 mg Fluticasone Propionate (Fluticasone Propionate 100 Mcg Blst.W.Dev) 2 puff INHALE RBID [facility] Last Admin: 11/13/22 08:15 Dose: 2 puff Gabapentin (Gabapentin 400 Mg Capsule) 400 mg PO TID [facility] Last Admin: 11/13/22 08:15 Dose: 400 mg Hydroxyzine HCl (Hydroxyzine Hcl 25 Mg Tablet) 25 mg PO TID PRN PRN Reason: anxiety Last Admin: 11/12/22 05:58 Dose: 25 mg Lorazepam (Lorazepam 1 Mg Tablet) 1 mg PO Q2H PRN PRN Reason: CIWA 6-10 Last Admin: 11/11/22 20:06 Dose: 1 mg Lorazepam (Lorazepam 1 Mg Tablet) 2 mg PO Q2H PRN PRN Reason: CIWA 11 and above Last Admin: 11/12/22 20:01 Dose: 2 mg Magnesium Hydroxide (Milk Of Magnesia 30 Ml Oral.Susp) 30 ml PO DAILY PRN PRN Reason: Constipation Magnesium Oxide (Magnesium Oxide 400 Mg Tablet) 400 mg PO BIDPC [facility] Last Admin: 11/13/22 08:15 Dose: 400 mg Nicotine (Nicotine 21 Mg Patch.Td24) 21 mg TRANSDERMA DAILY PRN PRN Reason: nicotine cravings Last Admin: 11/12/22 08:18 Dose: 21 mg Olanzapine (Olanzapine 2.5 Mg Tablet) 2.5 mg PO BID [facility] Last Admin: 11/13/22 08:15 Dose: 2.5 mg Quetiapine Fumarate (Quetiapine Fumarate 50 Mg Tablet) 50 mg PO BEDTIME PRN PRN Reason: Insomnia Last Admin: 11/12/22 19:58 Dose: 50 mg Trazodone HCl (Trazodone Hcl 50 Mg Tablet) 50 mg PO BEDTIME [facility] Last Admin: 11/12/22 19:58 Dose: 50 mg Allergies Allergies Allergy/AdvReac Type Severity Reaction Status Date / Time levofloxacin Allergy Unknown Unknown Verified 08/16/22 16:48 chlorpromazine Allergy Unknown unknown Uncoded 08/16/22 16:47 Assessment & Plan Assessment & Plan (1) MDD (major depressive disorder): Status: Acute Code(s): F32.9 - Major depressive disorder, single episode, unspecified (2) Alcohol use disorder, severe, dependence: Status: Acute Code(s): F10.20 - Alcohol dependence, uncomplicated Plan Pt is 52-year-old male with MDD, PTSD and alcohol use disorder, who presents for 4th admission in the past 4 months for depression and SI in the face of non- medication adherence, relapse with alcohol and mourning his recently . Patient discharged on 10/16. He says he states over for a few days but soon relapsed, stop taking his medications, depression worsened and he again developed suicidal thinking with thoughts to cut his wrist. He called and self presented instead. Patient reports suicidality has resolved. He is future oriented and has aware to help him keep his apartment. Patient reports he knows he needs help staying sober; says he is willing to try Antabuse this time. Hospital course: 11/14 complains of bilateral calf pain that started on Sunday. Will schedule Ativan 1 mg b.i.d. will start Wellbutrin for mood Focused physical exam reveals mild tenderness to bilateral calfs on palpation; strength 5/5 throughout bilateral lower extremities; ordered labs and ultrasound and told charge nurse Plan: CV Q 15 minute checks Order Doppler US bilateral calves to rule out DVT Recheck labs DC CIWA and start Ativan taper Start Wellbutrin XL 150 mg daily Gabapentin 400 mg t.i.d. Prozac 60 mg was restarted Will hold Wellbutrin for now Seroquel 50 mg q.h.s. p.r.n. Trazodone 50 mg q.h.s. Zyprexa 2.5 mg b.i.d. Suboxone 8/2 mg t.i.d. Patient educated on: diagnosis, medication risk/benefits and substance abuse Informed Consent: understands Reason for continued inpatient stay Substantial Risk for: rapid decompensation Time Spent With Patient Time: Total time managing care of this patient today ____ minutes.
[2022-11-13] MEDS: Buprenorphine/Naloxone 8/2 mg FILM 1 FILM SUBLINGUAL ×3 (10:55→20:46)
[2022-11-13] MEDS: buPROPion HCl XL 150 MG TAB.ER.24H PO (12:40)
[2022-11-13] MEDS: Albuterol Sulfate 90 MCG 8 GM INHALER 2 PUFF INHALE (15:53)
[2022-11-13] MEDS: LORazepam 1 MG TABLET PO ×2 (15:56→20:45)
[2022-11-13] MEDS: Acetaminophen 325 MG TABLET 650 MG PO (16:00)
[2022-11-13 16:06] VITALS: BP 117/68; PULSE 84; TEMP 36.6; O2SAT 95
[2022-11-13 18:19] VITALS: BP 115/70; PULSE 86
[2022-11-13] MEDS: cloNIDine HCL 0.1 MG TABLET PO (18:21)
[2022-11-13 19:26] LABS: Alanine Aminotransferase 59 U/L (0-40); Albumin Level 3.7 g/dL (3.5-5.0); Alkaline Phosphatase 160 U/L (39-117); Anion Gap 12 (12-20); Aspartate Amino Transferase 88 U/L (5-37); Bilirubin Total 0.4 mg/dL (0.0-1.0); Blood Urea Nitrogen 14 mg/dL (9-16); Calcium 8.6 mg/dL (8.4-10.2); Carbon Dioxide 30 mmol/L (22-29); Chloride 101 mmol/L (96-108); Creatinine Clr Calc Pharmacy 108.9; Estimated Glomerular Filt Rate > 60; Glucose Random 116 mg/dL (60-115); Potassium 4.2 mmol/L (3.3-5.1); Sodium 139 mmol/L (135-145); Total Protein 6.8 g/dL (6.5-8.0)
[2022-11-13] MEDS: traZODone HCL 50 MG TABLET PO (20:45)
[2022-11-14] MEDS: FLUoxetine HCl 20 MG CAPSULE 60 MG PO (08:28)
[2022-11-14] MEDS: OLANZapine 2.5 MG TABLET PO (08:29)
[2022-11-14] MEDS: buPROPion HCl XL 150 MG TAB.ER.24H PO (08:29)
[2022-11-14] MEDS: Magnesium Oxide 400 MG TABLET PO ×2 (08:29→17:01)
[2022-11-14] MEDS: LORazepam 1 MG TABLET PO ×3 (08:29→20:16)
[2022-11-14] MEDS: Buprenorphine/Naloxone 8/2 mg FILM 1 FILM SUBLINGUAL ×3 (08:29→20:16)
[2022-11-14] MEDS: Gabapentin 400 MG CAPSULE PO ×3 (08:29→20:17)
[2022-11-14] MEDS: Fluticasone Propionate 100 MCG BLST.W.DEV 2 PUFF INHALE ×2 (08:34→20:30)
[2022-11-14 08:58] VITALS: BP 138/77; PULSE 86; RESP 16; TEMP 36.1; O2SAT 93
[2022-11-14] MEDS: Nicotine 21 MG PATCH.TD24 TRANSDERMA (09:23)
--- NOTE | 2022-11-14 10:03 | HO.PSYCHPN ---
Subjective Subjective Date of Service: 11/14/22 Reason For Visit: recurrent severe major depression, alcohol use d/o Interim History: Met with patient; discussed with team Patient still feeling depressed. Reports having trouble walking, due to pain bilateral legs; reviewed lower extremity ultrasound results with patient which are negative; labs WNL. Will place consult Mental Status Exam Mental Status Exam Narrative: Pt is alert and oriented; behavior is cooperative, calm; dressed in hospital attire, scruffy and unkempt; mood is described as depressed and affect congruent; eye contact appropriate; Speech is normal rate, volume and prosody and not pressured; no psychomotor agitation/retardation present; thought process is organized and goal directed; Thought content is on tx; otherwise pertinent to relevant topics and without any delusional content, paranoid ideations or grandiosity; denies any SI/HI. There is no evidence of perceptual disturbance. Patients insight and judgment appear intact. Diagnostics Vital Signs (24Hr): Vital Signs - 24 hr 11/13/22 16:06 11/13/22 18:19 11/14/22 08:58 Temperature 97.8 F 97 F Pulse Rate 84 86 86 Respiratory Rate 16 Blood Pressure 117/68 115/70 138/77 Pulse Oximetry 95 93 Oxygen Delivery Method Room Air Room Air BMI result Body Mass Index 25.1 Labs 11/09/22 00:20 11/13/22 19:00 Labs: Laboratory Results - last 48 hr 11/13/22 19:00 Sodium 139 Potassium 4.2 Chloride 101 Carbon Dioxide 30 H Anion Gap 12 BUN 14 Creatinine 0.80 Estim Creat Clear Calc 108.9 Estimated GFR > 60 Random Glucose 116 H Calcium 8.6 D Magnesium 2.0 Total Bilirubin 0.4 AST 88 H ALT 59 H Alkaline Phosphatase 160 H Total Protein 6.8 Albumin 3.7 Imaging Radiology Impressions: ITS Impressions Venous Duplex 11/13/22 19:20 IMPRESSION: No DVT demonstrated in the bilateral lower extremity. Medications Medications Current Medications Acetaminophen (Acetaminophen 325 Mg Tablet) 650 mg PO Q6H PRN PRN Reason: Headache/Pain Mild Scale (1-3) Last Admin: 11/13/22 16:00 Dose: 650 mg Al Hydroxide/Mg Hydroxide (Magnesium Hydrox/Alum Hydrox 30 Ml Oral.Susp) 30 ml PO Q6H PRN PRN Reason: Heartburn/Nausea Albuterol Sulfate (Albuterol Sulfate 90 Mcg 8 Gm Inhaler) 2 puff INHALE Q4H PRN PRN Reason: wheezing, shortness of breath Last Admin: 11/13/22 15:53 Dose: 2 puff Buprenorphine/Naloxone (Buprenorphine/Naloxone 8/2 Mg Film) 1 film SUBLINGUAL TID [facility] Last Admin: 11/14/22 08:29 Dose: 1 film Bupropion HCl (Bupropion Hcl Xl 150 Mg Tab.Er.24h) 150 mg PO DAILY [facility] Last Admin: 11/14/22 08:29 Dose: 150 mg Clonidine HCl (Clonidine Hcl 0.1 Mg Tablet) 0.1 mg PO BID PRN; Protocol PRN Reason: Anxiety Last Admin: 11/13/22 18:21 Dose: 0.1 mg Fluoxetine HCl (Fluoxetine Hcl 20 Mg Capsule) 60 mg PO DAILY [facility] Last Admin: 11/14/22 08:28 Dose: 60 mg Fluticasone Propionate (Fluticasone Propionate 100 Mcg Blst.W.Dev) 2 puff INHALE RBID [facility] Last Admin: 11/14/22 08:34 Dose: 2 puff Gabapentin (Gabapentin 400 Mg Capsule) 400 mg PO TID [facility] Last Admin: 11/14/22 08:29 Dose: 400 mg Hydroxyzine HCl (Hydroxyzine Hcl 25 Mg Tablet) 25 mg PO TID PRN PRN Reason: anxiety Last Admin: 11/12/22 05:58 Dose: 25 mg Lorazepam (Lorazepam 1 Mg Tablet) 1 mg PO BID [facility] Last Admin: 11/14/22 08:29 Dose: 1 mg Magnesium Hydroxide (Milk Of Magnesia 30 Ml Oral.Susp) 30 ml PO DAILY PRN PRN Reason: Constipation Magnesium Oxide ([facility] 400 Mg Tablet) [facility] Last Admin: 11/14/22 08:29 Dose: 400 mg Nicotine (Nicotine 21 Mg Patch.Td24) 21 mg TRANSDERMA DAILY PRN PRN Reason: nicotine cravings Last Admin: 11/14/22 09:23 Dose: 21 mg Olanzapine (Olanzapine 2.5 Mg Tablet) 2.5 mg PO BID [facility] Last Admin: 11/14/22 08:29 Dose: 2.5 mg Quetiapine Fumarate (Quetiapine Fumarate 50 Mg Tablet) 50 mg PO BEDTIME PRN PRN Reason: Insomnia Last Admin: 11/12/22 19:58 Dose: 50 mg Trazodone HCl (Trazodone Hcl 50 Mg Tablet) 50 mg PO BEDTIME [facility] Last Admin: 11/13/22 20:45 Dose: 50 mg Allergies Allergies Allergy/AdvReac Type Severity Reaction Status Date / Time levofloxacin Allergy Unknown Unknown Verified 08/16/22 16:48 chlorpromazine Allergy Unknown unknown Uncoded 08/16/22 16:47 Assessment & Plan Assessment & Plan (1) MDD (major depressive disorder): Status: Acute Code(s): F32.9 - Major depressive disorder, single episode, unspecified (2) Alcohol use disorder, severe, dependence: Status: Acute Code(s): F10.20 - Alcohol dependence, uncomplicated Plan Pt is 52-year-old male with MDD, PTSD and alcohol use disorder, who presents for 4th admission in the past 4 months for depression and SI in the face of non-medication adherence, relapse with alcohol and mourning his recently . Patient discharged on 10/16. He says he states over for a few days but soon relapsed, stop taking his medications, depression worsened and he again developed suicidal thinking with thoughts to cut his wrist. He called and self presented instead. Patient reports suicidality has resolved. He is future oriented and has aware to help him keep his apartment. Patient reports he knows he needs help staying sober; says he is willing to try Antabuse this time. Hospital course: 11/13 complains of bilateral calf pain that started on Sunday. Will schedule Ativan 1 mg b.i.d. will start Wellbutrin for mood Focused physical exam reveals mild tenderness to bilateral calfs on palpation; strength 5/5 throughout bilateral lower extremities; ordered labs and ultrasound and told charge nurse 11/14Patient still feeling depressed. Reports having trouble walking, due to pain bilateral legs; reviewed lower extremity ultrasound results with patient which are negative for DVT; labs WNL. Will place consult. Discontinue Zyprexa though this does not seem to be dystonic reaction Plan: CV Q 15 minute checks US bilateral LE Negative for DVT Labs, Mg WNL Place consult for b/l leg pain DC CIWA and start Ativan taper Continue Wellbutrin XL 150 mg daily Gabapentin 400 mg t.i.d. Prozac 60 mg was restarted Seroquel 50 mg q.h.s. p.r.n. Trazodone 50 mg q.h.s. DC Zyprexa for now Suboxone 8/2 mg t.i.d. Patient educated on: diagnosis, medication risk/benefits and medical condition Informed Consent: understands and further education needed Reason for continued inpatient stay Substantial Risk for: rapid decompensation Time Spent With Patient Time: Total time managing care of this patient today ____ minutes.
[2022-11-14] MEDS: Albuterol Sulfate 90 MCG 8 GM INHALER 2 PUFF INHALE (13:21)
[2022-11-14] MEDS: Acetaminophen 325 MG TABLET 650 MG PO (16:35)
[2022-11-14 17:15] VITALS: BP 117/75; PULSE 93; TEMP 37.1; O2SAT 93
[2022-11-14] MEDS: traZODone HCL 50 MG TABLET PO (20:16)
[2022-11-15 09:00] VITALS: BP 115/70; PULSE 92; RESP 16; TEMP 36.6; O2SAT 97
[2022-11-15] MEDS: Fluticasone Propionate 100 MCG BLST.W.DEV 2 PUFF INHALE (09:16)
[2022-11-15] MEDS: LORazepam 1 MG TABLET PO ×3 (09:16→19:51)
[2022-11-15] MEDS: Magnesium Oxide 400 MG TABLET PO ×2 (09:16→16:36)
[2022-11-15] MEDS: Gabapentin 400 MG CAPSULE PO ×3 (09:16→19:52)
[2022-11-15] MEDS: buPROPion HCl XL 150 MG TAB.ER.24H PO (09:16)
[2022-11-15] MEDS: FLUoxetine HCl 20 MG CAPSULE 60 MG PO (09:16)
--- NOTE | 2022-11-15 09:56 | P.PNPSI_ITS ---
Subjective Subjective Date of Service: 11/15/22 Reason For Visit: recurrent severe major depression, alcohol use d/o Interim History: met w/ patient; discussed with team pt tearful, depressed but openly discussing feelings; despite sadness, grief, no SI and future oriented. Pt agrees to go to a [facility] program agreeing that he needs to remain sober in order to mourn, process his grief and attend to important life matters such as working on getting SSDI and remaining in his apartment. Pt shares how he wants to recover, stay sober and how this will honor his . He agrees to increasing Wellbutrin. Also discussed Disulfiram and he wants to get on this med to help him stay sober. Mental Status Exam Mental Status Exam Narrative: Pt is alert and oriented; behavior is cooperative, calm; dressed in hospital attire, clean shaven, good hygiene; mood is described as depressed and affect congruent, teaful; eye contact appropriate; Speech is normal rate, volume and prosody and not pressured; no psychomotor agitation/retardation present; thought process is organized and goal directed; Thought content is on tx and missing his ; otherwise pertinent to relevant topics and without any delusional content, paranoid ideations or grandiosity; denies any SI/HI. There is no evidence of perceptual disturbance. Patients insight and judgment appear intact. Diagnostics Vital Signs (24Hr): Vital Signs - 24 hr 11/14/22 17:15 Temperature 98.8 F Pulse Rate 93 Blood Pressure 117/75 Pulse Oximetry 93 Oxygen Delivery Method Room Air BMI result Body Mass Index 25.1 Labs 11/09/22 00:20 11/13/22 19:00 Labs: Laboratory Results - last 48 hr 11/13/22 19:00 Sodium 139 Potassium 4.2 Chloride 101 Carbon Dioxide 30 H Anion Gap 12 BUN 14 Creatinine 0.80 Estim Creat Clear Calc 108.9 Estimated GFR > 60 Random Glucose 116 H Calcium 8.6 D Magnesium 2.0 Total Bilirubin 0.4 AST 88 H ALT 59 H Alkaline Phosphatase 160 H Total Protein 6.8 Albumin 3.7 Imaging Radiology Impressions: ITS Impressions Venous Duplex 11/13/22 19:20 IMPRESSION: No DVT demonstrated in the bilateral lower extremity. Medications Medications Current Medications Acetaminophen (Acetaminophen 325 Mg Tablet) 650 mg PO Q6H PRN PRN Reason: Headache/Pain Mild Scale (1-3) Last Admin: 11/14/22 16:35 Dose: 650 mg Al Hydroxide/Mg Hydroxide (Magnesium Hydrox/Alum Hydrox 30 Ml Oral.Susp) 30 ml PO Q6H PRN PRN Reason: Heartburn/Nausea Albuterol Sulfate (Albuterol Sulfate 90 Mcg 8 Gm Inhaler) 2 puff INHALE Q4H PRN PRN Reason: wheezing, shortness of breath Last Admin: 11/14/22 13:21 Dose: 2 puff Buprenorphine/Naloxone (Buprenorphine/Naloxone 8/2 Mg Film) 1 film SUBLINGUAL TID [facility] Last Admin: 11/14/22 20:16 Dose: 1 film Bupropion HCl (Bupropion Hcl Xl 150 Mg Tab.Er.24h) 150 mg PO DAILY [facility] Last Admin: 11/15/22 09:16 Dose: 150 mg Clonidine HCl (Clonidine Hcl 0.1 Mg Tablet) 0.1 mg PO BID PRN; Protocol PRN Reason: Anxiety Last Admin: 11/13/22 18:21 Dose: 0.1 mg Fluoxetine HCl (Fluoxetine Hcl 20 Mg Capsule) 60 mg PO DAILY [facility] Last Admin: 11/15/22 09:16 Dose: 60 mg Fluticasone Propionate (Fluticasone Propionate 100 Mcg Blst.W.Dev) 2 puff INHALE RBID [facility] Last Admin: 11/15/22 09:16 Dose: 2 puff Gabapentin (Gabapentin 400 Mg Capsule) 400 mg PO TID [facility] Last Admin: 11/15/22 09:16 Dose: 400 mg Hydroxyzine HCl (Hydroxyzine Hcl 25 Mg Tablet) 25 mg PO TID PRN PRN Reason: anxiety Last Admin: 11/12/22 05:58 Dose: 25 mg Lorazepam (Lorazepam 1 Mg Tablet) 1 mg PO TID [facility] Last Admin: 11/15/22 09:16 Dose: 1 mg Magnesium Hydroxide (Milk Of Magnesia 30 Ml Oral.Susp) 30 ml PO DAILY PRN PRN Reason: Constipation Magnesium Oxide (Magnesium Oxide 400 Mg Tablet) 400 mg PO BIDPC [facility] Last Admin: 11/15/22 09:16 Dose: 400 mg Nicotine (Nicotine 21 Mg Patch.Td24) 21 mg TRANSDERMA DAILY PRN PRN Reason: nicotine cravings Last Admin: 11/14/22 09:23 Dose: 21 mg Quetiapine Fumarate (Quetiapine Fumarate 50 Mg Tablet) 50 mg PO BEDTIME PRN PRN Reason: Insomnia Last Admin: 11/12/22 19:58 Dose: 50 mg Trazodone HCl (Trazodone Hcl 50 Mg Tablet) 50 mg PO BEDTIME [facility] Last Admin: 11/14/22 20:16 Dose: 50 mg Allergies Allergies Allergy/AdvReac Type Severity Reaction Status Date / Time levofloxacin Allergy Unknown Unknown Verified 08/16/22 16:48 chlorpromazine Allergy Unknown unknown Uncoded 08/16/22 16:47 Assessment & Plan Assessment & Plan (1) MDD (major depressive disorder): Status: Acute Code(s): F32.9 - Major depressive disorder, single episode, unspecified (2) Alcohol use disorder, severe, dependence: Status: Acute Code(s): F10.20 - Alcohol dependence, uncomplicated Plan Pt is 52-year-old male with MDD, PTSD and alcohol use disorder, who presents for 4th admission in the past 4 months for depression and SI in the face of non-medication adherence, relapse with alcohol and mourning his recently . Patient discharged on 10/16. He says he states over for a few days but soon relapsed, stop taking his medications, depression worsened and he again developed suicidal thinking with thoughts to cut his wrist. He called and self presented instead. Patient reports suicidality has resolved. He is future oriented and has aware to help him keep his apartment. Patient reports he knows he needs help staying sober; says he is willing to try Antabuse this time. Hospital course: 11/13 complains of bilateral calf pain that started on Sunday. Will schedule Ativan 1 mg b.i.d. will start Wellbutrin for mood Focused physical exam reveals mild tenderness to bilateral calfs on palpation; strength 5/5 throughout bilateral lower extremities; ordered labs and ultrasound and told charge nurse 11/14Patient still feeling depressed. Reports having trouble walking, due to pain bilateral legs; reviewed lower extremity ultrasound results with patient which are negative for DVT; labs WNL. Will place consult. Discontinue Zyprexa though this does not seem to be dystonic reaction 11/15 increase Wellbutrin; pt now open to [facility], wanting to stay sober; also wants disulfiram Plan: CV Q 15 minute checks US bilateral LE Negative for DVT Labs, Mg WNL Placed consult for b/l leg pain Ativan taper Increase to Wellbutrin XL 300 mg daily Gabapentin 400 mg t.i.d. Prozac 60 mg was restarted Seroquel 50 mg q.h.s. p.r.n. Trazodone 50 mg q.h.s. DC Zyprexa for now Suboxone 8/2 mg t.i.d. Patient educated on: diagnosis, medication risk/benefits, substance abuse and therapeutic strategies Informed Consent: understands Reason for continued inpatient stay Substantial Risk for: rapid decompensation Time Spent With Patient Time: Total time managing care of this patient today ____ minutes.
[2022-11-15] MEDS: Buprenorphine/Naloxone 8/2 mg FILM 1 FILM SUBLINGUAL ×3 (09:57→19:52)
[2022-11-15] MEDS: Nicotine 21 MG PATCH.TD24 TRANSDERMA (11:05)
[2022-11-15] MEDS: Albuterol Sulfate 90 MCG 8 GM INHALER 2 PUFF INHALE (14:11)
--- NOTE | 2022-11-15 15:11 | HO.PM.IMCN ---
History of Present Illness Data of Consult Service Date: 11/15/22 Requesting physician: Pk Rey Primary Care Provider: Unknown Physician [facility] Medical History (Updated 11/10/22 @ 16:39 by Pk Rey MD) Acute respiratory failure with hypoxia Alcohol use disorder, severe, dependence Asthma COPD (chronic obstructive pulmonary disease) MDD (major depressive disorder) Opioid use disorder Pancreatitis Social History Household Members: None Housing: Apartment Do you presently have visiting nurse or other home services: No Alcohol intake: current Alcohol intake frequency: a few times a week Patient Tobacco Use Status: Current everyday Tobacco user Tobacco use type: Cigarette Cigarette Packs Per Day: 0.5 Cigarettes Per Day: 10.0 Years Smoked: 38 Smoked in Last 30 Days: Yes e-Cigarette/Vaping Use: Former Use Patient Interested in Nicotine Replacement: Yes Patient Given Instructions on How to Stop Smoking: Yes Date Education Initiated: 11/09/22 Second Hand Smoke Exposure: No Use of substances other than those prescribed or required for medical reasons: No Currently Displaying Signs/Symptoms of Drug Intoxication Withdrawal: No Any prior treatment program specific to substance use: No Have you been hit, kicked, punched, or otherwise hurt by someone within the past year? If so, by whom?: No Do you feel safe in your current relationship?: No Current Relationship Is there a partner from a previous relationship who is making you feel unsafe now?: No Are you made to feel afraid or neglected: No Spiritual Healthcare Practices: none Jewish Healthcare Practices: none Cultural Healthcare Practices: none Advance Directives: No Advance Directives Information Provided: Yes Healthcare Proxy: No Guardian: No Do you have thoughts of harming others: None Do you have a plan to hurt others: No Plan Recently lost weight without trying: Yes How much weight loss: Unsure Eating poorly because of decreased appetite: Yes Nutrition screen score: 5 Nutrition Risks: Dental problems Poor oral hygiene: No service: No Sexual orientation: Don't Know Meds Allergies Allergy/AdvReac Type Severity Reaction Status Date / Time levofloxacin Allergy Unknown Unknown Verified 08/16/22 16:48 chlorpromazine Allergy Unknown unknown Uncoded 08/16/22 16:47 Active Medications: Current Medications Acetaminophen (Acetaminophen 325 Mg Tablet) 650 mg PO Q6H PRN PRN Reason: Headache/Pain Mild Scale (1-3) Last Admin: 11/14/22 16:35 Dose: 650 mg Al Hydroxide/Mg Hydroxide (Magnesium Hydrox/Alum Hydrox 30 Ml Oral.Susp) 30 ml PO Q6H PRN PRN Reason: Heartburn/Nausea Albuterol Sulfate (Albuterol Sulfate 90 Mcg 8 Gm Inhaler) 2 puff INHALE Q4H PRN PRN Reason: wheezing, shortness of breath Last Admin: 11/15/22 14:11 Dose: 2 puff Buprenorphine/Naloxone (Buprenorphine/Naloxone 8/2 Mg Film) 1 film SUBLINGUAL TID [facility] Last Admin: 11/15/22 14:04 Dose: 1 film Bupropion HCl (Bupropion Hcl Xl 300 Mg Tab.Er.24h) 300 mg PO DAILY [facility] Clonidine HCl (Clonidine Hcl 0.1 Mg Tablet) 0.1 mg PO BID PRN; Protocol PRN Reason: Anxiety Last Admin: 11/13/22 18:21 Dose: 0.1 mg Fluoxetine HCl (Fluoxetine Hcl 20 Mg Capsule) 60 mg PO DAILY [facility] Last Admin: 11/15/22 09:16 Dose: 60 mg Fluticasone Propionate (Fluticasone Propionate 100 Mcg Blst.W.Dev) 2 puff INHALE RBID [facility] Last Admin: 11/15/22 09:16 Dose: 2 puff Gabapentin (Gabapentin 400 Mg Capsule) 400 mg PO TID [facility] Last Admin: 11/15/22 14:04 Dose: 400 mg Hydroxyzine HCl (Hydroxyzine Hcl 25 Mg Tablet) 25 mg PO TID PRN PRN Reason: anxiety Last Admin: 11/12/22 05:58 Dose: 25 mg Lorazepam (Lorazepam 1 Mg Tablet) 1 mg PO TID [facility] Last Admin: 11/15/22 14:04 Dose: 1 mg Magnesium Hydroxide (Milk Of Magnesia 30 Ml Oral.Susp) 30 ml PO DAILY PRN PRN Reason: Constipation Magnesium Oxide ([facility]ide 400 Mg Tablet) [facility] Last Admin: 11/15/22 09:16 Dose: 400 mg Nicotine (Nicotine 21 Mg Patch.Td24) 21 mg TRANSDERMA DAILY PRN PRN Reason: nicotine cravings Last Admin: 11/15/22 11:05 Dose: 21 mg Quetiapine Fumarate (Quetiapine Fumarate 50 Mg Tablet) 50 mg PO BEDTIME PRN PRN Reason: Insomnia Last Admin: 11/12/22 19:58 Dose: 50 mg Trazodone HCl (Trazodone Hcl 50 Mg Tablet) 50 mg PO BEDTIME [facility] Last Admin: 11/14/22 20:16 Dose: 50 mg Home Medications Medication Instructions Recorded Confirmed Last Taken Type olanzapine 2.5 mg tablet 2.5 mg PO BID 11/08/22 11/08/22 Unknown History trazodone 50 mg tablet 50 mg PO BEDTIME 11/08/22 11/08/22 Unknown History fluoxetine 20 mg capsule 60 mg PO DAILY 11/09/22 11/09/22 Unknown History Physical Exam Vital Signs and Narrative: Vital Signs: Last Vital Signs Temp 97.9 F 11/15/22 09:00 Pulse 92 11/15/22 09:00 Resp 16 11/15/22 09:00 BP 115/70 11/15/22 09:00 Pulse Ox 97 11/15/22 09:00 O2 Del Method Room Air 11/15/22 09:00 BMI result Body Mass Index 25.1 Results Labs 11/09/22 00:20 11/13/22 19:00 Assessment and Plan Time Spent With Patient Time: Total time managing care of this patient today ____ minutes.
[2022-11-15 15:22] LABS: Anion Gap 14 (12-20); Blood Urea Nitrogen 12 mg/dL (9-16); Calcium 9.3 mg/dL (8.4-10.2); Carbon Dioxide 28 mmol/L (22-29); Chloride 99 mmol/L (96-108); Creatinine Clr Calc Pharmacy 108.9; Estimated Glomerular Filt Rate > 60; Glucose Random 126 mg/dL (60-115); Magnesium 1.8 mg/dL (1.6-2.6); Potassium 4.8 mmol/L (3.3-5.1); Sodium 136 mmol/L (135-145)
--- NOTE | 2022-11-15 16:24 | PM.EVENT ---
Event Note Date of Service: 11/15/22 Event Note: 52 year old male with history asthma/COPD overlap, severe alcohol use disorder, opioid use disorder on Suboxone admitted to Psychiatry with consult placed to Medicine for evaluation of bilateral lower extremity pain. The patient reports about 3 nights ago he rolled out of bed landing on the left arm and since then has had midline and bilateral low back pain radiating into the legs bilaterally. He feels shooting pain into the legs and cramping sensation in the muscles. The pain is limiting his ability to walk but he is able to ambulate. He denies any paresthesias, or weakness. No bowel/bladder dysfunction, saddle anesthesia. On exam, he is midline and bilateral paraspinal tenderness to palpation at the level about L4-L5 radiating into the SI joints bilaterally. There is bilateral positive straight leg raises. 5/5 strength in the bilateral lower extremities with 2+ patellar reflexes and downgoing Babinski. He is ambulated by this provider with antalgic gait but no ataxia. CPK slightly elevated at 457 but not consistent with acute rhabdomyolysis. Would recommend increasing hydration orally and this is not likely contributing to his pain. Electrolyte levels are normal. Venous duplex of the bilateral lower extremities ordered by Psychiatry and is negative for DVT. His symptoms are most consistent with bilateral sciatica. Further imaging not indicated at this time. Would recommend treatment with NSAIDs and ibuprofen 800 mg q.8 H is ordered. He can also use lidocaine patches. Recommend limiting activity, this is not bed rest. Can also consider physical therapy consult for targeted exercise therapy. Can also continue tylenol use. Thank you for allowing me to participate in this consult. Signing off at this time. Please do not hesitate to call for further questions. Time Spent With Patient Time: Total time managing care of this patient today ____ minutes.
[2022-11-15] MEDS: Lidocaine 4 % Patch ADH..PATCH 1 PATCH TRANSDERMA (16:35)
[2022-11-15] MEDS: Acetaminophen 325 MG TABLET 650 MG PO (16:37)
[2022-11-15 18:00] VITALS: BP 129/75; PULSE 85; RESP 16; TEMP 36.5; O2SAT 94
[2022-11-15] MEDS: Ibuprofen 800 MG TABLET PO (19:51)
[2022-11-15] MEDS: traZODone HCL 50 MG TABLET PO (19:51)
[2022-11-15] MEDS: cloNIDine HCL 0.1 MG TABLET PO (19:58)
[2022-11-15] MEDS: hydrOXYzine HCL 25 MG TABLET PO (19:58)
[2022-11-16 07:00] VITALS: BMI 27.1
[2022-11-16] MEDS: LORazepam 1 MG TABLET PO ×3 (08:12→19:27)
[2022-11-16] MEDS: Gabapentin 400 MG CAPSULE PO ×3 (08:12→19:27)
[2022-11-16] MEDS: buPROPion HCl XL 300 MG TAB.ER.24H PO (08:12)
[2022-11-16] MEDS: Magnesium Oxide 400 MG TABLET PO ×2 (08:12→18:00)
[2022-11-16] MEDS: FLUoxetine HCl 20 MG CAPSULE 60 MG PO (08:12)
[2022-11-16] MEDS: Buprenorphine/Naloxone 8/2 mg FILM 1 FILM SUBLINGUAL ×3 (08:13→19:28)
[2022-11-16] MEDS: Lidocaine 4 % Patch ADH..PATCH 1 PATCH TRANSDERMA (08:13)
[2022-11-16] MEDS: Fluticasone Propionate 100 MCG BLST.W.DEV 2 PUFF INHALE (08:19)
[2022-11-16] MEDS: Nicotine 21 MG PATCH.TD24 TRANSDERMA (08:19)
[2022-11-16 08:27] VITALS: BP 90/54; PULSE 74; RESP 16; TEMP 36.6; O2SAT 96
--- NOTE | 2022-11-16 10:17 | HO.PSYCHPN ---
Subjective Subjective Date of Service: 11/16/22 Reason For Visit: recurrent severe major depression, alcohol use d/o Interim History: pt reports he's doing better today; mood is better and so are legs; he remains depressed but now more hopeful about working through grief. Pt decided not to go to [facility] but agrees he needs help staying sober and so decided to go ahead and take Disulfiram. Mental Status Exam Mental Status Exam Narrative: Pt is alert and oriented; behavior is cooperative, calm; dressed in casual attire, clean shaven, good hygiene; mood is described as better...depressed and affect congruent; eye contact appropriate; Speech is normal rate, volume and prosody and not pressured; no psychomotor agitation/retardation present; thought process is organized and goal directed; Thought content is on tx and missing his ; otherwise pertinent to relevant topics and without any delusional content, paranoid ideations or grandiosity; denies any SI/HI. There is no evidence of perceptual disturbance. Patients insight and judgment are intact. Diagnostics Vital Signs (24Hr): Vital Signs - 24 hr 11/15/22 18:00 11/16/22 08:27 Temperature 97.7 F 98 F Pulse Rate 85 74 Respiratory Rate 16 16 Blood Pressure 129/75 90/54 L Pulse Oximetry 94 96 Oxygen Delivery Method Room Air Room Air BMI result Body Mass Index 25.1 Labs 11/09/22 00:20 11/15/22 14:57 Labs: Laboratory Results - last 48 hr 11/15/22 14:57 Sodium 136 Potassium 4.8 Chloride 99 Carbon Dioxide 28 Anion Gap 14 BUN 12 Creatinine 0.80 Estim Creat Clear Calc 108.9 Estimated GFR > 60 Random Glucose 126 H Calcium 9.3 D Magnesium 1.8 Total Creatine Kinase 459 H Imaging Radiology Impressions: ITS Impressions Venous Duplex 11/13/22 19:20 IMPRESSION: No DVT demonstrated in the bilateral lower extremity. Medications Medications Current Medications Acetaminophen (Acetaminophen 325 Mg Tablet) 650 mg PO Q6H PRN PRN Reason: Headache/Pain Mild Scale (1-3) Last Admin: 11/15/22 16:37 Dose: 650 mg Al Hydroxide/Mg Hydroxide (Magnesium Hydrox/Alum Hydrox 30 Ml Oral.Susp) 30 ml PO Q6H PRN PRN Reason: Heartburn/Nausea Albuterol Sulfate (Albuterol Sulfate 90 Mcg 8 Gm Inhaler) 2 puff INHALE Q4H PRN PRN Reason: wheezing, shortness of breath Last Admin: 11/15/22 14:11 Dose: 2 puff Buprenorphine/Naloxone (Buprenorphine/Naloxone 8/2 Mg Film) 1 film SUBLINGUAL TID [facility] Last Admin: 11/16/22 08:13 Dose: 1 film Bupropion HCl (Bupropion Hcl Xl 300 Mg Tab.Er.24h) 300 mg PO DAILY [facility] Last Admin: 11/16/22 08:12 Dose: 300 mg Clonidine HCl (Clonidine Hcl 0.1 Mg Tablet) 0.1 mg PO BID PRN; Protocol PRN Reason: Anxiety Last Admin: 11/15/22 19:58 Dose: 0.1 mg Fluoxetine HCl (Fluoxetine Hcl 20 Mg Capsule) 60 mg PO DAILY [facility] Last Admin: 11/16/22 08:12 Dose: 60 mg Fluticasone Propionate (Fluticasone Propionate 100 Mcg Blst.W.Dev) 2 puff INHALE RBID [facility] Last Admin: 11/16/22 08:19 Dose: 2 puff Gabapentin (Gabapentin 400 Mg Capsule) 400 mg PO TID [facility] Last Admin: 11/16/22 08:12 Dose: 400 mg Hydroxyzine HCl (Hydroxyzine Hcl 25 Mg Tablet) 25 mg PO TID PRN PRN Reason: anxiety Last Admin: 11/15/22 19:58 Dose: 25 mg Ibuprofen (Ibuprofen 800 Mg Tablet) 800 mg PO Q8H PRN PRN Reason: sciatica pain Last Admin: 11/15/22 19:51 Dose: 800 mg Lidocaine (Lidocaine 4 % Patch Adh..Patch) 1 patch TRANSDERMA DAILY [facility]; Protocol Last Admin: 11/16/22 08:13 Dose: 1 patch Lorazepam (Lorazepam 1 Mg Tablet) 1 mg PO TID [facility] Last Admin: 11/16/22 08:12 Dose: 1 mg Magnesium Hydroxide (Milk Of Magnesia 30 Ml Oral.Susp) 30 ml PO DAILY PRN PRN Reason: Constipation Magnesium Oxide (Magnesium Oxide 400 Mg Tablet) 400 mg PO BIDPC [facility] Last Admin: 11/16/22 08:12 Dose: 400 mg Nicotine (Nicotine 21 Mg Patch.Td24) 21 mg TRANSDERMA DAILY PRN PRN Reason: nicotine cravings Last Admin: 11/16/22 08:19 Dose: 21 mg Quetiapine Fumarate (Quetiapine Fumarate 50 Mg Tablet) 50 mg PO BEDTIME PRN PRN Reason: Insomnia Last Admin: 11/12/22 19:58 Dose: 50 mg Trazodone HCl (Trazodone Hcl 50 Mg Tablet) 50 mg PO BEDTIME [facility] Last Admin: 11/15/22 19:51 Dose: 50 mg Allergies Allergies Allergy/AdvReac Type Severity Reaction Status Date / Time levofloxacin Allergy Unknown Unknown Verified 08/16/22 16:48 chlorpromazine Allergy Unknown unknown Uncoded 08/16/22 16:47 Assessment & Plan Assessment & Plan (1) MDD (major depressive disorder): Status: Acute Code(s): F32.9 - Major depressive disorder, single episode, unspecified (2) Alcohol use disorder, severe, dependence: Status: Acute Code(s): F10.20 - Alcohol dependence, uncomplicated Plan Pt is 52-year-old male with MDD, PTSD and alcohol use disorder, who presents for 4th admission in the past 4 months for depression and SI in the face of non-medication adherence, relapse with alcohol and mourning his recently . Patient discharged on 10/16. He says he states over for a few days but soon relapsed, stop taking his medications, depression worsened and he again developed suicidal thinking with thoughts to cut his wrist. He called and self presented instead. Patient reports suicidality has resolved. He is future oriented and has aware to help him keep his apartment. Patient reports he knows he needs help staying sober; says he is willing to try Antabuse this time. Hospital course: 11/13 complains of bilateral calf pain that started on Sunday. Will schedule Ativan 1 mg b.i.d. will start Wellbutrin for mood Focused physical exam reveals mild tenderness to bilateral calfs on palpation; strength 5/5 throughout bilateral lower extremities; ordered labs and ultrasound and told charge nurse 11/14Patient still feeling depressed. Reports having trouble walking, due to pain bilateral legs; reviewed lower extremity ultrasound results with patient which are negative for DVT; labs WNL. Will place consult. Discontinue Zyprexa though this does not seem to be dystonic reaction 11/15 increase Wellbutrin; pt now open to CSS, wanting to stay sober; also wants disulfiram 11/16 pt mood better and now more hopeful about overcoming grief; no CSS but wants Disulfiram to help stay stable. Pt at high risk for relapse and decompensation w/out MAT; he agrees to start Disulfiram; will get Lft's. Pt will need to be monitored prior to discharge while starting this medication to demonstrate he tolerates med Plan: CV Q 15 minute checks Check LFT's (ordered) START Disulfiram 500mg daily (pt own medication) US bilateral LE Negative for DVT Labs, Mg WNL Placed consult for b/l leg pain Ativan taper Wellbutrin XL 300 mg daily Gabapentin 400 mg t.i.d. Prozac 60 mg Seroquel 50 mg q.h.s. p.r.n. Trazodone 50 mg q.h.s. DC Zyprexa for now Suboxone 8/2 mg t.i.d. Patient educated on: diagnosis, medication risk/benefits, substance abuse and therapeutic strategies Informed Consent: understands Reason for continued inpatient stay Substantial Risk for: stable for discharge Time Spent With Patient Time: Total time managing care of this patient today ____ minutes.
[2022-11-16 18:00] VITALS: BP 128/78; PULSE 85; RESP 16; TEMP 36.6; O2SAT 97
[2022-11-16] MEDS: cloNIDine HCL 0.1 MG TABLET PO ×2 (18:00→19:27)
[2022-11-16] MEDS: hydrOXYzine HCL 25 MG TABLET PO ×2 (18:00→19:27)
[2022-11-16] MEDS: traZODone HCL 50 MG TABLET PO (19:27)
[2022-11-17 06:00] VITALS: BP 96/58; PULSE 81; RESP 14; TEMP 36.6
[2022-11-17] MEDS: Buprenorphine/Naloxone 8/2 mg FILM 1 FILM SUBLINGUAL ×3 (08:00→20:02)
[2022-11-17] MEDS: LORazepam 1 MG TABLET PO ×3 (08:00→20:02)
[2022-11-17] MEDS: buPROPion HCl XL 300 MG TAB.ER.24H PO (08:00)
[2022-11-17] MEDS: Nicotine 21 MG PATCH.TD24 TRANSDERMA (08:00)
[2022-11-17] MEDS: FLUoxetine HCl 20 MG CAPSULE 60 MG PO (08:00)
[2022-11-17] MEDS: Gabapentin 400 MG CAPSULE PO ×3 (08:00→20:02)
[2022-11-17] MEDS: Magnesium Oxide 400 MG TABLET PO ×2 (08:01→16:31)
[2022-11-17] MEDS: Fluticasone Propionate 100 MCG BLST.W.DEV 2 PUFF INHALE (08:03)
[2022-11-17] MEDS: Disulfiram 250 MG TABLET 500 MG PO (09:30)
[2022-11-17] MEDS: hydrOXYzine HCL 25 MG TABLET PO ×2 (09:30→20:06)
[2022-11-17 10:57] LABS: Alanine Aminotransferase 52 U/L (0-40); Albumin Level 4.1 g/dL (3.5-5.0); Alkaline Phosphatase 189 U/L (39-117); Aspartate Amino Transferase 60 U/L (5-37); Bilirubin Direct 0.2 mg/dL (0.0-0.5); Bilirubin Total 0.4 mg/dL (0.0-1.0); Total Protein 7.8 g/dL (6.5-8.0)
[2022-11-17] MEDS: Multivitamin TABLET 1 TAB PO (13:57)
[2022-11-17] MEDS: cloNIDine HCL 0.1 MG TABLET PO ×2 (14:02→20:02)
--- NOTE | 2022-11-17 15:15 | HO.PSYCHPN ---
Subjective Subjective Date of Service: 11/17/22 Reason For Visit: recurrent severe major depression, alcohol use d/o Subjective Notes: Conditional Voluntary Interim History: Anish initiated Antabuse and reports no adverse effects thus far. Reports depressive sx along with anxiety. States that he is less depressed when alone, people seem to increase sx he reports. Reports sleep to be regulating nightmares still present but pt is napping and feeling more rested. Discussed discharge for next week as he has two MD appts and an SSDI interview. Full med review with pt. Medication Compliance: Yes Side effects from medications: No Attending Groups: Intermittent Review of Systems Acute medical concerns: No Medical Review of Systems: unchanged Mental Status Exam Mental Status Exam Patient Appearance: Appropriate Patient Orientation: Person, Place, Time and Situation Level of Consciousness: Alert Patient Behavior: Talkative and Good Eye Contact Mood Description: Depressed Affect Description: Flat Patient Cognition Impaired: No Ability to Follow Directions: Good Speech Pattern: Spontaneous Speech Memory Description: Intact Hallucinations: None Delusions: Not Present Thought Process: Goal Oriented Thought Content: positive for Goal Oriented Depressive Symptoms: Increased Anxiety and Difficulty Sleeping Judgement: Good Diagnostics Vital Signs (24Hr): Vital Signs - 24 hr 11/16/22 18:00 11/17/22 06:00 Temperature 97.8 F 97.8 F Pulse Rate 85 81 Respiratory Rate 16 14 Blood Pressure 128/78 96/58 L Pulse Oximetry 97 Oxygen Delivery Method Room Air BMI result Body Mass Index 27.1 Labs 11/09/22 00:20 11/15/22 14:57 Labs: Laboratory Results - last 48 hr 11/15/22 11/17/22 14:57 08:06 Sodium 136 Potassium 4.8 Chloride 99 Carbon Dioxide 28 Anion Gap 14 BUN 12 Creatinine 0.80 Estim Creat Clear Calc 108.9 Estimated GFR > 60 Random Glucose 126 H Calcium 9.3 D Magnesium 1.8 Total Bilirubin 0.4 Direct Bilirubin 0.2 AST 60 H ALT 52 H Alkaline Phosphatase 189 H Total Creatine Kinase 459 H Total Protein 7.8 Albumin 4.1 Imaging Radiology Impressions: ITS Impressions Venous Duplex 11/13/22 19:20 IMPRESSION: No DVT demonstrated in the bilateral lower extremity. Medications Medications Current Medications Acetaminophen (Acetaminophen 325 Mg Tablet) 650 mg PO Q6H PRN PRN Reason: Headache/Pain Mild Scale (1-3) Last Admin: 11/15/22 16:37 Dose: 650 mg Al Hydroxide/Mg Hydroxide (Magnesium Hydrox/Alum Hydrox 30 Ml Oral.Susp) 30 ml PO Q6H PRN PRN Reason: Heartburn/Nausea Albuterol Sulfate (Albuterol Sulfate 90 Mcg 8 Gm Inhaler) 2 puff INHALE Q4H PRN PRN Reason: wheezing, shortness of breath Last Admin: 11/15/22 14:11 Dose: 2 puff Buprenorphine/Naloxone (Buprenorphine/Naloxone 8/2 Mg Film) 1 film SUBLINGUAL TID [facility] Last Admin: 11/17/22 13:57 Dose: 1 film Bupropion HCl (Bupropion Hcl Xl 300 Mg Tab.Er.24h) 300 mg PO DAILY [facility] Last Admin: 11/17/22 08:00 Dose: 300 mg Clonidine HCl (Clonidine Hcl 0.1 Mg Tablet) 0.1 mg PO BID PRN; Protocol PRN Reason: Anxiety Last Admin: 11/17/22 14:02 Dose: 0.1 mg Disulfiram (Disulfiram 250 Mg Tablet) 500 mg PO DAILY [facility] Last Admin: 11/17/22 09:30 Dose: 500 mg Fluoxetine HCl (Fluoxetine Hcl 20 Mg Capsule) 60 mg PO DAILY [facility] Last Admin: 11/17/22 08:00 Dose: 60 mg Fluticasone Propionate (Fluticasone Propionate 100 Mcg Blst.W.Dev) 2 puff INHALE RBID [facility] Last Admin: 11/17/22 08:03 Dose: 2 puff Gabapentin (Gabapentin 400 Mg Capsule) 400 mg PO TID [facility] Last Admin: 11/17/22 13:58 Dose: 400 mg Hydroxyzine HCl (Hydroxyzine Hcl 25 Mg Tablet) 25 mg PO TID PRN PRN Reason: anxiety Last Admin: 11/17/22 09:30 Dose: 25 mg Ibuprofen (Ibuprofen 800 Mg Tablet) 800 mg PO Q8H PRN PRN Reason: sciatica pain Last Admin: 11/15/22 19:51 Dose: 800 mg Lidocaine (Lidocaine 4 % Patch Adh..Patch) 1 patch TRANSDERMA DAILY [facility]; Protocol Last Admin: 11/17/22 08:19 Dose: Not Given Lorazepam (Lorazepam 1 Mg Tablet) 1 mg PO TID [facility] Last Admin: 11/17/22 13:58 Dose: 1 mg Magnesium Hydroxide (Milk Of Magnesia 30 Ml Oral.Susp) 30 ml PO DAILY PRN PRN Reason: Constipation Magnesium Oxide (Magnesium Oxide 400 Mg Tablet) 400 mg PO BIDPC [facility] Last Admin: 11/17/22 08:01 Dose: 400 mg Multivitamins/Vitamin C (Multivitamin Tablet) 1 tab PO DAILY [facility] Last Admin: 11/17/22 13:57 Dose: 1 tab Nicotine (Nicotine 21 Mg Patch.Td24) 21 mg TRANSDERMA DAILY PRN PRN Reason: nicotine cravings Last Admin: 11/17/22 08:00 Dose: 21 mg Quetiapine Fumarate (Quetiapine Fumarate 50 Mg Tablet) 50 mg PO BEDTIME PRN PRN Reason: Insomnia Last Admin: 11/12/22 19:58 Dose: 50 mg Trazodone HCl (Trazodone Hcl 50 Mg Tablet) 50 mg PO BEDTIME [facility] Last Admin: 11/16/22 19:27 Dose: 50 mg Allergies Allergies Allergy/AdvReac Type Severity Reaction Status Date / Time levofloxacin Allergy Unknown Unknown Verified 08/16/22 16:48 chlorpromazine Allergy Unknown unknown Uncoded 08/16/22 16:47 Assessment & Plan Assessment & Plan (1) MDD (major depressive disorder): Status: Acute Code(s): F32.9 - Major depressive disorder, single episode, unspecified (2) Alcohol use disorder, severe, dependence: Status: Acute Code(s): F10.20 - Alcohol dependence, uncomplicated Plan Pt is 52-year-old male with MDD, PTSD and alcohol use disorder, who presents for 4th admission in the past 4 months for depression and SI in the face of non-medication adherence, relapse with alcohol and mourning his recently . Patient discharged on 10/16. He says he states over for a few days but soon relapsed, stop taking his medications, depression worsened and he again developed suicidal thinking with thoughts to cut his wrist. He called and self presented instead. Patient reports suicidality has resolved. He is future oriented and has aware to help him keep his apartment. Patient reports he knows he needs help staying sober; says he is willing to try Antabuse this time. Hospital course: 11/13 complains of bilateral calf pain that started on Sunday. Will schedule Ativan 1 mg b.i.d. will start Wellbutrin for mood Focused physical exam reveals mild tenderness to bilateral calfs on palpation; strength 5/5 throughout bilateral lower extremities; ordered labs and ultrasound and told charge nurse 11/14Patient still feeling depressed. Reports having trouble walking, due to pain bilateral legs; reviewed lower extremity ultrasound results with patient which are negative for DVT; labs WNL. Will place consult. Discontinue Zyprexa though this does not seem to be dystonic reaction 11/15 increase Wellbutrin; pt now open to CSS, wanting to stay sober; also wants disulfiram 11/16 pt mood better and now more hopeful about overcoming grief; no CSS but wants Disulfiram to help stay stable. Pt at high risk for relapse and decompensation w/out MAT; he agrees to start Disulfiram; will get Lft's. Pt will need to be monitored prior to discharge while starting this medication to demonstrate he tolerates med 11/17/22 Continue current regime Plan: CV Q 15 minute checks Check LFT's (ordered) START Disulfiram 500mg daily (pt own medication) US bilateral LE Negative for DVT Labs, Mg WNL Placed consult for b/l leg pain Ativan taper Wellbutrin XL 300 mg daily Gabapentin 400 mg t.i.d. Prozac 60 mg Seroquel 50 mg q.h.s. p.r.n. Trazodone 50 mg q.h.s. DC Zyprexa for now Suboxone 8/2 mg t.i.d. Patient educated on: medication risk/benefits and therapeutic strategies Informed Consent: understands Reason for continued inpatient stay Substantial Risk for: harm to self Time Spent With Patient Time: Total time managing care of this patient today ____ minutes.
[2022-11-17 16:40] VITALS: BP 104/63; PULSE 86; TEMP 36.4
[2022-11-17] MEDS: Albuterol Sulfate 90 MCG 8 GM INHALER 2 PUFF INHALE (17:08)
[2022-11-17] MEDS: traZODone HCL 50 MG TABLET PO (20:02)
[2022-11-18] MEDS: Disulfiram 250 MG TABLET 500 MG PO (07:58)
[2022-11-18] MEDS: buPROPion HCl XL 300 MG TAB.ER.24H PO (07:58)
[2022-11-18] MEDS: LORazepam 1 MG TABLET PO ×3 (07:58→18:06)
[2022-11-18] MEDS: Buprenorphine/Naloxone 8/2 mg FILM 1 FILM SUBLINGUAL ×3 (07:58→18:06)
[2022-11-18] MEDS: Magnesium Oxide 400 MG TABLET PO ×2 (07:58→16:42)
[2022-11-18] MEDS: Multivitamin TABLET 1 TAB PO (07:58)
[2022-11-18] MEDS: FLUoxetine HCl 20 MG CAPSULE 60 MG PO (07:58)
[2022-11-18] MEDS: Gabapentin 400 MG CAPSULE PO ×3 (07:58→18:06)
[2022-11-18 08:00] VITALS: BP 92/59; PULSE 75; RESP 16; TEMP 36.7; O2SAT 92
[2022-11-18] MEDS: Fluticasone Propionate 100 MCG BLST.W.DEV 2 PUFF INHALE (08:10)
[2022-11-18] MEDS: hydrOXYzine HCL 25 MG TABLET PO ×3 (08:10→18:06)
[2022-11-18] MEDS: Nicotine 21 MG PATCH.TD24 TRANSDERMA (08:10)
[2022-11-18 08:25] LABS: Alanine Aminotransferase 53 U/L (0-40); Alkaline Phosphatase 175 U/L (39-117); Aspartate Amino Transferase 64 U/L (5-37); Bilirubin Direct 0.1 mg/dL (0.0-0.5); Bilirubin Total 0.3 mg/dL (0.0-1.0); Total Protein 7.7 g/dL (6.5-8.0)
[2022-11-18] MEDS: Albuterol Sulfate 90 MCG 8 GM INHALER 2 PUFF INHALE (12:10)
[2022-11-18] MEDS: cloNIDine HCL 0.1 MG TABLET PO (13:50)
[2022-11-18 13:51] VITALS: BP 111/63; PULSE 80
[2022-11-18] MEDS: Lidocaine 4 % Patch ADH..PATCH 2 PATCH TRANSDERMA (16:42)
[2022-11-18 17:47] VITALS: BP 101/55; PULSE 75; TEMP 36.6
[2022-11-18] MEDS: QUEtiapine Fumarate 50 MG TABLET PO (18:06)
[2022-11-18] MEDS: traZODone HCL 50 MG TABLET PO (18:06)
--- NOTE | 2022-11-18 21:19 | P.PNPSI_ITS ---
Subjective Subjective Date of Service: 11/18/22 Reason For Visit: recurrent severe major depression, alcohol use d/o Interim History: Patient seen and discussed with RN. He complains of chronic back and leg pain. Says he has bad knees. Tolerating medications including Antabuse that was just initiated. He reports he has seen his 's image one time. He continues depressed but improved. 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 Review of Systems Review of Systems Positive ETOH Positive suicidal ideation Yes all other systems are reviewed and are negative Mental Status Exam Mental Status Exam Narrative: Pt is alert and oriented; behavior is cooperative, calm; dressed in casual attire, clean shaven, good hygiene; mood is described as better...depressed and affect congruent; eye contact appropriate; Speech is normal rate, volume and prosody and not pressured; no psychomotor agitation/retardation present; thought process is organized and goal directed; Thought content is on tx and missing his ; otherwise pertinent to relevant topics and without any delusional content, paranoid ideations or grandiosity; denies any SI/HI. There is no evidence of perceptual disturbance. Patients insight and judgment are intact. Patient Appearance: Appropriate Patient Orientation: Person, Place, Time and Situation Level of Consciousness: Alert Patient Behavior: Talkative and Good Eye Contact Mood Description: Depressed Affect Description: Flat Patient Cognition Impaired: No Ability to Follow Directions: Good Speech Pattern: Spontaneous Speech Memory Description: Intact Diagnostics Vital Signs (24Hr): Vital Signs - 24 hr 11/18/22 08:00 11/18/22 13:51 11/18/22 17:47 Temperature 98.0 F 97.8 F Pulse Rate 75 80 75 Respiratory Rate 16 Blood Pressure 92/59 L 111/63 101/55 L Pulse Oximetry 92 Oxygen Delivery Method Room Air BMI result Body Mass Index 27.1 Labs 11/09/22 00:20 11/15/22 14:57 Labs: Laboratory Results - last 48 hr 11/17/22 11/18/22 08:06 07:26 Total Bilirubin 0.4 0.3 Direct Bilirubin 0.2 0.1 AST 60 H 64 H ALT 52 H 53 H Alkaline Phosphatase 189 H 175 H Total Protein 7.8 7.7 Albumin 4.1 4.0 Imaging Radiology Impressions: ITS Impressions Venous Duplex 11/13/22 19:20 IMPRESSION: No DVT demonstrated in the bilateral lower extremity. Medications Medications Current Medications Acetaminophen (Acetaminophen 325 Mg Tablet) 650 mg PO Q6H PRN PRN Reason: Headache/Pain Mild Scale (1-3) Last Admin: 11/15/22 16:37 Dose: 650 mg Al Hydroxide/Mg Hydroxide (Magnesium Hydrox/Alum Hydrox 30 Ml Oral.Susp) 30 ml PO Q6H PRN PRN Reason: Heartburn/Nausea Albuterol Sulfate (Albuterol Sulfate 90 Mcg 8 Gm Inhaler) 2 puff INHALE Q4H PRN PRN Reason: wheezing, shortness of breath Last Admin: 11/18/22 12:10 Dose: 2 puff Buprenorphine/Naloxone (Buprenorphine/Naloxone 8/2 Mg Film) 1 film SUBLINGUAL TID [facility] Last Admin: 11/18/22 18:06 Dose: 1 film Bupropion HCl (Bupropion Hcl Xl 300 Mg Tab.Er.24h) 300 mg PO DAILY [facility] Last Admin: 11/18/22 07:58 Dose: 300 mg Clonidine HCl (Clonidine Hcl 0.1 Mg Tablet) 0.1 mg PO BID PRN; Protocol PRN Reason: Anxiety Last Admin: 11/18/22 13:50 Dose: 0.1 mg Disulfiram (Disulfiram 250 Mg Tablet) 500 mg PO DAILY [facility] Last Admin: 11/18/22 07:58 Dose: 500 mg Fluoxetine HCl (Fluoxetine Hcl 20 Mg Capsule) 60 mg PO DAILY [facility] Last Admin: 11/18/22 07:58 Dose: 60 mg Fluticasone Propionate (Fluticasone Propionate 100 Mcg Blst.W.Dev) 2 puff I NHALE RBID [facility] Last Admin: 11/18/22 18:23 Dose: Not Given Gabapentin (Gabapentin 400 Mg Capsule) 400 mg PO TID [facility] Last Admin: 11/18/22 18:06 Dose: 400 mg Hydroxyzine HCl (Hydroxyzine Hcl 25 Mg Tablet) 25 mg PO TID PRN PRN Reason: anxiety Last Admin: 11/18/22 18:06 Dose: 25 mg Ibuprofen (Ibuprofen 800 Mg Tablet) 800 mg PO Q8H PRN PRN Reason: sciatica pain Last Admin: 11/15/22 19:51 Dose: 800 mg Lidocaine (Lidocaine 4 % Patch Adh..Patch) 1 patch TRANSDERMA DAILY [facility]; Protocol Last Admin: 11/18/22 08:13 Dose: Not Given Lidocaine (Lidocaine 4 % Patch Adh..Patch) 2 patch TRANSDERMA DAILY PRN; Protocol PRN Reason: knee pain Last Admin: 11/18/22 16:42 Dose: 2 patch Lorazepam (Lorazepam 1 Mg Tablet) 1 mg PO TID [facility] Last Admin: 11/18/22 18:06 Dose: 1 mg Magnesium Hydroxide (Milk Of Magnesia 30 Ml Oral.Susp) 30 ml PO DAILY PRN PRN Reason: Constipation Magnesium Oxide (Magnesium Oxide 400 Mg Tablet) 400 mg PO BIDPC [facility] Last Admin: 11/18/22 16:42 Dose: 400 mg Multivitamins/Vitamin C (Multivitamin Tablet) 1 tab PO DAILY [facility] Last Admin: 11/18/22 07:58 Dose: 1 tab Nicotine (Nicotine 21 Mg Patch.Td24) 21 mg TRANSDERMA DAILY PRN PRN Reason: nicotine cravings Last Admin: 11/18/22 08:10 Dose: 21 mg Quetiapine Fumarate (Quetiapine Fumarate 50 Mg Tablet) 50 mg PO BEDTIME PRN PRN Reason: Insomnia Last Admin: 11/18/22 18:06 Dose: 50 mg Trazodone HCl (Trazodone Hcl 50 Mg Tablet) 50 mg PO BEDTIME [facility] Last Admin: 11/18/22 18:06 Dose: 50 mg Allergies Allergies Allergy/AdvReac Type Severity Reaction Status Date / Time levofloxacin Allergy Unknown Unknown Verified 08/16/22 16:48 chlorpromazine Allergy Unknown unknown Uncoded 08/16/22 16:47 Assessment & Plan Assessment & Plan (1) MDD (major depressive disorder): Status: Acute Code(s): F32.9 - Major depressive disorder, single episode, unspecified (2) Alcohol use disorder, severe, dependence: Status: Acute Code(s): F10.20 - Alcohol dependence, uncomplicated Plan Pt is 52-year-old male with MDD, PTSD and alcohol use disorder, who presents for 4th admission in the past 4 months for depression and SI in the face of non- medication adherence, relapse with alcohol and mourning his recently . Patient discharged on 10/16. He says he states over for a few days but soon relapsed, stop taking his medications, depression worsened and he again developed suicidal thinking with thoughts to cut his wrist. He called and self presented instead. Patient reports suicidality has resolved. He is future oriented and has aware to help him keep his apartment. Patient reports he knows he needs help staying sober; says he is willing to try Antabuse this time. Hospital course: 11/13 complains of bilateral calf pain that started on Sunday. Will schedule Ativan 1 mg b.i.d. will start Wellbutrin for mood Focused physical exam reveals mild tenderness to bilateral calfs on palpation; strength 5/5 throughout bilateral lower extremities; ordered labs and ultrasound and told charge nurse 11/14Patient still feeling depressed. Reports having trouble walking, due to pain bilateral legs; reviewed lower extremity ultrasound results with patient which are negative for DVT; labs WNL. Will place consult. Discontinue Zyprexa though this does not seem to be dystonic reaction 11/15 increase Wellbutrin; pt now open to CSS, wanting to stay sober; also wants disulfiram 11/16 pt mood better and now more hopeful about overcoming grief; no CSS but wants Disulfiram to help stay stable. Pt at high risk for relapse and decompensation w/out MAT; he agrees to start Disulfiram; will get Lft's. Pt will need to be monitored prior to discharge while starting this medication to demo nstrate he tolerates med 11/17/22 Continue current regime 11/18: Continue plan. Asked for lidocaine patch for his knees. Ordered. Plan: CV Q 15 minute checks Check LFT's (ordered) START Disulfiram 500mg daily (pt own medication) US bilateral LE Negative for DVT Labs, Mg WNL Placed consult for b/l leg pain Ativan taper Wellbutrin XL 300 mg daily Gabapentin 400 mg t.i.d. Prozac 60 mg Seroquel 50 mg q.h.s. p.r.n. Trazodone 50 mg q.h.s. DC Zyprexa for now Suboxone 8/2 mg t.i.d. Reason for continued inpatient stay Substantial Risk for: harm to self and rapid decompensation Time Spent With Patient Time: Total time managing care of this patient today ____ minutes.
[2022-11-19] MEDS: Ibuprofen 800 MG TABLET PO (01:08)
[2022-11-19] MEDS: cloNIDine HCL 0.1 MG TABLET PO ×3 (01:08→18:47)
[2022-11-19] MEDS: buPROPion HCl XL 300 MG TAB.ER.24H PO (07:59)
[2022-11-19] MEDS: Gabapentin 400 MG CAPSULE PO ×3 (07:59→18:47)
[2022-11-19] MEDS: Disulfiram 250 MG TABLET 500 MG PO (07:59)
[2022-11-19] MEDS: LORazepam 1 MG TABLET PO ×2 (07:59→14:22)
[2022-11-19] MEDS: Buprenorphine/Naloxone 8/2 mg FILM 1 FILM SUBLINGUAL ×3 (07:59→18:47)
[2022-11-19] MEDS: hydrOXYzine HCL 25 MG TABLET PO ×3 (07:59→18:47)
[2022-11-19] MEDS: FLUoxetine HCl 20 MG CAPSULE 60 MG PO (07:59)
[2022-11-19] MEDS: Fluticasone Propionate 100 MCG BLST.W.DEV 2 PUFF INHALE (07:59)
[2022-11-19] MEDS: Magnesium Oxide 400 MG TABLET PO ×2 (07:59→15:25)
[2022-11-19] MEDS: Multivitamin TABLET 1 TAB PO (07:59)
[2022-11-19 08:05] VITALS: BP 94/59; PULSE 69; RESP 18; TEMP 36.4; O2SAT 92
[2022-11-19] MEDS: Nicotine 21 MG PATCH.TD24 TRANSDERMA (08:39)
--- NOTE | 2022-11-19 09:16 | HO.PSYCHPN ---
Subjective Subjective Date of Service: 11/19/22 Reason For Visit: recurrent severe major depression, alcohol use d/o Interim History: Patient seen and discussed with RN. He has been somewhat more irrtiable today. Having knee pain and says lidocaine didn't do sh@@ He complains of chronic back and leg pain. Reports disrupted sleep with nightmares last night. Tolerating medications including Antabuse. He continues depressed but improved. Review of Systems Review of Systems Positive ETOH Positive suicidal ideation Yes all other systems are reviewed and are negative Mental Status Exam Mental Status Exam Narrative: Pt is alert and oriented; behavior is cooperative, calm; dressed in casual attire, clean shaven, good hygiene; mood is described as better...depressed and affect congruent; eye contact appropriate; Speech is normal rate, volume and prosody and not pressured; no psychomotor agitation/retardation present; thought process is organized and goal directed; Thought content is on tx and missing his ; otherwise pertinent to relevant topics and without any delusional content, paranoid ideations or grandiosity; denies any SI/HI. There is no evidence of perceptual disturbance. Patients insight and judgment are intact. Patient Appearance: Appropriate Patient Orientation: Person, Place, Time and Situation Level of Consciousness: Alert Patient Behavior: Talkative and Good Eye Contact Mood Description: Depressed Affect Description: Flat Patient Cognition Impaired: No Ability to Follow Directions: Good Speech Pattern: Spontaneous Speech Memory Description: Intact Diagnostics Vital Signs (24Hr): Vital Signs - 24 hr 11/18/22 13:51 11/18/22 17:47 Temperature 97.8 F Pulse Rate 80 75 Blood Pressure 111/63 101/55 L BMI result Body Mass Index 27.1 Labs 11/09/22 00:20 11/15/22 14:57 Labs: Laboratory Results - last 48 hr 11/17/22 11/18/22 08:06 07:26 Total Bilirubin 0.4 0.3 Direct Bilirubin 0.2 0.1 AST 60 H 64 H ALT 52 H 53 H Alkaline Phosphatase 189 H 175 H Total Protein 7.8 7.7 Albumin 4.1 4.0 Imaging Radiology Impressions: ITS Impressions Venous Duplex 11/13/22 19:20 IMPRESSION: No DVT demonstrated in the bilateral lower extremity. Medications Medications Current Medications Acetaminophen (Acetaminophen 325 Mg Tablet) 650 mg PO Q6H PRN PRN Reason: Headache/Pain Mild Scale (1-3) Last Admin: 11/15/22 16:37 Dose: 650 mg Al Hydroxide/Mg Hydroxide (Magnesium Hydrox/Alum Hydrox 30 Ml Oral.Susp) 30 ml PO Q6H PRN PRN Reason: Heartburn/Nausea Albuterol Sulfate (Albuterol Sulfate 90 Mcg 8 Gm Inhaler) 2 puff INHALE Q4H PRN PRN Reason: wheezing, shortness of breath Last Admin: 11/18/22 12:10 Dose: 2 puff Buprenorphine/Naloxone (Buprenorphine/Naloxone 8/2 Mg Film) 1 film SUBLINGUAL TID [facility] Last Admin: 11/19/22 07:59 Dose: 1 film Bupropion HCl (Bupropion Hcl Xl 300 Mg Tab.Er.24h) 300 mg PO DAILY [facility] Last Admin: 11/19/22 07:59 Dose: 300 mg Clonidine HCl (Clonidine Hcl 0.1 Mg Tablet) 0.1 mg PO BID PRN; Protocol PRN Reason: Anxiety Last Admin: 11/19/22 01:08 Dose: 0.1 mg Disulfiram (Disulfiram 250 Mg Tablet) 500 mg PO DAILY [facility] Last Admin: 11/19/22 07:59 Dose: 500 mg Fluoxetine HCl (Fluoxetine Hcl 20 Mg Capsule) 60 mg PO DAILY [facility] Last Admin: 11/19/22 07:59 Dose: 60 mg Fluticasone Propionate (Fluticasone Propionate 100 Mcg Blst.W.Dev) 2 puff INHALE RBID [facility] Last Admin: 11/19/22 07:59 Dose: 2 puff Gabapentin (Gabapentin 400 Mg Capsule) 400 mg PO TID [facility] Last Admin: 11/19/22 07:59 Dose: 400 mg Hydroxyzine HCl (Hydroxyzine Hcl 25 Mg Tablet) 25 mg PO TID PRN PRN Reason: anxiety Last Admin: 11/19/22 07:59 Dose: 25 mg Ibuprofen (Ibuprofen 800 Mg Tablet) 800 mg PO Q8H PRN PRN Reason: sciatica pain Last Admin: 11/19/22 01:08 Dose: 800 mg Lidocaine (Lidocaine 4 % Patch Adh..Patch) 1 patch TRANSDERMA DAILY [facility]; Protocol Last Admin: 11/18/22 08:13 Dose: Not Given Lidocaine (Lidocaine 4 % Patch Adh..Patch) 2 patch TRANSDERMA DAILY PRN; Protocol PRN Reason: knee pain Last Admin: 11/18/22 16:42 Dose: 2 patch Lorazepam (Lorazepam 1 Mg Tablet) 1 mg PO TID [facility] Last Admin: 11/19/22 07:59 Dose: 1 mg Magnesium Hydroxide (Milk Of Magnesia 30 Ml Oral.Susp) 30 ml PO DAILY PRN PRN Reason: Constipation Magnesium Oxide (Magnesium Oxide 400 Mg Tablet) 400 mg PO BIDPC [facility] Last Admin: 11/19/22 07:59 Dose: 400 mg Multivitamins/Vitamin C (Multivitamin Tablet) 1 tab PO DAILY [facility] Last Admin: 11/19/22 07:59 Dose: 1 tab Nicotine (Nicotine 21 Mg Patch.Td24) 21 mg TRANSDERMA DAILY PRN PRN Reason: nicotine cravings Last Admin: 11/19/22 08:39 Dose: 21 mg Quetiapine Fumarate (Quetiapine Fumarate 50 Mg Tablet) 50 mg PO BEDTIME PRN PRN Reason: Insomnia Last Admin: 11/18/22 18:06 Dose: 50 mg Trazodone HCl (Trazodone Hcl 50 Mg Tablet) 50 mg PO BEDTIME [facility] Last Admin: 11/18/22 18:06 Dose: 50 mg Allergies Allergies Allergy/AdvReac Type Severity Reaction Status Date / Time levofloxacin Allergy Unknown Unknown Verified 08/16/22 16:48 chlorpromazine Allergy Unknown unknown Uncoded 08/16/22 16:47 Assessment & Plan Assessment & Plan (1) MDD (major depressive disorder): Status: Acute Code(s): F32.9 - Major depressive disorder, single episode, unspecified (2) Alcohol use disorder, severe, dependence: Status: Acute Code(s): F10.20 - Alcohol dependence, uncomplicated Plan Pt is 52-year-old male with MDD, PTSD and alcohol use disorder, who presents for 4th admission in the past 4 months for depression and SI in the face of non-medication adherence, relapse with alcohol and mourning his recently . Patient discharged on 10/16. He says he states over for a few days but soon relapsed, stop taking his medications, depression worsened and he again developed suicidal thinking with thoughts to cut his wrist. He called and self presented instead. Patient reports suicidality has resolved. He is future oriented and has aware to help him keep his apartment. Patient reports he knows he needs help staying sober; says he is willing to try Antabuse this time. Hospital course: 11/13 complains of bilateral calf pain that started on Sunday. Will schedule Ativan 1 mg b.i.d. will start Wellbutrin for mood Focused physical exam reveals mild tenderness to bilateral calfs on palpation; strength 5/5 throughout bilateral lower extremities; ordered labs and ultrasound and told charge nurse 11/14Patient still feeling depressed. Reports having trouble walking, due to pain bilateral legs; reviewed lower extremity ultrasound results with patient which are negative for DVT; labs WNL. Will place consult. Discontinue Zyprexa though this does not seem to be dystonic reaction 11/15 increase Wellbutrin; pt now open to CSS, wanting to stay sober; also wants disulfiram 11/16 pt mood better and now more hopeful about overcoming grief; no CSS but wants Disulfiram to help stay stable. Pt at high risk for relapse and decompensation w/out MAT; he agrees to start Disulfiram; will get Lft's. Pt will need to be monitored prior to discharge while starting this medication to demonstrate he tolerates med 11/17/22 Continue current regime 11/18: Continue plan. Asked for lidocaine patch for his knees. Ordered. 11/19: continue plan. Plan: CV Q 15 minute checks Check LFT's (ordered) START Disulfiram 500mg daily (pt own medication) US bilateral LE Negative for DVT Labs, Mg WNL Placed consult for b/l leg pain Ativan taper Wellbutrin XL 300 mg daily Gabapentin 400 mg t.i.d. Prozac 60 mg Seroquel 50 mg q.h.s. p.r.n. Trazodone 50 mg q.h.s. DC Zyprexa for now Suboxone 8/2 mg t.i.d. Reason for continued inpatient stay Substantial Risk for: harm to self and rapid decompensation Time Spent With Patient Time: Total time managing care of this patient today ____ minutes.
[2022-11-19 15:32] VITALS: BP 117/75; PULSE 76; TEMP 36.5
[2022-11-19] MEDS: traZODone HCL 50 MG TABLET PO (18:47)
[2022-11-19] MEDS: QUEtiapine Fumarate 50 MG TABLET PO (18:47)
[2022-11-20] MEDS: Albuterol Sulfate 90 MCG 8 GM INHALER 2 PUFF INHALE ×2 (02:16→11:22)
[2022-11-20 02:17] VITALS: BP 103/65; PULSE 68; RESP 20; O2SAT 94
[2022-11-20] MEDS: cloNIDine HCL 0.1 MG TABLET PO ×2 (02:17→13:33)
[2022-11-20] MEDS: hydrOXYzine HCL 25 MG TABLET PO ×2 (02:17→11:11)
[2022-11-20] MEDS: Magnesium Oxide 400 MG TABLET PO (08:01)
[2022-11-20] MEDS: FLUoxetine HCl 20 MG CAPSULE 60 MG PO (08:01)
[2022-11-20] MEDS: Gabapentin 400 MG CAPSULE PO (08:01)
[2022-11-20] MEDS: Fluticasone Propionate 100 MCG BLST.W.DEV 2 PUFF INHALE (08:01)
[2022-11-20] MEDS: Disulfiram 250 MG TABLET 500 MG PO (08:01)
[2022-11-20] MEDS: buPROPion HCl XL 300 MG TAB.ER.24H PO (08:01)
[2022-11-20] MEDS: Multivitamin TABLET 1 TAB PO (08:01)
[2022-11-20] MEDS: Buprenorphine/Naloxone 8/2 mg FILM 1 FILM SUBLINGUAL (08:01)
[2022-11-20 08:08] VITALS: BP 124/85; PULSE 61; RESP 14; TEMP 37.1; O2SAT 95
[2022-11-20] MEDS: Nicotine 21 MG PATCH.TD24 TRANSDERMA (09:10)
[2022-11-20 09:16] LABS: Alanine Aminotransferase 59 U/L (0-40); Alkaline Phosphatase 169 U/L (39-117); Aspartate Amino Transferase 73 U/L (5-37); Bilirubin Direct 0.1 mg/dL (0.0-0.5); Bilirubin Total 0.3 mg/dL (0.0-1.0)
[2022-11-20 10:13] LABS: Albumin Level 3.9 g/dL (3.5-5.0); Total Protein 7.6 g/dL (6.5-8.0)
[2022-11-20 12:23] LABS: Anion Gap 15 (12-20); Blood Urea Nitrogen 14 mg/dL (9-16); Carbon Dioxide 28 mmol/L (22-29); Chloride 101 mmol/L (96-108); Creatinine Clr Calc Pharmacy 102.5; Estimated Glomerular Filt Rate > 60; Potassium 5.2 mmol/L (3.3-5.1); Sodium 139 mmol/L (135-145)
--- NOTE | 2022-11-20 12:32 | P.DS_ITS ---
DS: Providers Provider Date of Service: 11/20/22 Date of admission: 11/09/22 22:03 Date of discharge: 11/20/22 Primary care physician: Unknown Physician Attending physician on admission: Pk Rey Attending physician on discharge: Pk Rey DS: Diagnosis Discharge Diagnosis (1) MDD (major depressive disorder): Status: Acute (2) Alcohol use disorder, severe, dependence: Status: Acute DS: Medications Discharge Medications Home Medications: Home Medications Medication Instructions Recorded Confirmed olanzapine 2.5 mg tablet 2.5 mg PO BID 11/08/22 11/08/22 Previous Rx's Medication Instructions Recorded albuterol sulfate 90 mcg/actuation 2 puff inhalation Q4H PRN 11/20/22 aerosol inhaler (Ventolin HFA) wheezing, shortness of breath 30 days #6.7 grams bupropion HCl 300 mg 24 hr tablet, 300 mg PO DAILY 30 days #30 tabs 11/20/22 extended release clonidine HCl 0.1 mg tablet 0.1 mg PO BID PRN Anxiety 30 days 11/20/22 #60 tabs disulfiram 250 mg tablet 250 mg PO DAILY 30 days #30 tabs 11/20/22 fluoxetine 20 mg capsule 60 mg PO DAILY 30 days #90 caps 11/20/22 fluticasone propionate 110 2 puff inhalation BID 30 days #12 11/20/22 mcg/actuation HFA aerosol inhaler grams gabapentin 400 mg capsule 400 mg PO TID 30 days #90 caps 11/20/22 hydroxyzine pamoate 25 mg capsule 25 mg PO TID PRN anxiety 30 days 11/20/22 #60 caps lidocaine 4 % topical patch 2 patch transdermal DAILY PRN knee 11/20/22 (Lidocaine Pain Relief) pain 30 days #60 ea magnesium oxide 400 mg (241.3 mg 400 mg PO BIDPC 30 days #60 tabs 11/20/22 magnesium) tablet multivitamin (Daily-Melania tablet) 1 tab PO DAILY 30 days #30 tabs 11/20/22 nicotine 21 mg/24 hr daily 1 patch topical DAILY PRN nicotine 11/20/22 transdermal patch cravings 28 days #28 ea quetiapine 50 mg tablet 50 mg PO BEDTIME 30 days #30 tabs 11/20/22 trazodone 50 mg tablet 50 mg PO BEDTIME PRN insomnia 30 11/20/22 days #30 tabs Mental Status Exam Mental Status Exam Narrative: Pt is alert and oriented; behavior is cooperative, calm; dressed in casual attire, good hygiene; mood is described as ok and affect congruent; eye contact appropriate; Speech is normal rate, volume and prosody and not pressured; no psychomotor agitation/retardation present; thought process is organized and goal directed; Thought content is on tx and grief, aftercare; otherwise pertinent to relevant topics and without any delusional content, paranoid ideations or grandiosity; denies any SI/HI. There is no evidence of perceptual disturbance. ?Patients insight and judgment are fair. Data Data Completed and Pending Completed studies during hospitalization [Text1]: 11/13/22 11/15/22 11/17/22 19:00 14:57 08:06 Sodium 139 136 Potassium 4.2 4.8 Chloride 101 99 Carbon Dioxide 30 H 28 Anion Gap 12 14 BUN 14 12 Creatinine 0.80 0.80 Estim Creat Clear Calc 108.9 108.9 Estimated GFR > 60 > 60 Random Glucose 116 H 126 H Calcium 8.6 D 9.3 D Magnesium 2.0 1.8 Total Bilirubin 0.4 0.4 Direct Bilirubin 0.2 AST 88 H 60 H ALT 59 H 52 H Alkaline Phosphatase 160 H 189 H Total Creatine Kinase 459 H Total Protein 6.8 7.8 Albumin 3.7 4.1 11/18/22 11/20/22 07:26 08:09 Sodium 139 Potassium 5.2 H Chloride 101 Carbon Dioxide 28 Anion Gap 15 BUN 14 Creatinine 0.85 Estim Creat Clear Calc 102.5 Estimated GFR > 60 Random Glucose Calcium Magnesium Total Bilirubin 0.3 0.3 Direct Bilirubin 0.1 0.1 AST 64 H 73 H ALT 53 H 59 H Alkaline Phosphatase 175 H 169 H Total Creatine Kinase Total Protein 7.7 7.6 Albumin 4.0 3.9 Imaging Diagnostic Imaging Impressions Venous Duplex 11/13/22 19:20 IMPRESSION: No DVT demonstrated in the bilateral lower extremity. DS: Summary Hospital Course Hospital Course: Pt is 52-year-old male with MDD, PTSD and alcohol use disorder, who presents for 4th admission in the past 4 months for? depression and SI in the face of non- medication adherence, relapse with alcohol and mourning his recently . Patient discharged on 10/16.? He says he states over for a few days but soon relapsed, stop taking his medications, depression worsened and he again developed suicidal thinking with thoughts to cut his wrist.? He called and self presented instead.? Patient reports suicidality has resolved.? He is future oriented and has aware to help him keep his apartment.? Patient reports he knows he needs help staying sober; says he is willing to try Antabuse this time. Hospital course: Patient depressed but SI resolved; detoxed without incident. Patient complains of bilateral calf pain: lower extremity ultrasound results with patient which are negative for DVT; labs WNL.? Resolved on its own. Patient's mood continued to improve and depression abated. SI remained fully resolved. Patient was ambivalent about a CSS and ultimately decided not to go however did agree to start disulfiram. Applications Project Manager thoroughly discussed risks and potential side-effects of taking Disulfiram, including (but not limited to) risk to liver, also in context of currently elevated (but stabilized liver enzymes). Pt understood and asked questions and considers it is currently worth the risk of continuing with Disulfiram given it's potential benefit for helping him stay sober. LFTs monitored and remained WNL. Patient remained in good behavioral and impulse control throughout his time in the unit and appropriate with peers and staff. He plan to attend AA and other post discharge support groups. Patient requested discharge. While he remains at risk for relapse and mood dysregulation, this is a chronic issue for him which will not resolve with longer stay on an inpatient unit but instead requires commitment to outpatient therapy, treatment and sobriety, with which patient has yet to fully embrace Patient is not in imminent risk for harm to self or others and his request for discharge honored. Time spent discussing smoking cessation with patient: 3 to 10 minutes Status at Discharge Functional status at discharge: independent ambulation Overall status at discharge: patient is back to baseline Time Spent with Patient Time attestation: Total time managing care of this patient today ____ minutes. Time spent: Less than 30 minutes Discharge Plan Discharge Anticipated Discharge Date/Time: 11/20/22 13:00 Patient Disposition: Home, Self-Care Discharge Diagnosis: MDD, recurrent, severe without psychotic features; in partial remission Referrals: [facility] Therapy Tena Mendoza [Other] - 11/22/22 1:45 pm (Telehealth.) [facility] Manuela Collado [facility] Management [Other] - 12/21/22 12:00 pm ([facility]) PCP Dr Daniel Cottrell [Other] - 11/22/22 Discharge Medications: Discontinued albuterol sulfate [Ventolin HFA] 90 mcg/actuation Hfa Aerosol Inhaler 2 puff inhalation Q4H PRN (Reason: wheezing, shortness of breath) 30 Days Qty: 6.7 0RF quetiapine 50 mg Tablet 50 mg PO BEDTIME 30 Days Qty: 30 0RF bupropion HCl 300 mg Tablet Extended Release 24 Hr 300 mg PO DAILY 30 Days Qty: 30 0RF gabapentin 400 mg Capsule 400 mg PO TID 30 Days Qty: 90 0RF clonidine HCl 0.1 mg Tablet 0.1 mg PO BID PRN (Reason: Anxiety) 30 Days Qty: 60 0RF nicotine 21 mg/24 hr patch 24 hour 1 patch topical DAILY PRN (Reason: nicotine cravings) 28 Days Qty: 28 0RF fluticasone propionate 110 mcg/actuation Hfa Aerosol Inhaler 2 puff INHALATION BID 30 Days Qty: 12 0RF hydroxyzine pamoate 25 mg Capsule 25 mg PO TID PRN (Reason: anxiety) 30 Days Qty: 60 0RF trazodone 50 mg tablet 50 mg PO BEDTIME olanzapine 2.5 mg tablet 2.5 mg PO BID fluoxetine 20 mg capsule 60 mg PO DAILY No Action multivitamin Tablet 1 tab PO DAILY clonidine HCl 0.1 mg tablet 0.1 mg PO BID PRN (Reason: anxiety) trazodone 50 mg tablet 50 mg PO BEDTIME PRN (Reason: insomnia) gabapentin 400 mg capsule 400 mg PO TID magnesium oxide 400 mg (241.3 mg magnesium) tablet 400 mg PO BID nicotine 21 mg/24 hr patch 24 hour 1 patch topical DAILY PRN (Reason: Nicotine Cravings) albuterol sulfate [Ventolin HFA] 90 mcg/actuation HFA aerosol inhaler 2 puff INHALATION Q4H PRN (Reason: Shortness Of Breath Or Wheezing) fluoxetine 20 mg capsule 60 mg PO DAILY fluticasone propionate [Flovent HFA] 110 mcg/actuation HFA aerosol inhaler 2 puff INHALATION BID hydroxyzine pamoate 25 mg capsule 25 mg PO TID PRN (Reason: anxiety) bupropion HCl 300 mg tablet extended release 24 hr 300 mg PO DAILY quetiapine 50 mg tablet 50 mg PO BEDTIME buprenorphine-naloxone [Suboxone] 8-2 mg film 1 film sublingual TID Discharge Orders: Discharge Order (Routine); Ordered 11/20/22 Ordered By: Pk Rey Diet: Regular diet Activity on Discharge: As tolerated Stand Alone Forms: Patient Portal Discharge page, Community Support Other Ambulatory Orders: Basic Metabolic Panel (Routine) Timeframe: 3 Days Facility: [facility] - Location: Laboratory Ordered By: Pk Rey Comprehensive Met. Panel (Routine) Timeframe: 2 Weeks Facility: [facility] - Location: Laboratory Ordered By: Pk Rey Liver Panel (Routine) Timeframe: 3 Days Facility: [facility] - Location: Laboratory Ordered By: Pk Rey Care Plan Goals: Maintain mood and safe behaviors Take medications as prescribed Continue to pursue sobriety Practice coping skills Continue with outpatient providers and reach out to them as needed Health Concerns: Mood stability and behaviors Sobriety COPD Plan of Treatment: Follow up with your PCP, psychiatric provider and other outpatient providers regarding above concerns Take medications as prescribed GET LABS IN 3 DAYS AND THEN AGAIN IN 2 WEEKS (to monitor liver, electrolytes and kidney function) Assessment: Risk assessment at time of discharge:? Patient was interviewed prior to discharge and found to be fully oriented and without any SI or HI. Patient has insight and demonstrates good judgment in terms of wanting to pursue treatment. Patient is not in imminent risk of harm to self or others and has a safety plan that includes presenting to the closest ER or calling 911 if feeling unsafe.? Patient has been observed closely by nursing and unit staff throughout admission; patient has not engaged in any behaviors that suggest dangerousness to self or others and has demonstrated appropriate behaviors and impulse control Discharge Date/Time: 11/20/22 14:10
[2022-11-20 13:35] VITALS: BP 123/80; PULSE 78
== END 2022-11-20 14:10 | disposition home or self-care (01) | DRG 751 ==
LOC: HO.ED 11-09 15:02 → HO.PM5 11-09 22:12
PROVIDERS: Clinical Nurse Specialist Psychiatric/Mental Health, Adult; Emergency Medicine Emergency Medical Services; Physician Assistant; Admitting Provider Psychiatry & Neurology Psychiatry; Emergency Provider Emergency Medicine; Visit Provider Psychiatry & Neurology Psychiatry
DX: F33.2 Major depressive disorder, recurrent severe without psychotic features (principal); R45.851 Suicidal ideations; Z91.148 Patient's other noncompliance with medication regimen for other reason; E83.42 Hypomagnesemia; F11.20 Opioid dependence, uncomplicated; F43.10 Post-traumatic stress disorder, unspecified; F10.20 Alcohol dependence, uncomplicated; F17.210 Nicotine dependence, cigarettes, uncomplicated; Y90.8 Blood alcohol level of 240 mg/100 ml or more; Z71.6 Tobacco abuse counseling; Z20.822 Contact with and (suspected) exposure to COVID-19; Z88.1 Allergy status to other antibiotic agents; Z88.8 Allergy status to other drugs, medicaments and biological substances; Z79.899 Other long term (current) drug therapy
CPT/HCPCS: 36415; 80048; 80051; 80053; 80061; 80076; 80307; 81001; 82077; 82550; 82565; 82607; 82746; 83036; 83735; 84439; 84443; 84520; 85025; 87635; 93005; 93970; 99285; S9485

== ENCOUNTER 2022-11-30 17:45 | Inpatient (IN) | payer OTHER, SELFPAY ==
[2022-11-30 17:55] VITALS: BP 164/106; BP 172/105; PULSE 93; PULSE 99; RESP 18; TEMP 37.1; O2SAT 96; O2SAT 98; BMI 25.1
[2022-11-30 18:32] LABS: Appearance Urine Clear; Color Urine Yellow; Glucose Urine UA Negative (Negative); Leukocyte Esterase Urine Negative (Negative); Nitrite Urine Negative (Negative); PH 6.5 (5.0-9.0); Specific Gravity - Urine >= 1.030 (1.005-1.025); UMIC TRIGGER UACC YES; Urine Blood Negative (Negative); Urine Ketones Trace mg/dL (Negative); Urine Protein 30 (1+) mg/dL (Neg-Trace)
[2022-11-30 18:37] LABS: Bacteria Urine None Seen (None Seen); Hyaline Casts Urine 0-2 /LPF (0-2); RBC Urine 0-2 /HPF (0-2); Squamous Epithelial Cell Urine 0-2 /HPF (0-2); WBC Urine 0-5 /HPF (0-5)
[2022-11-30 18:38] LABS: MANUAL DIFF FLAG NO
[2022-11-30 18:39] LABS: Basophils Absolute Auto 0.1 X10*3/uL (0.0-0.2); Basophils Percent Auto 0.6 % (0-2); Eosinophils Percent Auto 0.4 % (0-4); Hematocrit 40.1 % (42.0-52.0); Hemoglobin 14.2 g/dl (14.0-18.0); Imm Gran Abs Auto 0.02 X10*3/uL (0.00-0.03); Imm Gran Pct Auto 0.2 % (0.0-0.4); Lymphocytes Absolute Auto 2.3 X10*3/uL (1.2-4.9); Lymphocytes Percent Auto 28.8 % (20-40); Mean Corpuscular HGB Conc 35.4 g/dl (31.0-36.0); Mean Corpuscular Hemoglobin 31.3 pg (27.0-33.0); Mean Corpuscular Volume 88.5 fL (80.0-98.0); Mean Platelet Volume 10.2 fL (9.4-12.4); Monocytes Absolute Auto 0.4 X10*3/uL (0.1-1.2); Monocytes Percent Auto 4.6 % (2-11); Neutrophils Absolute Auto 5.3 x10*3/uL (2.0-8.3); Neutrophils Percent Auto 65.4 % (45-73); Platelet Count 184 X10*3/uL (160-400); Red Blood Count 4.53 X10*6/uL (4.60-5.80); Red Cell Distribution Width 14.6 % (11.0-16.0); White Blood Count 8.1 X10*3/uL (4.8-10.8)
[2022-11-30 18:40] LABS: Amphetamine Screen Urine Not Detected (Not Detect); Barbiturates, Urine Not Detected (Not Detect); Benzodiazepines Screen Urine Not Detected (Not Detect); Cannabinoid Screen Urine Not Detected (Not Detect); Cocaine Screen Urine Not Detected (Not Detect); Fentanyl, urine Not Detected (Not Detect); Opiate Screen Urine Not Detected (Not Detect); Phencyclidine Screen Urine Not Detected (Not Detect)
[2022-11-30 18:41] LABS: COVID-19 Test Negative (Negative); IDNOW Serial# BCCEAD1C
--- NOTE | 2022-11-30 18:53 | ED.GENADULT ---
HPI - General Adult General Chief complaint: Psychiatric Symptoms Stated complaint: SI with a plan Time Seen by Provider: 11/30/22 18:21 Source: patient, RN notes reviewed and old records reviewed Mode of arrival: ambulatory History of Present Illness HPI narrative: 52-year-old male presents for evaluation of alcohol abuse and depression. Patient reports that his last year and he has been drinking heavily intermittently ever since He reports that he is depressed and lonely He drinks between 10 and 20 nips every day His last drink was 3 hours prior to arrival The patient denies any suicidal ideation He reports he feels ?shaky and scared. He denies any somatic complaints at this time Related Data Home Medications Medication Instructions Recorded Confirmed albuterol sulfate 90 mcg/actuation 2 puff inhalation Q4H PRN 11/30/22 11/30/22 aerosol inhaler (Ventolin HFA) Shortness Of Breath Or Wheezing buprenorphine 8 mg-naloxone 2 mg 1 film sublingual TID 11/30/22 11/30/22 sublingual film (Suboxone) bupropion HCl 300 mg 24 hr tablet, 300 mg PO DAILY 11/30/22 11/30/22 extended release clonidine HCl 0.1 mg tablet 0.1 mg PO BID PRN anxiety 11/30/22 11/30/22 fluoxetine 20 mg capsule 60 mg PO DAILY 11/30/22 11/30/22 fluticasone propionate 110 2 puff inhalation BID 11/30/22 11/30/22 mcg/actuation HFA aerosol inhaler (Flovent HFA) gabapentin 400 mg capsule 400 mg PO TID 11/30/22 11/30/22 hydroxyzine pamoate 25 mg capsule 25 mg PO TID PRN anxiety 11/30/22 11/30/22 magnesium oxide 400 mg (241.3 mg 400 mg PO BID 11/30/22 11/30/22 magnesium) tablet multivitamin 1 tab PO DAILY 11/30/22 11/30/22 nicotine 21 mg/24 hr daily 1 patch topical DAILY PRN Nicotine 11/30/22 11/30/22 transdermal patch Cravings quetiapine 50 mg tablet 50 mg PO BEDTIME 11/30/22 11/30/22 trazodone 50 mg tablet 50 mg PO BEDTIME PRN insomnia 11/30/22 11/30/22 Allergies Allergy/AdvReac Type Severity Reaction Status Date / Time levofloxacin Allergy Unknown Unknown Verified 11/30/22 18:24 chlorpromazine Allergy Unknown unknown Uncoded 11/30/22 18:24 Review of Systems Constitutional: Constitutional: Reports as per HPI, Denies chills, Denies fatigue, Denies fever(s) and Denies headache(s) ENT: Denies headache(s) Cardiovascular: Cardiovascular: Denies chest pain and Denies dyspnea Respiratory: Respiratory: Denies cough and Denies dyspnea Gastrointestinal: Gastrointestinal: Denies abdominal pain, Denies constipation and Denies vomiting Genitourinary: Genitourinary: Denies difficulty urinating and Denies dysuria Neurologic: Denies headache(s) and Denies focal weakness Psychiatric: Psychiatric: Reports depression Endocrine: Endocrine: Denies fatigue PMFSH Past Medical History Medical History (Updated 12/01/22 @ 21:11 by Fermín Tiwari RN) Acute respiratory failure with hypoxia Alcohol use disorder, severe, dependence Asthma COPD (chronic obstructive pulmonary disease) MDD (major depressive disorder) Opioid use disorder Pancreatitis Social History Social History Household Members: None Housing: House Do you presently have visiting nurse or other home services: No Alcohol intake: current Alcohol intake frequency: a few times a week Patient Tobacco Use Status: Former Tobacco user Quit Date: Pt not ready to quit per pt Tobacco use type: Cigarette Cigarette Packs Per Day: 0.5 Cigarettes Per Day: 10.0 Years Smoked: 38 e-Cigarette/Vaping Use: Former Use Second Hand Smoke Exposure: No service: No Sexual orientation: Don't Know Physical Exam ED Vital Signs: Vital Signs - 24 hr 11/30/22 17:55 12/01/22 06:00 Temperature 98.8 F 97.6 F Pulse Rate 93 67 Respiratory Rate 18 13 Blood Pressure 172/105 H 148/75 H Pulse Oximetry 96 98 Oxygen Delivery Method Room Air Room Air BMI result Body Mass Index 25.1 Const General: healthy appearing, comfortable, no acute distress, alert and awake Nutritional Appearance: well nourished Orientation/consciousness: patient oriented x3 HENMT Head: Yes normocephalic and Yes atraumatic Eyes Eyelids: Yes eyelids normal Conjunctivae: conjunctivae normal Sclerae: sclerae normal Corneas: corneas normal Pupils: Equal, round and reactive pupils present EOM: EOMs intact bilaterally Neck Neck: Yes full ROM Resp Effort & Inspection: normal respiratory effort, able to speak in complete sentences, no audible wheezes and not labored Auscultation: clear to auscultation bilaterally Cardio Rate: regular rate Rhythm: regular rhythm GI Inspection: No distended Palpation (GI): Soft to palpation, not firm, nontender, no guarding and not rigid Auscultation: normoactive bowel sounds Skin General skin exam: no rashes or lesions noted and elasticity normal Neuro General: patient oriented x3 Cranial nerves: Yes Equal, round and reactive pupils present and Yes Bilaterally intact EOM present Cognition (Neuro): normal cognition Extrem Other: Moving all extremities well without any obvious deformities Psych Appearance: grossly normal Speech and movement: Slurred speech present Affect: Sad affect present Attitude: cooperative Thought process: Normal thought process present Course Reevaluation(s) Reevaluation #1: At this time, patient is now medically cleared for care team evaluation Time: 19:35 Reevaluation #2: physician observation: patient awaiting CARE team consult, he had an uneventful night. Patient needs time to see if his depression improves or will need more indepth psychiatric intervention Time: 07:10 Medications Administered Discontinued Medications Generic Name Dose Route Start Last Admin Trade Name Freq PRN Reason Stop Dose Admin Acetaminophen 650 mg 12/01/22 20:10 12/06/22 00:30 Acetaminophen 325 Mg Tablet PO 650 mg Q6H PRN Administration Headache/Pain Mild Scale (1-3) Al Hydroxide/Mg Hydroxide 30 ml 12/01/22 20:10 12/03/22 20:14 Magnesium Hydrox/Alum Hydrox 30 Ml Oral.Susp PO 30 ml Q6H PRN Administration Heartburn/Nausea Albuterol Sulfate 2 puff 12/01/22 09:22 12/04/22 14:01 Albuterol Sulfate 90 Mcg 8 Gm Inhaler INHALE 2 puff Q4H PRN Administration Shortness Of Breath Or Wheezing Buprenorphine/Naloxone 1 film 12/01/22 09:30 12/08/22 08:33 Buprenorphine/Naloxone 8/2 Mg Film SUBLINGUAL 1 film TID SAVI Administration Bupropion HCl 300 mg 12/01/22 09:30 12/08/22 08:33 Bupropion Hcl Xl 300 Mg Tab.Er.24h PO 300 mg DAILY SAVI Administration Clonidine HCl 0.1 mg 12/01/22 09:22 12/07/22 19:34 Clonidine Hcl 0.1 Mg Tablet PO 0.1 mg BID PRN Administration anxiety Protocol Fluoxetine HCl 60 mg 12/01/22 09:30 12/08/22 08:33 Fluoxetine Hcl 20 Mg Capsule PO 60 mg DAILY SAVI Administration Fluticasone Propionate 2 puff 12/01/22 20:00 12/08/22 08:37 Fluticasone Propionate 100 Mcg Blst.W.Dev INHALE 2 puff RBID SAVI Administration Gabapentin 400 mg 12/01/22 09:30 12/08/22 08:33 Gabapentin 400 Mg Capsule PO 400 mg TID SAVI Administration Hydroxyzine HCl 25 mg 12/01/22 09:22 12/02/22 09:59 Hydroxyzine Hcl 25 Mg Tablet PO 25 mg TID PRN Administration anxiety Hydroxyzine HCl 25 mg 12/01/22 20:10 12/07/22 19:34 Hydroxyzine Hcl 25 Mg Tablet PO 25 mg Q6H PRN Administration Anxiety Lorazepam 1 mg 11/30/22 18:26 11/30/22 19:09 Lorazepam 1 Mg Tablet PO 11/30/22 18:27 1 mg ONCE ONE Administration Lorazepam 1 mg 12/01/22 08:51 12/01/22 09:08 Lorazepam 1 Mg Tablet PO 12/01/22 08:52 1 mg ONCE ONE Administration Lorazepam 2 mg 12/01/22 16:58 12/01/22 17:24 Lorazepam 1 Mg Tablet PO 2 mg RQ4H WHILE AWAKE PRN Administration Alcohol Withdrawal Lorazepam 1 mg 12/01/22 19:38 12/06/22 12:50 Lorazepam 1 Mg Tablet PO 1 mg Q4H PRN Administration ciwa 8-12 Lorazepam 2 mg 12/01/22 19:40 12/06/22 00:32 Lorazepam 1 Mg Tablet PO 2 mg Q4H PRN Administration ciwa 13-17 Lorazepam 1 mg 12/04/22 09:25 12/06/22 08:31 Lorazepam 1 Mg Tablet PO 1 mg TID SAVI Administration Lorazepam 1 mg 12/06/22 21:00 12/08/22 08:33 Lorazepam 1 Mg Tablet PO 1 mg BID SAVI Administration Lorazepam 1 mg 12/07/22 13:38 12/07/22 14:06 Lorazepam 1 Mg Tablet PO 12/07/22 13:39 1 mg ONCE ONE Administration Magnesium Oxide 400 mg 12/01/22 09:30 12/08/22 08:33 Magnesium Oxide 400 Mg Tablet PO 400 mg BID SAVI Administration Multivitamins/Vitamin C 1 tab 12/01/22 09:30 12/08/22 08:33 Multivitamin Tablet PO 1 tab DAILY SAVI Administration Naloxone HCl 4 mg 12/08/22 09:33 12/08/22 10:49 Naloxone Hcl Nasal Take Home 4 Mg [place] NOSTRILALT 12/08/22 09:34 4 mg ONCE ONE Administration Naproxen 250 mg 12/02/22 23:01 12/02/22 23:13 Naproxen 250 Mg Tablet PO 250 mg BID PRN Administration Pain, Moderate(Pain Scale 4-6) Nicotine 21 mg 12/01/22 09:22 12/08/22 08:37 Nicotine 21 Mg Patch.Td24 TRANSDERMA 21 mg DAILY PRN Administration Nicotine Cravings Non-Formulary Medication 250 mg 12/01/22 09:30 12/01/22 11:43 Disulfiram PO Not Given DAILY SAVI Quetiapine Fumarate 50 mg 12/01/22 21:00 12/07/22 19:34 Quetiapine Fumarate 50 Mg Tablet PO 50 mg BEDTIME SAVI Administration Trazodone HCl 50 mg 12/01/22 21:00 12/07/22 19:33 Trazodone Hcl 50 Mg Tablet PO 50 mg BEDTIME PRN Administration insomnia Medical Decision Making Medical Decision Making MDM Narrative: 52-year-old male presents for evaluation of alcohol abuse and depression. He appears clinically intoxicated. He reports feeling anxious. I did give him Ativan 1 mg p.o. while awaiting his workup and medical clearance. The patient will require a care team evaluation once medically cleared. He does not appear to be in severe alcohol withdrawal at this time. Differential Diagnosis Depression Alcohol abuse Acute alcohol intoxication Anxiety Alcohol withdrawal Suicidality Major depressive episode Lab Data 11/30/22 18:33 11/30/22 18:33 Labs: Lab Results 11/30/22 11/30/22 11/30/22 Range/Units 18:22 18:22 18:22 WBC (4.8-10.8) X10*3/uL RBC (4.60-5.80) X10*6/uL Hgb (14.0-18.0) g/dl Hct (42.0-52.0) % MCV (80.0-98.0) fL MCH (27.0-33.0) pg MCHC (31.0-36.0) g/dl RDW (11.0-16.0) % Plt Count (160-400) X10*3/uL MPV (9.4-12.4) fL Immature Gran % (Auto) (0.0-0.4) % Neut % (Auto) (45-73) % Lymph % (Auto) (20-40) % [place] % (Auto) (2-11) % Eos % (Auto) (0-4) % Baso % (Auto) (0-2) % Lymph # (Auto) (1.2-4.9) X10*3/uL [place] # (Auto) (0.1-1.2) X10*3/uL Eos # (Auto) (0.0-0.4) X10*3/uL Baso # (Auto) (0.0-0.2) X10*3/uL Abs Immat Gran (auto) (0.00-0.03) X10*3/uL Absolute Neuts (auto) (2.0-8.3) x10*3/uL Absolute Nucleated RBC (0.0-0.012) X10*3/uL Nucleated RBC % (auto) (0.0-0.2) /100WBC Sodium (135-145) mmol/L Potassium (3.3-5.1) mmol/L Chloride (96-108) mmol/L Carbon Dioxide (22-29) mmol/L Anion Gap (12-20) BUN (9-16) mg/dL Creatinine (0.5-1.4) mg/dL Estim Creat Clear Calc Estimated GFR Random Glucose (60-115) mg/dL Calcium (8.4-10.2) mg/dL Total Bilirubin (0.0-1.0) mg/dL AST (5-37) U/L ALT (0-40) U/L Alkaline Phosphatase (39-117) U/L Total Protein (6.5-8.0) g/dL Albumin (3.5-5.0) g/dL Urine Color Yellow Urine Appearance Clear Urine pH 6.5 (5.0-9.0) Ur Specific [place] >= 1.030 H (1.005-1.025) Urine Protein 30 (1+) H (Neg-Trace) mg/dL Urine Glucose (UA) Negative (Negative) mg/dL Urine Ketones Trace (Negative) mg/dL Urine Blood Negative (Negative) Urine Nitrite Negative (Negative) Ur Leukocyte Esterase Negative (Negative) Urine RBC 0-2 (0-2) /HPF Urine WBC 0-5 (0-5) /HPF Ur Squamous Epith Cells 0-2 (0-2) /HPF Urine Bacteria None Seen (None Seen) Hyaline Casts 0-2 (0-2) /LPF Urine Opiates Screen Not Detected (Not Detect) Urine Fentanyl Screen Not Detected (Not Detect) Ur Barbiturates Screen Not Detected (Not Detect) Ur Phencyclidine Scrn Not Detected (Not Detect) Ur Amphetamines Screen Not Detected (Not Detect) U Benzodiazepines Scrn Not Detected (Not Detect) Urine Cocaine Screen Not Detected (Not Detect) U Marijuana (THC) Screen Not Detected (Not Detect) Ethyl Alcohol mg/dL COVID-19 (DB) Negative (Negative) COVID-19 Clin Com See Note 11/30/22 11/30/22 Range/Units 18:33 18:33 WBC 8.1 (4.8-10.8) X10*3/uL RBC 4.53 L (4.60-5.80) X10*6/uL Hgb 14.2 (14.0-18.0) g/dl Hct 40.1 L (42.0-52.0) % MCV 88.5 (80.0-98.0) fL MCH 31.3 (27.0-33.0) pg MCHC 35.4 (31.0-36.0) g/dl RDW 14.6 (11.0-16.0) % Plt Count 184 D (160-400) X10*3/uL MPV 10.2 (9.4-12.4) fL Immature Gran % (Auto) 0.2 (0.0-0.4) % Neut % (Auto) 65.4 (45-73) % Lymph % (Auto) 28.8 (20-40) % [place] % (Auto) 4.6 (2-11) % Eos % (Auto) 0.4 (0-4) % Baso % (Auto) 0.6 (0-2) % Lymph # (Auto) 2.3 (1.2-4.9) X10*3/uL [place] # (Auto) 0.4 (0.1-1.2) X10*3/uL Eos # (Auto) 0.0 (0.0-0.4) X10*3/uL Baso # (Auto) 0.1 (0.0-0.2) X10*3/uL Abs Immat Gran (auto) 0.02 (0.00-0.03) X10*3/uL Absolute Neuts (auto) 5.3 (2.0-8.3) x10*3/uL Absolute Nucleated RBC 0.000 (0.0-0.012) X10*3/uL Nucleated RBC % (auto) 0.0 (0.0-0.2) /100WBC Sodium 143 (135-145) mmol/L Potassium 3.3 D (3.3-5.1) mmol/L Chloride 107 (96-108) mmol/L Carbon Dioxide 23 (22-29) mmol/L Anion Gap 16 (12-20) BUN 8 L (9-16) mg/dL Creatinine 0.76 (0.5-1.4) mg/dL Estim Creat Clear Calc 114.7 Estimated GFR > 60 Random Glucose 126 H (60-115) mg/dL Calcium 9.1 (8.4-10.2) mg/dL Total Bilirubin 0.7 (0.0-1.0) mg/dL AST 119 H (5-37) U/L ALT 69 H (0-40) U/L Alkaline Phosphatase 150 H (39-117) U/L Total Protein 7.8 (6.5-8.0) g/dL Albumin 4.1 (3.5-5.0) g/dL Urine Color Urine Appearance Urine pH (5.0-9.0) Ur Specific [place] (1.005-1.025) Urine Protein (Neg-Trace) mg/dL Urine Glucose (UA) (Negative) mg/dL Urine Ketones (Negative) mg/dL Urine Blood (Negative) Urine Nitrite (Negative) Ur Leukocyte Esterase (Negative) Urine RBC (0-2) /HPF Urine WBC (0-5) /HPF Ur Squamous Epith Cells (0-2) /HPF Urine Bacteria (None Seen) Hyaline Casts (0-2) /LPF Urine Opiates Screen (Not Detect) Urine Fentanyl Screen (Not Detect) Ur Barbiturates Screen (Not Detect) Ur Phencyclidine Scrn (Not Detect) Ur Amphetamines Screen (Not Detect) U Benzodiazepines Scrn (Not Detect) Urine Cocaine Screen (Not Detect) U Marijuana (THC) Screen (Not Detect) Ethyl Alcohol 131 mg/dL COVID-19 (DB) (Negative) COVID-19 Clin Com Discharge Plan Discharge Clinical Impression: MDD (major depressive disorder) Patient Disposition: Admitted As Inpatient Interventions: Admission Worksheet (ED) Last Done: 12/01/22 21:10 Discharge Date/Time: 12/01/22 21:11
[2022-11-30 18:57] LABS: Alanine Aminotransferase 69 U/L (0-40); Albumin Level 4.1 g/dL (3.5-5.0); Alkaline Phosphatase 150 U/L (39-117); Anion Gap 16 (12-20); Aspartate Amino Transferase 119 U/L (5-37); Bilirubin Total 0.7 mg/dL (0.0-1.0); Blood Urea Nitrogen 8 mg/dL (9-16); Calcium 9.1 mg/dL (8.4-10.2); Carbon Dioxide 23 mmol/L (22-29); Chloride 107 mmol/L (96-108); Creatinine Clr Calc Pharmacy 114.7; Estimated Glomerular Filt Rate > 60; Ethanol 131 mg/dL; Glucose Random 126 mg/dL (60-115); Potassium 3.3 mmol/L (3.3-5.1); Sodium 143 mmol/L (135-145); Total Protein 7.8 g/dL (6.5-8.0)
[2022-11-30] MEDS: LORazepam 1 MG TABLET PO (19:09)
--- NOTE | 2022-12-01 | ECG_ITS ---
Test Reason : psych meds Blood Pressure : / mmHG Vent. Rate : 091 BPM Atrial Rate : 091 BPM P-R Int : 206 ms QRS Dur : 092 ms QT Int : 380 ms P-R-T Axes : 061 -42 047 degrees QTc Int : 467 ms Normal sinus rhythm Left axis deviation Incomplete right bundle branch block Inferior infarct , age undetermined Abnormal ECG When compared with ECG of 09-NOV-2022 13:48, No significant change was found Referred By: Glenroy Gold Electronically Signed By:DOUG HALL
[2022-12-01 06:00] VITALS: BP 148/75; PULSE 67; RESP 13; TEMP 36.4; O2SAT 98
--- NOTE | 2022-12-01 06:46 | PC.NURSE ---
Patient slept through the night, no distress observed/reported, asymptomatic of ETOH at this time, Ativan 1 mg po administered @ 1909 for anxiety with + effect, VSS, med rec completed/pending provider's approval, care consult ordered/pending evaluation, will continue to monitor.
--- NOTE | 2022-12-01 08:38 | PC.NURSE ---
Assumed care of this pt at 0700. pt in room eating breakfast at the time of assuming care. pt seen by Tam from Care Team. CIWA 6, visible tremors and perspiration, clammy hands. reports feeling anxious. Dr. Gold aware. will follow-up
[2022-12-01] MEDS: LORazepam 1 MG TABLET PO (09:08)
--- NOTE | 2022-12-01 09:08 | PC.NURSE ---
Ativan given as ordered. pt in room will continue to monitor.
[2022-12-01] MEDS: FLUoxetine HCl 20 MG CAPSULE 60 MG PO (10:36)
[2022-12-01] MEDS: buPROPion HCl XL 300 MG TAB.ER.24H PO (10:37)
[2022-12-01] MEDS: Multivitamin TABLET 1 TAB PO (10:37)
[2022-12-01] MEDS: Gabapentin 400 MG CAPSULE PO ×3 (10:37→20:17)
[2022-12-01] MEDS: Magnesium Oxide 400 MG TABLET PO ×2 (10:44→20:24)
[2022-12-01] MEDS: hydrOXYzine HCL 25 MG TABLET PO (15:32)
[2022-12-01] MEDS: Albuterol Sulfate 90 MCG 8 GM INHALER 2 PUFF INHALE (16:21)
[2022-12-01] MEDS: LORazepam 1 MG TABLET 2 MG PO ×2 (17:24→20:17)
--- NOTE | 2022-12-01 17:34 | PC.NURSE ---
pt refused Suboxone this morning and this afternoon. he says that it makes him feel nauseous. [facility] morning and was wasted by 2 RNs. pt c/o being sob and requested his inhaler. also requested something for anxiety. meds given as ordered. pt resting quietly in room. plan is for admission upstairs. pt aware of plan.
[2022-12-01] MEDS: Buprenorphine/Naloxone 8/2 mg FILM 1 FILM SUBLINGUAL (20:17)
[2022-12-01] MEDS: QUEtiapine Fumarate 50 MG TABLET PO (20:17)
--- NOTE | 2022-12-01 20:57 | PC.ADMIT ---
Pt is a 52 year old male who present to [facility]5 from [facility] on a cv status. Pt is covid - and tox screen + for alcohol. Per chart review, pt called ambulance with a c/o of worsening depression, anxiety, and SI with a plan to cut his wrists. Pt was under the influence of alcoholic beverages and had been consuming alcohol throughout the day. Pts BAL was 131. During admit, pt denied SI/HI/SOB. Pt reported anxiety and depression to be a 10. Provider called for order of admission. Start treatment plan and monitor for safety
[2022-12-01 22:50] VITALS: BP 135/92; PULSE 88; TEMP 36.9; O2SAT 94
[2022-12-02] MEDS: traZODone HCL 50 MG TABLET PO (00:52)
[2022-12-02] MEDS: FLUoxetine HCl 20 MG CAPSULE 60 MG PO (08:16)
[2022-12-02] MEDS: Magnesium Oxide 400 MG TABLET PO ×2 (08:16→21:33)
[2022-12-02] MEDS: buPROPion HCl XL 300 MG TAB.ER.24H PO (08:16)
[2022-12-02] MEDS: Multivitamin TABLET 1 TAB PO (08:16)
[2022-12-02] MEDS: Gabapentin 400 MG CAPSULE PO ×3 (08:17→21:33)
[2022-12-02] MEDS: Buprenorphine/Naloxone 8/2 mg FILM 1 FILM SUBLINGUAL ×3 (08:17→22:02)
[2022-12-02 08:21] VITALS: BP 138/96; PULSE 94; RESP 18; TEMP 36.4; O2SAT 92
[2022-12-02] MEDS: LORazepam 1 MG TABLET PO ×2 (08:34→14:03)
[2022-12-02 08:37] LABS: Estimated Average Glucose 97 mg/dL
[2022-12-02] MEDS: Nicotine 21 MG PATCH.TD24 TRANSDERMA (08:37)
[2022-12-02 08:42] LABS: Alanine Aminotransferase 51 U/L (0-40); Albumin Level 3.9 g/dL (3.5-5.0); Alkaline Phosphatase 136 U/L (39-117); Anion Gap 12 (12-20); Aspartate Amino Transferase 63 U/L (5-37); Bilirubin Total 0.9 mg/dL (0.0-1.0); Blood Urea Nitrogen 12 mg/dL (9-16); Carbon Dioxide 25 mmol/L (22-29); Chloride 103 mmol/L (96-108); Cholesterol 126 mg/dL; Estimated Glomerular Filt Rate > 60; Glucose Fasting 121 mg/dL (60-99); HDL Cholesterol 28 mg/dL; LDL Cholesterol Calculated 78 mg/dl; Potassium 3.6 mmol/L (3.3-5.1); Sodium 136 mmol/L (135-145); Total Protein 7.5 g/dL (6.5-8.0); Triglycerides 104 mg/dL
[2022-12-02] MEDS: Fluticasone Propionate 100 MCG BLST.W.DEV 2 PUFF INHALE ×2 (09:48→21:32)
[2022-12-02] MEDS: Albuterol Sulfate 90 MCG 8 GM INHALER 2 PUFF INHALE (09:58)
[2022-12-02] MEDS: hydrOXYzine HCL 25 MG TABLET PO ×2 (09:59→14:03)
--- NOTE | 2022-12-02 11:46 | P.HPPS_ITS ---
HPI Date of Service: 12/02/22 Chief Complaint: SI Sources of Information: patient interviewed, chart reviewed and crisis/core team assessment reviewed HPI Subjective Notes: Conditional Voluntary Healthcare Proxy: No Guardianship: No Narrative: This is one of several inpatient psychiatric admissions this year for this 52 yo man with a history of severe major depression and alcohol dependence. Patient was recently discharged from [facility] in November. Patient was admitted with increased depression and SI. He reports after he left earlier in November, he was doing OK for a few days then he relapsed on alcohol. He says the precipitant was grieving over his . He reported drinking a sleeve or more of nips a day. He says he called crisis and was taken to [facility]. He had a BAL of 131. He reported increase depression, guilt, worthlessness, helplessness, and SI. He reports drinking while on antabuse which made him feel very ill. He reports withdrawal symptoms including shaking, restlessness, anxiety. He denies current SI and says those have resolved now. Past Psychiatric History: was admitted to and 3 following overdose attempt this year. [facility] counseling services prescribed Prozac 60 mg, Vistaril 25 mg and clonidine 0.1 mg. Previously on Zoloft. Never n Remeron, prazosin or Effexor. Medical Evaluation Reviewed: Yes [facility] Medical History (Updated 12/01/22 @ 21:11 by Fermín Tiwari RN) Acute respiratory failure with hypoxia Alcohol use disorder, severe, dependence Asthma COPD (chronic obstructive pulmonary disease) MDD (major depressive disorder) Opioid use disorder Pancreatitis Family History: brother: substance abuse Social History: March 2022. Had been together for 15 years. estranged from several family; angry at mother; does not get to see grandson. two adult children born in 1984 in 1994. 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 Substance History: Alcohol dependence Trauma History: deferred Diagnostics Vital Signs (24Hr): Vital Signs - 24 hr 12/01/22 22:50 12/02/22 08:21 Temperature 98.4 F 97.6 F Pulse Rate 88 94 Respiratory Rate 18 Blood Pressure 135/92 H 138/96 H Pulse Oximetry 94 92 Oxygen Delivery Method Room Air Room Air BMI result Body Mass Index 25.1 Labs 11/30/22 18:33 12/02/22 08:15 Labs: Laboratory Results - last 48 hr 11/30/22 11/30/22 11/30/22 18:22 18:22 18:22 WBC RBC Hgb Hct MCV MCH MCHC RDW Plt Count MPV Immature Gran % (Auto) Neut % (Auto) Lymph % (Auto) Emanuel % (Auto) Eos % (Auto) Baso % (Auto) Lymph # (Auto) Emanuel # (Auto) Eos # (Auto) Baso # (Auto) Abs Immat Gran (auto) Absolute Neuts (auto) Absolute Nucleated RBC Nucleated RBC % (auto) Sodium Potassium Chloride Carbon Dioxide Anion Gap BUN Creatinine Estim Creat Clear Calc Estimated GFR Random Glucose Fasting Glucose Estimat Average Glucose Hemoglobin A1c % Calcium Total Bilirubin AST ALT Alkaline Phosphatase Total Protein Albumin Triglycerides Cholesterol LDL Cholesterol, Calc HDL Cholesterol Urine Color Yellow Urine Appearance Clear Urine pH 6.5 Ur Specific Thornton >= 1.030 H Urine Protein 30 (1+) H Urine Glucose (UA) Negative Urine Ketones Trace Urine Blood Negative Urine Nitrite Negative Ur Leukocyte Esterase Negative Urine RBC 0-2 Urine WBC 0-5 Ur Squamous Epith Cells 0-2 Urine Bacteria None Seen Hyaline Casts 0-2 Urine Opiates Screen Not Detected Urine Fentanyl Screen Not Detected Ur Barbiturates Screen Not Detected Ur Phencyclidine Scrn Not Detected Ur Amphetamines Screen Not Detected U Benzodiazepines Scrn Not Detected Urine Cocaine Screen Not Detected U Marijuana (THC) Screen Not Detected Ethyl Alcohol COVID-19 (DB) Negative COVID-19 Clin Com See Note 11/30/22 11/30/22 12/02/22 18:33 18:33 08:15 WBC 8.1 RBC 4.53 L Hgb 14.2 Hct 40.1 L MCV 88.5 MCH 31.3 MCHC 35.4 RDW 14.6 Plt Count 184 D MPV 10.2 Immature Gran % (Auto) 0.2 Neut % (Auto) 65.4 Lymph % (Auto) 28.8 Emanuel % (Auto) 4.6 Eos % (Auto) 0.4 Baso % (Auto) 0.6 Lymph # (Auto) 2.3 Emanuel # (Auto) 0.4 Eos # (Auto) 0.0 Baso # (Auto) 0.1 Abs Immat Gran (auto) 0.02 Absolute Neuts (auto) 5.3 Absolute Nucleated RBC 0.000 Nucleated RBC % (auto) 0.0 Sodium 143 136 Potassium 3.3 D 3.6 Chloride 107 103 Carbon Dioxide 23 25 Anion Gap 16 12 BUN 8 L 12 Creatinine 0.76 0.83 Estim Creat Clear Calc 114.7 105.0 Estimated GFR > 60 > 60 Random Glucose 126 H Fasting Glucose 121 H Estimat Average Glucose Hemoglobin A1c % Calcium 9.1 9.0 Total Bilirubin 0.7 0.9 AST 119 H 63 H ALT 69 H 51 H Alkaline Phosphatase 150 H 136 H Total Protein 7.8 7.5 Albumin 4.1 3.9 Triglycerides 104 Cholesterol 126 LDL Cholesterol, Calc 78 HDL Cholesterol 28 Urine Color Urine Appearance Urine pH Ur Specific Thornton Urine Protein Urine Glucose (UA) Urine Ketones Urine Blood Urine Nitrite Ur Leukocyte Esterase Urine RBC Urine WBC Ur Squamous Epith Cells Urine Bacteria Hyaline Casts Urine Opiates Screen Urine Fentanyl Screen Ur Barbiturates Screen Ur Phencyclidine Scrn Ur Amphetamines Screen U Benzodiazepines Scrn Urine Cocaine Screen U Marijuana (THC) Screen Ethyl Alcohol 131 COVID-19 (DB) [facility] 12/02/22 08:15 WBC RBC Hgb Hct MCV MCH MCHC RDW Plt Count MPV Immature Gran % (Auto) Neut % (Auto) Lymph % (Auto) Emanuel % (Auto) Eos % (Auto) Baso % (Auto) Lymph # (Auto) Emanuel # (Auto) Eos # (Auto) Baso # (Auto) Abs Immat Gran (auto) Absolute Neuts (auto) Absolute Nucleated RBC Nucleated RBC % (auto) Sodium Potassium Chloride Carbon Dioxide Anion Gap BUN Creatinine Estim Creat Clear Calc Estimated GFR Random Glucose Fasting Glucose Estimat Average Glucose 97 Hemoglobin A1c % 5.0 Calcium Total Bilirubin AST ALT Alkaline Phosphatase Total Protein Albumin Triglycerides Cholesterol LDL Cholesterol, Calc HDL Cholesterol Urine Color Urine Appearance Urine pH Ur Specific Thornton Urine Protein Urine Glucose (UA) Urine Ketones Urine Blood Urine Nitrite Ur Leukocyte Esterase Urine RBC Urine WBC Ur Squamous Epith Cells Urine Bacteria Hyaline Casts Urine Opiates Screen Urine Fentanyl Screen Ur Barbiturates Screen Ur Phencyclidine Scrn Ur Amphetamines Screen U Benzodiazepines Scrn Urine Cocaine Screen U Marijuana (THC) Screen Ethyl Alcohol COVID-19 (DB) [facility] Meds/Allergies Meds Home Medications Medication Instructions Recorded Confirmed Type albuterol sulfate 90 mcg/actuation 2 puff inhalation Q4H PRN 11/30/22 11/30/22 History aerosol inhaler (Ventolin HFA) Shortness Of Breath Or Wheezing buprenorphine 8 mg-naloxone 2 mg 1 film sublingual TID 11/30/22 11/30/22 History sublingual film (Suboxone) bupropion HCl 300 mg 24 hr tablet, 300 mg PO DAILY 11/30/22 11/30/22 History extended release clonidine HCl 0.1 mg tablet 0.1 mg PO BID PRN anxiety 11/30/22 11/30/22 History disulfiram 250 mg tablet 250 mg PO DAILY 11/30/22 11/30/22 History fluoxetine 20 mg capsule 60 mg PO DAILY 11/30/22 11/30/22 History fluticasone propionate 110 2 puff inhalation BID 11/30/22 11/30/22 History mcg/actuation HFA aerosol inhaler (Flovent HFA) gabapentin 400 mg capsule 400 mg PO TID 11/30/22 11/30/22 History hydroxyzine pamoate 25 mg capsule 25 mg PO TID PRN anxiety 11/30/22 11/30/22 History magnesium oxide 400 mg (241.3 mg 400 mg PO BID 11/30/22 11/30/22 History magnesium) tablet multivitamin 1 tab PO DAILY 11/30/22 11/30/22 History nicotine 21 mg/24 hr daily 1 patch topical DAILY PRN Nicotine 11/30/22 11/30/22 History transdermal patch Cravings quetiapine 50 mg tablet 50 mg PO BEDTIME 11/30/22 11/30/22 History trazodone 50 mg tablet 50 mg PO BEDTIME PRN insomnia 11/30/22 11/30/22 History Allergies Allergies Allergy/AdvReac Type Severity Reaction Status Date / Time levofloxacin Allergy Unknown Unknown Verified 11/30/22 18:24 chlorpromazine Allergy Unknown unknown Uncoded 11/30/22 18:24 Mental Status Exam Mental Status Exam Narrative: Pt is alert and oriented; behavior is cooperative, tearful;? patient is res tless; dressed in hospital attire, scruffy and unkempt; mood is described as depressed and affect congruent, tearful; eye contact appropriate; Speech is normal rate, volume and prosody and not pressured; no psychomotor agitation/retardation present; thought process is organized and goal directed; Thought content is on tx and grief; otherwise pertinent to relevant topics and without any delusional content, paranoid ideations or grandiosity; denies any SI/HI. There is no evidence of perceptual disturbance. ?Patients insight and judgment appear fair. Assessment & Plan Assessment & Plan (1) MDD (major depressive disorder): Status: Acute Code(s): F32.9 - Major depressive disorder, single episode, unspecified (2) Alcohol use disorder, severe, dependence: Status: Acute Code(s): F10.20 - Alcohol dependence, uncomplicated Plan Pt is 52-year-old male with MDD, PTSD and alcohol use disorder, who presents for 5th admission in the past 5 months for? depression and SI in the face of non- medication adherence, relapse with alcohol and mourning his recently . Patient discharged on 11/20/22.? He says he states over for a few days but soon relapsed, stop taking his medications, depression worsened and he again developed suicidal thinking.? He called and self presented instead.? Patient reports suicidality has resolved.? He is future oriented.? Plan: CV Q 15 minute checks CIWA with Ativan p.r.n. Gabapentin 400 mg t.i.d. Prozac 60 mg was restarted Wellbutrin Seroquel 50 mg q.h.s. p.r.n. Trazodone 50 mg q.h.s. Zyprexa 2.5 mg b.i.d. Suboxone 8/2 mg t.i.d. Patient educated on: substance abuse and therapeutic strategies Informed Consent: understands Reason for continued inpatient stay Substantial Risk for: harm to self, rapid decompensation and med/psych decompensation Statement Statement: I have reviewed the history and physical and performed a pertinent examination on my patient. No changes have occurred unless specified. If the History and Physical was not performed prior to admission, the Hospitalist's service will be consulted for completing the admission physical. Time Spent With Patient Time: Total time managing care of this patient today ____ minutes.
[2022-12-02 16:35] VITALS: BP 142/81; PULSE 111; TEMP 36.9
[2022-12-02] MEDS: cloNIDine HCL 0.1 MG TABLET PO (16:37)
[2022-12-02] MEDS: LORazepam 1 MG TABLET 2 MG PO (18:12)
[2022-12-02] MEDS: QUEtiapine Fumarate 50 MG TABLET PO (21:33)
[2022-12-02] MEDS: Acetaminophen 325 MG TABLET 650 MG PO (21:37)
[2022-12-02] MEDS: NaPROXEN 250 MG TABLET PO (23:13)
[2022-12-03] MEDS: LORazepam 1 MG TABLET 2 MG PO (02:10)
[2022-12-03 02:16] VITALS: BP 118/76; PULSE 92; RESP 18; TEMP 36.8
[2022-12-03] MEDS: FLUoxetine HCl 20 MG CAPSULE 60 MG PO (08:34)
[2022-12-03] MEDS: LORazepam 1 MG TABLET PO ×3 (08:34→22:01)
[2022-12-03] MEDS: Multivitamin TABLET 1 TAB PO (08:34)
[2022-12-03] MEDS: Fluticasone Propionate 100 MCG BLST.W.DEV 2 PUFF INHALE ×2 (08:34→19:58)
[2022-12-03] MEDS: Magnesium Oxide 400 MG TABLET PO ×2 (08:34→19:56)
[2022-12-03] MEDS: Gabapentin 400 MG CAPSULE PO ×3 (08:34→19:56)
[2022-12-03] MEDS: Buprenorphine/Naloxone 8/2 mg FILM 1 FILM SUBLINGUAL ×3 (08:34→19:56)
[2022-12-03] MEDS: buPROPion HCl XL 300 MG TAB.ER.24H PO (08:34)
[2022-12-03] MEDS: Nicotine 21 MG PATCH.TD24 TRANSDERMA (08:37)
[2022-12-03 08:39] VITALS: BP 124/91; PULSE 86; RESP 16; TEMP 36.8; O2SAT 95
--- NOTE | 2022-12-03 10:28 | P.PNPSI_ITS ---
Subjective Subjective Date of Service: 12/03/22 Reason For Visit: SI Interim History: Patient reports feeling so so . Says he is shaky and anxious due to alcohol withdrawal. He is on CIWA. He receives Lorazepam for withdrawals. He denies SI. He is complaint with medications. Review of Systems Constitutional: Reports as per HPI, Denies chills, Denies fatigue, Denies fever(s) and Denies headache(s) Denies headache(s) Cardiovascular: Denies chest pain and Denies dyspnea Respiratory: Denies cough and Denies dyspnea Gastrointestinal: Denies abdominal pain, Denies constipation and Denies vomiting Genitourinary: Denies difficulty urinating and Denies dysuria Denies headache(s) and Denies focal weakness Psychiatric: Reports depression Endocrine: Denies fatigue Mental Status Exam Mental Status Exam Narrative: Pt is alert and oriented; behavior is cooperative, tearful;? patient is restl ess; dressed in hospital attire, scruffy and unkempt; mood is described as depressed and affect congruent, tearful; eye contact appropriate; Speech is normal rate, volume and prosody and not pressured; no psychomotor agitation/retardation present; thought process is organized and goal directed; Thought content is on tx and grief; otherwise pertinent to relevant topics and without any delusional content, paranoid ideations or grandiosity; denies any SI/HI. There is no evidence of perceptual disturbance. ?Patients insight and judgment appear fair. Diagnostics Vital Signs (24Hr): Vital Signs - 24 hr 12/02/22 16:35 12/03/22 02:16 12/03/22 08:39 Temperature 98.5 F 98.3 F 98.3 F Pulse Rate 111 H 92 86 Respiratory Rate 18 16 Blood Pressure 142/81 H 118/76 124/91 H Pulse Oximetry 95 Oxygen Delivery Method Room Air BMI result Body Mass Index 25.1 Labs 11/30/22 18:33 12/02/22 08:15 Labs: Laboratory Results - last 48 hr 12/02/22 12/02/22 08:15 08:15 Sodium 136 Potassium 3.6 Chloride 103 Carbon Dioxide 25 Anion Gap 12 BUN 12 Creatinine 0.83 Estim Creat Clear Calc 105.0 Estimated GFR > 60 Fasting Glucose 121 H Estimat Average Glucose 97 Hemoglobin A1c % 5.0 Calcium 9.0 Total Bilirubin 0.9 AST 63 H ALT 51 H Alkaline Phosphatase 136 H Total Protein 7.5 Albumin 3.9 Triglycerides 104 Cholesterol 126 LDL Cholesterol, Calc 78 HDL Cholesterol 28 Medications Medications Current Medications Acetaminophen (Acetaminophen 325 Mg Tablet) 650 mg PO Q6H PRN PRN Reason: Headache/Pain Mild Scale (1-3) Last Admin: 12/02/22 21:37 Dose: 650 mg Al Hydroxide/Mg Hydroxide (Magnesium Hydrox/Alum Hydrox 30 Ml Oral.Susp) 30 ml PO Q6H PRN PRN Reason: Heartburn/Nausea Albuterol Sulfate (Albuterol Sulfate 90 Mcg 8 Gm Inhaler) 2 puff INHALE Q4H PRN PRN Reason: Shortness Of Breath Or Wheezing Last Admin: 12/02/22 09:58 Dose: 2 puff Buprenorphine/Naloxone (Buprenorphine/Naloxone 8/2 Mg Film) 1 film SUBLINGUAL TID [facility] Last Admin: 12/03/22 08:34 Dose: 1 film Bupropion HCl (Bupropion Hcl Xl 300 Mg Tab.Er.24h) 300 mg PO DAILY [facility] Last Admin: 12/03/22 08:34 Dose: 300 mg Clonidine HCl (Clonidine Hcl 0.1 Mg Tablet) 0.1 mg PO BID PRN; Protocol PRN Reason: anxiety Last Admin: 12/02/22 16:37 Dose: 0.1 mg Fluoxetine HCl (Fluoxetine Hcl 20 Mg Capsule) 60 mg PO DAILY [facility] Last Admin: 12/03/22 08:34 Dose: 60 mg Fluticasone Propionate (Fluticasone Propionate 100 Mcg Blst.W.Dev) 2 puff INHA LE RBID [facility] Last Admin: 12/03/22 08:34 Dose: 2 puff Gabapentin (Gabapentin 400 Mg Capsule) 400 mg PO TID [facility] Last Admin: 12/03/22 08:34 Dose: 400 mg Hydroxyzine HCl (Hydroxyzine Hcl 25 Mg Tablet) 25 mg PO Q6H PRN PRN Reason: Anxiety Last Admin: 12/02/22 14:03 Dose: 25 mg Lidocaine (Lidocaine 4 % Patch Adh..Patch) 1 patch TRANSDERMA DAILY PRN; Protoc ol PRN Reason: Pain, Moderate(Pain Scale 4-6) Lorazepam (Lorazepam 1 Mg Tablet) 1 mg PO Q4H PRN PRN Reason: ciwa 8-12 Last Admin: 12/03/22 08:34 Dose: 1 mg Lorazepam (Lorazepam 1 Mg Tablet) 2 mg PO Q4H PRN PRN Reason: ciwa 13-17 Last Admin: 12/03/22 02:10 Dose: 2 mg Magnesium Hydroxide (Milk Of Magnesia 30 Ml Oral.Susp) 30 ml PO DAILY PRN PRN Reason: Constipation Magnesium Oxide (Magnesium Oxide 400 Mg Tablet) 400 mg PO BID [facility]I Last Admin: 12/03/22 08:34 Dose: 400 mg Multivitamins/Vitamin C (Multivitamin Tablet) 1 tab PO DAILY [facility] Last Admin: 12/03/22 08:34 Dose: 1 tab Naproxen (Naproxen 250 Mg Tablet) 250 mg PO BID PRN PRN Reason: Pain, Moderate(Pain Scale 4-6) Last Admin: 12/02/22 23:13 Dose: 250 mg Nicotine (Nicotine 21 Mg Patch.Td24) 21 mg TRANSDERMA DAILY PRN PRN Reason: Nicotine Cravings Last Admin: 12/03/22 08:37 Dose: 21 mg Quetiapine Fumarate (Quetiapine Fumarate 50 Mg Tablet) 50 mg PO BEDTIME [facility]AVI Last Admin: 12/02/22 21:33 Dose: 50 mg Trazodone HCl (Trazodone Hcl 50 Mg Tablet) 50 mg PO BEDTIME PRN PRN Reason: insomnia Last Admin: 12/02/22 00:52 Dose: 50 mg Trazodone HCl (Trazodone Hcl 50 Mg Tablet) 50 mg PO BEDTIME MRX1 PRN PRN Reason: Insomnia Allergies Allergies Allergy/AdvReac Type Severity Reaction Status Date / Time levofloxacin Allergy Unknown Unknown Verified 11/30/22 18:24 chlorpromazine Allergy Unknown unknown Uncoded 11/30/22 18:24 Assessment & Plan Assessment & Plan (1) MDD (major depressive disorder): Status: Acute Code(s): F32.9 - Major depressive disorder, single episode, unspecified (2) Alcohol use disorder, severe, dependence: Status: Acute Code(s): F10.20 - Alcohol dependence, uncomplicated Plan Pt is 52-year-old male with MDD, PTSD and alcohol use disorder, who presents for 5th admission in the past 5 months for? depression and SI in the face of non- medication adherence, relapse with alcohol and mourning his recently . Patient discharged on 11/20/22.? He says he states over for a few days but soon relapsed, stop taking his medications, depression worsened and he again developed suicidal thinking.? He called and self presented instead.? Patient reports suicidality has resolved.? He is future oriented.? Plan: CV Q 15 minute checks CIWA with Ativan p.r.n. Gabapentin 400 mg t.i.d. Prozac 60 mg was restarted Wellbutrin Seroquel 50 mg q.h.s. p.r.n. Trazodone 50 mg q.h.s. Zyprexa 2.5 mg b.i.d. Suboxone 8/2 mg t.i.d. 12/03: Continue current treatment plan. Reason for continued inpatient stay Substantial Risk for: harm to self, inability to function and rapid decompensation Time Spent With Patient Time: Total time managing care of this patient today ____ minutes.
[2022-12-03] MEDS: Albuterol Sulfate 90 MCG 8 GM INHALER 2 PUFF INHALE (12:27)
[2022-12-03 15:55] VITALS: BP 141/83; PULSE 86
[2022-12-03] MEDS: cloNIDine HCL 0.1 MG TABLET PO (18:17)
[2022-12-03] MEDS: hydrOXYzine HCL 25 MG TABLET PO (18:17)
[2022-12-03 18:18] VITALS: BP 130/81; PULSE 95
[2022-12-03] MEDS: traZODone HCL 50 MG TABLET PO (19:56)
[2022-12-03] MEDS: QUEtiapine Fumarate 50 MG TABLET PO (19:56)
[2022-12-03] MEDS: Magnesium Hydrox/Alum Hydrox 30 ML ORAL.SUSP PO (20:14)
[2022-12-04 08:05] VITALS: BP 119/79; PULSE 79; RESP 18; TEMP 36.8; O2SAT 96
[2022-12-04] MEDS: buPROPion HCl XL 300 MG TAB.ER.24H PO (08:11)
[2022-12-04] MEDS: LORazepam 1 MG TABLET PO ×4 (08:11→21:35)
[2022-12-04] MEDS: Magnesium Oxide 400 MG TABLET PO ×2 (08:11→21:35)
[2022-12-04] MEDS: Gabapentin 400 MG CAPSULE PO ×3 (08:11→21:35)
[2022-12-04] MEDS: Multivitamin TABLET 1 TAB PO (08:12)
[2022-12-04] MEDS: Buprenorphine/Naloxone 8/2 mg FILM 1 FILM SUBLINGUAL ×3 (08:12→21:35)
[2022-12-04] MEDS: Fluticasone Propionate 100 MCG BLST.W.DEV 2 PUFF INHALE ×2 (08:16→21:35)
[2022-12-04] MEDS: FLUoxetine HCl 20 MG CAPSULE 60 MG PO (08:16)
--- NOTE | 2022-12-04 09:23 | P.PNPSI_ITS ---
Subjective Subjective Date of Service: 12/04/22 Reason For Visit: SI Interim History: Met with patient; discussed with team; reviewed chart Patient reports that when he left he started drinking; he had been on disulfiram and says he got very sick and it lasted a few hours however he stopped taking this offer him and then after another day or so started drinking again; patient said that he became suicidal and thus re-presented. Patient says he is feeling a little better now. He says he must get out of this apartment because it is reminding him of his and he can not seem to get over it. Patient floated the idea of going to a [facility] which is a treatment program he knows about it was to her; he said he would discuss this with social work. Patient says he continues to have tremors from withdrawal. Reviewed CIWA and patient is still scoring Mental Status Exam Mental Status Exam Narrative: Pt is alert and oriented; behavior is cooperative, , intermittently tearful; dressed in hospital attire, shaved; mood is described as depressed and affect congruent, intermittently tearful; eye contact appropriate; Speech is normal rate, volume and prosody and not pressured; no psychomotor agitation/retardation present; thought process is organized and goal directed; Thought content is on tx and grief; otherwise pertinent to relevant topics and without any delusional content, paranoid ideations or grandiosity; denies any SI/HI. There is no evidence of perceptual disturbance. ?Patients insight and judgment impaired but improved and at baseline. Diagnostics Vital Signs (24Hr): Vital Signs - 24 hr 12/03/22 15:55 12/03/22 18:18 12/04/22 08:05 Temperature 98.3 F Pulse Rate 86 95 79 Respiratory Rate 18 Blood Pressure 141/83 H 130/81 119/79 Pulse Oximetry 96 Oxygen Delivery Method Room Air BMI result Body Mass Index 25.1 Labs 11/30/22 18:33 12/02/22 08:15 Medications Medications Current Medications Acetaminophen (Acetaminophen 325 Mg Tablet) 650 mg PO Q6H PRN PRN Reason: Headache/Pain Mild Scale (1-3) Last Admin: 12/02/22 21:37 Dose: 650 mg Al Hydroxide/Mg Hydroxide (Magnesium Hydrox/Alum Hydrox 30 Ml Oral.Susp) 30 ml PO Q6H PRN PRN Reason: Heartburn/Nausea Last Admin: 12/03/22 20:14 Dose: 30 ml Albuterol Sulfate (Albuterol Sulfate 90 Mcg 8 Gm Inhaler) 2 puff INHALE Q4H PRN PRN Reason: Shortness Of Breath Or Wheezing Last Admin: 12/03/22 12:27 Dose: 2 puff Buprenorphine/Naloxone (Buprenorphine/Naloxone 8/2 Mg Film) 1 film SUBLINGUAL TID [facility] Last Admin: 12/04/22 08:12 Dose: 1 film Bupropion HCl (Bupropion Hcl Xl 300 Mg Tab.Er.24h) 300 mg PO DAILY [facility] Last Admin: 12/04/22 08:11 Dose: 300 mg Clonidine HCl (Clonidine Hcl 0.1 Mg Tablet) 0.1 mg PO BID PRN; Protocol PRN Reason: anxiety Last Admin: 12/03/22 18:17 Dose: 0.1 mg Fluoxetine HCl (Fluoxetine Hcl 20 Mg Capsule) 60 mg PO DAILY [facility] Last Admin: 12/04/22 08:16 Dose: 60 mg Fluticasone Propionate (Fluticasone Propionate 100 Mcg Blst.W.Dev) 2 puff INHALE RBID [facility] Last Admin: 12/04/22 08:16 Dose: 2 puff Gabapentin (Gabapentin 400 Mg Capsule) 400 mg PO TID [facility] Last Admin: 12/04/22 08:11 Dose: 400 mg Hydroxyzine HCl (Hydroxyzine Hcl 25 Mg Tablet) 25 mg PO Q6H PRN PRN Reason: Anxiety Last Admin: 12/03/22 18:17 Dose: 25 mg Lidocaine (Lidocaine 4 % Patch Adh..Patch) 1 patch TRANSDERMA DAILY PRN; Protocol PRN Reason: Pain, Moderate(Pain Scale 4-6) Lorazepam (Lorazepam 1 Mg Tablet) 1 mg PO Q4H PRN PRN Reason: ciwa 8-12 Last Admin: 12/04/22 08:11 Dose: 1 mg Lorazepam (Lorazepam 1 Mg Tablet) 2 mg PO Q4H PRN PRN Reason: ciwa 13-17 Last Admin: 12/03/22 02:10 Dose: 2 mg Magnesium Hydroxide (Milk Of Magnesia 30 Ml Oral.Susp) 30 ml PO DAILY PRN PRN Reason: Constipation Magnesium Oxide (Magnesium Oxide 400 Mg Tablet) 400 mg PO BID [facility] Last Admin: 12/04/22 08:11 Dose: 400 mg Multivitamins/Vitamin C (Multivitamin Tablet) 1 tab PO DAILY [facility] Last Admin: 12/04/22 08:12 Dose: 1 tab Naproxen (Naproxen 250 Mg Tablet) 250 mg PO BID PRN PRN Reason: Pain, Moderate(Pain Scale 4-6) Last Admin: 12/02/22 23:13 Dose: 250 mg Nicotine (Nicotine 21 Mg Patch.Td24) 21 mg TRANSDERMA DAILY PRN PRN Reason: Nicotine Cravings Last Admin: 12/03/22 08:37 Dose: 21 mg Quetiapine Fumarate (Quetiapine Fumarate 50 Mg Tablet) 50 mg PO BEDTIME [facility] Last Admin: 12/03/22 19:56 Dose: 50 mg Trazodone HCl (Trazodone Hcl 50 Mg Tablet) 50 mg PO BEDTIME PRN PRN Reason: insomnia Last Admin: 12/03/22 19:56 Dose: 50 mg Trazodone HCl (Trazodone Hcl 50 Mg Tablet) 50 mg PO BEDTIME MRX1 PRN PRN Reason: Insomnia Allergies Allergies Allergy/AdvReac Type Severity Reaction Status Date / Time levofloxacin Allergy Unknown Unknown Verified 11/30/22 18:24 chlorpromazine Allergy Unknown unknown Uncoded 11/30/22 18:24 Assessment & Plan Assessment & Plan (1) MDD (major depressive disorder): Status: Acute Code(s): F32.9 - Major depressive disorder, single episode, unspecified (2) Alcohol use disorder, severe, dependence: Status: Acute Code(s): F10.20 - Alcohol dependence, uncomplicated Plan Pt is 52-year-old male with MDD, PTSD and alcohol use disorder, who presents for 5th admission in the past 5 months for? depression and SI in the face of non- medication adherence, relapse with alcohol and mourning his recently . Patient discharged on 11/20/22.? He says he states over for a few days but soon relapsed, stop taking his medications, depression worsened and he again developed suicidal thinking.? He called and self presented instead.? Patient reports suicidality has resolved.? He is future oriented.? Hospital course: 12/04 Will continue current treatment regimen; will added Ativan scheduled and then tapered off for continue withdrawal symptoms. Patient brought up a treatment program on his own, the 1st time he initiated such an idea. -patient tried to drink gone to self for him; he did stop it and then tried to drink again after a couple days; likely this medication is not effective for patient and given its side effects/risk profile will not restart at this time. Plan: CV Q 15 minute checks Add Ativan 1 mg t.i.d. and taper Continue CIWA with Ativan p.r.n. Gabapentin 400 mg t.i.d. Prozac 60 mg was restarted Continue Wellbutrin Seroquel 50 mg q.h.s. p.r.n. Trazodone 50 mg q.h.s. Zyprexa 2.5 mg b.i.d. Suboxone 8/2 mg t.i.d. Patient educated on: diagnosis, medication risk/benefits, substance abuse and therapeutic strategies Informed Consent: understands Reason for continued inpatient stay Substantial Risk for: rapid decompensation Time Spent With Patient Time: Total time managing care of this patient today ____ minutes.
[2022-12-04] MEDS: Nicotine 21 MG PATCH.TD24 TRANSDERMA (09:24)
--- NOTE | 2022-12-04 11:12 | PC.NURSE ---
Patient states that he is an intermittent smoke, states he has been smoking less.
[2022-12-04] MEDS: Albuterol Sulfate 90 MCG 8 GM INHALER 2 PUFF INHALE (14:01)
[2022-12-04] MEDS: hydrOXYzine HCL 25 MG TABLET PO (15:30)
[2022-12-04 18:00] VITALS: BP 125/70; PULSE 72; TEMP 36.2; O2SAT 93
[2022-12-04] MEDS: LORazepam 1 MG TABLET 2 MG PO (18:34)
[2022-12-04] MEDS: QUEtiapine Fumarate 50 MG TABLET PO (21:35)
[2022-12-05] MEDS: Magnesium Oxide 400 MG TABLET PO ×2 (08:26→21:08)
[2022-12-05] MEDS: Multivitamin TABLET 1 TAB PO (08:26)
[2022-12-05] MEDS: Gabapentin 400 MG CAPSULE PO ×3 (08:26→21:08)
[2022-12-05] MEDS: Fluticasone Propionate 100 MCG BLST.W.DEV 2 PUFF INHALE ×2 (08:26→21:02)
[2022-12-05] MEDS: LORazepam 1 MG TABLET PO ×3 (08:27→21:08)
[2022-12-05] MEDS: Buprenorphine/Naloxone 8/2 mg FILM 1 FILM SUBLINGUAL ×3 (08:27→21:08)
[2022-12-05] MEDS: FLUoxetine HCl 20 MG CAPSULE 60 MG PO (08:27)
[2022-12-05] MEDS: buPROPion HCl XL 300 MG TAB.ER.24H PO (08:27)
[2022-12-05 08:38] VITALS: BP 120/79; PULSE 94; RESP 16; TEMP 36; O2SAT 94
--- NOTE | 2022-12-05 09:50 | HO.PSYCHPN ---
Subjective Subjective Date of Service: 12/05/22 Reason For Visit: SI Interim History: Met with patient; discussed with team Patient reports he still depressed but no suicidality. He is planning to go to [facility] on discharge. He said that he is working on getting a place for his Cat. It then he will call mood program daily until he can get a bed and have his brother or sister drive him there. Patient complains of continued withdrawal symptoms. Mental Status Exam Mental Status Exam Narrative: Pt is alert and oriented; behavior is cooperative, , intermittently tearful; dressed in hospital attire, shaved; mood is described as depressed and affect congruent, intermittently tearful; eye contact appropriate; Speech is normal rate, volume and prosody and not pressured; no psychomotor agitation/retardation present; thought process is organized and goal directed; Thought content is on tx and grief; otherwise pertinent to relevant topics and without any delusional content, paranoid ideations or grandiosity; denies any SI/HI. There is no evidence of perceptual disturbance. ?Patients insight and judgment impaired but improved and at baseline. Diagnostics Vital Signs (24Hr): Vital Signs - 24 hr 12/04/22 18:00 12/05/22 08:38 Temperature 97.1 F 96.8 F Pulse Rate 72 94 Respiratory Rate 16 Blood Pressure 125/70 120/79 Pulse Oximetry 93 94 Oxygen Delivery Method Room Air Room Air BMI result Body Mass Index 25.1 Labs 11/30/22 18:33 12/02/22 08:15 Medications Medications Current Medications Acetaminophen (Acetaminophen 325 Mg Tablet) 650 mg PO Q6H PRN PRN Reason: Headache/Pain Mild Scale (1-3) Last Admin: 12/02/22 21:37 Dose: 650 mg Al Hydroxide/Mg Hydroxide (Magnesium Hydrox/Alum Hydrox 30 Ml Oral.Susp) 30 ml PO Q6H PRN PRN Reason: Heartburn/Nausea Last Admin: 12/03/22 20:14 Dose: 30 ml Albuterol Sulfate (Albuterol Sulfate 90 Mcg 8 Gm Inhaler) 2 puff INHALE Q4H PRN PRN Reason: Shortness Of Breath Or Wheezing Last Admin: 12/04/22 14:01 Dose: 2 puff Buprenorphine/Naloxone (Buprenorphine/Naloxone 8/2 Mg Film) 1 film SUBLINGUAL TID SAVI Last Admin: 12/05/22 08:27 Dose: 1 film Bupropion HCl (Bupropion Hcl Xl 300 Mg Tab.Er.24h) 300 mg PO DAILY [facility] Last Admin: 12/05/22 08:27 Dose: 300 mg Clonidine HCl (Clonidine Hcl 0.1 Mg Tablet) 0.1 mg PO BID PRN; Protocol PRN Reason: anxiety Last Admin: 12/03/22 18:17 Dose: 0.1 mg Fluoxetine HCl (Fluoxetine Hcl 20 Mg Capsule) 60 mg PO DAILY [facility] Last Admin: 12/05/22 08:27 Dose: 60 mg Fluticasone Propionate (Fluticasone Propionate 100 Mcg Blst.W.Dev) 2 puff INHALE RBID [facility] Last Admin: 12/05/22 08:26 Dose: 2 puff Gabapentin (Gabapentin 400 Mg Capsule) 400 mg PO TID [facility] Last Admin: 12/05/22 08:26 Dose: 400 mg Hydroxyzine HCl (Hydroxyzine Hcl 25 Mg Tablet) 25 mg PO Q6H PRN PRN Reason: Anxiety Last Admin: 12/04/22 15:30 Dose: 25 mg Lidocaine (Lidocaine 4 % Patch Adh..Patch) 1 patch TRANSDERMA DAILY PRN; Protocol PRN Reason: Pain, Moderate(Pain Scale 4-6) Lorazepam (Lorazepam 1 Mg Tablet) 1 mg PO Q4H PRN PRN Reason: ciwa 8-12 Last Admin: 12/04/22 08:11 Dose: 1 mg Lorazepam (Lorazepam 1 Mg Tablet) 2 mg PO Q4H PRN PRN Reason: ciwa 13-17 Last Admin: 12/04/22 18:34 Dose: 2 mg Lorazepam (Lorazepam 1 Mg Tablet) 1 mg PO TID [facility] Last Admin: 12/05/22 08:27 Dose: 1 mg Magnesium Hydroxide (Milk Of Magnesia 30 Ml Oral.Susp) 30 ml PO DAILY PRN PRN Reason: Constipation Magnesium Oxide (Magnesium Oxide 400 Mg Tablet) 400 mg PO BID [facility] Last Admin: 12/05/22 08:26 Dose: 400 mg Multivitamins/Vitamin C (Multivitamin Tablet) 1 tab PO DAILY [facility] Last Admin: 12/05/22 08:26 Dose: 1 tab Naproxen (Naproxen 250 Mg Tablet) 250 mg PO BID PRN PRN Reason: Pain, Moderate(Pain Scale 4-6) Last Admin: 12/02/22 23:13 Dose: 250 mg Nicotine (Nicotine 21 Mg Patch.Td24) 21 mg TRANSDERMA DAILY PRN PRN Reason: Nicotine Cravings Last Admin: 12/04/22 09:24 Dose: 21 mg Quetiapine Fumarate (Quetiapine Fumarate 50 Mg Tablet) 50 mg PO BEDTIME SAVI Last Admin: 12/04/22 21:35 Dose: 50 mg Trazodone HCl (Trazodone Hcl 50 Mg Tablet) 50 mg PO BEDTIME PRN PRN Reason: insomnia Last Admin: 12/03/22 19:56 Dose: 50 mg Trazodone HCl (Trazodone Hcl 50 Mg Tablet) 50 mg PO BEDTIME MRX1 PRN PRN Reason: Insomnia Allergies Allergies Allergy/AdvReac Type Severity Reaction Status Date / Time levofloxacin Allergy Unknown Unknown Verified 11/30/22 18:24 chlorpromazine Allergy Unknown unknown Uncoded 11/30/22 18:24 Assessment & Plan Assessment & Plan (1) MDD (major depressive disorder): Status: Acute Code(s): F32.9 - Major depressive disorder, single episode, unspecified (2) Alcohol use disorder, severe, dependence: Status: Acute Code(s): F10.20 - Alcohol dependence, uncomplicated Plan Pt is 52-year-old male with MDD, PTSD and alcohol use disorder, who presents for 5th admission in the past 5 months for? depression and SI in the face of non-medication adherence, relapse with alcohol and mourning his recently . Patient discharged on 11/20/22.? He says he states over for a few days but soon relapsed, stop taking his medications, depression worsened and he again developed suicidal thinking.? He called and self presented instead.? Patient reports suicidality has resolved.? He is future oriented.? Hospital course: 12/04 Will continue current treatment regimen; will added Ativan scheduled and then tapered off for continue withdrawal symptoms. Patient brought up a treatment program on his own, the 1st time he initiated such an idea. -patient tried to drink gone to self for him; he did stop it and then tried to drink again after a couple days; likely this medication is not effective for patient and given its side effects/risk profile will not restart at this time. 12/05 continue current treatment plan. Patient does not want help from staff getting to program; rather he wants to discharge home, tidy up his affairs, and get himself to a specific program. Plan: CV Q 15 minute checks Add Ativan 1 mg t.i.d. and taper Continue CIWA with Ativan p.r.n. Gabapentin 400 mg t.i.d. Prozac 60 mg was restarted Continue Wellbutrin Seroquel 50 mg q.h.s. p.r.n. Trazodone 50 mg q.h.s. Zyprexa 2.5 mg b.i.d. Suboxone 8/2 mg t.i.d. Patient educated on: diagnosis and medication risk/benefits Informed Consent: understands Reason for continued inpatient stay Substantial Risk for: stable for discharge Time Spent With Patient Time: Total time managing care of this patient today ____ minutes.
[2022-12-05] MEDS: Nicotine 21 MG PATCH.TD24 TRANSDERMA (12:06)
[2022-12-05] MEDS: LORazepam 1 MG TABLET 2 MG PO ×2 (12:07→16:28)
[2022-12-05] MEDS: Acetaminophen 325 MG TABLET 650 MG PO (16:30)
[2022-12-05 17:45] VITALS: BP 138/85; PULSE 86; TEMP 36.3; O2SAT 95
[2022-12-05] MEDS: cloNIDine HCL 0.1 MG TABLET PO (17:55)
[2022-12-05] MEDS: QUEtiapine Fumarate 50 MG TABLET PO (21:08)
[2022-12-06] MEDS: Acetaminophen 325 MG TABLET 650 MG PO (00:30)
[2022-12-06] MEDS: LORazepam 1 MG TABLET 2 MG PO (00:32)
[2022-12-06 06:00] VITALS: BP 120/79; PULSE 90; RESP 16; TEMP 37; O2SAT 98
[2022-12-06] MEDS: Gabapentin 400 MG CAPSULE PO ×3 (08:31→19:41)
[2022-12-06] MEDS: buPROPion HCl XL 300 MG TAB.ER.24H PO (08:31)
[2022-12-06] MEDS: Multivitamin TABLET 1 TAB PO (08:31)
[2022-12-06] MEDS: Magnesium Oxide 400 MG TABLET PO ×2 (08:31→19:40)
[2022-12-06] MEDS: Buprenorphine/Naloxone 8/2 mg FILM 1 FILM SUBLINGUAL ×3 (08:31→21:41)
[2022-12-06] MEDS: Fluticasone Propionate 100 MCG BLST.W.DEV 2 PUFF INHALE ×2 (08:31→21:41)
[2022-12-06] MEDS: LORazepam 1 MG TABLET PO ×3 (08:31→19:42)
[2022-12-06] MEDS: FLUoxetine HCl 20 MG CAPSULE 60 MG PO (08:31)
[2022-12-06] MEDS: Nicotine 21 MG PATCH.TD24 TRANSDERMA (09:09)
--- NOTE | 2022-12-06 17:48 | P.PNPSI_ITS ---
Subjective Subjective Date of Service: 12/06/22 Reason For Visit: SI Interim History: Met with patient; discussed with team Patient reports depression is clearing though he still deeply mourns his . No SI. Feeling better though still with some withdrawal symptoms. Patient remains focused on discharge and getting himself in to his own preferred program. Risks discussed with patient however he is clear on his plan and does not want help from staff in this area regarding aftercare Mental Status Exam Mental Status Exam Narrative: Pt is alert and oriented; behavior is cooperative, calm; dressed in casual attire, shaved; mood is described as ok and affect congruent, intermittently tearful; eye contact appropriate; Speech is normal rate, volume and prosody and not pressured; no psychomotor agitation/retardation present; thought process is organized and goal directed; Thought content is on tx and grief, aftercare; otherwise pertinent to relevant topics and without any delusional content, paranoid ideations or grandiosity; denies any SI/HI. There is no evidence of perceptual disturbance. ?Patients insight and judgment impaired but improved, adequate and at baseline. Diagnostics Vital Signs (24Hr): Vital Signs - 24 hr 12/06/22 06:00 Temperature 98.6 F Pulse Rate 90 Respiratory Rate 16 Blood Pressure 120/79 Pulse Oximetry 98 Oxygen Delivery Method Room Air BMI result Body Mass Index 25.1 Labs 11/30/22 18:33 12/02/22 08:15 Medications Medications Current Medications Acetaminophen (Acetaminophen 325 Mg Tablet) 650 mg PO Q6H PRN PRN Reason: Headache/Pain Mild Scale (1-3) Last Admin: 12/06/22 00:30 Dose: 650 mg Al Hydroxide/Mg Hydroxide (Magnesium Hydrox/Alum Hydrox 30 Ml Oral.Susp) 30 ml PO Q6H PRN PRN Reason: Heartburn/Nausea Last Admin: 12/03/22 20:14 Dose: 30 ml Albuterol Sulfate (Albuterol Sulfate 90 Mcg 8 Gm Inhaler) 2 puff INHALE Q4H PRN PRN Reason: Shortness Of Breath Or Wheezing Last Admin: 12/04/22 14:01 Dose: 2 puff Buprenorphine/Naloxone (Buprenorphine/Naloxone 8/2 Mg Film) 1 film SUBLINGUAL TID SAVI Last Admin: 12/06/22 14:24 Dose: 1 film Bupropion HCl (Bupropion Hcl Xl 300 Mg Tab.Er.24h) 300 mg PO DAILY [facility] Last Admin: 12/06/22 08:31 Dose: 300 mg Clonidine HCl (Clonidine Hcl 0.1 Mg Tablet) 0.1 mg PO BID PRN; Protocol PRN Reason: anxiety Last Admin: 12/05/22 17:55 Dose: 0.1 mg Fluoxetine HCl (Fluoxetine Hcl 20 Mg Capsule) 60 mg PO DAILY [facility] Last Admin: 12/06/22 08:31 Dose: 60 mg Fluticasone Propionate (Fluticasone Propionate 100 Mcg Blst.W.Dev) 2 puff INHALE RBID [facility] Last Admin: 12/06/22 08:31 Dose: 2 puff Gabapentin (Gabapentin 400 Mg Capsule) 400 mg PO TID [facility] Last Admin: 12/06/22 14:24 Dose: 400 mg Hydroxyzine HCl (Hydroxyzine Hcl 25 Mg Tablet) 25 mg PO Q6H PRN PRN Reason: Anxiety Last Admin: 12/04/22 15:30 Dose: 25 mg Lidocaine (Lidocaine 4 % Patch Adh..Patch) 1 patch TRANSDERMA DAILY PRN; Protocol PRN Reason: Pain, Moderate(Pain Scale 4-6) Lorazepam (Lorazepam 1 Mg Tablet) 1 mg PO Q4H PRN PRN Reason: ciwa 8-12 Last Admin: 12/06/22 12:50 Dose: 1 mg Lorazepam (Lorazepam 1 Mg Tablet) 2 mg PO Q4H PRN PRN Reason: ciwa 13-17 Last Admin: 12/06/22 00:32 Dose: 2 mg Lorazepam (Lorazepam 1 Mg Tablet) 1 mg PO BID [facility] Magnesium Hydroxide (Milk Of Magnesia 30 Ml Oral.Susp) 30 ml PO DAILY PRN PRN Reason: Constipation Magnesium Oxide (Magnesium Oxide 400 Mg Tablet) 400 mg PO BID [facility] Last Admin: 12/06/22 08:31 Dose: 400 mg Multivitamins/Vitamin C (Multivitamin Tablet) 1 tab PO DAILY [facility] Last Admin: 12/06/22 08:31 Dose: 1 tab Naproxen (Naproxen 250 Mg Tablet) 250 mg PO BID PRN PRN Reason: Pain, Moderate(Pain Scale 4-6) Last Admin: 12/02/22 23:13 Dose: 250 mg Nicotine (Nicotine 21 Mg Patch.Td24) 21 mg TRANSDERMA DAILY PRN PRN Reason: Nicotine Cravings Last Admin: 12/06/22 09:09 Dose: 21 mg Quetiapine Fumarate (Quetiapine Fumarate 50 Mg Tablet) 50 mg PO BEDTIME SAVI Last Admin: 12/05/22 21:08 Dose: 50 mg Trazodone HCl (Trazodone Hcl 50 Mg Tablet) 50 mg PO BEDTIME PRN PRN Reason: insomnia Last Admin: 12/03/22 19:56 Dose: 50 mg Trazodone HCl (Trazodone Hcl 50 Mg Tablet) 50 mg PO BEDTIME MRX1 PRN PRN Reason: Insomnia Allergies Allergies Allergy/AdvReac Type Severity Reaction Status Date / Time levofloxacin Allergy Unknown Unknown Verified 11/30/22 18:24 chlorpromazine Allergy Unknown unknown Uncoded 11/30/22 18:24 Assessment & Plan Assessment & Plan (1) MDD (major depressive disorder): Status: Acute Code(s): F32.9 - Major depressive disorder, single episode, unspecified (2) Alcohol use disorder, severe, dependence: Status: Acute Code(s): F10.20 - Alcohol dependence, uncomplicated Plan Pt is 52-year-old male with MDD, PTSD and alcohol use disorder, who presents for 5th admission in the past 5 months for? depression and SI in the face of non- medication adherence, relapse with alcohol and mourning his recently . Patient discharged on 11/20/22.? He says he states over for a few days but soon relapsed, stop taking his medications, depression worsened and he again developed suicidal thinking.? He called and self presented instead.? Patient reports suicidality has resolved.? He is future oriented.? Hospital course: 12/04 Will continue current treatment regimen; will added Ativan scheduled and then tapered off for continue withdrawal symptoms. Patient brought up a treatm ent program on his own, the 1st time he initiated such an idea. -patient tried to drink gone to self for him; he did stop it and then tried to drink again after a couple days; likely this medication is not effective for patient and given its side effects/risk profile will not restart at this time. 12/05 continue current treatment plan. Patient does not want help from staff getting to program; rather he wants to discharge home, tidy up his affairs, and get himself to a specific program. 12/06 continue current treatment plan Plan: CV Q 15 minute checks Add Ativan 1 mg t.i.d. and taper Continue CIWA with Ativan p.r.n. Gabapentin 400 mg t.i.d. Prozac 60 mg was restarted Continue Wellbutrin Seroquel 50 mg q.h.s. p.r.n. Trazodone 50 mg q.h.s. Zyprexa 2.5 mg b.i.d. Suboxone 8/2 mg t.i.d. Patient educated on: diagnosis, medication risk/benefits, substance abuse and therapeutic strategies Informed Consent: understands Reason for continued inpatient stay Substantial Risk for: stable for discharge Time Spent With Patient Time: Total time managing care of this patient today ____ minutes.
[2022-12-06 19:35] VITALS: BP 123/79; PULSE 89; TEMP 36.8
[2022-12-06] MEDS: hydrOXYzine HCL 25 MG TABLET PO (19:41)
[2022-12-06] MEDS: cloNIDine HCL 0.1 MG TABLET PO (19:42)
[2022-12-06] MEDS: QUEtiapine Fumarate 50 MG TABLET PO (21:40)
[2022-12-07 07:00] VITALS: BMI 26.6
[2022-12-07 08:12] VITALS: BP 106/69; PULSE 85; RESP 16; TEMP 36.8; O2SAT 94
[2022-12-07] MEDS: buPROPion HCl XL 300 MG TAB.ER.24H PO (08:18)
[2022-12-07] MEDS: Magnesium Oxide 400 MG TABLET PO ×2 (08:18→19:34)
[2022-12-07] MEDS: Multivitamin TABLET 1 TAB PO (08:18)
[2022-12-07] MEDS: FLUoxetine HCl 20 MG CAPSULE 60 MG PO (08:18)
[2022-12-07] MEDS: Gabapentin 400 MG CAPSULE PO ×3 (08:19→19:34)
[2022-12-07] MEDS: LORazepam 1 MG TABLET PO ×3 (08:19→19:34)
[2022-12-07] MEDS: Buprenorphine/Naloxone 8/2 mg FILM 1 FILM SUBLINGUAL ×3 (09:10→19:33)
[2022-12-07] MEDS: Nicotine 21 MG PATCH.TD24 TRANSDERMA (09:10)
[2022-12-07] MEDS: Fluticasone Propionate 100 MCG BLST.W.DEV 2 PUFF INHALE ×2 (09:11→19:32)
--- NOTE | 2022-12-07 09:47 | HO.PSYCHPN ---
Subjective Subjective Date of Service: 12/07/22 Reason For Visit: SI Interim History: Met with patient; discussed with team No change in presentation; depressed but stable, no SI; again talked about plan to get into [employer] house with that he needs to get home 1st to put things in order Mental Status Exam Mental Status Exam Narrative: Pt is alert and oriented; behavior is cooperative, calm; dressed in casual attire, good hygiene; mood is described as ok and affect congruent; eye contact appropriate; Speech is normal rate, volume and prosody and not pressured; no psychomotor agitation/retardation present; thought process is organized and goal directed; Thought content is on tx and grief, aftercare; otherwise pertinent to relevant topics and without any delusional content, paranoid ideations or grandiosity; denies any SI/HI. There is no evidence of perceptual disturbance. ?Patients insight and judgment impaired but improved, adequate and at baseline. Diagnostics Vital Signs (24Hr): Vital Signs - 24 hr 12/06/22 19:35 12/07/22 08:12 Temperature 98.3 F 98.2 F Pulse Rate 89 85 Respiratory Rate 16 Blood Pressure 123/79 106/69 Pulse Oximetry 94 Oxygen Delivery Method Room Air BMI result Body Mass Index 25.1 Labs 11/30/22 18:33 12/02/22 08:15 Medications Medications Current Medications Acetaminophen (Acetaminophen 325 Mg Tablet) 650 mg PO Q6H PRN PRN Reason: Headache/Pain Mild Scale (1-3) Last Admin: 12/06/22 00:30 Dose: 650 mg Al Hydroxide/Mg Hydroxide (Magnesium Hydrox/Alum Hydrox 30 Ml Oral.Susp) 30 ml PO Q6H PRN PRN Reason: Heartburn/Nausea Last Admin: 12/03/22 20:14 Dose: 30 ml Albuterol Sulfate (Albuterol Sulfate 90 Mcg 8 Gm Inhaler) 2 puff INHALE Q4H PRN PRN Reason: Shortness Of Breath Or Wheezing Last Admin: 12/04/22 14:01 Dose: 2 puff Buprenorphine/Naloxone (Buprenorphine/Naloxone 8/2 Mg Film) 1 film SUBLINGUAL TID [facility] Last Admin: 12/07/22 09:10 Dose: 1 film Bupropion HCl (Bupropion Hcl Xl 300 Mg Tab.Er.24h) 300 mg PO DAILY [facility] Last Admin: 12/07/22 08:18 Dose: 300 mg Clonidine HCl (Clonidine Hcl 0.1 Mg Tablet) 0.1 mg PO BID PRN; Protocol PRN Reason: anxiety Last Admin: 12/06/22 19:42 Dose: 0.1 mg Fluoxetine HCl (Fluoxetine Hcl 20 Mg Capsule) 60 mg PO DAILY [facility] Last Admin: 12/07/22 08:18 Dose: 60 mg Fluticasone Propionate (Fluticasone Propionate 100 Mcg Blst.W.Dev) 2 puff INHALE RBID [facility] Last Admin: 12/07/22 09:11 Dose: 2 puff Gabapentin (Gabapentin 400 Mg Capsule) 400 mg PO TID [facility] Last Admin: 12/07/22 08:19 Dose: 400 mg Hydroxyzine HCl (Hydroxyzine Hcl 25 Mg Tablet) 25 mg PO Q6H PRN PRN Reason: Anxiety Last Admin: 12/06/22 19:41 Dose: 25 mg Lidocaine (Lidocaine 4 % Patch Adh..Patch) 1 patch TRANSDERMA DAILY PRN; Protocol PRN Reason: Pain, Moderate(Pain Scale 4-6) Lorazepam (Lorazepam 1 Mg Tablet) 1 mg PO Q4H PRN PRN Reason: ciwa 8-12 Last Admin: 12/06/22 12:50 Dose: 1 mg Lorazepam (Lorazepam 1 Mg Tablet) 2 mg PO Q4H PRN PRN Reason: ciwa 13- Last Admin: 12/06/22 00:32 Dose: 2 mg Lorazepam (Lorazepam 1 Mg Tablet) 1 mg PO BID [facility] Last Admin: 12/07/22 08:19 Dose: 1 mg Magnesium Hydroxide (Milk Of Magnesia 30 Ml Oral.Susp) 30 ml PO DAILY PRN PRN Reason: Constipation Magnesium Oxide (Magnesium Oxide 400 Mg Tablet) 400 mg PO BID [facility] Last Admin: 12/07/22 08:18 Dose: 400 mg Multivitamins/Vitamin C (Multivitamin Tablet) 1 tab PO DAILY [facility] Last Admin: 12/07/22 08:18 Dose: 1 tab Naproxen (Naproxen 250 Mg Tablet) 250 mg PO BID PRN PRN Reason: Pain, Moderate(Pain Scale 4-6) Last Admin: 12/02/22 23:13 Dose: 250 mg Nicotine (Nicotine 21 Mg Patch.Td24) 21 mg TRANSDERMA DAILY PRN PRN Reason: Nicotine Cravings Last Admin: 12/07/22 09:10 Dose: 21 mg Quetiapine Fumarate (Quetiapine Fumarate 50 Mg Tablet) 50 mg PO BEDTIME [facility] Last Admin: 12/06/22 21:40 Dose: 50 mg Trazodone HCl (Trazodone Hcl 50 Mg Tablet) 50 mg PO BEDTIME PRN PRN Reason: insomnia Last Admin: 12/03/22 19:56 Dose: 50 mg Trazodone HCl (Trazodone Hcl 50 Mg Tablet) 50 mg PO BEDTIME MRX1 PRN PRN Reason: Insomnia Allergies Allergies Allergy/AdvReac Type Severity Reaction Status Date / Time levofloxacin Allergy Unknown Unknown Verified 11/30/22 18:24 chlorpromazine Allergy Unknown unknown Uncoded 11/30/22 18:24 Assessment & Plan Assessment & Plan (1) MDD (major depressive disorder): Status: Acute Code(s): F32.9 - Major depressive disorder, single episode, unspecified (2) Alcohol use disorder, severe, dependence: Status: Acute Code(s): F10.20 - Alcohol dependence, uncomplicated Plan Pt is 52-year-old male with MDD, PTSD and alcohol use disorder, who presents for 5th admission in the past 5 months for? depression and SI in the face of non-medication adherence, relapse with alcohol and mourning his recently . Patient discharged on 11/20/22.? He says he states over for a few days but soon relapsed, stop taking his medications, depression worsened and he again developed suicidal thinking.? He called and self presented instead.? Patient reports suicidality has resolved.? He is future oriented.? Hospital course: 12/04 Will continue current treatment regimen; will added Ativan scheduled and then tapered off for continue withdrawal symptoms. Patient brought up a treatment program on his own, the 1st time he initiated such an idea. -patient tried to drink gone to self for him; he did stop it and then tried to drink again after a couple days; likely this medication is not effective for patient and given its side effects/risk profile will not restart at this time. 12/05 continue current treatment plan. Patient does not want help from staff getting to program; rather he wants to discharge home, tidy up his affairs, and get himself to a specific program. 12/06 continue current treatment plan 12/07 patient on the tail end of withdrawal; depressed but stable and no SI. Remains focused on planned to get into a specific program post discharge. Patient resists help from team regarding disposition and aftercare supports; discussed and abuse and that this does not seem to be a viable medication for him given the risks of trying to drink while on it and patient said he will no longer take it. Patient remains vulnerable to relapse and resurgence of depression with SI, however Patient has never actually attempted suicide and has consistently reached out for help when he starts to have suicidal thoughts. Patient remains future oriented. He is not in imminent risk for harm to self or others and his request for discharge honored. Plan: CV Q 15 minute checks Add Ativan 1 mg t.i.d. and taper Continue CIWA with Ativan p.r.n. Gabapentin 400 mg t.i.d. Prozac 60 mg was restarted Continue Wellbutrin Seroquel 50 mg q.h.s. p.r.n. Trazodone 50 mg q.h.s. Zyprexa 2.5 mg b.i.d. Suboxone 8/2 mg t.i.d. Patient educated on: diagnosis, medication risk/benefits, substance abuse and therapeutic strategies Informed Consent: understands Reason for continued inpatient stay Substantial Risk for: stable for discharge Time Spent With Patient Time: Total time managing care of this patient today ____ minutes.
[2022-12-07] MEDS: hydrOXYzine HCL 25 MG TABLET PO ×2 (15:17→19:34)
[2022-12-07] MEDS: cloNIDine HCL 0.1 MG TABLET PO ×2 (15:17→19:34)
[2022-12-07 15:21] VITALS: BP 123/74; PULSE 74
[2022-12-07 15:45] VITALS: BP 132/78; PULSE 74
[2022-12-07] MEDS: traZODone HCL 50 MG TABLET PO (19:33)
[2022-12-07] MEDS: QUEtiapine Fumarate 50 MG TABLET PO (19:34)
[2022-12-08] MEDS: Multivitamin TABLET 1 TAB PO (08:33)
[2022-12-08] MEDS: buPROPion HCl XL 300 MG TAB.ER.24H PO (08:33)
[2022-12-08] MEDS: LORazepam 1 MG TABLET PO (08:33)
[2022-12-08] MEDS: Magnesium Oxide 400 MG TABLET PO (08:33)
[2022-12-08] MEDS: FLUoxetine HCl 20 MG CAPSULE 60 MG PO (08:33)
[2022-12-08] MEDS: Gabapentin 400 MG CAPSULE PO (08:33)
[2022-12-08] MEDS: Buprenorphine/Naloxone 8/2 mg FILM 1 FILM SUBLINGUAL (08:33)
[2022-12-08] MEDS: Nicotine 21 MG PATCH.TD24 TRANSDERMA (08:37)
[2022-12-08] MEDS: Fluticasone Propionate 100 MCG BLST.W.DEV 2 PUFF INHALE (08:37)
[2022-12-08 08:47] VITALS: BP 94/66; PULSE 74; RESP 16; TEMP 36.2; O2SAT 94
--- NOTE | 2022-12-08 09:18 | P.DS_ITS ---
DS: Providers Provider Date of Service: 12/08/22 Date of admission: 12/01/22 20:10 Date of discharge: 12/08/22 Primary care physician: Unknown Physician Attending physician on admission: Pk Rey Attending physician on discharge: Pk Rey DS: Diagnosis Discharge Diagnosis (1) MDD (major depressive disorder): Status: Acute (2) Alcohol use disorder, severe, dependence: Status: Acute DS: Medications Discharge Medications Home Medications: Home Medications Medication Instructions Recorded Confirmed albuterol sulfate 90 mcg/actuation 2 puff inhalation Q4H PRN 11/30/22 11/30/22 aerosol inhaler (Ventolin HFA) Shortness Of Breath Or Wheezing buprenorphine 8 mg-naloxone 2 mg 1 film sublingual TID 11/30/22 11/30/22 sublingual film (Suboxone) bupropion HCl 300 mg 24 hr tablet, 300 mg PO DAILY 11/30/22 11/30/22 extended release clonidine HCl 0.1 mg tablet 0.1 mg PO BID PRN anxiety 11/30/22 11/30/22 fluoxetine 20 mg capsule 60 mg PO DAILY 11/30/22 11/30/22 fluticasone propionate 110 2 puff inhalation BID 11/30/22 11/30/22 mcg/actuation HFA aerosol inhaler (Flovent HFA) gabapentin 400 mg capsule 400 mg PO TID 11/30/22 11/30/22 hydroxyzine pamoate 25 mg capsule 25 mg PO TID PRN anxiety 11/30/22 11/30/22 magnesium oxide 400 mg (241.3 mg 400 mg PO BID 11/30/22 11/30/22 magnesium) tablet multivitamin 1 tab PO DAILY 11/30/22 11/30/22 nicotine 21 mg/24 hr daily 1 patch topical DAILY PRN Nicotine 11/30/22 11/30/22 transdermal patch Cravings quetiapine 50 mg tablet 50 mg PO BEDTIME 11/30/22 11/30/22 trazodone 50 mg tablet 50 mg PO BEDTIME PRN insomnia 11/30/22 11/30/22 Mental Status Exam Mental Status Exam Narrative: Pt is alert and oriented; behavior is cooperative, calm; dressed in casual attire, good hygiene; mood is described as ok and affect congruent; eye contact appropriate; Speech is normal rate, volume and prosody and not pressured; no psychomotor agitation/retardation present; thought process is organized and goal directed; Thought content is on tx and grief, aftercare; otherwise pertinent to relevant topics and without any delusional content, paranoid ideations or grandiosity; denies any SI/HI. There is no evidence of perceptual disturbance. ?Patients insight and judgment impaired but improved, adequate and at baseline. Data Data Completed and Pending Completed studies during hospitalization [Text1]: 12/02/22 12/02/22 08:15 08:15 Sodium 136 Potassium 3.6 Chloride 103 Carbon Dioxide 25 Anion Gap 12 BUN 12 Creatinine 0.83 Estim Creat Clear Calc 105.0 Estimated GFR > 60 Fasting Glucose 121 H Estimat Average Glucose 97 Hemoglobin A1c % 5.0 Calcium 9.0 Total Bilirubin 0.9 AST 63 H ALT 51 H Alkaline Phosphatase 136 H Total Protein 7.5 Albumin 3.9 Triglycerides 104 Cholesterol 126 LDL Cholesterol, Calc 78 HDL Cholesterol 28 DS: Summary Hospital Course Hospital Course: HPI: Pt is 52-year-old male with MDD, PTSD and alcohol use disorder, who presents for 5th admission in the past 5 months for? depression and SI in the face of non- medication adherence, relapse with alcohol and mourning his recently . Patient discharged on 11/20/22.? He says he states over for a few days but soon relapsed, stop taking his medications, depression worsened and he again developed suicidal thinking.? He called and self presented instead.? Patient reports suicidality has resolved.? He is future oriented.? Hospital course: ON admission, depressed but SI resolved; detoxed without issue and restarted on home meds. However, Disulfiram not restarted since pt tried to drink on it and pt agreed to discontinue this med. Pt remains resistant to help and pursued on aftercare plan which was to get himself into [facility] in [place] where he'd been once before (1.5 years ago). Pt's mood improved and sI remained resolved. Pt remained in good behavioral and impulse control throughout stay; appropriate with peers and staff. Patient remains vulnerable to relapse and resurgence of depression with SI; however Patient has never actually attempted suicide and has consistently reached out for help when he starts to have suicidal thoughts.? Patient remains future oriented. On day of discharge he shared that he has no money and no alcohol in the house so he thinks he'll be fine and will start calling [facility] daily for a bed. He is not in imminent risk for harm to self or others and his request for discharge honored. Time spent discussing smoking cessation with patient: 3 to 10 minutes Status at Discharge Functional status at discharge: independent ambulation Overall status at discharge: patient is back to baseline Time Spent with Patient Time attestation: Total time managing care of this patient today ____ minutes. Time spent: Less than 30 minutes Discharge Plan Discharge Anticipated Discharge Date/Time: 12/08/22 11:30 Patient Disposition: Home, Self-Care Discharge Diagnosis: MDD, recurrent, severe in partial remission Referrals: [facility] Therapy [Other] - 12/11/22 1:45 pm (Telehealth with Tena Mendoza) [facility] Med Management Manuela Collado [Other] - 12/21/22 12:00 pm (Telehealth) Daniel Cottrell MD [Physician] - 12/13/22 11:40 am (pt. states has appt. already) Discharge Medications: Continued multivitamin Tablet 1 tab PO DAILY clonidine HCl 0.1 mg tablet 0.1 mg PO BID PRN (Reason: anxiety) trazodone 50 mg tablet 50 mg PO BEDTIME PRN (Reason: insomnia) gabapentin 400 mg capsule 400 mg PO TID magnesium oxide 400 mg (241.3 mg magnesium) tablet 400 mg PO BID nicotine 21 mg/24 hr patch 24 hour 1 patch topical DAILY PRN (Reason: Nicotine Cravings) albuterol sulfate [Ventolin HFA] 90 mcg/actuation HFA aerosol inhaler 2 puff INHALATION Q4H PRN (Reason: Shortness Of Breath Or Wheezing) fluoxetine 20 mg capsule 60 mg PO DAILY fluticasone propionate [Flovent HFA] 110 mcg/actuation HFA aerosol inhaler 2 puff INHALATION BID hydroxyzine pamoate 25 mg capsule 25 mg PO TID PRN (Reason: anxiety) bupropion HCl 300 mg tablet extended release 24 hr 300 mg PO DAILY quetiapine 50 mg tablet 50 mg PO BEDTIME buprenorphine-naloxone [Suboxone] 8-2 mg film 1 film sublingual TID Discontinued disulfiram 250 mg tablet 250 mg PO DAILY Discharge Orders: Discharge Order (Routine); Ordered 12/08/22 Ordered By: Pk Rey Diet: Regular diet Activity on Discharge: As tolerated Stand Alone Forms: Patient Portal Discharge page, Community Support Care Plan Goals: Maintain mood and safe behaviors Take medications as prescribed Continue to pursue sobriety Practice coping skills Continue with outpatient providers and reach out to them as needed Health Concerns: Mood stability and behaviors Sobriety Plan of Treatment: Follow up with your PCP, psychiatric provider and other outpatient providers regarding above concerns Take medications as prescribed Assessment: Risk assessment at time of discharge:? Patient was interviewed prior to discharge and found to be fully oriented and without any SI or HI. Patient has insight and demonstrates good judgment in terms of wanting to pursue treatment. Patient is not in imminent risk of harm to self or others and has a safety plan that includes presenting to the closest ER or calling 911 if feeling unsafe.? Patient has been observed closely by nursing and unit staff throughout admission; patient has not engaged in any behaviors that suggest dangerousness to self or others and has demonstrated appropriate behaviors and impulse control Discharge Date/Time: 12/08/22 11:30
[2022-12-08] MEDS: Naloxone HCl Nasal TAKE HOME 4 MG SPRAY NOSTRILALT (10:49)
== END 2022-12-08 11:30 | disposition home or self-care (01) | DRG 751 ==
LOC: HO.ED 19:10 → HO.PM5 12-01 20:13
PROVIDERS: Admitting Provider Social Worker; Emergency Provider Emergency Medicine Emergency Medical Services; Visit Provider Psychiatry & Neurology Psychiatry
DX: F33.2 Major depressive disorder, recurrent severe without psychotic features (principal); R45.851 Suicidal ideations; F10.20 Alcohol dependence, uncomplicated; F11.20 Opioid dependence, uncomplicated; Z20.822 Contact with and (suspected) exposure to COVID-19; Y90.6 Blood alcohol level of 120-199 mg/100 ml; Z79.51 Long term (current) use of inhaled steroids; Z87.891 Personal history of nicotine dependence; Z79.899 Other long term (current) drug therapy
CPT/HCPCS: 36415; 80053; 80061; 80307; 81001; 83036; 85025; 87635; 93005; 99285; S9485

== ENCOUNTER 2023-05-16 11:15 | Emergency (ER) | payer OTHER, SELFPAY ==
[2023-05-16 11:19] VITALS: BP 118/60; PULSE 82; O2SAT 100
[2023-05-16 11:23] VITALS: BP 108/78; PULSE 90; RESP 16; TEMP 36.6; O2SAT 95; BMI 24.2
--- NOTE | 2023-05-16 12:53 | ED_ITS ---
HPI - Psych General Chief Complaint: Psychiatric Symptoms Stated Complaint: SI,ETOH USE PER EMS Time Seen by Provider: 05/16/23 12:29 Source: patient and EMS Mode of arrival: EMS Limitations: no limitations History of Present Illness HPI Narrative: patient is an alcoholic and is suicidal, he called the ambulance because he was thinking of killing himself. Patient states his brother recently and his a year ago. MD complaint: suicidal ideation and feels depressed Onset (ago): week(s) Related Data Home Medications Medication Instructions Recorded Confirmed albuterol sulfate 90 mcg/actuation 2 puff inhalation Q6H PRN 11/30/22 05/16/23 aerosol inhaler (Ventolin HFA) Shortness Of Breath Or Wheezing buprenorphine 8 mg-naloxone 2 mg 1 film sublingual TID 11/30/22 05/16/23 sublingual film (Suboxone) bupropion HCl 300 mg 24 hr tablet, 300 mg PO DAILY 11/30/22 05/16/23 extended release clonidine HCl 0.1 mg tablet 0.1 mg PO BID PRN anxiety 11/30/22 05/16/23 fluoxetine 20 mg capsule 60 mg PO DAILY 11/30/22 05/16/23 gabapentin 400 mg capsule 400 mg PO TID 11/30/22 05/16/23 hydroxyzine pamoate 25 mg capsule 25 mg PO TID PRN anxiety 11/30/22 05/16/23 multivitamin 1 tab PO DAILY 11/30/22 05/16/23 trazodone 50 mg tablet 50 mg PO BEDTIME PRN insomnia 11/30/22 05/16/23 quetiapine 25 mg tablet (Seroquel) 25 - 50 mg PO PRN anxiety 05/16/23 Allergies Allergy/AdvReac Type Severity Reaction Status Date / Time levofloxacin Allergy Unknown Unknown Verified 05/16/23 11:23 chlorpromazine Allergy Unknown unknown Uncoded 11/30/22 18:24 Review of Systems 2 Review of Systems: Yes all other systems are reviewed and are negative Neurologic: Denies Sensory deficit (Neuro) PMFSH Past Medical History Medical History Acute respiratory failure with hypoxia Opioid use disorder Alcohol use disorder, severe, dependence MDD (major depressive disorder) Pancreatitis Asthma COPD (chronic obstructive pulmonary disease) Social History Social History Household Members: None Housing: House Do you presently have visiting nurse or other home services: No Alcohol intake: current Alcohol intake frequency: a few times a week Patient Tobacco Use Status: Former Tobacco user Quit Date: Pt not ready to quit per pt Tobacco use type: Cigarette Cigarette Packs Per Day: 0.5 Cigarettes Per Day: 10.0 Years Smoked: 38 e-Cigarette/Vaping Use: Former Use Second Hand Smoke Exposure: No Advance Directives: No Advance Directives Information Provided: No service: No Sexual orientation: Straight/Heterosexual Physical Exam 2 Vital Signs: Vital Signs: Last Vital Signs Temp 97.8 F 05/16/23 11:23 Pulse 90 05/16/23 11:23 Resp 18 05/16/23 16:42 BP 108/78 05/16/23 11:23 Pulse Ox 95 05/16/23 11:23 O2 Del Method Room Air 05/16/23 11:23 BMI result Body Mass Index 24.2 Const: Other: intoxicated male looking older than stated age Nutritional Appearance: average body habitus Orientation/consciousness: oriented to person and patient oriented x3 Limitations: no limitations HEENT: Head: Yes normal to inspection Ears: external ears normal General nose exam: Normal external nose present Mouth: Normal oral and palatal mucosa present and oropharynx normal Throat: Yes posterior oropharynx normal Eyes: General: appearance normal, both eyes and all related structures Neck: Other: supple Neck: Yes normal visual inspection Chest: Chest palpation & inspection: normal inspection of the chest Resp: Auscultation: clear to auscultation bilaterally Cardio: Jugular venous distension: no JVD Rate: regular rate Rhythm: r egular rhythm Heart sounds: S1 normal heart sound present and S2 normal heart sound present GI: Inspection: Yes normal to inspection Palpation (GI): Soft to palpation, nontender and No hepatosplenomegaly present Auscultation: normal bowel sounds : General: Yes no CVA tenderness Back/Spine/Pelvis: Back: no CVA tenderness Skin: General skin exam: no rashes or lesions noted Neuro: General: oriented to person and patient oriented x3 Cranial nerves: Yes CN's II-XII intact bilaterally Motor exam (neuro): 5/5 motor strength present throughout Sensory Exam: No Sensory deficit (Neuro) Extrem: General: Yes normal to inspection Psych: Appearance: grossly normal Course Reevaluation(s) Reevaluation #1: physician observation: patient placed in physician observation to see if patients depression improves or he will need to be admitted to inpatient psych Time: 16:41 Medications Administered Discontinued Medications Generic Name Dose Route Start Last Admin Trade Name Freq PRN Reason Stop Dose Admin Haloperidol 5 mg 05/16/23 12:57 05/16/23 13:05 Haloperidol 5 Mg Tablet PO 05/16/23 12:58 5 mg ONCE ONE Administration Lorazepam 2 mg 05/16/23 12:57 05/16/23 13:05 Lorazepam 1 Mg Tablet PO 05/16/23 12:58 2 mg ONCE ONE Administration Medical Decision Making Differential Diagnosis Differential Diagnoses: The differential diagnosis associated with the presentation includes (depression, suicidal ideation, alcohol intoxication) Admission/Observation Consideration of admission/observation: Escalation of care including admission/observation considered (upon arrival patient was considered for admission) Consult Healthcare Provider Management of the patient was discussed with: Behavioral Health Provider Lab Data 05/16/23 14:50 05/16/23 14:50 Labs: Lab Results 05/16/23 Range/Units 14:50 WBC 5.5 (4.8-10.8) X10*3/uL RBC 4.07 L (4.60-5.80) X10*6/uL Hgb 13.7 L (14.0-18.0) g/dl Hct 38.9 L (42.0-52.0) % MCV 95.6 (80.0-98.0) fL MCH 33.7 H (27.0-33.0) pg MCHC 35.2 (31.0-36.0) g/dl RDW 16.9 H (11.0-16.0) % Plt Count 32 L D (160-400) X10*3/uL MPV 10.4 (9.4-12.4) fL Immature Gran % (Auto) 0.2 (0.0-0.4) % Neut % (Auto) 70.7 (45-73) % Lymph % (Auto) 21.4 (20-40) % [place] % (Auto) 6.4 (2-11) % Eos % (Auto) 0.9 (0-4) % Baso % (Auto) 0.4 (0-2) % Lymph # (Auto) 1.2 (1.2-4.9) X10*3/uL [place] # (Auto) 0.4 (0.1-1.2) X10*3/uL Eos # (Auto) 0.1 (0.0-0.4) X10*3/uL Baso # (Auto) 0.0 (0.0-0.2) X10*3/uL Abs Immat Gran (auto) 0.01 (0.00-0.03) X10*3/uL Absolute Neuts (auto) 3.9 (2.0-8.3) x10*3/uL Absolute Nucleated RBC 0.000 (0.0-0.012) X10*3/uL Nucleated RBC % (auto) 0.0 (0.0-0.2) /100WBC Sodium 147 H (135-145) mmol/L Potassium 2.8 L D (3.3-5.1) mmol/L Chloride 104 (96-108) mmol/L Carbon Dioxide 30 H (22-29) mmol/L Anion Gap 16 (12-20) BUN 6 L (9-16) mg/dL Creatinine 0.79 (0.5-1.4) mg/dL Estim Creat Clear Calc 110.3 Estimated GFR > 60 Random Glucose 134 H (60-115) mg/dL Calcium 8.2 L D (8.4-10.2) mg/dL Total Bilirubin 0.9 (0.0-1.0) mg/dL AST 281 H (5-37) U/L ALT 56 H (0-40) U/L Alkaline Phosphatase 217 H (39-117) U/L Total Protein 7.2 (6.5-8.0) g/dL Albumin 3.1 L (3.5-5.0) g/dL Ethyl Alcohol 272 mg/dL Independent Historian Clinical information obtained from an independent historian. History obtained from or confirmed by: EMS External Record Review External record reviewed: Outpatient record Chronic Conditions Patient?s care impacted by: Other (alcoholism, psychiatric) Social Determinants Patient?s care significantly limited by Social Determinants of Health including: Alcoholism and drug addiction in family Discharge Plan Discharge Clinical Impression: Depression, Depression with suicidal ideation, Alcohol intoxication Patient Disposition: Still a Patient Prescriptions: No Action multivitamin Tablet 1 tab PO DAILY clonidine HCl 0.1 mg tablet 0.1 mg PO BID PRN (Reason: anxiety) trazodone 50 mg tablet 50 mg PO BEDTIME PRN (Reason: insomnia) gabapentin 400 mg capsule 400 mg PO TID albuterol sulfate [Ventolin HFA] 90 mcg/actuation HFA aerosol inhaler 2 puff INHALATION Q6H PRN (Reason: Shortness Of Breath Or Wheezing) fluoxetine 20 mg capsule 60 mg PO DAILY hydroxyzine pamoate 25 mg capsule 25 mg PO TID PRN (Reason: anxiety) bupropion HCl 300 mg tablet extended release 24 hr 300 mg PO DAILY buprenorphine-naloxone [Suboxone] 8-2 mg film 1 film sublingual TID quetiapine [Seroquel] 25 mg tablet 25 - 50 mg PO PRN (Reason: anxiety) Interventions: [place]-Suicide Risk Severity Scale Last Done: 05/16/23 11:30
[2023-05-16] MEDS: HaloperidoL 5 MG TABLET PO (13:05)
[2023-05-16] MEDS: LORazepam 1 MG TABLET 2 MG PO ×2 (13:05→18:51)
--- NOTE | 2023-05-16 13:45 | PC.NURSE ---
resting quietly on stretcher - respirations even and unlabored. patient observer at bedside
[2023-05-16 14:54] LABS: MANUAL DIFF FLAG NO
[2023-05-16 14:55] LABS: Basophils Percent Auto 0.4 % (0-2); Eosinophils Absolute Auto 0.1 X10*3/uL (0.0-0.4); Eosinophils Percent Auto 0.9 % (0-4); Hematocrit 38.9 % (42.0-52.0); Hemoglobin 13.7 g/dl (14.0-18.0); Imm Gran Abs Auto 0.01 X10*3/uL (0.00-0.03); Imm Gran Pct Auto 0.2 % (0.0-0.4); Lymphocytes Absolute Auto 1.2 X10*3/uL (1.2-4.9); Lymphocytes Percent Auto 21.4 % (20-40); Mean Corpuscular HGB Conc 35.2 g/dl (31.0-36.0); Mean Corpuscular Hemoglobin 33.7 pg (27.0-33.0); Mean Corpuscular Volume 95.6 fL (80.0-98.0); Monocytes Absolute Auto 0.4 X10*3/uL (0.1-1.2); Monocytes Percent Auto 6.4 % (2-11); Neutrophils Absolute Auto 3.9 x10*3/uL (2.0-8.3); Neutrophils Percent Auto 70.7 % (45-73); Red Blood Count 4.07 X10*6/uL (4.60-5.80); Red Cell Distribution Width 16.9 % (11.0-16.0); White Blood Count 5.5 X10*3/uL (4.8-10.8)
[2023-05-16 15:13] LABS: Alanine Aminotransferase 56 U/L (0-40); Albumin Level 3.1 g/dL (3.5-5.0); Alkaline Phosphatase 217 U/L (39-117); Anion Gap 16 (12-20); Aspartate Amino Transferase 281 U/L (5-37); Bilirubin Total 0.9 mg/dL (0.0-1.0); Blood Urea Nitrogen 6 mg/dL (9-16); Calcium 8.2 mg/dL (8.4-10.2); Carbon Dioxide 30 mmol/L (22-29); Chloride 104 mmol/L (96-108); Creatinine Clr Calc Pharmacy 110.3; Estimated Glomerular Filt Rate > 60; Ethanol 272 mg/dL; Glucose Random 134 mg/dL (60-115); Potassium 2.8 mmol/L (3.3-5.1); Sodium 147 mmol/L (135-145); Total Protein 7.2 g/dL (6.5-8.0)
[2023-05-16 15:24] LABS: Mean Platelet Volume 10.4 fL (9.4-12.4); Platelet Count 32 X10*3/uL (160-400)
[2023-05-16 15:41] VITALS: RESP 18
[2023-05-16 16:42] VITALS: RESP 18
--- NOTE | 2023-05-16 17:13 | PC.NURSE ---
Anish was transferred to the POD from the main ED. He was medicated before transfer with haldol and lorazepam. Anish has been observed sleeping since arriving in the POD. OOB to request fluids and snacks. Potassium given PO due to lab result of 2.8 Potassium level. No behavioral concerns. Breathing even and unlabored no distress noted.
[2023-05-16] MEDS: Potassium Chloride ER 20 MEQ TAB.ER.PRT PO (17:20)
[2023-05-16 18:36] LABS: Appearance Urine Clear; Color Urine Dark Yellow; Glucose Urine UA Negative (Negative); Leukocyte Esterase Urine Negative (Negative); Nitrite Urine Negative (Negative); PH 6.5 (5.0-9.0); Specific Gravity - Urine 1.025 (1.005-1.025); UMIC TRIGGER UACC YES; Urine Blood Negative (Negative); Urine Ketones Trace mg/dL (Negative); Urine Protein 30 (1+) mg/dL (Neg-Trace)
[2023-05-16 18:38] LABS: Bacteria Urine None Seen (None Seen); Hyaline Casts Urine 0-2 /LPF (0-2); RBC Urine 0-2 /HPF (0-2); Squamous Epithelial Cell Urine 0-2 /HPF (0-2); WBC Urine 0-5 /HPF (0-5)
[2023-05-16 18:42] LABS: Amphetamine Screen Urine Not Detected (Not Detect); Barbiturates, Urine Not Detected (Not Detect); Benzodiazepines Screen Urine Not Detected (Not Detect); Cannabinoid Screen Urine Not Detected (Not Detect); Cocaine Screen Urine Not Detected (Not Detect); Fentanyl, urine Not Detected (Not Detect); Opiate Screen Urine Not Detected (Not Detect); Phencyclidine Screen Urine Not Detected (Not Detect)
--- NOTE | 2023-05-16 18:53 | PC.NURSE ---
CIWA 8. Moderate tremor. Lorazepam 2mg given PO.
[2023-05-16 19:56] LABS: COVID-19 Test Negative (Negative); IDNOW Serial# 9DB6401D
[2023-05-16] MEDS: Albuterol Sulfate 90 MCG 8 GM INHALER 2 PUFF INHALE (20:18)
[2023-05-16] MEDS: Buprenorphine/Naloxone 8/2 mg FILM 1 FILM SUBLINGUAL (20:19)
[2023-05-16] MEDS: Gabapentin 400 MG CAPSULE PO (20:20)
[2023-05-16] MEDS: hydrOXYzine HCL 25 MG TABLET PO (20:57)
[2023-05-16] MEDS: QUEtiapine Fumarate 25 MG TABLET PO (20:57)
--- NOTE | 2023-05-16 21:17 | MHC.CARE ---
CARE Team attempts to assess pt. Pt reports feeling sick to his stomach. This is communicated to Dr. Bahena. CARE Team to assess pt in the morning when he is able to engage.
[2023-05-17] MEDS: LORazepam 1 MG TABLET 2 MG PO ×2 (05:49→09:49)
[2023-05-17 05:54] VITALS: BP 132/89; PULSE 101; RESP 20; TEMP 37.3; O2SAT 91
--- NOTE | 2023-05-17 05:54 | PC.NURSE ---
Patient slept through the night, no distress observed/reported, CIWA at 0535 was 8, Ativan 2 mg PO administered at 0549 with pending effect, care consult ordered/pending evaluation, med rec completed/approved/patient complaint with scheduled medication, labs completed/resulted/reviewed, VSS, behavior non concerning, will continue to monitor
[2023-05-17] MEDS: Buprenorphine/Naloxone 8/2 mg FILM 1 FILM SUBLINGUAL (08:21)
[2023-05-17] MEDS: buPROPion HCl XL 300 MG TAB.ER.24H PO (08:21)
[2023-05-17] MEDS: Multivitamin TABLET 1 TAB PO (08:21)
[2023-05-17] MEDS: FLUoxetine HCl 20 MG CAPSULE 60 MG PO (08:21)
[2023-05-17] MEDS: Gabapentin 400 MG CAPSULE PO (08:21)
[2023-05-17 09:05] VITALS: BP 141/92; PULSE 119; RESP 16; TEMP 38.4; O2SAT 93
--- NOTE | 2023-05-17 09:36 | PHA.MEDREC ---
Pharmacy Consult ? Medication Reconciliation Pharmacy has completed the medication reconciliation. Reviewed med rec done by nursing
[2023-05-17] MEDS: Nicotine 21 MG PATCH.TD24 TRANSDERMA (11:18)
--- NOTE | 2023-05-17 11:54 | MHC.RECOVRN ---
Met with pt in [facility] after pt cleared by CARE Team. Pt had presented to the ED from home after his girlfriend was brought in for an overdose. Pt reported SI cut throat and alcohol use. Pt now denies SI and reports interest in ATS. Pt reports drinking 3 pints alcohol daily, last drink [employer]. Pt reports hx ATS and psychiatric admissions and is looking to detox for a couple days. Discussed ATS bedsearch process and no guarantee of securing a bed. Pt declines bedsearch and prefers to follow up from home. RN and provider aware.
== END 2023-05-17 12:14 | disposition home or self-care (01) ==
PROVIDERS: Emergency Provider Emergency Medicine
DX: F32.A Depression, unspecified (principal); R45.851 Suicidal ideations; F10.220 Alcohol dependence with intoxication, uncomplicated; Y90.8 Blood alcohol level of 240 mg/100 ml or more; J44.9 Chronic obstructive pulmonary disease, unspecified; F11.20 Opioid dependence, uncomplicated; Z87.891 Personal history of nicotine dependence; Z79.899 Other long term (current) drug therapy
CPT/HCPCS: 36415; 80053; 80307; 81001; 85025; 87635; 99285; S9485

== ENCOUNTER 2023-05-19 00:57 | Inpatient (IN) | payer OTHER, SELFPAY ==
[2023-05-19] VITALS (14 sets, daily range): BP systolic 96–134; BP diastolic 57–94; PULSE 75–114; RESP 13–20; TEMP 36.6–37.6; O2SAT 85–98; BMI 23.7; BMI 23.8
--- NOTE | 2023-05-19 | ECG_ITS ---
Test Reason : CHEST PAIN Blood Pressure : / mmHG Vent. Rate : 107 BPM Atrial Rate : 107 BPM P-R Int : 168 ms QRS Dur : 096 ms QT Int : 354 ms P-R-T Axes : 059 -09 052 degrees QTc Int : 472 ms Sinus tachycardia Low voltage QRS Incomplete right bundle branch block Borderline ECG When compared with ECG of 01-DEC-2022 12:20, Criteria for Inferior infarct are no longer Present Referred By: Generic ED Physician Electronically Signed By:CRISTIANO LOZANO MD
--- NOTE | ~2023-05-19 | XR_ITS ---
EXAMINATION: XR CHEST CLINICAL INFORMATION: COPD, rule out pneumonia COMPARISON: 09/04/2022 TECHNIQUE: Frontal view of the chest was obtained. FINDINGS: Lung volumes are symmetric. There is suggestion of subtle patchy left perihilar opacity. No evidence of pneumothorax, pleural effusion, or pulmonary edema. The cardiomediastinal contour is unremarkable. No acute osseous findings are seen. XR/XR chest 1V IMPRESSION: Suggestion of subtle patchy left perihilar opacity, which could reflect developing pneumonia in the proper clinical setting.
[2023-05-19 01:18] LABS: MANUAL DIFF FLAG NO
[2023-05-19 01:20] LABS: Basophils Percent Auto 0.4 % (0-2); Eosinophils Absolute Auto 0.1 X10*3/uL (0.0-0.4); Eosinophils Percent Auto 0.6 % (0-4); Hematocrit 33.4 % (42.0-52.0); Hemoglobin 11.9 g/dl (14.0-18.0); Imm Gran Abs Auto 0.05 X10*3/uL (0.00-0.03); Imm Gran Pct Auto 0.4 % (0.0-0.4); Lymphocytes Absolute Auto 1.8 X10*3/uL (1.2-4.9); Lymphocytes Percent Auto 16.2 % (20-40); Mean Corpuscular HGB Conc 35.6 g/dl (31.0-36.0); Mean Corpuscular Volume 98.2 fL (80.0-98.0); Mean Platelet Volume 12.3 fL (9.4-12.4); Monocytes Absolute Auto 0.5 X10*3/uL (0.1-1.2); Monocytes Percent Auto 4.8 % (2-11); Neutrophils Absolute Auto 8.7 x10*3/uL (2.0-8.3); Neutrophils Percent Auto 77.6 % (45-73); Platelet Count 24 X10*3/uL (160-400); Red Cell Distribution Width 15.9 % (11.0-16.0); White Blood Count 11.2 X10*3/uL (4.8-10.8)
--- NOTE | 2023-05-19 01:27 | MHC.EDTECH ---
patient ekg taken and was read by provider .
[2023-05-19 01:33] LABS: Ethanol 213 mg/dL
[2023-05-19 01:44] LABS: Alanine Aminotransferase 43 U/L (0-40); Albumin Level 2.9 g/dL (3.5-5.0); Alkaline Phosphatase 184 U/L (39-117); Anion Gap 16 (12-20); Aspartate Amino Transferase 199 U/L (5-37); Bilirubin Total 1.5 mg/dL (0.0-1.0); Blood Urea Nitrogen 12 mg/dL (9-16); Calcium 7.8 mg/dL (8.4-10.2); Carbon Dioxide 25 mmol/L (22-29); Chloride 98 mmol/L (96-108); Creatinine Clr Calc Pharmacy 118.3; Estimated Glomerular Filt Rate > 60; Glucose Random 102 mg/dL (60-115); Lipase 37 U/L (8-78); Potassium 2.8 mmol/L (3.3-5.1); Sodium 136 mmol/L (135-145); Total Protein 6.9 g/dL (6.5-8.0)
--- NOTE | 2023-05-19 02:58 | ED.GENADULT ---
HPI - General Adult General Chief complaint: ETOH/Substance Use Stated complaint: Dizziness, Hallucinations, Alcohol Abuse Time Seen by Provider: 05/19/23 02:55 Source: patient Mode of arrival: EMS Limitations: no limitations History of Present Illness HPI narrative: Patient comes to the emergency room complaining of auditory hallucinations and alcohol intoxication. Patient coming from home by ambulance. Patient states that he was seen earlier at [facility], he left against medical advice for unclear reasons. Patient denies suicidal or homicidal ideation. However, it was noted the lab when patient is sitting up, his oxygen saturation drops to 85% with good waveform, patient known to have COPD. Patient states he has been coughing more than usual. Patient denies chest pain. Related Data Home Medications Medication Instructions Recorded Confirmed albuterol sulfate 90 mcg/actuation 2 puff inhalation Q6H PRN 11/30/22 05/16/23 aerosol inhaler (Ventolin HFA) Shortness Of Breath Or Wheezing buprenorphine 8 mg-naloxone 2 mg 1 film sublingual TID 11/30/22 05/16/23 sublingual film (Suboxone) bupropion HCl 300 mg 24 hr tablet, 300 mg PO DAILY 11/30/22 05/16/23 extended release clonidine HCl 0.1 mg tablet 0.1 mg PO BID PRN anxiety 11/30/22 05/16/23 fluoxetine 20 mg capsule 60 mg PO DAILY 11/30/22 05/16/23 gabapentin 400 mg capsule 400 mg PO TID 11/30/22 05/16/23 hydroxyzine pamoate 25 mg capsule 25 mg PO TID PRN anxiety 11/30/22 05/16/23 multivitamin 1 tab PO DAILY 11/30/22 05/16/23 trazodone 50 mg tablet 50 mg PO BEDTIME PRN insomnia 11/30/22 05/16/23 quetiapine 25 mg tablet (Seroquel) 25 - 50 mg PO BEDTIME PRN anxiety 05/16/23 05/16/23 Allergies Allergy/AdvReac Type Severity Reaction Status Date / Time levofloxacin Allergy Unknown Unknown Verified 05/16/23 11:23 chlorpromazine Allergy Unknown unknown Uncoded 11/30/22 18:24 Review of Systems Review of Systems: Constitutional : No Weight loss, No Fever, No Chills, No Night Sweats, No Fatigue, No Malaise ENT/Mouth : No Hearing loss, No Ear Pain, No Nasal Congestion, No Sinus Pain, No Hoarseness, No sore throat, No Rhinorrhea, No Swallowing Difficulty Eyes: No Eye Pain, No Swelling, No Redness, No Foreign Body, No Discharge, No Vision Changes Cardiovascular : No Chest Pain, No SOB, No Dyspnea on Exertion, No Orthopnea, No Edema, No Palpitations Respiratory : Complaining of cough, sputum production, wheezing Gastrointestinal : No Nausea, No Vomiting, No Diarrhea, No Constipation, No abdominal Pain, No Hematochezia, No Melena Genitourinary : no irregular bleeding, No Dysuria, No Urinary Frequency, No Hematuria, No Urinary Incontinence, No Urgency, No Flank Pain, No Urinary Flow Changes, No Hesitancy Musculoskeletal : No joint pain, No Myalgias, No Joint Swelling Skin : No Skin Lesions, No rash Neuro : No Weakness, No Numbness, No Paresthesias, No Loss of Consciousness, No Dizziness, No Headache Psych : No Anxiety/Panic, No Depression, No SI/HI/AH/VH, No Social Issues, complaining of hearing voices Heme/Lymph: No Bruising, No Bleeding,No Lymphadenopathy Endocrine : No Polyuria, No Polydipsia, No Temperature Intolerance PMFSH Past Medical History Medical History Acute respiratory failure with hypoxia Opioid use disorder Alcohol use disorder, severe, dependence MDD (major depressive disorder) Pancreatitis Asthma COPD (chronic obstructive pulmonary disease) Social History Social History Household Members: None Housing: House Do you presently have visiting nurse or other home services: No Alcohol intake: current Alcohol intake frequency: 3 or more drinks per day Patient Tobacco Use Status: Former Tobacco user Quit Date: Pt not ready to quit per pt Tobacco use type: Cigarette Cigarette Packs Per Day: 0.5 Cigarettes Per Day: 10.0 Years Smoked: 38 Smoked in Last 30 Days: Yes e-Cigarette/Vaping Use: Former Use Second Hand Smoke Exposure: No Use of substances other than those prescribed or required for medical reasons: No Advance Directives: No Advance Directives Information Provided: No service: No Sexual orientation: Straight/Heterosexual Physical Exam ED Vital Signs: Vital Signs - 24 hr 05/19/23 01:03 05/19/23 02:48 05/19/23 02:59 Temperature 99.4 F 99.6 F Pulse Rate 109 H 114 H Respiratory Rate 13 16 Blood Pressure 96/58 L 108/57 L Pulse Oximetry 93 85 L 93 Oxygen Delivery Method Nasal Cannula Room Air Nasal Cannula Oxygen Flow Rate 2 05/19/23 03:07 05/19/23 03:37 Temperature 99.4 F Pulse Rate 98 104 H Respiratory Rate 18 18 Blood Pressure 101/64 Pulse Oximetry 98 Oxygen Delivery Method Nasal Cannula Oxygen Flow Rate 3 BMI result Body Mass Index 23.7 Const Other: Appearance: Alert. Oriented X3. No acute distress. Eyes: Pupils equal, round and reactive to light. ENT: Pharynx normal. Neck: Normal inspection. Neck supple. No lymph nodes noted. No crepitus CVS: Normal heart rate and rhythm. Pulses normal. Normal S1 and S2 Respiratory: Bilateral wheezing, no rales, no crackles Abdomen: Soft and nontender. No rigidity. No distention. Skin: Skin warm and dry. Normal skin color. Normal skin turgor. Extremities: No lower extremity edema. No Lacerations. No Rash Neuro: Oriented X 3. No motor deficit. No sensory deficit. Moving all extremities. No slurred speech. CN 2 through 12 grossly intact Psych: calm, cooperative, normal affect Course Course Course Narrative: -patient's she has complaint is psychiatric. However, patient is not medically cleared will patient's oxygen saturation drops to 85% without any oxygen. Patient will be treated for COPD exacerbation 1st, patient to be admitted medically. -patient is on 2 L nasal cannula saturating 93%. Medications Administered Generic Name Dose Route Start Last Admin Trade Name Freq PRN Reason Stop Dose Admin Magnesium Sulfate 2 gm in 50 mls @ 25 mls/hr 05/19/23 02:55 05/19/23 03:58 Magnesium Sulfate/H2o IV 05/19/23 04:54 Infused ONCE ONE Infusion Azithromycin 500 mg/ Sodium 250 mls @ 125 mls/hr 05/19/23 03:01 05/19/23 03:59 Chloride IV 05/19/23 05:00 125 mls/hr ONCE ONE Administration Discontinued Medications Generic Name Dose Route Start Last Admin Trade Name Freq PRN Reason Stop Dose Admin Albuterol Sulfate 10 mg 05/19/23 02:55 05/19/23 03:04 Albuterol Sulfate (0.083%) 2.5 Mg/3 Ml Vial.Neb INHALE 05/19/23 02:56 10 mg ONCE ONE Administration Sodium Chloride 1,000 mls @ 999 mls/hr 05/19/23 02:55 05/19/23 03:17 Ns IVCONT 05/19/23 03:55 999 mls/hr .Q1H1M ONE Administration Ceftriaxone Sodium 1 gm/ 50 mls @ 100 mls/hr 05/19/23 03:01 05/19/23 03:58 Sodium Chloride IV 05/19/23 03:30 Infused ONCE ONE Infusion Methylprednisolone Sodium Succinate 125 mg 05/19/23 02:55 05/19/23 03:17 Methylprednisolone Sod Succ 125 Mg/2 Ml Vial IVPUSH 05/19/23 02:56 125 mg ONCE ONE Administration Morphine Sulfate 1 mg 05/19/23 03:59 05/19/23 04:07 Morphine Sulfate 2 Mg/Ml Cartridge IVPUSH 05/19/23 04:00 1 mg ONCE ONE Administration Protocol Potassium Chloride 40 meq 05/19/23 03:55 05/19/23 04:07 Potassium Chloride Er 20 Meq Tab.Er.Prt PO 05/19/23 03:56 40 meq ONCE ONE Administration Medical Decision Making Medical Decision Making MDM Narrative: -my interpretation of labs: Patient's hematology is at baseline. Patient's potassium a bit low, 3.0, patient's potassium being repleted. -patient is feeling better after a nebulization treatment, Solu-Medrol and magnesium. However, patient's oxygen saturation drops to 85% on room air. Patient is not oxygen dependent, patient on 4 L saturating between 90-93%-interpretation of chest x-ray: No pneumonia, radiology report pending -my interpretation of EKG: Sinus tachycardia, heart rate 107, no ST segment depression or elevation, no T-wave inversion, QTC 472 -patient is not suicidal or homicidal, patient is not on a Section 12. Patient may need a psychiatry consult for auditory hallucinations. At this time, patient is not withdrawing from alcohol. -patient was prophylactically started on phenobarb protocol -I discussed the patient with Dr. Hoff, patient being admitted for chronic lung disease -patient's blood pressure stable, no fever, normal blood white blood cell count and lactic acid, sepsis is not suspected -patient complaining of a pounding headache, patient was given 1 dose of morphine. Patient denies any neck pain, no visual changes. 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 05/19/23 03:16 05/19/23 03:17 Labs: Lab Results 05/19/23 05/19/23 05/19/23 Range/Units 01:13 01:13 01:13 WBC 11.2 H (4.8-10.8) X10*3/uL RBC 3.40 L (4.60-5.80) X10*6/uL Hgb 11.9 L (14.0-18.0) g/dl Hct 33.4 L (42.0-52.0) % MCV 98.2 H (80.0-98.0) fL MCH 35.0 H (27.0-33.0) pg MCHC 35.6 (31.0-36.0) g/dl RDW 15.9 (11.0-16.0) % Plt Count 24 L (160-400) X10*3/uL MPV 12.3 (9.4-12.4) fL Immature Gran % (Auto) 0.4 (0.0-0.4) % Neut % (Auto) 77.6 H (45-73) % Lymph % (Auto) 16.2 L (20-40) % [place] % (Auto) 4.8 (2-11) % Eos % (Auto) 0.6 (0-4) % Baso % (Auto) 0.4 (0-2) % Lymph # (Auto) 1.8 (1.2-4.9) X10*3/uL [place] # (Auto) 0.5 (0.1-1.2) X10*3/uL Eos # (Auto) 0.1 (0.0-0.4) X10*3/uL Baso # (Auto) 0.0 (0.0-0.2) X10*3/uL Abs Immat Gran (auto) 0.05 H (0.00-0.03) X10*3/uL Absolute Neuts (auto) 8.7 H (2.0-8.3) x10*3/uL Absolute Nucleated RBC 0.000 (0.0-0.012) X10*3/uL Nucleated RBC % (auto) 0.0 (0.0-0.2) /100WBC Smear Tech's Comments PT (11.1-13.3) SEC INR (0.9-1.1) VBG pH (7.32-7.43) VBG pCO2 mmHg VBG pO2 mmHg VBG HCO3 (22-26) mmol/L VBG O2 Saturation % VBG Base Excess mmol/L Sodium 136 Cancelled (135-145) mmol/L Potassium 2.8 L Cancelled (3.3-5.1) mmol/L Chloride 98 (96-108) mmol/L Carbon Dioxide (22-29) mmol/L Anion Gap (12-20) BUN (9-16) mg/dL Creatinine (0.5-1.4) mg/dL Estim Creat Clear Calc Estimated GFR Random Glucose (60-115) mg/dL Lactic Acid (0.5-2.0) mmol/L Calcium (8.4-10.2) mg/dL Total Bilirubin (0.0-1.0) mg/dL Direct Bilirubin AST (5-37) U/L ALT (0-40) U/L Alkaline Phosphatase (39-117) U/L Troponin I High Sens (<3.5-35.0) ng/L B-Natriuretic Peptide (<100) pg/mL Total Protein (6.5-8.0) g/dL Albumin (3.5-5.0) g/dL Lipase (8-78) U/L Ethyl Alcohol mg/dL COVID-19 (DB) (Negative) COVID-19 Clin Com 05/19/23 05/19/23 05/19/23 Range/Units 01:13 01:13 01:13 WBC (4.8-10.8) X10*3/uL RBC (4.60-5.80) X10*6/uL Hgb (14.0-18.0) g/dl Hct (42.0-52.0) % MCV (80.0-98.0) fL MCH (27.0-33.0) pg MCHC (31.0-36.0) g/dl RDW (11.0-16.0) % Plt Count (160-400) X10*3/uL MPV (9.4-12.4) fL Immature Gran % (Auto) (0.0-0.4) % Neut % (Auto) (45-73) % Lymph % (Auto) (20-40) % [place] % (Auto) (2-11) % Eos % (Auto) (0-4) % Baso % (Auto) (0-2) % Lymph # (Auto) (1.2-4.9) X10*3/uL [place] # (Auto) (0.1-1.2) X10*3/uL Eos # (Auto) (0.0-0.4) X10*3/uL Baso # (Auto) (0.0-0.2) X10*3/uL Abs Immat Gran (auto) (0.00-0.03) X10*3/uL Absolute Neuts (auto) (2.0-8.3) x10*3/uL Absolute Nucleated RBC (0.0-0.012) X10*3/uL Nucleated RBC % (auto) (0.0-0.2) /100WBC Smear Tech's Comments PT (11.1-13.3) SEC INR (0.9-1.1) VBG pH (7.32-7.43) VBG pCO2 mmHg VBG pO2 mmHg VBG HCO3 (22-26) mmol/L VBG O2 Saturation % VBG Base Excess mmol/L Sodium (135-145) mmol/L Potassium (3.3-5.1) mmol/L Chloride Cancelled (96-108) mmol/L Carbon Dioxide 25 Cancelled (22-29) mmol/L Anion Gap 16 Cancelled (12-20) BUN 12 (9-16) mg/dL Creatinine (0.5-1.4) mg/dL Estim Creat Clear Calc Estimated GFR Random Glucose (60-115) mg/dL Lactic Acid (0.5-2.0) mmol/L Calcium (8.4-10.2) mg/dL Total Bilirubin (0.0-1.0) mg/dL Direct Bilirubin AST (5-37) U/L ALT (0-40) U/L Alkaline Phosphatase (39-117) U/L Troponin I High Sens (<3.5-35.0) ng/L B-Natriuretic Peptide (<100) pg/mL Total Protein (6.5-8.0) g/dL Albumin (3.5-5.0) g/dL Lipase (8-78) U/L Ethyl Alcohol mg/dL COVID-19 (DB) (Negative) COVID-19 Clin Com 05/19/23 05/19/23 05/19/23 Range/Units 01:13 01:13 01:13 WBC (4.8-10.8) X10*3/uL RBC (4.60-5.80) X10*6/uL Hgb (14.0-18.0) g/dl Hct (42.0-52.0) % MCV (80.0-98.0) fL MCH (27.0-33.0) pg MCHC (31.0-36.0) g/dl RDW (11.0-16.0) % Plt Count (160-400) X10*3/uL MPV (9.4-12.4) fL Immature Gran % (Auto) (0.0-0.4) % Neut % (Auto) (45-73) % Lymph % (Auto) (20-40) % [place] % (Auto) (2-11) % Eos % (Auto) (0-4) % Baso % (Auto) (0-2) % Lymph # (Auto) (1.2-4.9) X10*3/uL [place] # (Auto) (0.1-1.2) X10*3/uL Eos # (Auto) (0.0-0.4) X10*3/uL Baso # (Auto) (0.0-0.2) X10*3/uL Abs Immat Gran (auto) (0.00-0.03) X10*3/uL Absolute Neuts (auto) (2.0-8.3) x10*3/uL Absolute Nucleated RBC (0.0-0.012) X10*3/uL Nucleated RBC % (auto) (0.0-0.2) /100WBC Smear Tech's Comments PT (11.1-13.3) SEC INR (0.9-1.1) VBG pH (7.32-7.43) VBG pCO2 mmHg VBG pO2 mmHg VBG HCO3 (22-26) mmol/L VBG O2 Saturation % VBG Base Excess mmol/L Sodium (135-145) mmol/L Potassium (3.3-5.1) mmol/L Chloride (96-108) mmol/L Carbon Dioxide (22-29) mmol/L Anion Gap (12-20) BUN Cancelled (9-16) mg/dL Creatinine 0.76 Cancelled (0.5-1.4) mg/dL Estim Creat Clear Calc 118.3 Cancelled Estimated GFR > 60 Random Glucose (60-115) mg/dL Lactic Acid (0.5-2.0) mmol/L Calcium (8.4-10.2) mg/dL Total Bilirubin (0.0-1.0) mg/dL Direct Bilirubin AST (5-37) U/L ALT (0-40) U/L Alkaline Phosphatase (39-117) U/L Troponin I High Sens (<3.5-35.0) ng/L B-Natriuretic Peptide (<100) pg/mL Total Protein (6.5-8.0) g/dL Albumin (3.5-5.0) g/dL Lipase (8-78) U/L Ethyl Alcohol mg/dL COVID-19 (DB) (Negative) COVID-19 Clin Com 05/19/23 05/19/23 05/19/23 Range/Units 01:13 01:13 01:13 WBC (4.8-10.8) X10*3/uL RBC (4.60-5.80) X10*6/uL Hgb (14.0-18.0) g/dl Hct (42.0-52.0) % MCV (80.0-98.0) fL MCH (27.0-33.0) pg MCHC (31.0-36.0) g/dl RDW (11.0-16.0) % Plt Count (160-400) X10*3/uL MPV (9.4-12.4) fL Immature Gran % (Auto) (0.0-0.4) % Neut % (Auto) (45-73) % Lymph % (Auto) (20-40) % [place] % (Auto) (2-11) % Eos % (Auto) (0-4) % Baso % (Auto) (0-2) % Lymph # (Auto) (1.2-4.9) X10*3/uL [place] # (Auto) (0.1-1.2) X10*3/uL Eos # (Auto) (0.0-0.4) X10*3/uL Baso # (Auto) (0.0-0.2) X10*3/uL Abs Immat Gran (auto) (0.00-0.03) X10*3/uL Absolute Neuts (auto) (2.0-8.3) x10*3/uL Absolute Nucleated RBC (0.0-0.012) X10*3/uL Nucleated RBC % (auto) (0.0-0.2) /100WBC Smear Tech's Comments PT (11.1-13.3) SEC INR (0.9-1.1) VBG pH (7.32-7.43) VBG pCO2 mmHg VBG pO2 mmHg VBG HCO3 (22-26) mmol/L VBG O2 Saturation % VBG Base Excess mmol/L Sodium (135-145) mmol/L Potassium (3.3-5.1) mmol/L Chloride (96-108) mmol/L Carbon Dioxide (22-29) mmol/L Anion Gap (12-20) BUN (9-16) mg/dL Creatinine (0.5-1.4) mg/dL Estim Creat Clear Calc Estimated GFR Cancelled Random Glucose 102 Cancelled (60-115) mg/dL Lactic Acid (0.5-2.0) mmol/L Calcium 7.8 L Cancelled (8.4-10.2) mg/dL Total Bilirubin 1.5 H (0.0-1.0) mg/dL Direct Bilirubin AST (5-37) U/L ALT (0-40) U/L Alkaline Phosphatase (39-117) U/L Troponin I High Sens (<3.5-35.0) ng/L B-Natriuretic Peptide (<100) pg/mL Total Protein (6.5-8.0) g/dL Albumin (3.5-5.0) g/dL Lipase (8-78) U/L Ethyl Alcohol mg/dL COVID-19 (DB) (Negative) COVID-19 Clin Com 05/19/23 05/19/23 05/19/23 Range/Units 01:13 01:13 01:13 WBC (4.8-10.8) X10*3/uL RBC (4.60-5.80) X10*6/uL Hgb (14.0-18.0) g/dl Hct (42.0-52.0) % MCV (80.0-98.0) fL MCH (27.0-33.0) pg MCHC (31.0-36.0) g/dl RDW (11.0-16.0) % Plt Count (160-400) X10*3/uL MPV (9.4-12.4) fL Immature Gran % (Auto) (0.0-0.4) % Neut % (Auto) (45-73) % Lymph % (Auto) (20-40) % [place] % (Auto) (2-11) % Eos % (Auto) (0-4) % Baso % (Auto) (0-2) % Lymph # (Auto) (1.2-4.9) X10*3/uL [place] # (Auto) (0.1-1.2) X10*3/uL Eos # (Auto) (0.0-0.4) X10*3/uL Baso # (Auto) (0.0-0.2) X10*3/uL Abs Immat Gran (auto) (0.00-0.03) X10*3/uL Absolute Neuts (auto) (2.0-8.3) x10*3/uL Absolute Nucleated RBC (0.0-0.012) X10*3/uL Nucleated RBC % (auto) (0.0-0.2) /100WBC Smear Tech's Comments PT (11.1-13.3) SEC INR (0.9-1.1) VBG pH (7.32-7.43) VBG pCO2 mmHg VBG pO2 mmHg VBG HCO3 (22-26) mmol/L VBG O2 Saturation % VBG Base Excess mmol/L Sodium (135-145) mmol/L Potassium (3.3-5.1) mmol/L Chloride (96-108) mmol/L Carbon Dioxide (22-29) mmol/L Anion Gap (12-20) BUN (9-16) mg/dL Creatinine (0.5-1.4) mg/dL Estim Creat Clear Calc Estimated GFR Random Glucose (60-115) mg/dL Lactic Acid (0.5-2.0) mmol/L Calcium (8.4-10.2) mg/dL Total Bilirubin Cancelled (0.0-1.0) mg/dL Direct Bilirubin Cancelled AST 199 H Cancelled (5-37) U/L ALT 43 H Cancelled (0-40) U/L Alkaline Phosphatase 184 H (39-117) U/L Troponin I High Sens (<3.5-35.0) ng/L B-Natriuretic Peptide (<100) pg/mL Total Protein (6.5-8.0) g/dL Albumin (3.5-5.0) g/dL Lipase (8-78) U/L Ethyl Alcohol mg/dL COVID-19 (DB) (Negative) COVID-19 Clin Com 05/19/23 05/19/23 05/19/23 Range/Units 01:13 01:13 01:13 WBC (4.8-10.8) X10*3/uL RBC (4.60-5.80) X10*6/uL Hgb (14.0-18.0) g/dl Hct (42.0-52.0) % MCV (80.0-98.0) fL MCH (27.0-33.0) pg MCHC (31.0-36.0) g/dl RDW (11.0-16.0) % Plt Count (160-400) X10*3/uL MPV (9.4-12.4) fL Immature Gran % (Auto) (0.0-0.4) % Neut % (Auto) (45-73) % Lymph % (Auto) (20-40) % [place] % (Auto) (2-11) % Eos % (Auto) (0-4) % Baso % (Auto) (0-2) % Lymph # (Auto) (1.2-4.9) X10*3/uL [place] # (Auto) (0.1-1.2) X10*3/uL Eos # (Auto) (0.0-0.4) X10*3/uL Baso # (Auto) (0.0-0.2) X10*3/uL Abs Immat Gran (auto) (0.00-0.03) X10*3/uL Absolute Neuts (auto) (2.0-8.3) x10*3/uL Absolute Nucleated RBC (0.0-0.012) X10*3/uL Nucleated RBC % (auto) (0.0-0.2) /100WBC Smear Tech's Comments PT (11.1-13.3) SEC INR (0.9-1.1) VBG pH (7.32-7.43) VBG pCO2 mmHg VBG pO2 mmHg VBG HCO3 (22-26) mmol/L VBG O2 Saturation % VBG Base Excess mmol/L Sodium (135-145) mmol/L Potassium (3.3-5.1) mmol/L Chloride (96-108) mmol/L Carbon Dioxide (22-29) mmol/L Anion Gap (12-20) BUN (9-16) mg/dL Creatinine (0.5-1.4) mg/dL Estim Creat Clear Calc Estimated GFR Random Glucose (60-115) mg/dL Lactic Acid (0.5-2.0) mmol/L Calcium (8.4-10.2) mg/dL Total Bilirubin (0.0-1.0) mg/dL Direct Bilirubin AST (5-37) U/L ALT (0-40) U/L Alkaline Phosphatase Cancelled (39-117) U/L Troponin I High Sens 5.0 (<3.5-35.0) ng/L B-Natriuretic Peptide (<100) pg/mL Total Protein 6.9 Cancelled (6.5-8.0) g/dL Albumin 2.9 L Cancelled (3.5-5.0) g/dL Lipase 37 (8-78) U/L Ethyl Alcohol 213 mg/dL COVID-19 (DB) (Negative) COVID-19 Clin Com 05/19/23 05/19/23 05/19/23 Range/Units 03:16 03:17 03:23 WBC 10.0 (4.8-10.8) X10*3/uL RBC 3.43 L (4.60-5.80) X10*6/uL Hgb 11.7 L (14.0-18.0) g/dl Hct 33.1 L (42.0-52.0) % MCV 96.5 (80.0-98.0) fL MCH 34.1 H (27.0-33.0) pg MCHC 35.3 (31.0-36.0) g/dl RDW 15.8 (11.0-16.0) % Plt Count 26 L (160-400) X10*3/uL MPV 12.8 H (9.4-12.4) fL Immature Gran % (Auto) 0.3 (0.0-0.4) % Neut % (Auto) 77.8 H (45-73) % Lymph % (Auto) 15.9 L (20-40) % [place] % (Auto) 4.7 (2-11) % Eos % (Auto) 1.0 (0-4) % Baso % (Auto) 0.3 (0-2) % Lymph # (Auto) 1.6 (1.2-4.9) X10*3/uL [place] # (Auto) 0.5 (0.1-1.2) X10*3/uL Eos # (Auto) 0.1 (0.0-0.4) X10*3/uL Baso # (Auto) 0.0 (0.0-0.2) X10*3/uL Abs Immat Gran (auto) 0.03 (0.00-0.03) X10*3/uL Absolute Neuts (auto) 7.7 (2.0-8.3) x10*3/uL Absolute Nucleated RBC 0.000 (0.0-0.012) X10*3/uL Nucleated RBC % (auto) 0.0 (0.0-0.2) /100WBC Smear Tech's Comments VERIFIED PT 15.5 H (11.1-13.3) SEC INR 1.3 H (0.9-1.1) VBG pH 7.53 H (7.32-7.43) VBG pCO2 30 mmHg VBG pO2 119 mmHg VBG HCO3 25 (22-26) mmol/L VBG O2 Saturation 100.0 % VBG Base Excess 3.8 mmol/L Sodium 136 (135-145) mmol/L Potassium 3.0 L (3.3-5.1) mmol/L Chloride 98 (96-108) mmol/L Carbon Dioxide 23 (22-29) mmol/L Anion Gap 18 (12-20) BUN 11 (9-16) mg/dL Creatinine 0.70 (0.5-1.4) mg/dL Estim Creat Clear Calc 128.4 Estimated GFR > 60 Random Glucose 107 (60-115) mg/dL Lactic Acid 1.9 (0.5-2.0) mmol/L Calcium 7.5 L (8.4-10.2) mg/dL Total Bilirubin 1.5 H (0.0-1.0) mg/dL Direct Bilirubin 0.7 H AST 203 H (5-37) U/L ALT 45 H (0-40) U/L Alkaline Phosphatase 183 H (39-117) U/L Troponin I High Sens < 2.7 (<3.5-35.0) ng/L B-Natriuretic Peptide 57 (<100) pg/mL Total Protein 6.8 (6.5-8.0) g/dL Albumin 3.0 L (3.5-5.0) g/dL Lipase (8-78) U/L Ethyl Alcohol 165 mg/dL COVID-19 (DB) Negative (Negative) COVID-19 Clin Com See Note Critical Care Time Critical Care Time Critical Care Time: Yes Total Critical Care Time: 60 Attestation: I have personally provided critical care time. Time includes review of lab data, radiology results, discussion with consultants, and monitoring for potential decompensation. Intervention performed as documented. Discharge Plan Discharge Clinical Impression: COPD (chronic obstructive pulmonary disease), Acute hypokalemia, Headache Patient Disposition: Admitted As Inpatient
--- NOTE | 2023-05-19 03:01 | MHC.EDTECH ---
KAILASH PAULINO AWARE OF PATIENT O2 SAT DROP TO 85 % ON ROOM AIR .
[2023-05-19] MEDS: Albuterol Sulfate (0.083%) 2.5 MG/3 ML VIAL.NEB 10 MG INHALE (03:04)
[2023-05-19] MEDS: methylPREDNISolone Sod Succ 125 MG/2 ML VIAL IVPUSH (03:17)
[2023-05-19] MEDS: 0.9 % Sodium Chloride 1,000 ML 999 ML IVCONT (03:17)
--- NOTE | 2023-05-19 03:20 | MHC.EDTECH ---
PATIENT BLOOD DRAWN ,INCLUDING BOTH SETS OF BLOOD CULTURE , LACTIC ACID AND COVID SWAB COLLECTED AND SENT TO LAB .
[2023-05-19] MEDS: cefTRIAXone sodium 1 GM in 0.9 % Sodium Chloride 50 ML IV (03:21)
[2023-05-19 03:25] LABS: SCAN SMEAR FLAG 1
[2023-05-19] MEDS: Magnesium Sulfate/H2O 2 GM/50 ML PIGGYBACK IV (03:25)
[2023-05-19 03:27] LABS: Basophils Percent Auto 0.3 % (0-2); Eosinophils Absolute Auto 0.1 X10*3/uL (0.0-0.4); Hematocrit 33.1 % (42.0-52.0); Hemoglobin 11.7 g/dl (14.0-18.0); Imm Gran Abs Auto 0.03 X10*3/uL (0.00-0.03); Imm Gran Pct Auto 0.3 % (0.0-0.4); Lymphocytes Absolute Auto 1.6 X10*3/uL (1.2-4.9); Lymphocytes Percent Auto 15.9 % (20-40); MANUAL DIFF FLAG SCAN; Mean Corpuscular HGB Conc 35.3 g/dl (31.0-36.0); Mean Corpuscular Hemoglobin 34.1 pg (27.0-33.0); Mean Corpuscular Volume 96.5 fL (80.0-98.0); Mean Platelet Volume 12.8 fL (9.4-12.4); Monocytes Absolute Auto 0.5 X10*3/uL (0.1-1.2); Monocytes Percent Auto 4.7 % (2-11); Neutrophils Absolute Auto 7.7 x10*3/uL (2.0-8.3); Neutrophils Percent Auto 77.8 % (45-73); Red Blood Count 3.43 X10*6/uL (4.60-5.80); Red Cell Distribution Width 15.8 % (11.0-16.0)
[2023-05-19 03:29] LABS: VBG Base Excess 3.8 mmol/L; VBG HCO3 25 mmol/L (22-26); VBG pCO2 30 mmHg; VBG pH 7.53 (7.32-7.43); VBG pO2 119 mmHg
[2023-05-19 03:31] LABS: INTERNATIONAL NORM RATIO 1.3 (0.9-1.1); Prothrombin Time 15.5 SEC (11.1-13.3); Venous Blood Gas Refer to POC result
--- NOTE | 2023-05-19 03:32 | PC.NURSE ---
pt 02 dropping to 88% on RA, placed on 3L NC. O2 up to 92%
[2023-05-19 03:34] LABS: PLT ABN DIST 1; Platelet Count 26 X10*3/uL (160-400)
[2023-05-19 03:38] LABS: Lactic Acid 1.9 mmol/L (0.5-2.0)
--- NOTE | 2023-05-19 03:39 | MHC.EDTECH ---
rectal temp taken on patient it was 99.4 ,RN Freida aware ,Pt belonging list done ,2 small Clippers are locked up in security ,Pt meds are lock up in Pharmacy ,vitals taken ,pt resting and on continuous speech therapist technician ,RN aware of Pt hallucinations and talking out to himself ,Call ramirez within Pt reach ,will continue to monitor .
[2023-05-19 03:40] LABS: COVID-19 Test Negative (Negative); IDNOW Serial# BCCEAD1C
[2023-05-19 03:42] LABS: SLIDE REVIEW VERIFIED
[2023-05-19 03:44] LABS: Alanine Aminotransferase 45 U/L (0-40); Alkaline Phosphatase 183 U/L (39-117); Anion Gap 18 (12-20); Aspartate Amino Transferase 203 U/L (5-37); Bilirubin Direct 0.7 mg/dL (0.0-0.5); Bilirubin Total 1.5 mg/dL (0.0-1.0); Blood Urea Nitrogen 11 mg/dL (9-16); Calcium 7.5 mg/dL (8.4-10.2); Carbon Dioxide 23 mmol/L (22-29); Chloride 98 mmol/L (96-108); Creatinine Clr Calc Pharmacy 128.4; Estimated Glomerular Filt Rate > 60; Ethanol 165 mg/dL; Glucose Random 107 mg/dL (60-115); Sodium 136 mmol/L (135-145); Total Protein 6.8 g/dL (6.5-8.0)
[2023-05-19 03:47] LABS: B Type Natriuretic Peptide 57 pg/mL (<100)
[2023-05-19 03:48] LABS: Troponin-I High Sensitivity < 2.7 ng/L (<3.5-35.0)
[2023-05-19] MEDS: Azithromycin 500 MG in 0.9 % Sodium Chloride 250 ML 125 MG IV (03:59)
[2023-05-19] MEDS: Potassium Chloride ER 20 MEQ TAB.ER.PRT 40 MEQ PO ×3 (04:07→21:08)
[2023-05-19] MEDS: Morphine Sulfate 2 MG/ML CARTRIDGE 1 MG IVPUSH (04:07)
--- NOTE | 2023-05-19 04:16 | PC.NURSE ---
pt had difficulty taking PO potassium medications. pt reports they were too big and are now stuck, pt spitting up into emesis bag at this time. pills remained down
[2023-05-19 04:21] LABS: Amphetamine Screen Urine Not Detected (Not Detect); Barbiturates, Urine Not Detected (Not Detect); Benzodiazepines Screen Urine Not Detected (Not Detect); Cannabinoid Screen Urine Not Detected (Not Detect); Cocaine Screen Urine Not Detected (Not Detect); Fentanyl, urine Not Detected (Not Detect); Opiate Screen Urine Not Detected (Not Detect); Phencyclidine Screen Urine Not Detected (Not Detect)
--- NOTE | 2023-05-19 04:27 | PM.IMHP ---
History of Present Illness Date of Service: 05/19/23 Chief Complaint: Alcohol withdrawal This is a 52-year-old male with pertinent history of mood disorder, COPD without home oxygen, alcohol use disorder who presents to the emergency department for concerns of alcohol withdrawal. Patient presented to the hospital via EMS complaining of auditory hallucinations. States he left AMA from [facility] for unclear reasons. Also is feeling nauseous and tremulous. Denies history of alcohol withdrawal seizures. Does endorse cough that has been ongoing for the last few days. No associated fevers or chills. No dyspnea. Has associated wheezing. Patient denies chest discomfort, palpitations, abdominal pain, changes in urinary or bowel habits. In the emergency department, patient was found to be hypoxemic and imaging concerning for left-sided infiltrate Review of Systems Constitutional: Constitutional: Reports fatigue and Reports lethargy Cardiovascular: Cardiovascular: Reports dyspnea on exertion Respiratory: Respiratory: Reports cough, Reports dyspnea on exertion and Reports wheezing Gastrointestinal: Gastrointestinal: Reports no additional gastrointestinal complaints Genitourinary: Genitourinary: Reports no additional male genitourinary complaints Neurologic: Reports tremor(s) Psychiatric: Psychiatric: Reports anxiety and Reports auditory hallucinations Endocrine: Endocrine: Reports fatigue Allergic/Immunologic: Allergic/Immunologic: Reports wheezing PMFSH Medical History Acute respiratory failure with hypoxia Opioid use disorder Alcohol use disorder, severe, dependence MDD (major depressive disorder) Pancreatitis Asthma COPD (chronic obstructive pulmonary disease) Pertinent family history: No family history of early CAD Social History Household Members: None Housing: House Do you presently have visiting nurse or other home services: No Alcohol intake: current Alcohol intake frequency: 3 or more drinks per day Patient Tobacco Use Status: Former Tobacco user Quit Date: Pt not ready to quit per pt Tobacco use type: Cigarette Cigarette Packs Per Day: 0.5 Cigarettes Per Day: 10.0 Years Smoked: 38 Smoked in Last 30 Days: Yes e-Cigarette/Vaping Use: Former Use Second Hand Smoke Exposure: No Use of substances other than those prescribed or required for medical reasons: No Advance Directives: No Advance Directives Information Provided: No Nutrition Risks: No Nutritional Risk service: No Sexual orientation: Straight/Heterosexual Meds Allergies Allergy/AdvReac Type Severity Reaction Status Date / Time levofloxacin Allergy Unknown Unknown Verified 05/16/23 11:23 chlorpromazine Allergy Unknown unknown Uncoded 11/30/22 18:24 Active Medications: Current Medications Magnesium Sulfate (Magnesium Sulfate/H2o) 2 gm in 50 mls @ 25 mls/hr IV ONCE ONE Stop: 05/19/23 04:54 Last Infusion: 05/19/23 03:58 Dose: Infused Azithromycin 500 mg/ Sodium (Chloride) 250 mls @ 125 mls/hr IV ONCE ONE Stop: 05/19/23 05:00 Last Admin: 05/19/23 03:59 Dose: 125 mls/hr Pharmacy Consult (Consult Rx Etoh Phenob Im/Po) 1 each MISCELLANE ONCE PRN; Protocol PRN Reason: Consult order Home Medications Medication Instructions Recorded Confirmed Last Taken Type albuterol sulfate 90 mcg/actuation 2 puff inhalation Q6H PRN 11/30/22 05/19/23 Unknown History aerosol inhaler (Ventolin HFA) Shortness Of Breath Or Wheezing buprenorphine 8 mg-naloxone 2 mg 1 film sublingual TID 11/30/22 05/19/23 Unknown History sublingual film (Suboxone) bupropion HCl 300 mg 24 hr tablet, 300 mg PO DAILY 11/30/22 05/19/23 Unknown History extended release clonidine HCl 0.1 mg tablet 0.1 mg PO BID PRN anxiety 11/30/22 05/19/23 Unknown History fluoxetine 20 mg capsule 60 mg PO DAILY 11/30/22 05/19/23 Unknown History gabapentin 400 mg capsule 400 mg PO TID 11/30/22 05/19/23 Unknown History hydroxyzine pamoate 25 mg capsule 25 mg PO TID PRN anxiety 11/30/22 05/19/23 Unknown History multivitamin 1 tab PO DAILY 11/30/22 05/19/23 Unknown History trazodone 50 mg tablet 50 mg PO BEDTIME PRN insomnia 11/30/22 05/19/23 Unknown History quetiapine 25 mg tablet 25 - 50 mg PO QPM PRN anxiety 05/19/23 05/19/23 Unknown History Physical Exam Vital Signs and Narrative: Vital Signs: Last Vital Signs Temp 99.4 F 05/19/23 03:37 Pulse 104 H 05/19/23 03:37 Resp 18 10/28/23 03:37 BP 101/64 05/19/23 03:37 Pulse Ox 98 05/19/23 03:37 O2 Del Method Nasal Cannula 05/19/23 03:37 O2 Flow Rate 3 05/19/23 03:37 Oxygen Flow Rate 2 05/19/23 01:03 BMI result Body Mass Index 23.7 Middle-aged male lying in bed in mild distress on supplemental oxygen Neck supple, no JVD Regular rate and rhythm, S1-S2 heard Bilateral wheezing appreciated Abdomen soft nontender, no guarding, no rigidity Patient is awake, alert and oriented to self, place, time and person ; no focal motor deficit Psych: Anxious No pedal edema Results Labs 05/19/23 05:12 05/19/23 05:12 Labs: Laboratory Results - last 24 hr 05/19/23 05/19/23 05/19/23 01:13 01:13 01:13 MCV 98.2 H MCH 35.0 H MCHC 35.6 RDW 15.9 Plt Count 24 L MPV 12.3 Immature Gran % (Auto) 0.4 Neut % (Auto) 77.6 H Lymph % (Auto) 16.2 L [place] % (Auto) 4.8 Eos % (Auto) 0.6 Baso % (Auto) 0.4 Lymph # (Auto) 1.8 [place] # (Auto) 0.5 Eos # (Auto) 0.1 Baso # (Auto) 0.0 Abs Immat Gran (auto) 0.05 H Absolute Neuts (auto) 8.7 H Absolute Nucleated RBC 0.000 Nucleated RBC % (auto) 0.0 Smear Tech's Comments PT INR VBG pH VBG pCO2 VBG pO2 VBG HCO3 VBG O2 Saturation VBG Base Excess Anion Gap 16 Cancelled Estim Creat Clear Calc 118.3 Cancelled Estimated GFR > 60 Random Glucose Lactic Acid Calcium Total Bilirubin Direct Bilirubin AST ALT Alkaline Phosphatase B-Natriuretic Peptide Total Protein Albumin Lipase Urine Opiates Screen Urine Fentanyl Screen Ur Barbiturates Screen Ur Phencyclidine Scrn Ur Amphetamines Screen U Benzodiazepines Scrn Urine Cocaine Screen U Marijuana (THC) Screen Ethyl Alcohol COVID-19 (DB) COVID-19 Clin Com 05/19/23 05/19/23 05/19/23 01:13 01:13 01:13 MCV MCH MCHC RDW Plt Count MPV Immature Gran % (Auto) Neut % (Auto) Lymph % (Auto) [place] % (Auto) Eos % (Auto) Baso % (Auto) Lymph # (Auto) [place] # (Auto) Eos # (Auto) Baso # (Auto) Abs Immat Gran (auto) Absolute Neuts (auto) Absolute Nucleated RBC Nucleated RBC % (auto) Smear Tech's Comments PT INR VBG pH VBG pCO2 VBG pO2 VBG HCO3 VBG O2 Saturation VBG Base Excess Anion Gap Estim Creat Clear Calc Estimated GFR Cancelled Random Glucose 102 Cancelled Lactic Acid Calcium 7.8 L Cancelled Total Bilirubin 1.5 H Direct Bilirubin AST ALT Alkaline Phosphatase B-Natriuretic Peptide Total Protein Albumin Lipase Urine Opiates Screen Urine Fentanyl Screen Ur Barbiturates Screen Ur Phencyclidine Scrn Ur Amphetamines Screen U Benzodiazepines Scrn Urine Cocaine Screen U Marijuana (THC) Screen Ethyl Alcohol COVID-19 (DB) [employer] 05/19/23 05/19/23 05/19/23 01:13 01:13 01:13 MCV MCH MCHC RDW Plt Count MPV Immature Gran % (Auto) Neut % (Auto) Lymph % (Auto) [place] % (Auto) Eos % (Auto) Baso % (Auto) Lymph # (Auto) [place] # (Auto) Eos # (Auto) Baso # (Auto) Abs Immat Gran (auto) Absolute Neuts (auto) Absolute Nucleated RBC Nucleated RBC % (auto) Smear Tech's Comments PT INR VBG pH VBG pCO2 VBG pO2 VBG HCO3 VBG O2 Saturation VBG Base Excess Anion Gap Estim Creat Clear Calc Estimated GFR Random Glucose Lactic Acid Calcium Total Bilirubin Cancelled Direct Bilirubin Cancelled AST 199 H Cancelled ALT 43 H Cancelled Alkaline Phosphatase 184 H B-Natriuretic Peptide Total Protein Albumin Lipase Urine Opiates Screen Urine Fentanyl Screen Ur Barbiturates Screen Ur Phencyclidine Scrn Ur Amphetamines Screen U Benzodiazepines Scrn Urine Cocaine Screen U Marijuana (THC) Screen Ethyl Alcohol COVID-19 (DB) COVID-[employer] 05/19/23 05/19/23 05/19/23 01:13 01:13 01:13 MCV MCH MCHC RDW Plt Count MPV Immature Gran % (Auto) Neut % (Auto) Lymph % (Auto) [place] % (Auto) Eos % (Auto) Baso % (Auto) Lymph # (Auto) [place] # (Auto) Eos # (Auto) Baso # (Auto) Abs Immat Gran (auto) Absolute Neuts (auto) Absolute Nucleated RBC Nucleated RBC % (auto) Smear Tech's Comments PT INR VBG pH VBG pCO2 VBG pO2 VBG HCO3 VBG O2 Saturation VBG Base Excess Anion Gap Estim Creat Clear Calc Estimated GFR Random Glucose Lactic Acid Calcium Total Bilirubin Direct Bilirubin AST ALT Alkaline Phosphatase Cancelled B-Natriuretic Peptide Total Protein 6.9 Cancelled Albumin 2.9 L Cancelled Lipase 37 Urine Opiates Screen Urine Fentanyl Screen Ur Barbiturates Screen Ur Phencyclidine Scrn Ur Amphetamines Screen U Benzodiazepines Scrn Urine Cocaine Screen U Marijuana (THC) Screen Ethyl Alcohol 213 COVID-19 (DB) COVID-[employer] Com 05/19/23 05/19/23 05/19/23 03:16 03:17 03:23 MCV 96.5 MCH 34.1 H MCHC 35.3 RDW 15.8 Plt Count 26 L MPV 12.8 H Immature Gran % (Auto) 0.3 Neut % (Auto) 77.8 H Lymph % (Auto) 15.9 L [place] % (Auto) 4.7 Eos % (Auto) 1.0 Baso % (Auto) 0.3 Lymph # (Auto) 1.6 [place] # (Auto) 0.5 Eos # (Auto) 0.1 Baso # (Auto) 0.0 Abs Immat Gran (auto) 0.03 Absolute Neuts (auto) 7.7 Absolute Nucleated RBC 0.000 Nucleated RBC % (auto) 0.0 Smear Tech's Comments VERIFIED PT 15.5 H INR 1.3 H VBG pH 7.53 H VBG pCO2 30 VBG pO2 119 VBG HCO3 25 VBG O2 Saturation 100.0 VBG Base Excess 3.8 Anion Gap 18 Estim Creat Clear Calc 128.4 Estimated GFR > 60 Random Glucose 107 Lactic Acid 1.9 Calcium 7.5 L Total Bilirubin 1.5 H Direct Bilirubin 0.7 H AST 203 H ALT 45 H Alkaline Phosphatase 183 H B-Natriuretic Peptide 57 Total Protein 6.8 Albumin 3.0 L Lipase Urine Opiates Screen Urine Fentanyl Screen Ur Barbiturates Screen Ur Phencyclidine Scrn Ur Amphetamines Screen U Benzodiazepines Scrn Urine Cocaine Screen U Marijuana (THC) Screen Ethyl Alcohol 165 COVID-19 (DB) Negative COVID-19 [employer] Com See Note 05/19/23 04:09 MCV MCH MCHC RDW Plt Count MPV Immature Gran % (Auto) Neut % (Auto) Lymph % (Auto) [place] % (Auto) Eos % (Auto) Baso % (Auto) Lymph # (Auto) [place] # (Auto) Eos # (Auto) Baso # (Auto) Abs Immat Gran (auto) Absolute Neuts (auto) Absolute Nucleated RBC Nucleated RBC % (auto) Smear Tech's Comments PT INR VBG pH VBG pCO2 VBG pO2 VBG HCO3 VBG O2 Saturation VBG Base Excess Anion Gap Estim Creat Clear Calc Estimated GFR Random Glucose Lactic Acid Calcium Total Bilirubin Direct Bilirubin AST ALT Alkaline Phosphatase B-Natriuretic Peptide Total Protein Albumin Lipase Urine Opiates Screen Not Detected Urine Fentanyl Screen Not Detected Ur Barbiturates Screen Not Detected Ur Phencyclidine Scrn Not Detected Ur Amphetamines Screen Not Detected U Benzodiazepines Scrn Not Detected Urine Cocaine Screen Not Detected U Marijuana (THC) Screen Not Detected Ethyl Alcohol COVID-19 (DB) COVID-19 Clin Com Imaging Radiologist's Impressions: Impressions Chest X-Ray 05/19/23 03:20 IMPRESSION: Suggestion of subtle patchy left perihilar opacity, which could reflect developing pneumonia in the proper clinical setting. Assessment and Plan (1) Hypoxia: Status: Acute (2) COPD exacerbation: Status: Acute (3) Alcohol use disorder, severe, dependence: Status: Acute Plan This is a 52-year-old male with pertinent history of mood disorder, COPD without home oxygen, alcohol use disorder who presents to the emergency department for concerns of alcohol withdrawal. #. Acute hypoxemic respiratory failure secondary to left-sided pneumonia + acute exacerbation of COPD: Will admit patient with supplemental oxygen. Initiating empiric antibiotics for community-acquired pneumonia. Denies any concern for aspiration or choking with food. Scheduled and p.r.n. DuoNebs. Initiating systemic steroids. Monitor oxygen saturation and wean as tolerated, maintain oxygen saturation greater than 88% #. Alcohol use disorder with concerns of withdrawal: Initiated on phenobarb protocol in the ER. Monitor CIWA. Initiating thiamine and folic acid. Consulted Addiction Team, appreciate assistance #. Hypokalemia: Repleted #. Elevated transaminases: Due to alcohol use disorder. Outpatient follow-up #. Mood disorder: Continue home mood stabilizers Med rec pending DVT prophylaxis: Lovenox Admit as inpatient and will require two night minimum hospital stay for IV antibiotics and supplemental oxygen Time Spent With Patient Time: Total time managing care of this patient today ____ minutes. Quality Stroke Does the patient have a stroke diagnosis?: No VTE Prior VTE?: No VTE Risk Level:: Medical - moderate - high VTE Device Contraindication: Treatment Not Indicated VTE Drug Contraindication: N/A - Med Ordered
[2023-05-19] MEDS: Enoxaparin Sodium 40 MG/0.4 ML SYRINGE SUBCUT (04:39)
[2023-05-19] MEDS: Thiamine HCL 100 MG in 0.9 % Sodium Chloride 100 ML 202 MG IV (04:41)
--- NOTE | 2023-05-19 05:00 | PC.NURSE ---
Med req completed
[2023-05-19 05:17] LABS: MANUAL DIFF FLAG NO
[2023-05-19 05:19] LABS: Basophils Percent Auto 0.1 % (0-2); Eosinophils Percent Auto 0.3 % (0-4); Hematocrit 32.2 % (42.0-52.0); Hemoglobin 11.3 g/dl (14.0-18.0); Imm Gran Abs Auto 0.02 X10*3/uL (0.00-0.03); Imm Gran Pct Auto 0.3 % (0.0-0.4); Lymphocytes Absolute Auto 0.5 X10*3/uL (1.2-4.9); Lymphocytes Percent Auto 7.5 % (20-40); Mean Corpuscular HGB Conc 35.1 g/dl (31.0-36.0); Mean Platelet Volume 12.8 fL (9.4-12.4); Monocytes Absolute Auto 0.2 X10*3/uL (0.1-1.2); Monocytes Percent Auto 2.4 % (2-11); Neutrophils Absolute Auto 6.4 x10*3/uL (2.0-8.3); Neutrophils Percent Auto 89.4 % (45-73); Red Blood Count 3.32 X10*6/uL (4.60-5.80); Red Cell Distribution Width 15.9 % (11.0-16.0); White Blood Count 7.2 X10*3/uL (4.8-10.8)
[2023-05-19 05:23] LABS: Platelet Count 23 X10*3/uL (160-400)
[2023-05-19] MEDS: PHENobarbitaL sodium 130 MG/ML VIAL 300 MG IM (05:26)
[2023-05-19 05:40] LABS: Anion Gap 15 (12-20); Blood Urea Nitrogen 10 mg/dL (9-16); Calcium 7.3 mg/dL (8.4-10.2); Carbon Dioxide 22 mmol/L (22-29); Chloride 102 mmol/L (96-108); Creatinine Clr Calc Pharmacy 134.2; Estimated Glomerular Filt Rate > 60; Glucose Random 163 mg/dL (60-115); Sodium 136 mmol/L (135-145)
[2023-05-19] MEDS: Acetaminophen 325 MG TABLET 650 MG PO (06:53)
[2023-05-19] MEDS: traMADoL HCL 50 MG TABLET PO ×3 (06:54→21:07)
--- NOTE | 2023-05-19 07:05 | PC.NURSE ---
Took report from off-going RN. Pt is a 52 y/o male who is here for ETOH use, hallucinations, dizziness, and SOB. Pt is easiliy arousable with verbal stimuli and ambulates to the bathroom with supervision. Has a 20G in left AC and a 22G in right hand. Pt is pending admission. Call light is within reach, stretcher is at it's lowest position.
--- NOTE | 2023-05-19 07:45 | PM.EVENT ---
Event Note Date of Service: 05/19/23 Event Note: 52-year-old male with pertinent history of mood disorder, COPD without home oxygen, alcohol use disorder who presents to the emergency department for concerns of alcohol withdrawal. Acute hypoxemic respiratory failure secondary to left-sided pneumonia + acute exacerbation of COPD supplemental oxygen. Initiating empiric antibiotics for community-acquired pneumonia. Denies any concern for aspiration or choking with food. Scheduled and p.r.n. DuoNebs. Initiating systemic steroids. Monitor oxygen saturation and wean as tolerated, maintain oxygen saturation greater than 88% Alcohol use disorder with concerns of withdrawal Initiated on phenobarb protocol Initiating thiamine and folic acid. Consulted Addiction Team Hypokalemia Repleted Elevated transaminases Due to alcohol use disorder. Outpatient follow-up Mood disorder Continue home mood stabilizers DVT prophylaxis: Lovenox Attending Dr. Dacosta Admit as inpatient and will require two night minimum hospital stay for IV antibiotics and supplemental oxygen Time Spent With Patient Time: Total time managing care of this patient today ____ minutes.
[2023-05-19 08:10] LABS: Magnesium 1.5 mg/dL (1.6-2.6)
--- NOTE | 2023-05-19 08:30 | PHA.MEDREC ---
Pharmacy Consult ? Medication Reconciliation Pharmacy has completed the medication reconciliation.PHARMACY HAS REVIEWED THE MED REC DONE BY NURSING
[2023-05-19] MEDS: Albuterol/Iprat 2.5/0.5MG 3 ML AMPUL.NEB INHALE ×3 (08:35→20:42)
--- NOTE | 2023-05-19 08:40 | PC.NURSE ---
Pt reports having a headache and being hungry. Pt has an NPO order in the computer. Reports he will leave AMA if he can't eat something. Hospitalist notified via tiger text and pt informed that a message was sent and hospitalist will be down to see him.
--- NOTE | 2023-05-19 08:58 | PC.NURSE ---
this RN resumed care at this time. per previous RN - pt was threatening AMA if diet order was not changed from NPO - diet order now regular diet. kitchen called so pt can receive tray. will notify pt and provide w/ sandwich in the mean time.
[2023-05-19] MEDS: 0.9 % Sodium Chloride Flush 3 ML SYRINGE IVFLUSH ×3 (09:09→21:08)
[2023-05-19] MEDS: Thiamine HCL 100 MG TABLET PO (09:09)
[2023-05-19] MEDS: Folic Acid 1 MG TABLET PO (09:10)
[2023-05-19] MEDS: PHENobarbitaL sodium 130 MG/ML VIAL 225 MG IM ×2 (09:18→12:17)
--- NOTE | 2023-05-19 09:25 | PC.NURSE ---
pt medicated per provider order. updated CIWA = 13 - will notify provider. pt c/o headache/n/headache/tremulous/diaphoretic. pt received food tray. respirations even and unlabored. call ramirez placed within reach.
--- NOTE | 2023-05-19 11:57 | MHC.RECOVRN ---
ticket writer met with patient in ED Bed 10 for consult placed to Addiction Medicine for Alcohol Use. Patient presented to ER with auditory hallucinations and dizziness. He does not feel his symptoms were r/t alcohol withdrawal. He is being admitted for COPD/PNA exacerbation. Patient laying in bed, sleeping upon arrival however awake to verbal stimuli. Slightly difficult to engage in conversation, he appears lethargic but answering questions, then mumbling and snoring toward the end of our conversation. Patient confirms he has been drinking alcohol since he was 6 y/o. He reports drinking 6 nips of whiskey a day, 5 days a week . Last drink was I dunno sometime yesterday afternoon . Patient reports a history of ATS- has been admitted to the [facility] several times. Most recently being in Jul 2022. Has had DARLENE tx in the past and is open to recovery support with abstaining from Alcohol Use when medically cleared for DC. He reports being on Suboxone, but is unsure of the dose, last given, or reason for use- [facility] checked. Dose confirmed. Patient takes Suboxone 8mg-2mg sl film daily; dose is 24mg? gets 7 days last written 05/02/23 (no refills) from [facility]. Not for opioid dependency. Per ED RN- patient's last CIWA=13. Phenobarb scale started. Patient had been agitated and threatened to leave AMA earlier- he was NPO and wanted to eat therefore diet was updated. Currently, patient reports feeling sweaty, like hot flashes and a mild headache. Denies any hallucinations at this time. +tremors noted as patient awoke to finish eating a banana. Patient requesting to rest now. Denies any questions or concerns. CC w/ED RN who reports his Phenobarb. was given later, therefore next dose will be delayed. Encouraged her to call hydrometeorologist if patient mentions leaving AMA again. Will plan to see him again tomorrow to provide more information and recovery resources. Discussed w/Caryn Draper APRN.
[2023-05-19] MEDS: buPROPion HCl XL 300 MG TAB.ER.24H PO (12:17)
[2023-05-19] MEDS: FLUoxetine HCl 20 MG CAPSULE 60 MG PO (12:18)
--- NOTE | 2023-05-19 12:25 | PC.NURSE ---
vss and up to date. medication administered per provider order. updated CIWA =23. provider aware and notified at this time. call ramirez placed within reach.
--- NOTE | 2023-05-19 12:48 | PC.NURSE ---
attempted to give report to admitting floor - RN on lunch break and will call back when able. will notify transport when ready.
--- NOTE | 2023-05-19 13:08 | PC.NURSE ---
report given to RN - will notify transport.
[2023-05-19] MEDS: Buprenorphine/Naloxone 8/2 mg FILM 1 FILM SUBLINGUAL ×2 (14:54→21:08)
[2023-05-19] MEDS: Gabapentin 400 MG CAPSULE PO ×2 (14:54→21:08)
[2023-05-19] MEDS: methylPREDNISolone Sod Succ 40 MG/ML VIAL IVPUSH (14:54)
[2023-05-19] MEDS: hydrOXYzine HCL 25 MG TABLET PO (14:59)
[2023-05-19] MEDS: Nicotine 14 MG PATCH.TD24 TRANSDERMA (18:26)
[2023-05-19] MEDS: PHENobarbitaL 30 MG TABLET 60 MG PO (21:07)
[2023-05-20 02:15] VITALS: BP 127/81; PULSE 79; RESP 17; TEMP 37; O2SAT 95
[2023-05-20] MEDS: traMADoL HCL 50 MG TABLET PO (02:57)
[2023-05-20] MEDS: methylPREDNISolone Sod Succ 40 MG/ML VIAL IVPUSH (02:58)
[2023-05-20] MEDS: hydrOXYzine HCL 25 MG TABLET PO (02:58)
[2023-05-20] MEDS: cefTRIAXone sodium 1 GM in 0.9 % Sodium Chloride 50 ML IV (02:58)
[2023-05-20] MEDS: Acetaminophen 325 MG TABLET 650 MG PO (02:59)
[2023-05-20] MEDS: Enoxaparin Sodium 40 MG/0.4 ML SYRINGE SUBCUT (05:01)
[2023-05-20] MEDS: Azithromycin 500 MG in 0.9 % Sodium Chloride 250 ML 125 MG IV (05:01)
[2023-05-20 07:44] VITALS: BP 123/82; PULSE 82; RESP 18; TEMP 36.6; O2SAT 93
[2023-05-20] MEDS: FLUoxetine HCl 20 MG CAPSULE 60 MG PO (08:36)
[2023-05-20] MEDS: PHENobarbitaL 30 MG TABLET 60 MG PO (08:37)
[2023-05-20] MEDS: Multivitamin TABLET 1 TAB PO (08:37)
[2023-05-20] MEDS: Potassium Chloride ER 20 MEQ TAB.ER.PRT 40 MEQ PO (08:37)
[2023-05-20] MEDS: buPROPion HCl XL 300 MG TAB.ER.24H PO (08:37)
[2023-05-20] MEDS: Thiamine HCL 100 MG TABLET PO (08:37)
[2023-05-20] MEDS: Folic Acid 1 MG TABLET PO (08:37)
[2023-05-20] MEDS: Gabapentin 400 MG CAPSULE PO (08:37)
--- NOTE | 2023-05-20 08:47 | PC.NURSE ---
Pt very concerned about getting home d/t having an animal there, with no one to take care of it. Pt talked with Fabiana Dukes N.P. and told her that he was leaving AMA. quality system manager notified. IV access x 2 removed. AMA paperwork signed by patient and two nurses. Patient left unit at 08:45.
--- NOTE | 2023-05-20 09:45 | P.DS_ITS ---
DS: Providers Provider Date of Service: 05/20/23 Date of admission: 05/19/23 04:24 Primary care physician: Unknown Physician Consults: 05/19/23 04:30 Addiction Medicine Routine Consulting Provider: Addiction Covering Reason for consultation: alcohol use disorder DS: Diagnosis Discharge Diagnosis (1) Hypoxia: Status: Acute (2) COPD exacerbation: Status: Acute (3) Alcohol use disorder, severe, dependence: Status: Acute DS: Summary Hospital Course Hospital Course: History and physical as per admitting provider. This is a 52-year-old male with pertinent history of mood disorder, COPD without home oxygen, alcohol use disorder who presents to the emergency department for concerns of alcohol withdrawal. Patient presented to the hospital via EMS complaining of auditory hallucinations. States he left AMA from [facility] for unclear reasons. Also is feeling nauseous and tremulous. Denies history of alcohol withdrawal seizures. Does endorse cough that has been ongoing for the last few days. No associated fevers or chills. No dyspnea. Has associated wheezing. Patient denies chest discomfort, palpitations, abdominal pain, changes in urinary or bowel habits.In the emergency department, patient was found to be hypoxemic and imaging concerning for left-sided infiltrate 52-year-old man treated for alcohol intoxication with symptoms of oral. Started on phenobarbital protocol with good of. He was noted to have multiple electrolyte abnormalities including hyper anemia hypo magnesemia. Both repleted. Initially presented with hypoxic respiratory failure and was treated with Rocephin and azithromycin along with supplemental oxygen. His oxygen saturations improved significantly and he was no longer requiring oxygen. Fortunately the patient woke up and stated that he had a family emergency needed to go home. He did require some BP lab work to see if he still needed repletion but he declined and stated that he was leaving. Patient subpleural oriented x3 and decided to leave against medical advice. Patient was aware that leaving against medical advice could be potentially dangerous and could lead to complications up to and including but not limited to. The patient was informed and he should return to hospital if complications should arise. Patient stated understanding and decided to leave against medical advice. Time Spent with Patient Time attestation: Total time managing care of this patient today ____ minutes. Discharge coordination time: Greater than 30 minutes Quality: Safe Use of Opioids Does Pt have an Active Cancer Diagnosis on the Problem List?: No Quality: Stroke Does the patient have a stroke diagnosis?: No Physical Exam Vital Signs: Vital Signs: Last Vital Signs Temp 97.9 F 05/20/23 07:44 Pulse 82 05/20/23 07:44 Resp 18 05/20/23 07:44 BP 123/82 05/20/23 07:44 Pulse Ox 93 05/20/23 07:44 O2 Del Method Room Air 05/20/23 07:44 O2 Flow Rate 2 05/19/23 06:13 Oxygen Flow Rate 2 05/19/23 01:03 BMI result Body Mass Index 23.8 Declined exam DS: Data Data Completed and Pending Labs on day of discharge: Preliminary micro results at discharge 05/19/23 03:17 Blood Culture - Preliminary Blood - Venous No growth after 24 hours. 05/19/23 03:17 Blood Culture - Preliminary Blood - Venous No growth after 24 hours. Discharge Plan Discharge Anticipated Discharge Date/Time: 05/20/23 09:11 Patient Disposition: Left Against Medical Advice Discharge Diagnosis: Acute hypoxemic respiratory failure COPD exacerbation Community-acquired pneumonia Alcohol use disorder with withdrawal Electrolyte abnormality Transaminitis Discharge Medications: New cefuroxime axetil 500 mg tablet 500 mg PO BID Qty: 6 0RF amoxicillin-pot clavulanate 875-125 mg tablet 1 tab PO BID Qty: 6 0RF Continued multivitamin Tablet 1 tab PO DAILY clonidine HCl 0.1 mg tablet 0.1 mg PO BID PRN (Reason: anxiety) trazodone 50 mg tablet 50 mg PO BEDTIME PRN (Reason: insomnia) gabapentin 400 mg capsule 400 mg PO TID albuterol sulfate [Ventolin HFA] 90 mcg/actuation HFA aerosol inhaler 2 puff INHALATION Q6H PRN (Reason: Shortness Of Breath Or Wheezing) fluoxetine 20 mg capsule 60 mg PO DAILY hydroxyzine pamoate 25 mg capsule 25 mg PO TID PRN (Reason: anxiety) bupropion HCl 300 mg tablet extended release 24 hr 300 mg PO DAILY buprenorphine-naloxone [Suboxone] 8-2 mg film 1 film sublingual TID quetiapine 25 mg tablet 25 - 50 mg PO BEDTIME PRN (Reason: anxiety) Discharge Orders: Discharge Order (Routine); Ordered 05/20/23 Ordered By: Fabiana Norton Diet: Advance to usual diet Activity on Discharge: As tolerated Care Plan Goals: Left against medical advice Health Concerns: Acute hypoxemic respiratory failure COPD exacerbation Community-acquired pneumonia Alcohol use disorder with withdrawal Electrolyte abnormality Transaminitis Plan of Treatment: Follow-up with primary care provider as needed Take all medications as prescribed Assessment: See discharge summary Discharge Date/Time: 05/20/23 08:47
--- NOTE | 2023-05-20 11:22 | MHC.CM.PN ---
PT SIGNED OUT AMA HOWEVER STATED HE DID NOT HAVE TRANSPORT AND PLANNED TO WALK TO THE [employer] [place] BUS TERMINAL AND THEN TO [facility] FROM [employer] ARRANGED, RIDE COMPLETED AT 0905 HOURS
--- NOTE | 2023-05-20 13:50 | MHC.RECOVRN ---
Patient left AMA before account manager [email or web address] could follow up with him today.
== END 2023-05-20 08:47 | disposition left against medical advice (07) | DRG 140 ==
LOC: HO.ED 04:07 → HO.EDOVER 04:42 → HO.S3 12:36
PROVIDERS: Admitting Provider Student in an Organized Health Care Education/Training Program; Emergency Provider Emergency Medicine; Visit Provider Nurse Practitioner Acute Care
DX: J44.1 Chronic obstructive pulmonary disease with (acute) exacerbation (principal); J96.01 Acute respiratory failure with hypoxia; F10.221 Alcohol dependence with intoxication delirium; F10.231 Alcohol dependence with withdrawal delirium; J44.0 Chronic obstructive pulmonary disease with (acute) lower respiratory infection; J18.9 Pneumonia, unspecified organism; E83.42 Hypomagnesemia; F39 Unspecified mood [affective] disorder; E87.6 Hypokalemia; Z20.822 Contact with and (suspected) exposure to COVID-19; Y90.7 Blood alcohol level of 200-239 mg/100 ml; Z87.891 Personal history of nicotine dependence; Z79.899 Other long term (current) drug therapy
CPT/HCPCS: 36415; 71045; 80048; 80053; 80076; 80307; 82803; 83605; 83690; 83735; 83880; 84484; 85025; 85610; 87040; 87635; 93005; 94640; 99285; J0456; J0696; J1650; J2270; J2560; J2920; J2930; J3411; J3475

== ENCOUNTER → 2023-05-19 04:24 | Outpatient (BNV) | payer OTHER, SELFPAY | PROVIDERS: Admitting Provider Student in an Organized Health Care Education/Training Program; Emergency Provider Emergency Medicine; Visit Provider Student in an Organized Health Care Education/Training Program | DX: J96.01 Acute respiratory failure with hypoxia (principal); J44.1 Chronic obstructive pulmonary disease with (acute) exacerbation; F10.20 Alcohol dependence, uncomplicated | CPT/HCPCS: 99223; 99239; 99499 ==

== ENCOUNTER 2023-06-04 18:18 | Emergency (ER) | payer OTHER, SELFPAY ==
--- NOTE | ~2023-06-04 | CT_ITS ---
EXAMINATION: CT ABDOMEN AND PELVIS WITH CONTRAST CLINICAL INFORMATION: abdominal pain. pancreatitis? COMPARISON: None. TECHNIQUE: Multidetector volumetric imaging was performed from the superior aspect of the liver through the pubic symphysis following administration of 85 mL Omnipaque 300 intravenous contrast. Sagittal and coronal reformatted images were obtained on the technologist workstation.. This CT examination was performed using dose optimization techniques as appropriate, variously including the following: *Automated exposure control *Adjustment of mA and/or kV according to patient size (this includes techniques or standardized protocols for targeted exams where dose is matched to indication/reason for exam; i.e. extremities or head) *Use of iterative reconstruction technique DLP: 512 mGy-cm FINDINGS: LUNG BASES: The visualized lung bases are unremarkable. LIVER, GALLBLADDER, AND BILIARY TREE: Nodular cirrhotic appearing liver but no focal hepatic lesion nor biliary ductal dilatation The gallbladder is unremarkable with no evidence of radiopaque gallstones, gallbladder wall thickening, or obvious pericholecystic inflammatory changes. PANCREAS: Coarsened calcifications in the pancreatic head suggesting sequela of prior chronic pancreatitis SPLEEN: Unremarkable. ADRENAL GLANDS: Unremarkable. KIDNEYS AND URETERS: The kidneys are normal in size, shape, and attenuation. No hydronephrosis, hydroureter, or calculi seen. No perinephric stranding. BLADDER: Unremarkable. GASTROINTESTINAL TRACT: Scattered colonic diverticulosis but no colonic wall thickening or pericolonic inflammatory change. Normal-appearing appendix in the right lower quadrant. Visualized small bowel unremarkable ABDOMINAL WALL: Small fat-containing umbilical hernia LYMPHOVASCULAR STRUCTURES: Vascular calcification within the aorta iliac system. There is recanalization of the umbilical vein extending to abdominal wall varicosities PELVIC VISCERA: Unremarkable. OSSEOUS STRUCTURES: Degenerative changes in the spine CT/CT abdomen pelvis w IV con IMPRESSION: Nodular cirrhotic appearing liver with recanalization of the umbilical vein and abdominal wall varicosities. No acute intra-abdominal process seen.
[2023-06-04 18:28] VITALS: BP 130/87; BP 132/95; PULSE 88; PULSE 93; RESP 18; TEMP 36.6; O2SAT 98; BMI 24.4
--- NOTE | 2023-06-04 19:24 | ED_ITS ---
HPI - General Adult General Chief complaint: Psychiatric Symptoms Stated complaint: abd pain pancreatitis etoh Time Seen by Provider: 06/04/23 19:00 Source: patient Mode of arrival: ambulatory Limitations: no limitations History of Present Illness HPI narrative: 52 yold male with pmh of alcoholism and pancreatitis presents to the ED for abdominal pain. Patient states drinking alcohol for 3 days straight and now he belives his pancreas is inflamed. patient denies any trauma, chest pain, shortness of breath, vomitting blood, rectal bleeding, coughing up blood, flank pain, fever, or chills. Related Data Home Medications Medication Instructions Recorded Confirmed albuterol sulfate 90 mcg/actuation 2 puff inhalation Q6H PRN 11/30/22 06/05/23 aerosol inhaler (Ventolin HFA) Shortness Of Breath Or Wheezing buprenorphine 8 mg-naloxone 2 mg 1 film sublingual TID 11/30/22 06/05/23 sublingual film (Suboxone) clonidine HCl 0.1 mg tablet 0.1 mg PO BID PRN anxiety 11/30/22 06/05/23 fluoxetine 20 mg capsule 60 mg PO DAILY 11/30/22 06/05/23 gabapentin 400 mg capsule 400 mg PO TID 11/30/22 06/05/23 hydroxyzine pamoate 25 mg capsule 25 mg PO TID PRN anxiety 11/30/22 06/05/23 multivitamin 1 tab PO DAILY 11/30/22 06/05/23 trazodone 50 mg tablet 50 mg PO BEDTIME PRN insomnia 11/30/22 06/05/23 Allergies Allergy/AdvReac Type Severity Reaction Status Date / Time levofloxacin Allergy Unknown Unknown Verified 06/04/23 18:35 chlorpromazine Allergy Unknown unknown Uncoded 11/30/22 18:24 Review of Systems 2 Review of Systems: abdominal pain. Drinking alcohol. Yes all other systems are reviewed and are negative [facility] Past Medical History Medical History (Updated 05/25/23 @ 00:02 by Cricket Shaffer) Community acquired pneumonia Acute respiratory failure with hypoxia Opioid use disorder Alcohol use disorder, severe, dependence MDD (major depressive disorder) Pancreatitis Asthma COPD (chronic obstructive pulmonary disease) Social History Social History Household Members: None Housing: Apartment Housing Other:: being evicted Do you presently have visiting nurse or other home services: No Alcohol intake: current Alcohol intake frequency: 3 or more drinks per day Patient Tobacco Use Status: Former Tobacco user Quit Date: Pt not ready to quit per pt Tobacco use type: Cigarette Cigarette Packs Per Day: 0.5 Cigarettes Per Day: 10.0 Years Smoked: 38 Smoked in Last 30 Days: Yes e-Cigarette/Vaping Use: Former Use Second Hand Smoke Exposure: No Use of substances other than those prescribed or required for medical reasons: No Advance Directives: No Advance Directives Information Provided: No Healthcare Proxy: No Guardian: No service: No Sexual orientation: Straight/Heterosexual Physical Exam ED Vital Signs: Vital Signs - 24 hr 06/04/23 23:52 06/05/23 05:02 Temperature 99.6 F Pulse Rate 97 Respiratory Rate 18 21 H Blood Pressure 127/89 Pulse Oximetry 91 L Oxygen Delivery Method Room Air BMI result Body Mass Index 24.4 Const General: cooperative, healthy appearing, comfortable, no acute distress, well developed, alert, awake and Physically active Orientation/consciousness: oriented to person, oriented to place, oriented to time and patient oriented x3 HENMT Head: Yes normal to inspection, Yes No palpable skull fracture present, Yes normocephalic, Yes atraumatic and No abrasion Eyes General: appearance normal, both eyes and all related structures Neck Neck: Yes normal visual inspection, Yes full ROM, Yes no lymphadenopathy, Yes no meningeal signs, Yes trachea midline, Yes supple, No anterior neck swelling and No tender Chest Chest palpation & inspection: normal inspection of the chest and normal palpation of entire chest wall Resp Effort & Inspection: normal respiratory effort and able to speak in complete sentences Auscultation: clear to auscultation bilaterally Cardio Jugular venous distension: no JVD Heart sounds: S1 normal heart sound present and S2 normal heart sound present GI Inspection: Yes normal to inspection and No abdominal wall ecchymosis Palpation (GI): Soft to palpation, not firm, Tenderness to palpation present (GI) (generalized abdominal pain), no guarding and not rigid General: No CVA tenderness and Yes no CVA tenderness Back/Spine/Pelvis Back: no CVA tenderness, No CVA tenderness and No back tenderness Skin General skin exam: no rashes or lesions noted, elasticity normal and turgor normal Neuro General: oriented to person, oriented to place, oriented to time, patient oriented x3, gait normal, tone normal, moves all extremities, Normal light touch and pain sensation, no meningeal signs, no focal motor deficits, CN's II-XI intact bilaterally and normal sensation to monofilament Extrem General: Yes normal to inspection, Yes full ROM and Yes capillary refill normal Psych Appearance: grossly normal, well kempt and not disheveled Course Reevaluation(s) Reevaluation #1: Patient resting comfortably cleared by crisis awaiting recovery team Time: 12:37 Reevaluation #2: patient refusing detox will dc home Time: 14:30 Medications Administered Discontinued Medications Generic Name Dose Route Start Last Admin Trade Name Freq PRN Reason Stop Dose Admin Al Hydroxide/Mg Hydroxide 30 ml 06/04/23 21:45 06/04/23 23:24 Magnesium Hydrox/Alum Hydrox 30 Ml Oral.Susp PO 06/04/23 21:46 30 ml ONCE ONE Administration Albuterol Sulfate 4 puff 06/04/23 22:09 06/04/23 22:13 Albuterol Sulfate 90 Mcg 8 Gm Inhaler INHALE 06/04/23 22:10 4 puff ONCE ONE Administration Albuterol Sulfate 2 puff 06/05/23 04:52 06/05/23 04:57 Albuterol Sulfate 90 Mcg 8 Gm Inhaler INHALE 06/05/23 04:53 2 puff ONCE ONE Administration Belladonna Alkaloids/Phenobarbital 10 ml 06/04/23 21:45 06/04/23 23:24 Phenobarb/Hyoscy/Atropine/Scop 10 Ml Elixir PO 06/04/23 21:46 10 ml ONCE ONE Administration Famotidine 20 mg 06/04/23 21:43 06/04/23 23:25 Famotidine/Pf 20 Mg/2 Ml Vial IVPUSH 06/04/23 21:44 20 mg ONCE ONE Administration Sodium Chloride 1,000 mls @ 999 mls/hr 06/04/23 20:03 06/04/23 22:00 Ns IV 06/04/23 21:03 Infused .Q1H1M STA Infusion Iohexol 85 ml 06/04/23 21:47 06/04/23 21:47 Iohexol 350 Mg/Ml 100 Ml Infus..Btl IV 06/04/23 21:48 85 ml ONCE ONE Administration Lidocaine HCl 15 ml 06/04/23 21:45 06/04/23 23:24 Lidocaine Hcl Viscous 2 % 15 Ml Solution MUCOUS MEM 06/04/23 21:46 15 ml ONCE ONE Administration Lorazepam 2 mg 06/04/23 23:35 06/04/23 23:52 Lorazepam 2 Mg/Ml Vial IVPUSH 06/04/23 23:36 2 mg ONCE ONE Administration Lorazepam 1 mg 06/05/23 07:09 06/05/23 07:16 Lorazepam 1 Mg Tablet PO 06/05/23 07:10 1 mg ONCE ONE Administration Lorazepam 1 mg 06/05/23 12:35 06/05/23 12:41 Lorazepam 1 Mg Tablet PO 06/05/23 12:36 1 mg ONCE ONE Administration Morphine Sulfate 4 mg 06/04/23 19:35 06/04/23 21:05 Morphine Sulfate 4 Mg/Ml Cartridge IVPUSH 06/04/23 19:36 4 mg ONCE ONE Administration Protocol Morphine Sulfate 2 mg 06/04/23 23:47 06/04/23 23:52 Morphine Sulfate 2 Mg/Ml Cartridge IVPUSH 06/04/23 23:48 2 mg ONCE ONE Administration Protocol Ondansetron HCl 4 mg 06/04/23 21:37 06/04/23 23:25 Ondansetron Hcl 4 Mg/2 Ml Vial IVPUSH 06/04/23 21:38 4 mg ONCE ONE Administration Ondansetron HCl 4 mg 06/05/23 07:09 06/05/23 07:16 Ondansetron Odt 4 Mg Tab.Rapdis TRANSLINGU 06/05/23 07:10 4 mg ONCE ONE Administration Potassium Chloride 60 meq 06/04/23 20:03 06/04/23 21:05 Potassium Chloride Packet 20 Meq Packet PO 06/04/23 20:04 60 meq ONCE ONE Administration Medical Decision Making Medical Decision Making MDM Narrative: 52-year-old male presents to the ED for drinking alcohol abdominal pain with history of pancreatitis. Patient states Miquel pancreas is flared up. Patient states no fever chills nausea vomiting or diarrhea. Patient states no trauma. Labs pain medication ordered. 1:42am: Patient passed p.o. challenge. patient ate sandwiches and drank soda. Patient hypokalemia resolved. CT scan only shows chronic pancreatitis but no acute etiology. Patient medically cleared and will be evaluated by care team consulted. Patient given Ativan for slight tremors. Patient is sleeping comfortably in bed Differential Diagnosis Differential Diagnoses: The differential diagnosis associated with the presentation includes ( cholecystitis, alcoholic gastritis, pancreatitis alcohol intoxication) Consult Healthcare Provider Management of the patient was discussed with: [employer] ( care team) Lab Data MDM Lab Attestation statement: I reviewed the patient's lab results. 06/04/23 19:19 06/05/23 01:01 Labs: Lab Results 06/04/23 06/04/23 06/05/23 Range/Units 19:19 20:07 01:01 WBC 7.1 (4.8-10.8) X10*3/uL RBC 3.82 L (4.60-5.80) X10*6/uL Hgb 13.1 L (14.0-18.0) g/dl Hct 37.3 L (42.0-52.0) % MCV 97.6 (80.0-98.0) fL MCH 34.3 H (27.0-33.0) pg MCHC 35.1 (31.0-36.0) g/dl RDW 15.0 (11.0-16.0) % Plt Count 149 L D (160-400) X10*3/uL MPV 11.1 (9.4-12.4) fL Immature Gran % (Auto) 0.3 (0.0-0.4) % Neut % (Auto) 69.2 (45-73) % Lymph % (Auto) 24.1 (20-40) % [place] % (Auto) 5.4 (2-11) % Eos % (Auto) 0.4 (0-4) % Baso % (Auto) 0.6 (0-2) % Lymph # (Auto) 1.7 (1.2-4.9) X10*3/uL [place] # (Auto) 0.4 (0.1-1.2) X10*3/uL Eos # (Auto) 0.0 (0.0-0.4) X10*3/uL Baso # (Auto) 0.0 (0.0-0.2) X10*3/uL Abs Immat Gran (auto) 0.02 (0.00-0.03) X10*3/uL Absolute Neuts (auto) 4.9 (2.0-8.3) x10*3/uL Absolute Nucleated RBC 0.000 (0.0-0.012) X10*3/uL Nucleated RBC % (auto) 0.0 (0.0-0.2) /100WBC Sodium 145 140 (135-145) mmol/L Potassium 2.9 L 3.5 D (3.3-5.1) mmol/L Chloride 106 108 (96-108) mmol/L Carbon Dioxide 27 24 (22-29) mmol/L Anion Gap 15 12 (12-20) BUN 3 L 3 L (9-16) mg/dL Creatinine 0.78 0.81 (0.5-1.4) mg/dL Estim Creat Clear Calc 111.7 107.6 Estimated GFR > 60 > 60 POC Glucose (60-115) mg/dL Random Glucose 94 107 (60-115) mg/dL Calcium 8.2 L D 7.5 L D (8.4-10.2) mg/dL Total Bilirubin 0.5 0.5 (0.0-1.0) mg/dL AST 206 H 232 H (5-37) U/L ALT 59 H 59 H (0-40) U/L Alkaline Phosphatase 250 H 263 H (39-117) U/L Total Protein 7.5 6.9 (6.5-8.0) g/dL Albumin 3.1 L 2.9 L (3.5-5.0) g/dL Lipase 98 H (8-78) U/L Urine Color Dark Yellow Urine Appearance Clear Urine pH 6.5 (5.0-9.0) Ur Specific [place] 1.020 (1.005-1.025) Urine Protein 30 (1+) H (Neg-Trace) mg/dL Urine Glucose (UA) Negative (Negative) mg/dL Urine Ketones Negative (Negative) mg/dL Urine Blood Negative (Negative) Urine Nitrite Negative (Negative) Ur Leukocyte Esterase Negative (Negative) Urine RBC 0-2 (0-2) /HPF Urine WBC 0-5 (0-5) /HPF Ur Squamous Epith Cells 0-2 (0-2) /HPF Urine Bacteria None Seen (None Seen) Hyaline Casts 3-5 (0-2) /LPF Salicylates < 5.0 L (15-30) mg/dL Urine Opiates Screen Not Detected (Not Detect) Urine Fentanyl Screen Not Detected (Not Detect) Acetaminophen < 3 (<30) mcg/mL Ur Barbiturates Screen POSITIVE H (Not Detect) Ur Phencyclidine Scrn Not Detected (Not Detect) Ur Amphetamines Screen Not Detected (Not Detect) U Benzodiazepines Scrn Not Detected (Not Detect) Urine Cocaine Screen Not Detected (Not Detect) U Marijuana (THC) Screen Not Detected (Not Detect) Ethyl Alcohol 302 H* mg/dL COVID-19 (DB) Negative (Negative) COVID-19 Clin Com See Note 06/05/23 Range/Units 09:44 WBC (4.8-10.8) X10*3/uL RBC (4.60-5.80) X10*6/uL Hgb (14.0-18.0) g/dl Hct (42.0-52.0) % MCV (80.0-98.0) fL MCH (27.0-33.0) pg MCHC (31.0-36.0) g/dl RDW (11.0-16.0) % Plt Count (160-400) X10*3/uL MPV (9.4-12.4) fL Immature Gran % (Auto) (0.0-0.4) % Neut % (Auto) (45-73) % Lymph % (Auto) (20-40) % [place] % (Auto) (2-11) % Eos % (Auto) (0-4) % Baso % (Auto) (0-2) % Lymph # (Auto) (1.2-4.9) X10*3/uL [place] # (Auto) (0.1-1.2) X10*3/uL Eos # (Auto) (0.0-0.4) X10*3/uL Baso # (Auto) (0.0-0.2) X10*3/uL Abs Immat Gran (auto) (0.00-0.03) X10*3/uL Absolute Neuts (auto) (2.0-8.3) x10*3/uL Absolute Nucleated RBC (0.0-0.012) X10*3/uL Nucleated RBC % (auto) (0.0-0.2) /100WBC Sodium (135-145) mmol/L Potassium (3.3-5.1) mmol/L Chloride (96-108) mmol/L Carbon Dioxide (22-29) mmol/L Anion Gap (12-20) BUN (9-16) mg/dL Creatinine (0.5-1.4) mg/dL Estim Creat Clear Calc Estimated GFR POC Glucose 100 (60-115) mg/dL Random Glucose (60-115) mg/dL Calcium (8.4-10.2) mg/dL Total Bilirubin (0.0-1.0) mg/dL AST (5-37) U/L ALT (0-40) U/L Alkaline Phosphatase (39-117) U/L Total Protein (6.5-8.0) g/dL Albumin (3.5-5.0) g/dL Lipase (8-78) U/L Urine Color Urine Appearance Urine pH (5.0-9.0) Ur Specific [place] (1.005-1.025) Urine Protein (Neg-Trace) mg/dL Urine Glucose (UA) (Negative) mg/dL Urine Ketones (Negative) mg/dL Urine Blood (Negative) Urine Nitrite (Negative) Ur Leukocyte Esterase (Negative) Urine RBC (0-2) /HPF Urine WBC (0-5) /HPF Ur Squamous Epith Cells (0-2) /HPF Urine Bacteria (None Seen) Hyaline Casts (0-2) /LPF Salicylates (15-30) mg/dL Urine Opiates Screen (Not Detect) Urine Fentanyl Screen (Not Detect) Acetaminophen (<30) mcg/mL Ur Barbiturates Screen (Not Detect) Ur Phencyclidine Scrn (Not Detect) Ur Amphetamines Screen (Not Detect) U Benzodiazepines Scrn (Not Detect) Urine Cocaine Screen (Not Detect) U Marijuana (THC) Screen (Not Detect) Ethyl Alcohol mg/dL COVID-19 (DB) (Negative) COVID-19 Clin Com Social Determinants Patient?s care significantly limited by Social Determinants of Health including: Alcoholism and drug addiction in family and Other Social Determinant of Health (Alcohol abuse) Discharge Plan Discharge Clinical Impression: Alcohol abuse Patient Disposition: Home, Self-Care Instructions: Abuse of Alcohol (ED), Alcohol Withdrawal (ED) Prescriptions: No Action multivitamin Tablet 1 tab PO DAILY clonidine HCl 0.1 mg tablet 0.1 mg PO BID PRN (Reason: anxiety) trazodone 50 mg tablet 50 mg PO BEDTIME PRN (Reason: insomnia) gabapentin 400 mg capsule 400 mg PO TID albuterol sulfate [Ventolin HFA] 90 mcg/actuation HFA aerosol inhaler 2 puff INHALATION Q6H PRN (Reason: Shortness Of Breath Or Wheezing) fluoxetine 20 mg capsule 60 mg PO DAILY hydroxyzine pamoate 25 mg capsule 25 mg PO TID PRN (Reason: anxiety) buprenorphine-naloxone [Suboxone] 8-2 mg film 1 film sublingual TID Referrals: Wolf Wolfe MD [Primary Care Provider] - 3 days Interventions: [place]-Suicide Risk Severity Scale Last Done: 06/05/23 00:04 ED Discharge Assessment Last Done: 06/05/23 14:33 Discharge Date/Time: 06/05/23 14:46
[2023-06-04 19:26] LABS: MANUAL DIFF FLAG NO
[2023-06-04 19:34] LABS: Basophils Percent Auto 0.6 % (0-2); Eosinophils Percent Auto 0.4 % (0-4); Hematocrit 37.3 % (42.0-52.0); Hemoglobin 13.1 g/dl (14.0-18.0); Imm Gran Abs Auto 0.02 X10*3/uL (0.00-0.03); Imm Gran Pct Auto 0.3 % (0.0-0.4); Lymphocytes Absolute Auto 1.7 X10*3/uL (1.2-4.9); Lymphocytes Percent Auto 24.1 % (20-40); Mean Corpuscular HGB Conc 35.1 g/dl (31.0-36.0); Mean Corpuscular Hemoglobin 34.3 pg (27.0-33.0); Mean Corpuscular Volume 97.6 fL (80.0-98.0); Mean Platelet Volume 11.1 fL (9.4-12.4); Monocytes Absolute Auto 0.4 X10*3/uL (0.1-1.2); Monocytes Percent Auto 5.4 % (2-11); Neutrophils Absolute Auto 4.9 x10*3/uL (2.0-8.3); Neutrophils Percent Auto 69.2 % (45-73); Platelet Count 149 X10*3/uL (160-400); Red Blood Count 3.82 X10*6/uL (4.60-5.80); White Blood Count 7.1 X10*3/uL (4.8-10.8)
[2023-06-04 19:46] LABS: Alanine Aminotransferase 59 U/L (0-40); Albumin Level 3.1 g/dL (3.5-5.0); Alkaline Phosphatase 250 U/L (39-117); Anion Gap 15 (12-20); Aspartate Amino Transferase 206 U/L (5-37); Bilirubin Total 0.5 mg/dL (0.0-1.0); Blood Urea Nitrogen 3 mg/dL (9-16); Calcium 8.2 mg/dL (8.4-10.2); Carbon Dioxide 27 mmol/L (22-29); Chloride 106 mmol/L (96-108); Creatinine Clr Calc Pharmacy 111.7; Estimated Glomerular Filt Rate > 60; Ethanol 302 mg/dL; Glucose Random 94 mg/dL (60-115); Lipase 98 U/L (8-78); Potassium 2.9 mmol/L (3.3-5.1); Sodium 145 mmol/L (135-145); Total Protein 7.5 g/dL (6.5-8.0)
[2023-06-04 19:50] LABS: Acetaminophen LAB < 3 mcg/mL (<30); Salicylate < 5.0 mg/dL (15-30)
[2023-06-04 20:14] LABS: Appearance Urine Clear; Color Urine Dark Yellow; Glucose Urine UA Negative (Negative); Leukocyte Esterase Urine Negative (Negative); Nitrite Urine Negative (Negative); PH 6.5 (5.0-9.0); UMIC TRIGGER UA YES; Urine Blood Negative (Negative); Urine Ketones Negative (Negative); Urine Protein 30 (1+) mg/dL (Neg-Trace)
[2023-06-04 20:16] LABS: Bacteria Urine None Seen (None Seen); RBC Urine 0-2 /HPF (0-2); Squamous Epithelial Cell Urine 0-2 /HPF (0-2); WBC Urine 0-5 /HPF (0-5)
[2023-06-04 20:20] LABS: Amphetamine Screen Urine Not Detected (Not Detect); Barbiturates, Urine POSITIVE (Not Detect); Benzodiazepines Screen Urine Not Detected (Not Detect); Cannabinoid Screen Urine Not Detected (Not Detect); Cocaine Screen Urine Not Detected (Not Detect); Fentanyl, urine Not Detected (Not Detect); Opiate Screen Urine Not Detected (Not Detect); Phencyclidine Screen Urine Not Detected (Not Detect)
[2023-06-04 20:57] VITALS: BP 136/76; PULSE 91; RESP 20; TEMP 36.7; O2SAT 98
[2023-06-04 21:05] VITALS: RESP 16
[2023-06-04] MEDS: Morphine Sulfate 4 MG/ML CARTRIDGE IVPUSH (21:05)
[2023-06-04] MEDS: 0.9 % Sodium Chloride 1,000 ML 999 ML IV (21:05)
[2023-06-04] MEDS: Potassium Chloride Packet 20 MEQ PACKET 60 MEQ PO (21:05)
[2023-06-04 21:25] LABS: COVID-19 Test Negative (Negative); IDNOW Serial# BCCEAD1C
[2023-06-04] MEDS: iohexoL 350 MG/ML 100 ML INFUS..BTL 85 ML IV (21:47)
[2023-06-04] MEDS: Albuterol Sulfate 90 MCG 8 GM INHALER 4 PUFF INHALE (22:13)
[2023-06-04] MEDS: PHENobarb/Hyoscy/Atropine/Scop 10 ML ELIXIR PO (23:24)
[2023-06-04] MEDS: Magnesium Hydrox/Alum Hydrox 30 ML ORAL.SUSP PO (23:24)
[2023-06-04] MEDS: Lidocaine HCl Viscous 2 % 15 ML SOLUTION MUCOUS MEM (23:24)
[2023-06-04] MEDS: ondansetron HCL 4 MG/2 ML VIAL IVPUSH (23:25)
[2023-06-04] MEDS: Famotidine/PF 20 MG/2 ML VIAL IVPUSH (23:25)
[2023-06-04 23:52] VITALS: RESP 18
[2023-06-04] MEDS: Morphine Sulfate 2 MG/ML CARTRIDGE IVPUSH (23:52)
[2023-06-04] MEDS: LORazepam 2 MG/ML VIAL IVPUSH (23:52)
--- NOTE | 2023-06-05 00:03 | PC.NURSE ---
Patient is alert and oriented x3, VSS. Patient continues to endorse steady, sharp abdominal pain ranging from 5-9/10 on 0-10 pain scale. Patient medicated per MAR, no s/s of active withdrawal noted. Patient provided with numerous snacks and sera amarjit, tolerated well, no nausea/vomiting at this time. 1:1 sitter at bedside.
[2023-06-05 01:24] LABS: Alanine Aminotransferase 59 U/L (0-40); Albumin Level 2.9 g/dL (3.5-5.0); Alkaline Phosphatase 263 U/L (39-117); Anion Gap 12 (12-20); Aspartate Amino Transferase 232 U/L (5-37); Bilirubin Total 0.5 mg/dL (0.0-1.0); Blood Urea Nitrogen 3 mg/dL (9-16); Calcium 7.5 mg/dL (8.4-10.2); Carbon Dioxide 24 mmol/L (22-29); Chloride 108 mmol/L (96-108); Creatinine Clr Calc Pharmacy 107.6; Estimated Glomerular Filt Rate > 60; Glucose Random 107 mg/dL (60-115); Potassium 3.5 mmol/L (3.3-5.1); Sodium 140 mmol/L (135-145); Total Protein 6.9 g/dL (6.5-8.0)
--- NOTE | 2023-06-05 02:00 | PC.NURSE ---
Patient medically cleared for transfer to POD. Nurse to nurse report given to KAILASH Kovacs.
--- NOTE | 2023-06-05 02:35 | PC.NURSE ---
Patient just got transferred from main ED, no distress observed/reported at this time, ambulated independently, asymptomatic of withdrawal at this time, med rec completed/pending provider's approval, care consult ordered/pending evaluation, VSS, labs completed/resulted, will continue to monitor.
[2023-06-05] MEDS: Albuterol Sulfate 90 MCG 8 GM INHALER 2 PUFF INHALE (04:57)
[2023-06-05 05:02] VITALS: BP 127/89; PULSE 97; RESP 21; TEMP 37.6; O2SAT 91
[2023-06-05] MEDS: LORazepam 1 MG TABLET PO ×2 (07:16→12:41)
[2023-06-05] MEDS: Ondansetron ODT 4 MG TAB.RAPDIS TRANSLINGU (07:16)
[2023-06-05 09:48] LABS: Glucose, Whole Blood 100 mg/dL (60-115)
--- NOTE | 2023-06-05 09:54 | PC.NURSE ---
about 0715 patient was dry heaving, stated he was feeling unwell, nausea, tremors and headache. was medicated per providers orders. patient has been sleeping in room since medicated. seen by CARE team as well.
--- NOTE | 2023-06-05 12:42 | PC.NURSE ---
Patient reported to this RN that he feels like his withdrawals are coming back. BECKYWA completed, this RN spoke to Dr. Gold who ordered 1mg Ativan
--- NOTE | 2023-06-05 13:38 | PC.NURSE ---
Patient sleeping at this time, respirations even and unlabored, skin pwd, no apparent distress
--- NOTE | 2023-06-05 14:04 | MHC.RECOVSUP ---
Met with pt in [facility] who is here for psychiatric needs. Pt informs he is not currently in need of recovery assistance as he needs to go home to take care of his partner first. Pt was provided recovery resources and urged to reach out when he is ready and able if he needs help getting into a program. Pt verbalized understanding and has no other questions or concerns at this time.
== END 2023-06-05 14:46 | disposition home or self-care (01) ==
PROVIDERS: Physician Assistant; Physician Assistant Medical; Emergency Provider Internal Medicine; PCP Internal Medicine
DX: F10.10 Alcohol abuse, uncomplicated (principal); Y90.8 Blood alcohol level of 240 mg/100 ml or more; R10.9 Unspecified abdominal pain; K85.90 Acute pancreatitis without necrosis or infection, unspecified; Z11.52 Encounter for screening for COVID-19; Z79.899 Other long term (current) drug therapy
CPT/HCPCS: 36415; 74177; 80053; 80143; 80179; 80307; 81001; 82947; 83690; 85025; 87635; 96361; 96374; 96375; 96376; 99285; J2060; J2270; J2405; Q9967; S9485

== ENCOUNTER 2023-06-27 08:21 | Inpatient (IN) | payer OTHER, SELFPAY ==
[2023-06-27] VITALS (8 sets, daily range): BP systolic 114–134; BP diastolic 70–87; PULSE 96–126; RESP 5–21; TEMP 36.8–37.1; O2SAT 87–97; BMI 23.9; BMI 24.3
--- NOTE | ~2023-06-27 | MR_ITS ---
EXAMINATION: MR ABDOMEN WITHOUT CONTRAST CLINICAL INFORMATION: Prior abnormal imaging. COMPARISON: Right upper quadrant ultrasound 06/27/2023 CT abdomen/pelvis 06/27/2023 TECHNIQUE: MR abdomen is performed without gadolinium contrast. Heavily T2 weighted MRCP sequences were also obtained. FINDINGS: LUNG BASES: No pleural effusion. LIVER, GALLBLADDER, AND BILIARY TREE: The liver is enlarged and measures 20.6 cm in sagittal dimension. Hepatic steatosis. Slightly nodular surface contour. Mild periportal edema. Small perihepatic free fluid. The common duct measures 9 mm at the seamus hepatis and tapers smoothly to the head of the pancreas. Mild central intrahepatic biliary ductal dilatation. No intraductal filling defects. The gallbladder is distended with stones and sludge. There is gallbladder wall thickening/edema. PANCREAS: No ductal dilatation. SPLEEN: Not enlarged. ADRENAL GLANDS: No adrenal mass. KIDNEYS AND URETERS: The kidneys are symmetric in size. No hydronephrosis. No perinephric stranding. GASTROINTESTINAL TRACT: No bowel obstruction. LYMPH NODES: No lymphadenopathy. VASCULAR: Normal caliber abdominal aorta. MR/MR MRCP IMPRESSION: Distended gallbladder with stones and sludge. Gallbladder wall thickening/edema. This may represent acute cholecystitis in the appropriate clinical setting. Advise clinical correlation. Mild intrahepatic and extrahepatic biliary ductal dilatation without intraductal filling defects. Hepatomegaly and hepatic steatosis. Small ascites. Correlate with history of chronic liver disease.
--- NOTE | ~2023-06-27 | NM_ITS ---
BILIARY TRACT IMAGING STUDY CLINICAL INDICATION: Multiple medical problems. Rule out acute cholecystitis. PROCEDURE: Scintillation camera images were obtained over the abdomen for an observation of 60 minutes following the intravenous administration of 5.0 millicuries technetium 99m Mebrofenin. COMPARISON: No previous biliary scan is available for comparison. MRCP dated 06/28/2023 and abdominal ultrasound dated 06/27/[address] scan of the abdomen and pelvis on 06/27/2023 are available for comparison.. FINDINGS: There is good concentration of activity in the liver by 5 minutes post injection. Biliary activity is well visualized by 10 minutes, and there is good visualization of small bowel activity by 16 minutes. The gallbladder is well visualized by 35 minutes. NM/NM hepatobiliary wo pharm IMPRESSION: Normal biliary scan. Visualization of the gallbladder is evidence of a patent cystic duct and strong evidence against the diagnosis of acute cholecystitis. The common bile duct is patent. Liver function appears normal.
--- NOTE | ~2023-06-27 | XR_ITS ---
EXAMINATION: XR CHEST CLINICAL INFORMATION: Chest pain with coughing. COMPARISON: None available. TECHNIQUE: Frontal view of the chest was obtained. FINDINGS: No significant abnormality is noted involving the heart, lungs, mediastinum, bony thorax or soft tissues. XR/XR chest 1V IMPRESSION: Unremarkable chest exam.
--- NOTE | ~2023-06-27 | CT_ITS ---
EXAMINATION: CT ABDOMEN AND PELVIS WITH CONTRAST CLINICAL INFORMATION: Epigastric pain. Rule out pancreatitis. COMPARISON: CT abdomen and pelvis with IV contrast 06/04/2023 TECHNIQUE: Multidetector volumetric images were obtained from the superior aspect of the liver through the pubic symphysis following administration 85 mL of Omnipaque 350 intravenous contrast. Sagittal and coronal reformatted images were obtained on the technologist's workstation. Oral contrast: No This CT examination was performed using dose optimization techniques as appropriate, variously including the following: *Automated exposure control *Adjustment of mA and/or kV according to patient size (this includes techniques or standardized protocols for targeted exams where dose is matched to indication/reason for exam; i.e. extremities or head) *Use of iterative reconstruction technique DLP: 519 mGy-cm FINDINGS: LUNG BASES: The visualized lung bases are unremarkable. LIVER, GALLBLADDER, AND BILIARY TREE: The liver is normal size with lobulated contour and mildly heterogeneous density. No focal lesion or intrahepatic ductal dilatation seen. There are no radiopaque gallstones or wall thickening. CBD is mildly prominent measuring 7 mm. PANCREAS: The pancreas is homogeneous in density with normal peripancreatic heart border. There are coarse calcification in the pancreatic head.. SPLEEN: Unremarkable. ADRENAL GLANDS: Unremarkable. KIDNEYS AND URETERS: The kidneys are normal in size, shape, and attenuation. No hydronephrosis, hydroureter, or calculi seen. No perinephric stranding. BLADDER: Unremarkable. GASTROINTESTINAL TRACT: There is scattered stool, gas throughout the colon without distention. The small bowel loops are normal caliber. Appendix is normal caliber. No inflammatory process seen in the abdomen. ABDOMINAL WALL: Small umbilical hernia containing fat is noted. LYMPH NODES: Small retroperitoneal lymph nodes are seen with one of the largest lymph node in the aortocaval region measuring 1.1 cm. VASCULAR: Unremarkable. PELVIC VISCERA: There is central prostate gland calcification with minimal enlargement of prostate gland. No abnormal pelvic or inguinal lymph nodes seen. OSSEOUS STRUCTURES: There is mild degenerative vacuum disc phenomena L3 4-5 and L2-L3 disc levels. Grade 1 retrolisthesis L1 over L2 and L2 over L3 is noted. No aggressive lytic or sclerotic process seen. CT/CT abdomen pelvis w IV con IMPRESSION: No acute intra-abdominal process seen. However gallbladder is mildly distended with mild prominence of CBD. If patient has biliary colic then a ERCP or MRCP can be performed. Fleischner guidelines were followed.
--- NOTE | ~2023-06-27 | US_ITS ---
EXAMINATION: US ABDOMEN LIMITED CLINICAL INFORMATION: Distended gallbladder, mildly prominent CBD on CT. COMPARISON: CT abdomen pelvis performed earlier today. TECHNIQUE: Real-time imaging of the right upper quadrant abdominal viscera. FINDINGS: GALLBLADDER: Gallbladder appears distended. There are gallstones noted in the gallbladder lumen as well as small sludge. Gallbladder wall thickness up to 6 mm. COMMON BILE DUCT: Dilated at 9 mm maximally. FREE FLUID: None. US/US abdomen limited IMPRESSION: Distended gallbladder with intraluminal stones and sludge identified. Gallbladder wall thickening, but no pericholecystic fluid. CBD dilatation, up to 9 mm.
--- NOTE | ~2023-06-27 | US_ITS ---
EXAMINATION: US ABDOMEN DOPPLER CLINICAL INFORMATION: Alcohol abuse. COMPARISON: Abdominal ultrasound and CT scan of the abdomen dated June 27, 2023. TECHNIQUE: Real-time vascular imaging of the liver and spleen. FINDINGS: LIVER: There is hepatopedal flow within the main portal vein, right portal vein, and left portal vein. The technologist reports thrombus within the main and right portal vein, however submitted images do not appear diagnostic. In addition, contrast-enhanced CT scan from 2 days prior demonstrates no evidence of thrombus within the portal venous system, and contrast enhanced CT scan is significantly more sensitive, specific, and reproducible than ultrasound in evaluation for portal venous thrombus. CT scan from 2 days prior also demonstrates hepatic cirrhosis and recanalization of the paraumbilical vein. Recanalization of the umbilical vein is demonstrated on the current study as well. The main hepatic artery, right hepatic artery, and left hepatic artery appear patent. The right hepatic vein, middle hepatic vein, and left hepatic vein appear patent. The spleen measures appears upper normal in size, measuring 12.0 cm in sagittal dimension. The visualized portion of the splenic vein appears patent. The IVC appears unremarkable. US/US duplex arterial venous comp IMPRESSION: The technologist reports thrombus within the main and right portal vein, however submitted images do not appear diagnostic. In addition, contrast-enhanced CT scan from 2 days prior demonstrates no evidence of thrombus within the portal venous system, and contrast enhanced CT scan is significantly more sensitive, specific, and reproducible than ultrasound in evaluation for portal venous thrombus. Additional findings, as above.
--- NOTE | 2023-06-27 10:13 | PC.NURSE ---
pt changed over into attire and belongings locked up
--- NOTE | 2023-06-27 11:06 | ECG_ITS ---
Test Reason : WEAKNESS / CHEST PAIN Blood Pressure : / mmHG Vent. Rate : 102 BPM Atrial Rate : 102 BPM P-R Int : 158 ms QRS Dur : 086 ms QT Int : 358 ms P-R-T Axes : 060 -10 047 degrees QTc Int : 466 ms Sinus tachycardia Low voltage QRS Cannot rule out Anterior infarct , age undetermined Abnormal ECG When compared with ECG of 19-MAY-2023 01:19, No significant change was found Referred By: Stuart Grant Electronically Signed By:DOUG HALL
[2023-06-27 11:07] LABS: MANUAL DIFF FLAG NO
[2023-06-27 11:08] LABS: Basophils Percent Auto 0.3 % (0-2); Eosinophils Percent Auto 0.4 % (0-4); Hematocrit 38.5 % (42.0-52.0); Hemoglobin 13.3 g/dl (14.0-18.0); Imm Gran Abs Auto 0.02 X10*3/uL (0.00-0.03); Imm Gran Pct Auto 0.2 % (0.0-0.4); Lymphocytes Absolute Auto 1.3 X10*3/uL (1.2-4.9); Lymphocytes Percent Auto 14.8 % (20-40); Mean Corpuscular HGB Conc 34.5 g/dl (31.0-36.0); Mean Corpuscular Hemoglobin 34.2 pg (27.0-33.0); Monocytes Absolute Auto 0.4 X10*3/uL (0.1-1.2); Monocytes Percent Auto 4.4 % (2-11); Neutrophils Absolute Auto 7.2 x10*3/uL (2.0-8.3); Neutrophils Percent Auto 79.9 % (45-73); Red Blood Count 3.89 X10*6/uL (4.60-5.80); Red Cell Distribution Width 13.6 % (11.0-16.0)
--- NOTE | 2023-06-27 11:20 | ED_ITS ---
HPI - Abdominal Pain General Chief Complaint: Abdominal Pain Stated Complaint: ABD PAIN,SOB PER [facility] Time Seen by Provider: 06/27/23 08:32 Source: patient Mode of arrival: EMS Limitations: no limitations History of Present Illness HPI narrative: 52-year-old male with a history of pneumonia, COPD, asthma alcohol use disorder, pancreatitis, who presents to the emergency department for evaluation of upper abdominal pain times 2-3 days. Patient states when the pain started came on suddenly. He states that since onset the pain is a sharp, dull pain which is constant is greater than 10/10. He states that over the last several days he has noted dark bloody stools as well. He states that he was having chills but denied fever. He states that he has shortness of breath and he has pain in his chest when he coughs. Patient states that his pain feels similar to his pancreatitis pain that he has had frequently. States his last episode was 1 month prior while he was at [facility] however today's episode is more severe. Patient continues to drink alcohol. He states that he drinks three 3.75 L bottles of whiskey per day. He states that he is interested in getting into alcohol detox once he is feeling better. In reviewing the patient's record, patient was last admitted on 05/19/2023 until 05/20/2023 for alcohol withdrawal and multiple electrolyte abnormalities including anemia and hypo magnesemia related to his alcohol use disorder. Patient was treated with phenobarbital protocol . Related Data Home Medications Medication Instructions Recorded Confirmed albuterol sulfate 90 mcg/actuation 2 puff inhalation Q6H PRN 11/30/22 06/05/23 aerosol inhaler (Ventolin HFA) Shortness Of Breath Or Wheezing buprenorphine 8 mg-naloxone 2 mg 1 film sublingual TID 11/30/22 06/05/23 sublingual film (Suboxone) clonidine HCl 0.1 mg tablet 0.1 mg PO BID PRN anxiety 11/30/22 06/05/23 fluoxetine 20 mg capsule 60 mg PO DAILY 11/30/22 06/05/23 gabapentin 400 mg capsule 400 mg PO TID 11/30/22 06/05/23 hydroxyzine pamoate 25 mg capsule 25 mg PO TID PRN anxiety 11/30/22 06/05/23 multivitamin 1 tab PO DAILY 11/30/22 06/05/23 trazodone 50 mg tablet 50 mg PO BEDTIME PRN insomnia 11/30/22 06/05/23 Allergies Allergy/AdvReac Type Severity Reaction Status Date / Time levofloxacin Allergy Unknown Unknown Verified 06/27/23 09:10 chlorpromazine Allergy Unknown unknown Uncoded 11/30/22 18:24 Review of Systems Review of Systems Yes all other systems are reviewed and are negative [facility] Past Medical History [facility] Narrative: Social history: Patient does smoke cigarettes. He drinks 3 bottles of whiskey 3.75 L daily. His last drink was at 05:00 hours this morning. He denies drug use. Medical History (Updated 06/27/23 @ 14:47 by Fabiana Norton NP) Opioid use disorder Alcohol use disorder, severe, dependence MDD (major depressive disorder) Pancreatitis Asthma COPD (chronic obstructive pulmonary disease) Social History Social History Household Members: None Housing: Apartment Housing Other:: being evicted Do you presently have visiting nurse or other home services: No Alcohol intake: current Alcohol intake frequency: 3 or more drinks per day Alcohol type: hard liquor Patient Tobacco Use Status: Former Tobacco user Quit Date: Pt not ready to quit per pt Tobacco use type: Cigarette Cigarette Packs Per Day: 0.5 Cigarettes Per Day: 10.0 Years Smoked: 38 Smoked in Last 30 Days: No e-Cigarette/Vaping Use: Former Use Second Hand Smoke Exposure: No Use of substances other than those prescribed or required for medical reasons: No Advance Directives: No Advance Directives Information Provided: Yes service: No Sexual orientation: Straight/Heterosexual Physical Exam ED Vital Signs: Vital Signs - 24 hr 06/27/23 09:04 06/27/23 10:56 06/27/23 12:11 Temperature 98.3 F 98.4 F Pulse Rate 103 H 97 107 H Respiratory Rate 18 5 L 19 Blood Pressure 117/75 131/87 127/87 Pulse Oximetry 95 93 97 Oxygen Delivery Method Room Air Room Air Room Air 06/27/23 13:56 Temperature Pulse Rate 110 H Respiratory Rate 21 H Blood Pressure Pulse Oximetry Oxygen Delivery Method BMI result Body Mass Index 23.9 Vital signs revealed an elevated pulse of 103 otherwise unremarkable Exam: General: Awake, alert in no distress Head: Normocephalic, atraumatic EENT: PERRL, Lids normal, sclera normal, conjunctiva normal, nose normal , ears normal, throat without erythema or exudates Neck: Supple, no adenopathy, no trachea midline or C-spine tenderness Lung: breath sounds symmetric, no wheezing, rales or rhonchi Chest: symmetric movement, nontender Heart: regular rate and rhythm, normal S1, S2 no murmurs or rubs Abdomen: soft, distended, normoactive bowel sounds, moderate to severe epigastric left upper quadrant tenderness, mild to moderate diffuse tenderness Rectal: Rectal tone was normal, stool was reddish brown and strongly Hemoccult positive Extremities: no deformities, moves all extremities symmetrically Skin: no rashes, no lesion, normal color and warmth Neuro: Awake, alert, oriented, normal speech, cranial nerves intact, moves all extremities symmetrically Psych: Pleasant, cooperative Medical Decision Making Medical Decision Making MDM Narrative: 52-year-old male with a history of pneumonia, COPD, asthma alcohol use disorder, pancreatitis, who presents to the emergency department for evaluation of upper abdominal pain times 2-3 days and dark, blood stools. Patient states the pain started suddenly in the pain is severe and similar to his pancreatitis pain that is had in the past except for the increased intensity of the pain. Vital signs revealed an elevated pulse of 103. Abdominal exam revealed moderate to severe epigastric and left upper quadrant tenderness and mild to moderate diffuse tenderness. Patient also appears to be distended with normoactive bowel sounds. Rectal exam revealed reddish brown stool which was strongly Hemoccult positive. Following evaluation was ordered: CBC, BMP, liver panel, lipase, ethanol level, PT/INR, PTT, troponin, urinalysis, urine drug screen, EKG, chest x-ray one view, CT abdomen pelvis with IV contrast. Patient was treated with the following: Normal saline x1 L, Dilaudid 1 mg IV and pantoprazole 40 mg IV, 14:[address] scan of the abdomen pelvis with IV contrast did not reveal a clear cause for the patient's pain. He does have calcification of the head of the pancreas which is consistent with chronic pancreatitis. The radiologist noted that the common bile duct was at the upper limit of normal at 7 mm and the gallbladder appeared full . Patient's laboratory evaluation did reveal an elevated alk-phos and elevated bilirubin with a normal lipase. Therefore I will obtain a ultrasound to rule out obstructive process and evaluate for gallstones. Patient was not significantly anemic however he did report dark red stools and is rectal exam did revealed dark red stool which was strongly Hemoccult positive. Patient's alcohol level was 119. Patient also appears to be withdrawing from alcohol, therefore he was started on phenobarbital protocol. His magnesium and potassium are low this is most likely caused by his alcohol use disorder, sore to get magnesium 2 g IV and potassium 10 mEq IV x2. Patient required a 2nd dose of Dilaudid 1 mg IV and Zofran 4 mg IV. I did discuss admission over tiger text with the covering hospitalist, Dr Reynolds and patient will be admitted for further treatment evaluation. Differential Diagnosis Differential Diagnoses: The differential diagnosis associated with the presentation includes Differential diagnosis includes was not limited to pancreatitis, perforation, bowel obstruction, acute hepatitis, gastritis, upper GI bleed, anemia, electrolyte abnormality, alcohol intoxication Admission/Observation Consideration of admission/observation: Escalation of care including admission/observation considered Lab Data MDM Lab Attestation statement: I reviewed the patient's lab results. My interpretation patient's laboratory evaluation as follows: Macrocytic anemia with an H&H of 13 and 38 with an MCV of 99-patient has had similar anemia in the past. Potassium low 3.0. ALT elevated 113, alkaline phosphatase elevated 238. Troponin below detectable limits. Lipase was normal at 32. 06/27/23 11:02 06/27/23 11:02 Labs: Lab Results 06/27/23 06/27/23 Range/Units 11:02 11:48 WBC 9.0 (4.8-10.8) X10*3/uL RBC 3.89 L (4.60-5.80) X10*6/uL Hgb 13.3 L (14.0-18.0) g/dl Hct 38.5 L (42.0-52.0) % MCV 99.0 H (80.0-98.0) fL MCH 34.2 H (27.0-33.0) pg MCHC 34.5 (31.0-36.0) g/dl RDW 13.6 (11.0-16.0) % Plt Count 58 L D (160-400) X10*3/uL MPV 10.4 (9.4-12.4) fL Immature Gran % (Auto) 0.2 (0.0-0.4) % Neut % (Auto) 79.9 H (45-73) % Lymph % (Auto) 14.8 L (20-40) % [place] % (Auto) 4.4 (2-11) % Eos % (Auto) 0.4 (0-4) % Baso % (Auto) 0.3 (0-2) % Lymph # (Auto) 1.3 (1.2-4.9) X10*3/uL [place] # (Auto) 0.4 (0.1-1.2) X10*3/uL Eos # (Auto) 0.0 (0.0-0.4) X10*3/uL Baso # (Auto) 0.0 (0.0-0.2) X10*3/uL Abs Immat Gran (auto) 0.02 (0.00-0.03) X10*3/uL Absolute Neuts (auto) 7.2 (2.0-8.3) x10*3/uL Absolute Nucleated RBC 0.000 (0.0-0.012) X10*3/uL Nucleated RBC % (auto) 0.0 (0.0-0.2) /100WBC PT 14.0 H (11.1-13.3) SEC INR 1.2 H (0.9-1.1) APTT 28.8 (26.0-36.4) SEC Sodium 139 (135-145) mmol/L Potassium 3.0 L (3.3-5.1) mmol/L Chloride 98 (96-108) mmol/L Carbon Dioxide 29 (22-29) mmol/L Anion Gap 15 (12-20) BUN 4 L (9-16) mg/dL Creatinine 0.79 (0.5-1.4) mg/dL Estim Creat Clear Calc 110.3 Estimated GFR > 60 Random Glucose 105 (60-115) mg/dL Calcium 7.9 L (8.4-10.2) mg/dL Magnesium 1.5 L (1.6-2.6) mg/dL Total Bilirubin 0.9 (0.0-1.0) mg/dL Direct Bilirubin 0.4 (0.0-0.5) mg/dL AST 113 H (5-37) U/L ALT 30 (0-40) U/L Alkaline Phosphatase 283 H (39-117) U/L Troponin I High Sens < 2.7 (<3.5-35.0) ng/L Total Protein 7.4 (6.5-8.0) g/dL Albumin 3.0 L (3.5-5.0) g/dL Lipase 32 (8-78) U/L Ethyl Alcohol 119 mg/dL Blood Type AB Positive Antibody Screen NEGATIVE Radiology Impression Discussion of test interpretation with radiology: I have reviewed the radiologist's reading. Radiologist Impression: XR chest 1V IMPRESSION: Unremarkable chest exam. Dictated By: Ruy Joy MD EXAMINATION: CT ABDOMEN AND PELVIS WITH CONTRAST FINDINGS: LUNG BASES: The visualized lung bases are unremarkable. LIVER, GALLBLADDER, AND BILIARY TREE: The liver is normal size with lobulated contour and mildly heterogeneous density. No focal lesion or intrahepatic ductal dilatation seen. There are no radiopaque gallstones or wall thickening. CBD is mildly prominent measuring 7 mm. PANCREAS: The pancreas is homogeneous in density with normal peripancreatic heart border. There are coarse calcification in the pancreatic head.. SPLEEN: Unremarkable. ADRENAL GLANDS: Unremarkable. KIDNEYS AND URETERS: The kidneys are normal in size, shape, and attenuation. No hydronephrosis, hydroureter, or calculi seen. No perinephric stranding. BLADDER: Unremarkable. GASTROINTESTINAL TRACT: There is scattered stool, gas throughout the colon without distention. The small bowel loops are normal caliber. Appendix is normal caliber. No inflammatory process seen in the abdomen. ABDOMINAL WALL: Small umbilical hernia containing fat is noted. LYMPH NODES: Small retroperitoneal lymph nodes are seen with one of the largest lymph node in the aortocaval region measuring 1.1 cm. VASCULAR: Unremarkable. PELVIC VISCERA: There is central prostate gland calcification with minimal enlargement of prostate gland. No abnormal pelvic or inguinal lymph nodes seen. OSSEOUS STRUCTURES: There is mild degenerative vacuum disc phenomena L3 4-5 and L2-L3 disc levels. Grade 1 retrolisthesis L1 over L2 and L2 over L3 is noted. No aggressive lytic or sclerotic process seen. CT/CT abdomen pelvis w IV con IMPRESSION: No acute intra-abdominal process seen. However gallbladder is mildly distended with mild prominence of CBD. If patient has biliary colic then a ERCP or MRCP can be performed. Fleischner guidelines were followed. Dictated By: Ruy Joy MD Medications Administered Generic Name Dose Route Start Last Admin Trade Name Freq PRN Reason Stop Dose Admin Magnesium Sulfate 2 gm in 50 mls @ 25 mls/hr 06/27/23 13:39 06/27/23 14:13 Magnesium Sulfate/H2o IV 06/27/23 15:38 Infused ONCE ONE Infusion Discontinued Medications Generic Name Dose Route Start Last Admin Trade Name Freq PRN Reason Stop Dose Admin Albuterol Sulfate 2.5 mg/ 0 mg 06/27/23 13:46 06/27/23 13:54 Albuterol/Ipratropium 3 ml INHALE 06/27/23 13:47 5 dose ONCE ONE Administration Hydromorphone HCl 1 mg 06/27/23 11:17 06/27/23 12:10 Hydromorphone Hcl 1 Mg/Ml Syringe IVPUSH 06/27/23 11:18 1 mg ONCE STA Administration Protocol Hydromorphone HCl 1 mg 06/27/23 13:29 06/27/23 13:43 Hydromorphone Hcl 1 Mg/Ml Syringe IVPUSH 06/27/23 13:30 1 mg ONCE STA Administration Protocol Sodium Chloride 1,000 mls @ 999 mls/hr 06/27/23 11:06 06/27/23 13:34 Ns IV 06/27/23 12:06 Infused .Q1H1M STA Infusion Iohexol 85 ml 06/27/23 13:08 06/27/23 13:08 Iohexol 350 Mg/Ml 100 Ml Infus..Btl IV 06/27/23 13:09 85 ml ONCE ONE Administration Ondansetron HCl 4 mg 06/27/23 13:31 06/27/23 13:42 Ondansetron Hcl 4 Mg/2 Ml Vial IVPUSH 06/27/23 13:32 4 mg ONCE ONE Administration Pantoprazole Sodium 40 mg 06/27/23 11:18 06/27/23 12:09 Pantoprazole Sodium 40 Mg/10 Ml Vial IVPUSH 06/27/23 11:19 40 mg ONCE ONE Administration Phenobarbital Sodium 292.5 mg 06/27/23 14:00 06/27/23 13:43 Phenobarbital Sodium 130 Mg/Ml Im Once IM 06/27/23 14:01 292.5 mg ONCE ONE Administration Protocol Critical Care Time Critical Care Time Critical Care Time: Yes Total Critical Care Time: 45 Attestation: Critical Care: The patient was critically ill with a high probability of imminent or life threatening deterioration. I spent greater than 30 minutes of discontinuous time evaluating the patient,delivering critical care at the bedside, discussing and evaluating pertinent data with consultants. Critical care time does not include time spent performing separately billable procedures or teaching. Total time spent performing critical care was 45 minutes. Discharge Plan Discharge Clinical Impression: Acute hypokalemia, Acute GI bleeding, Alcohol use disorder, Hypomagnesemia Abdominal pain Qualifiers: Abdominal location: generalized Qualified Code(s): R10.84 - Generalized abdominal pain Alcohol withdrawal Qualifiers: Complication of substance-induced condition: uncomplicated Qualified Code(s): F 10.930 - Alcohol use, unspecified with withdrawal, uncomplicated Patient Disposition: Admitted As Inpatient Prescriptions: No Action multivitamin Tablet 1 tab PO DAILY clonidine HCl 0.1 mg tablet 0.1 mg PO BID PRN (Reason: anxiety) trazodone 50 mg tablet 50 mg PO BEDTIME PRN (Reason: insomnia) gabapentin 400 mg capsule 400 mg PO TID albuterol sulfate [Ventolin HFA] 90 mcg/actuation HFA aerosol inhaler 2 puff INHALATION Q6H PRN (Reason: Shortness Of Breath Or Wheezing) fluoxetine 20 mg capsule 60 mg PO DAILY hydroxyzine pamoate 25 mg capsule 25 mg PO TID PRN (Reason: anxiety) buprenorphine-naloxone [Suboxone] 8-2 mg film 1 film sublingual TID
[2023-06-27 11:25] LABS: Mean Platelet Volume 10.4 fL (9.4-12.4); Platelet Count 58 X10*3/uL (160-400)
[2023-06-27 11:33] LABS: Alanine Aminotransferase 30 U/L (0-40); Alkaline Phosphatase 283 U/L (39-117); Anion Gap 15 (12-20); Aspartate Amino Transferase 113 U/L (5-37); Bilirubin Direct 0.4 mg/dL (0.0-0.5); Bilirubin Total 0.9 mg/dL (0.0-1.0); Blood Urea Nitrogen 4 mg/dL (9-16); Calcium 7.9 mg/dL (8.4-10.2); Carbon Dioxide 29 mmol/L (22-29); Chloride 98 mmol/L (96-108); Creatinine Clr Calc Pharmacy 110.3; Estimated Glomerular Filt Rate > 60; Ethanol 119 mg/dL; Glucose Random 105 mg/dL (60-115); Lipase 32 U/L (8-78); Sodium 139 mmol/L (135-145); Total Protein 7.4 g/dL (6.5-8.0)
[2023-06-27 12:01] LABS: INTERNATIONAL NORM RATIO 1.2 (0.9-1.1)
[2023-06-27 12:02] LABS: Magnesium 1.5 mg/dL (1.6-2.6)
[2023-06-27 12:04] LABS: Troponin-I High Sensitivity < 2.7 ng/L (<3.5-35.0)
[2023-06-27 12:04] LABS: Partial Thromboplastin Time 28.8 SEC (26.0-36.4)
[2023-06-27] MEDS: 0.9 % Sodium Chloride 1,000 ML 999 ML IV (12:08)
[2023-06-27] MEDS: Pantoprazole Sodium 40 MG/10 ML VIAL IVPUSH (12:09)
[2023-06-27] MEDS: HYDROmorphone HCl 1 MG/ML SYRINGE IVPUSH ×2 (12:10→13:43)
--- NOTE | 2023-06-27 13:05 | PC.NURSE ---
assumed care of pt at 1100, pt medicated per SEP, 1L NS running, IV j loop changed for CT contrast, CIWA 10, pt to CT.
[2023-06-27] MEDS: iohexoL 350 MG/ML 100 ML INFUS..BTL 85 ML IV (13:08)
[2023-06-27] MEDS: ondansetron HCL 4 MG/2 ML VIAL IVPUSH (13:42)
[2023-06-27] MEDS: PHENobarbitaL sodium 130 MG/ML IM ONCE 292.5 MG IM (13:43)
[2023-06-27] MEDS: Albuterol Sulfate 2.5 MG, Albuterol/Iprat 2.5/0.5MG 3 ML 3 ML INHALE (13:54)
[2023-06-27] MEDS: Magnesium Sulfate/H2O 2 GM/50 ML PIGGYBACK IV (13:55)
--- NOTE | 2023-06-27 13:58 | PC.NURSE ---
pt medicated per SEP, resp at bedside for breathing treatment, Mg given at resp rate per provider verbal order. CIWA 10, phenobarbital protocol initiated by provider.
[2023-06-27] MEDS: Potassium Chloride/H20 10 MEQ/100 ML PIGGYBACK 100 MEQ IV ×2 (14:40→16:06)
--- NOTE | 2023-06-27 14:47 | P.HPHOSP_ITS ---
History of Present Illness Date of Service: 06/27/23 Chief Complaint: abdominal pain 52-year-old male with a history of pneumonia, COPD, asthma alcohol use disorder, pancreatitis, who presents to the emergency department for evaluation of sudden, constant, sharp, upper abdominal pain with associated dark bloody stool, and chills over the last 2 days. Patient continues to drink alcohol. Reports drinking three 3.75 L bottles of whiskey per day. hs had previous admission for the same. In the ED, He was started on phenobarbitol, given potassium and magnesium, PPI, dilaudid, zofran and albuterol in the ED. cxr negative for consolidation, abd ct showing distended gallbladder and no pancreatitis. He will be admitted for further management and treatment of alcohol intoxication and abdominal pain Review of Systems 2 Review of Systems: Denies any recent fever chills or decrease in appetite respiratory denies shortness of breath or cough cardiovascular denies chest pain gastrointestinal denies any dysphagia abdominal pain nausea vomiting or diarrhea genitourinary denies any dysuria frequency or hematuria musculoskeletal denies any joint pain or swelling neuropsych denies any weakness or seizures all other systems reviewed are negative [facility] Medical History (Updated 06/27/23 @ 14:47 by Fabiana Norton NP) Opioid use disorder Alcohol use disorder, severe, dependence MDD (major depressive disorder) Pancreatitis Asthma COPD (chronic obstructive pulmonary disease) Social History Household Members: None Housing: Apartment Housing Other:: being evicted Do you presently have visiting nurse or other home services: No Alcohol intake: current Alcohol intake frequency: 3 or more drinks per day Alcohol type: hard liquor Patient Tobacco Use Status: Former Tobacco user Quit Date: Pt not ready to quit per pt Tobacco use type: Cigarette Cigarette Packs Per Day: 0.5 Cigarettes Per Day: 10.0 Years Smoked: 38 Smoked in Last 30 Days: No e-Cigarette/Vaping Use: Former Use Second Hand Smoke Exposure: No Use of substances other than those prescribed or required for medical reasons: No Advance Directives: No Advance Directives Information Provided: Yes Nutrition Risks: No Nutritional Risk service: No Sexual orientation: Straight/Heterosexual Meds Allergies Allergy/AdvReac Type Severity Reaction Status Date / Time levofloxacin Allergy Unknown Unknown Verified 06/27/23 09:10 chlorpromazine Allergy Unknown unknown Uncoded 11/30/22 18:24 Active Medications: Current Medications Magnesium Sulfate (Magnesium Sulfate/H2o) 2 gm in 50 mls @ 25 mls/hr IV ONCE ONE Stop: 06/27/23 15:38 Last Infusion: 06/27/23 14:13 Dose: Infused Potassium Chloride (Potassium Chloride/H20) 10 meq in 100 mls @ 100 mls/hr IV Q1H SAVI Stop: 06/27/23 15:44 Pharmacy Consult (Consult Rx Etoh Phenob Im/Po) 1 each MISCELLANE ONCE PRN; Protocol PRN Reason: Consult order Phenobarbital (Phenobarbital 15 Mg Tablet) 45 mg PO BID SAVI; Protocol Stop: 06/29/23 21:01 Phenobarbital (Phenobarbital 30 Mg Tablet) 30 mg PO BID SVAI; Protocol Stop: 07/01/23 21:01 Phenobarbital (Phenobarbital 15 Mg Tablet) 15 mg PO DAILY SAVI; Protocol Stop: 07/03/23 09:01 Phenobarbital Sodium (Phenobarbital Sodium 130 Mg/Ml Vial Im Q3hx2) 218.4 mg IM Q3H SAVI; Protocol Stop: 06/27/23 20:01 Home Medications Medication Instructions Recorded Confirmed Last Taken Type albuterol sulfate 90 mcg/actuation 2 puff inhalation Q6H PRN 11/30/22 06/27/23 Unknown History aerosol inhaler (Ventolin HFA) Shortness Of Breath Or Wheezing buprenorphine 8 mg-naloxone 2 mg 1 film sublingual TID 11/30/22 06/27/23 Unknown History sublingual film (Suboxone) clonidine HCl 0.1 mg tablet 0.1 mg PO BID PRN anxiety 11/30/22 06/27/23 Unknown History fluoxetine 20 mg capsule 60 mg PO DAILY 11/30/22 06/27/23 Unknown History gabapentin 400 mg capsule 400 mg PO TID 11/30/22 06/27/23 Unknown History hydroxyzine pamoate 25 mg capsule 25 mg PO TID PRN anxiety 11/30/22 06/27/23 Unknown History multivitamin 1 tab PO DAILY 11/30/22 06/27/23 Unknown History trazodone 50 mg tablet 50 mg PO BEDTIME PRN insomnia 11/30/22 06/27/23 Unknown History bupropion HCl 300 mg 24 hr tablet, 300 mg PO QAM 06/27/23 06/27/23 Unknown History extended release Physical Exam 2 Vital Signs and Narrative: Vital Signs: Last Vital Signs Temp 98.7 F 06/27/23 14:30 Pulse 118 H 06/27/23 14:30 Resp 20 06/27/23 14:30 BP 134/78 06/27/23 14:30 Pulse Ox 93 06/27/23 14:32 O2 Del Method Nasal Cannula 06/27/23 14:32 O2 Flow Rate 3 06/27/23 14:32 BMI result Body Mass Index 23.9 Appearing in no acute distress head is normocephalic atraumatic eyes pupils are PERRLA sclera is anicteric mouth throat mucous membranes are intact and moist neck is supple no lymphadenopathy, no JVD noted lung sounds are clear to auscultation heart regular rate rhythm, clear S1, S2 positive bowel sounds, abdomen is soft, nontender neuro patient is alert x3, no focal deficits Results Labs 06/27/23 11:02 06/27/23 11:02 Labs: Laboratory Results - last 24 hr 06/27/23 06/27/23 11:02 11:48 MCV 99.0 H MCH 34.2 H MCHC 34.5 RDW 13.6 Plt Count 58 L D MPV 10.4 Immature Gran % (Auto) 0.2 Neut % (Auto) 79.9 H Lymph % (Auto) 14.8 L [place] % (Auto) 4.4 Eos % (Auto) 0.4 Baso % (Auto) 0.3 Lymph # (Auto) 1.3 [place] # (Auto) 0.4 Eos # (Auto) 0.0 Baso # (Auto) 0.0 Abs Immat Gran (auto) 0.02 Absolute Neuts (auto) 7.2 Absolute Nucleated RBC 0.000 Nucleated RBC % (auto) 0.0 PT 14.0 H INR 1.2 H APTT 28.8 Anion Gap 15 Estim Creat Clear Calc 110.3 Estimated GFR > 60 Random Glucose 105 Calcium 7.9 L Magnesium 1.5 L Total Bilirubin 0.9 Direct Bilirubin 0.4 AST 113 H ALT 30 Alkaline Phosphatase 283 H Total Protein 7.4 Albumin 3.0 L Lipase 32 Ethyl Alcohol 119 Blood Type AB Positive Antibody Screen NEGATIVE Imaging Radiologist's Impressions: Impressions Chest X-Ray 06/27/23 11:34 IMPRESSION: Unremarkable chest exam. Abdomen/Pelvis CT 06/27/23 13:20 IMPRESSION: No acute intra-abdominal process seen. However gallbladder is mildly distended with mild prominence of CBD. If patient has biliary colic then a ERCP or MRCP can be performed. Fleischner guidelines were followed. Assessment and Plan (1) Alcohol withdrawal: Qualifiers: Complication of substance-induced condition: uncomplicated Qualified Code(s): F10.930 - Alcohol use, unspecified with withdrawal, uncomplicated Status: Acute Plan 52 year old man admitted with acute alcohol intoxication and abdominal pain with bloody stool Abominal pain possibly gastritis no pancreatitis on ct , normal lipase distended gallbladder, abd us pending IV PPI supportive care Alcohol intoxication and abuse very tremulous Started on phenobarbitol thiamine, folic acid, multivitamin IV fluids Discussed importance of alcohol cessation normocytic anemia reported bloody stool occult stool pending, heme pos in the ED GI consult pending over transfusion threshold at this time IV PPI Follow HH Thrombocytopenia secondary to alcohol abuse follow coagulopathy INR 1.2 no hx of liver cirrhosis, no on ac reported bloody stool follow INR daily Hypokalemia/hypomagnesemia secondary to poor nutrition, alcohol use replete with oral supplementation until normal and monitor Transaminitis normal bilirubin secondary to alcohol abuse DVT prophylaxis pneumatic compression boots in light of bloody stool Full code patient will likely require 2 midnight stays for management of immediate symptoms and complications that may arise from his chronic alcohol abuse, such as gastrointestinal bleeding, electrolyte abnormalities and coagulopathy. given the multiple ongoing issues, potential complications and need for continuous care it is more appropriate for the patient to remain hospitalized until they were substantial improvement in his condition and stability across all parameters. Quality Stroke Does the patient have a stroke diagnosis?: No VTE Prior VTE?: No VTE Risk Level:: Medical - moderate - high VTE Device Contraindication: N/A - Device Ordered VTE Drug Contraindication: Treatment Not Indicated
--- NOTE | 2023-06-27 15:44 | PHA.MEDREC ---
Pharmacy Consult ? Medication Reconciliation Pharmacy has completed the medication reconciliation. Patient confirmed medications. Reports not taking acamprosate. Reported taking trazodone for sleep instead of seroquel. Peggy Xiong, ArianaD
[2023-06-27 15:52] LABS: OBS Int Ctl Valid YES; OBS1 POSITIVE (NEGATIVE)
[2023-06-27] MEDS: hydrOXYzine HCL 25 MG TABLET PO (16:08)
[2023-06-27] MEDS: Lactated Ringers 1,000 ML 125 ML IVCONT (17:37)
[2023-06-27] MEDS: PHENobarbitaL sodium 130 MG/ML VIAL IM Q3Hx2 218.4 MG IM ×2 (17:38→19:49)
[2023-06-27] MEDS: Magnesium Oxide 400 MG TABLET PO (17:39)
[2023-06-27] MEDS: Morphine Sulfate 2 MG/ML CARTRIDGE IVPUSH ×2 (17:39→21:51)
--- NOTE | 2023-06-27 18:46 | PC.NURSE ---
RN-RN report given to S3.
[2023-06-27] MEDS: Gabapentin 400 MG CAPSULE PO (21:34)
[2023-06-27] MEDS: Potassium Chloride ER 20 MEQ TAB.ER.PRT PO (21:35)
[2023-06-27] MEDS: 0.9 % Sodium Chloride Flush 3 ML SYRINGE IVFLUSH (21:51)
[2023-06-28] VITALS (7 sets, daily range): BP systolic 125–133; BP diastolic 71–85; PULSE 81–95; RESP 16–18; TEMP 37.1–37.6; O2SAT 92–96
[2023-06-28] MEDS: Morphine Sulfate 2 MG/ML CARTRIDGE IVPUSH ×6 (02:31→20:38)
[2023-06-28] MEDS: Lactated Ringers 1,000 ML 125 ML IVCONT ×3 (02:35→17:12)
[2023-06-28 05:57] LABS: Basophils Percent Auto 0.3 % (0-2); Eosinophils Absolute Auto 0.1 X10*3/uL (0.0-0.4); Eosinophils Percent Auto 1.6 % (0-4); Imm Gran Abs Auto 0.03 X10*3/uL (0.00-0.03); Imm Gran Pct Auto 0.5 % (0.0-0.4); MANUAL DIFF FLAG SCAN; PLT CLUMP 1; Red Cell Distribution Width 13.6 % (11.0-16.0); SCAN SMEAR FLAG 1
[2023-06-28 05:58] LABS: Hemoglobin 11.9 g/dl (14.0-18.0); Lymphocytes Absolute Auto 1.3 X10*3/uL (1.2-4.9); Mean Platelet Volume 11.6 fL (9.4-12.4); Monocytes Absolute Auto 0.4 X10*3/uL (0.1-1.2); Monocytes Percent Auto 6.4 % (2-11); Neutrophils Absolute Auto 4.5 x10*3/uL (2.0-8.3); Neutrophils Percent Auto 71.2 % (45-73)
[2023-06-28 06:03] LABS: Platelet Count 41 X10*3/uL (160-400); White Blood Count 6.3 X10*3/uL (4.8-10.8)
[2023-06-28 06:13] LABS: Alanine Aminotransferase 24 U/L (0-40); Albumin Level 2.6 g/dL (3.5-5.0); Alkaline Phosphatase 240 U/L (39-117); Anion Gap 12 (12-20); Aspartate Amino Transferase 87 U/L (5-37); Bilirubin Direct 0.6 mg/dL (0.0-0.5); Bilirubin Total 1.2 mg/dL (0.0-1.0); Blood Urea Nitrogen 5 mg/dL (9-16); Calcium 7.5 mg/dL (8.4-10.2); Carbon Dioxide 29 mmol/L (22-29); Chloride 100 mmol/L (96-108); Creatinine Clr Calc Pharmacy 145.3; Estimated Glomerular Filt Rate > 60; Glucose Random 84 mg/dL (60-115); Magnesium 1.7 mg/dL (1.6-2.6); Potassium 3.7 mmol/L (3.3-5.1); Sodium 137 mmol/L (135-145); Total Protein 6.4 g/dL (6.5-8.0)
[2023-06-28 06:17] LABS: SLIDE REVIEW VERIFIED
[2023-06-28] MEDS: Pantoprazole Sodium 40 MG/10 ML VIAL IVPUSH ×2 (06:26→17:29)
--- NOTE | 2023-06-28 07:19 | PC.NURSE ---
received MRCP stat order, US call to check on imaging place. they said they don't have order. so, I pass along to morning nurse. throughout the night pt went to BR, twice BM, not notice any blood, c/o pain -05/01, provided meds by [facility]. low grade temp. 99.1 F. offered Tylenol, pt refused. will continue monitor.
[2023-06-28] MEDS: 0.9 % Sodium Chloride Flush 3 ML SYRINGE IVFLUSH ×3 (09:04→20:38)
[2023-06-28] MEDS: ondansetron HCL 4 MG/2 ML VIAL IVPUSH (09:22)
--- NOTE | 2023-06-28 10:42 | MHC.CM.PN ---
CM MET WITH PT AT BEDSIDE. PT WOULD LIKE DETOX ON DC FROM HOSPITAL. INDEPENDENT AT BASELINE. WILL COMPLETE HCP WHILE HERE. PCP DR. RAMIREZ DP: HOME AFTER DETOX (PT WOULD LIKE ASSIST TO STOP DRINKING) PT WILL NEED A RIDE ON DC. CM WILL CONTINUE TO FOLLOW FOR ANY CHANGE IN DC NEEDS/PLAN.
--- NOTE | 2023-06-28 12:01 | MHC.RECOVRN ---
Met with pt in 343 after consult placed to Addiction Medicine for alcohol use. Pt had presented to the ED reporting upper abd pain, blood-dark in stool, alcohol use, and also stated brother just and feels depressed. Upon evaluation, pt admitted for tx of alcohol withdrawal. Pt laying in bed, eyes closed, wakes to voice, reporting feeling like shit and persistent abdominal pain. Pt reports alcohol use, 3-4 pints whiskey daily x a long time. Pt reports he did have 8 months in recovery at one point, however, which led to recurrence. Pt voices interest in going to [facility] when medically cleared. Pt denies SI/HI/AH/VH. Pt also voices interest in ATS. Educated pt that when he is medically cleared the acute detox will have been completed, pt verbalizes understanding. Briefly discussed CSS level of care, pt begins stating I don't know repeatedly. At this time, pt is uncomfortable and unable to finish interview. Written resources left at bedside as well as t/w contact information if needed. Will continue to follow.
[2023-06-28 12:23] LABS: Appearance Urine Clear; Color Urine Yellow; Glucose Urine UA Negative (Negative); Leukocyte Esterase Urine Negative (Negative); Nitrite Urine Negative (Negative); PH >= 9.0 (5.0-9.0); Specific Gravity - Urine 1.015 (1.005-1.025); Urine Blood Negative (Negative); Urine Ketones Negative (Negative); Urine Protein Trace mg/dL (Neg-Trace)
[2023-06-28 12:28] LABS: Amphetamine Screen Urine Not Detected (Not Detect); Barbiturates, Urine POSITIVE (Not Detect); Benzodiazepines Screen Urine Not Detected (Not Detect); Cannabinoid Screen Urine Not Detected (Not Detect); Cocaine Screen Urine Not Detected (Not Detect); Fentanyl, urine Not Detected (Not Detect); Opiate Screen Urine POSITIVE (Not Detect); Phencyclidine Screen Urine Not Detected (Not Detect)
--- NOTE | 2023-06-28 12:29 | PC.NURSE ---
Addendum entered by Bev Mosher RN 06/28/23 17:26: Pt continues to refuse PO medication. Original Note: SILVIA Haley made aware pt vomited this am d/t nausea when attempting to take pill, all medications held. Pt given zofran with mild effect. Continues to refuses PO medications.
[2023-06-28] MEDS: Piperacillin Sodium/Tazobactam 3.375 GM in 0.9 % Sodium Chloride 50 ML IV ×2 (13:13→19:32)
[2023-06-28] MEDS: Nicotine 14 MG PATCH.TD24 TRANSDERMA (13:19)
--- NOTE | 2023-06-28 13:23 | PC.NURSE ---
Called security to bring pts phones to bedside to call family. Pt now has two phones, one new in box with 1 cafeteria counter attendant.
--- NOTE | 2023-06-28 14:00 | PM.CNGS ---
History of Present Illness Consult details Consult date: 06/28/23 Narrative: Patient is a 52-year-old male with a plethora of medical problems who presents with several-day history of progressive worsening epigastric/right upper quadrant pain. Patient has undergone extensive workup including sonogram and MRCP as well as physical findings consistent with acute cholecystitis. Patient has never been jaundiced before. He otherwise tolerates his diet and has regular bowel habits. Chart was reviewed patient evaluated. Mild elevation of liver function tests. MRCP shows no evidence of common bile duct stones. [facility] Past Medical History Medical History (Updated 06/28/23 @ 14:03 by Rubin Walker MD) Opioid use disorder Alcohol use disorder, severe, dependence MDD (major depressive disorder) Pancreatitis Asthma COPD (chronic obstructive pulmonary disease) Social History Social History Household Members: None Housing: Apartment Housing Other:: being evicted Do you presently have visiting nurse or other home services: No Alcohol intake: current Alcohol intake frequency: 3 or more drinks per day Alcohol type: hard liquor Patient Tobacco Use Status: Current everyday Tobacco user Tobacco use type: Cigarette Cigarette Packs Per Day: 0.5 Cigarettes Per Day: 15 Years Smoked: 40 e-Cigarette/Vaping Use: Never Used Second Hand Smoke Exposure: Yes service: No Sexual orientation: Straight/Heterosexual Meds Allergies Allergy/AdvReac Type Severity Reaction Status Date / Time levofloxacin Allergy Unknown Unknown Verified 06/27/23 09:10 chlorpromazine Allergy Unknown unknown Uncoded 11/30/22 18:24 Active Medications: Current Medications Acetaminophen (Acetaminophen 325 Mg Tablet) 650 mg PO Q6H PRN PRN Reason: Pain, Mild (Pain Scale 1-3) Albuterol Sulfate (Albuterol Sulfate 90 Mcg 8 Gm Inhaler) 2 puff INHALE Q6H PRN PRN Reason: Shortness Of Breath Or Wheezing Buprenorphine/Naloxone (Buprenorphine/Naloxone 8/2 Mg Film) 1 film SUBLINGUAL TID SAVI Last Admin: 06/28/23 09:06 Dose: Not Given Bupropion HCl (Bupropion Hcl Xl 300 Mg Tab.Er.24h) 300 mg PO DAILY SAVI Last Admin: 06/28/23 10:24 Dose: Not Given Clonidine HCl (Clonidine Hcl 0.1 Mg Tablet) 0.1 mg PO BID PRN; Protocol PRN Reason: anxiety Fluoxetine HCl (Fluoxetine Hcl 20 Mg Capsule) 60 mg PO DAILY [facility] Last Admin: 06/28/23 10:25 Dose: Not Given Folic Acid (Folic Acid 1 Mg Tablet) 1 mg PO DAILY [facility] Last Admin: 06/28/23 10:25 Dose: Not Given Gabapentin (Gabapentin 400 Mg Capsule) 400 mg PO TID [facility] Last Admin: 06/28/23 10:25 Dose: Not Given Hydroxyzine HCl (Hydroxyzine Hcl 25 Mg Tablet) 25 mg PO TID PRN PRN Reason: anxiety Last Admin: 06/27/23 16:08 Dose: 25 mg Lactated Ringer's (Lr) 1,000 mls @ 125 mls/hr IVCONT .Q8H [facility] Last Admin: 06/28/23 09:06 Dose: 125 mls/hr Piperacillin Sod/Tazobactam (Sod 3.375 gm/ Sodium Chloride) 50 mls @ 100 mls/hr IV Q6H [facility] Last Infusion: 06/28/23 13:46 Dose: Infused Magnesium Oxide (Magnesium Oxide 400 Mg Tablet) 400 mg PO BIDPC [facility] Last Admin: 06/28/23 10:24 Dose: Not Given Morphine Sulfate (Morphine Sulfate 2 Mg/Ml Cartridge) 2 mg IVPUSH Q3H PRN; Protocol PRN Reason: Pain, Severe (Pain Scale 7-10) Multivitamins/Vitamin C (Multivitamin Tablet) 1 tab PO DAILY [facility] Last Admin: 06/28/23 10:25 Dose: Not Given Nicotine (Nicotine 14 Mg Patch.Td24) 14 mg TRANSDERMA DAILY [facility] Last Admin: 06/28/23 13:19 Dose: 14 mg Ondansetron HCl (Ondansetron Hcl 4 Mg/2 Ml Vial) 4 mg IVPUSH Q8H PRN PRN Reason: Nausea and Vomiting Last Admin: 06/28/23 09:22 Dose: 4 mg Pantoprazole Sodium (Pantoprazole Sodium 40 Mg/10 Ml Vial) 40 mg IVPUSH BID@0630,1630 [facility] Last Admin: 06/28/23 06:26 Dose: 40 mg Pharmacy Consult (Consult Rx Etoh Phenob Im/Po) 1 each MISCELLANE ONCE PRN; Protocol PRN Reason: Consult order Phenobarbital (Phenobarbital 15 Mg Tablet) 45 mg PO BID [facility]; Protocol Stop: 06/29/23 21:01 Last Admin: 06/28/23 10:25 Dose: Not Given Phenobarbital (Phenobarbital 30 Mg Tablet) 30 mg PO BID [facility]; Protocol Stop: 07/01/23 21:01 Phenobarbital (Phenobarbital 15 Mg Tablet) 15 mg PO DAILY [facility]; Protocol Stop: 07/03/23 09:01 Potassium Chloride (Potassium Chloride Er 20 Meq Tab.Er.Prt) 20 meq PO BID [facility] Last Admin: 06/28/23 10:25 Dose: Not Given Sodium Chloride (0.9 % Sodium Chloride Flush 3 Ml Syringe) 3 ml IVFLUSH QSHIFT [facility] Last Admin: 06/28/23 09:04 Dose: 3 ml Thiamine HCl (Thiamine Hcl 100 Mg Tablet) 100 mg PO DAILY [facility] Last Admin: 06/28/23 10:25 Dose: Not Given Trazodone HCl (Trazodone Hcl 50 Mg Tablet) 50 mg PO BEDTIME PRN PRN Reason: insomnia Home Medications Medication Instructions Recorded Confirmed Last Taken Type albuterol sulfate 90 mcg/actuation 2 puff inhalation Q6H PRN 11/30/22 06/27/23 Unknown History aerosol inhaler (Ventolin HFA) Shortness Of Breath Or Wheezing buprenorphine 8 mg-naloxone 2 mg 1 film sublingual TID 11/30/22 06/27/23 Unknown History sublingual film (Suboxone) clonidine HCl 0.1 mg tablet 0.1 mg PO BID PRN anxiety 11/30/22 06/27/23 Unknown History fluoxetine 20 mg capsule 60 mg PO DAILY 11/30/22 06/27/23 Unknown History gabapentin 400 mg capsule 400 mg PO TID 11/30/22 06/27/23 Unknown History hydroxyzine pamoate 25 mg capsule 25 mg PO TID PRN anxiety 11/30/22 06/27/23 Unknown History multivitamin 1 tab PO DAILY 11/30/22 06/27/23 Unknown History trazodone 50 mg tablet 50 mg PO BEDTIME PRN insomnia 11/30/22 06/27/23 Unknown History bupropion HCl 300 mg 24 hr tablet, 300 mg PO QAM 06/27/23 06/27/23 Unknown History extended release Physical Exam Vital Signs: Vital Signs: Last Vital Signs Temp 98.8 F 06/28/23 08:56 Pulse 86 06/28/23 07:06 Resp 18 06/28/23 07:06 BP 130/71 06/28/23 07:06 Pulse Ox 96 06/28/23 12:44 O2 Del Method Room Air 06/28/23 12:44 O2 Flow Rate 2 06/28/23 07:06 BMI result Body Mass Index 24.3 Eyes: Other: Anicteric Chest: Other: Chest breath sounds bilaterally, HS 1 in 2 GI: Other: Abdomen modestly corpulent. Marked right upper quadrant tenderness and positive Albert sign. Patient has incidental finding of umbilical hernia. Results Labs 06/28/23 05:05 06/28/23 05:05 Labs: Abnormal lab results 06/28/23 06/28/23 Range/Units 05:05 11:56 RBC 3.50 L (4.60-5.80) X10*6/uL Hgb 11.9 L (14.0-18.0) g/dl Hct 35.0 L (42.0-52.0) % MCV 100.0 H (80.0-98.0) fL MCH 34.0 H (27.0-33.0) pg Plt Count 41 L D (160-400) X10*3/uL Immature Gran % (Auto) 0.5 H (0.0-0.4) % BUN 5 L (9-16) mg/dL Calcium 7.5 L (8.4-10.2) mg/dL Total Bilirubin 1.2 H (0.0-1.0) mg/dL Direct Bilirubin 0.6 H (0.0-0.5) mg/dL AST 87 H (5-37) U/L Alkaline Phosphatase 240 H (39-117) U/L Total Protein 6.4 L (6.5-8.0) g/dL Albumin 2.6 L (3.5-5.0) g/dL Urine Opiates Screen POSITIVE H (Not Detect) Ur Barbiturates Screen POSITIVE H (Not Detect) Short CBC 06/28/23 Range/Units 05:05 WBC 6.3 (4.8-10.8) X10*3/uL Hgb 11.9 L (14.0-18.0) g/dl Hct 35.0 L (42.0-52.0) % Plt Count 41 L D (160-400) X10*3/uL BMP 06/28/23 05:05 Sodium 137 Potassium 3.7 D Chloride 100 Carbon Dioxide 29 BUN 5 L Creatinine 0.60 Calcium 7.5 L Liver Function 06/28/23 Range/Units 05:05 Total Bilirubin 1.2 H (0.0-1.0) mg/dL Direct Bilirubin 0.6 H (0.0-0.5) mg/dL AST 87 H (5-37) U/L ALT 24 (0-40) U/L Alkaline Phosphatase 240 H (39-117) U/L Albumin 2.6 L (3.5-5.0) g/dL Urine 06/28/23 Range/Units 11:56 Urine Color Yellow Urine Appearance Clear Urine pH >= 9.0 (5.0-9.0) Ur Specific [place] 1.015 (1.005-1.025) Urine Protein Trace (Neg-Trace) mg/dL Urine Glucose (UA) Negative (Negative) mg/dL All other labs normal. Assessment and Plan (1) Acute cholecystitis: Status: Acute Plan Risks, benefits, and alternatives laparoscopic possible open cholecystectomy reviewed the patient and included but not limited to bleeding, infection, numbness, pain, scarring, bowel or bile duct injury or leak and the patient wished to proceed. All questions were answered. Patient will be made an add on for later today for the procedure. Procedures Date of Service Date of Service: 06/28/23
--- NOTE | 2023-06-28 14:48 | HO.PM.IMPN ---
Subjective Subjective Date of Service: 06/28/23 Interval History: seen and examined this morning follow up for abdominal pain, etoh withdrawal reporting ongoing abdominal pain MRCP showing ?cholecystitis. seen by surgery, plan for cholecystectomy Review of Systems Review of Systems: Yes all other systems are reviewed and are negative Constitutional Constitutional: Denies chills and Denies fever(s) Cardiovascular Cardiovascular: Denies chest pain Gastrointestinal Gastrointestinal: Reports abdominal pain Physical Exam Vital Signs: Vital Signs: Last Vital Signs Temp 98.8 F 06/28/23 08:56 Pulse 86 06/28/23 07:06 Resp 18 06/28/23 07:06 BP 130/71 06/28/23 07:06 Pulse Ox 96 06/28/23 12:44 O2 Del Method Room Air 06/28/23 12:44 O2 Flow Rate 2 06/28/23 07:06 BMI result Body Mass Index 24.3 Const: General: cooperative, comfortable, alert and awake Nutritional Appearance: average body habitus Orientation/consciousness: patient oriented x3 Resp: Effort & Inspection: normal respiratory effort, able to speak in complete sentences, no respiratory distress and no use of accessory muscles Cardio: Rate: regular rate GI: Other: umbilical hernia Inspection: No distended Palpation (GI): Soft to palpation and Tenderness to palpation present (GI) Neuro: General: patient oriented x3, moves all extremities and CN's II-XI intact bilaterally Extrem: General: Yes no pedal edema Objective Data Active Medications Acetaminophen (Acetaminophen 325 Mg Tablet) 650 mg PO Q6H PRN PRN Reason: Pain, Mild (Pain Scale 1-3) Albuterol Sulfate (Albuterol Sulfate 90 Mcg 8 Gm Inhaler) 2 puff INHALE Q6H PRN PRN Reason: Shortness Of Breath Or Wheezing Buprenorphine/Naloxone (Buprenorphine/Naloxone 8/2 Mg Film) 1 film SUBLINGUAL TID [facility] Last Admin: 06/28/23 14:27 Dose: Not Given Documented By: ABEBA Non-Admin Reason: Patient Refused Bupropion HCl (Bupropion Hcl Xl 300 Mg Tab.Er.24h) 300 mg PO DAILY [facility] Last Admin: 06/28/23 10:24 Dose: Not Given Documented By: ABEBA Non-Admin Reason: Nausea Clonidine HCl (Clonidine Hcl 0.1 Mg Tablet) 0.1 mg PO BID PRN; Protocol PRN Reason: anxiety Fluoxetine HCl (Fluoxetine Hcl 20 Mg Capsule) 60 mg PO DAILY [facility] Last Admin: 06/28/23 10:25 Dose: Not Given Documented By: ABEBA Non-Admin Reason: Nausea Folic Acid (Folic Acid 1 Mg Tablet) 1 mg PO DAILY [facility] Last Admin: 06/28/23 10:25 Dose: Not Given Documented By: ABEBA Non-Admin Reason: Nausea Gabapentin (Gabapentin 400 Mg Capsule) 400 mg PO TID [facility] Last Admin: 06/28/23 14:28 Dose: Not Given Documented By: ABEBA Non-Admin Reason: Patient Refused Hydroxyzine HCl (Hydroxyzine Hcl 25 Mg Tablet) 25 mg PO TID PRN PRN Reason: anxiety Last Admin: 06/27/23 16:08 Dose: 25 mg Documented By: ANNEMARIE Lactated Ringer's (Lr) 1,000 mls @ 125 mls/hr IVCONT .Q8H [facility] Last Admin: 06/28/23 09:06 Dose: 125 mls/hr Documented By: ABEBA Piperacillin Sod/Tazobactam (Sod 3.375 gm/ Sodium Chloride) 50 mls @ 100 mls/hr IV Q6H [facility] Last Infusion: 06/28/23 13:46 Dose: Infused Documented By: ABEBA Magnesium Oxide (Magnesium Oxide 400 Mg Tablet) 400 mg PO BIDPC [facility] Last Admin: 06/28/23 10:24 Dose: Not Given Documented By: ABEBA Non-Admin Reason: Nausea Morphine Sulfate (Morphine Sulfate 2 Mg/Ml Cartridge) 2 mg IVPUSH Q3H PRN; Protocol PRN Reason: Pain, Severe (Pain Scale 7-10) Last Admin: 06/28/23 14:25 Dose: 2 mg Documented By: ABEBA Multivitamins/Vitamin C (Multivitamin Tablet) 1 tab PO DAILY [facility] Last Admin: 06/28/23 10:25 Dose: Not Given Documented By: ABEBA Non-Admin Reason: Nausea Nicotine (Nicotine 14 Mg Patch.Td24) 14 mg TRANSDERMA DAILY [facility] Last Admin: 06/28/23 13:19 Dose: 14 mg Documented By: ABEBA Ondansetron HCl (Ondansetron Hcl 4 Mg/2 Ml Vial) 4 mg IVPUSH Q8H PRN PRN Reason: Nausea and Vomiting Last Admin: 06/28/23 09:22 Dose: 4 mg Documented By: ABEBA Pantoprazole Sodium (Pantoprazole Sodium 40 Mg/10 Ml Vial) 40 mg IVPUSH BID@0630,1630 [facility] Last Admin: 06/28/23 06:26 Dose: 40 mg Documented By: YVES Pharmacy Consult (Consult Rx Etoh Phenob Im/Po) 1 each MISCELLANE ONCE PRN; Protocol PRN Reason: Consult order Phenobarbital (Phenobarbital 15 Mg Tablet) 45 mg PO BID [facility]; Protocol Stop: 06/29/23 21:01 Last Admin: 06/28/23 10:25 Dose: Not Given Documented By: ABEBA Non-Admin Reason: Nausea Phenobarbital (Phenobarbital 30 Mg Tablet) 30 mg PO BID [facility]; Protocol Stop: 07/01/23 21:01 Phenobarbital (Phenobarbital 15 Mg Tablet) 15 mg PO DAILY [facility]; Protocol Stop: 07/03/23 09:01 Potassium Chloride (Potassium Chloride Er 20 Meq Tab.Er.Prt) 20 meq PO BID [facility] Last Admin: 06/28/23 10:25 Dose: Not Given Documented By: ABEBA Non-Admin Reason: Nausea Sodium Chloride (0.9 % Sodium Chloride Flush 3 Ml Syringe) 3 ml IVFLUSH QSHIFT [facility] Last Admin: 06/28/23 09:04 Dose: 3 ml Documented By: ABEBA Thiamine HCl (Thiamine Hcl 100 Mg Tablet) 100 mg PO DAILY [facility] Last Admin: 06/28/23 10:25 Dose: Not Given Documented By: ABEBA Non-Admin Reason: Nausea Trazodone HCl (Trazodone Hcl 50 Mg Tablet) 50 mg PO BEDTIME PRN PRN Reason: insomnia Labs 06/28/23 05:05 06/28/23 05:05 Labs: Laboratory Results - last 24 hr 06/27/23 06/28/23 06/28/23 15:46 05:05 11:56 MCV 100.0 H MCH 34.0 H MCHC 34.0 RDW 13.6 Plt Count 41 L D MPV 11.6 Immature Gran % (Auto) 0.5 H Neut % (Auto) 71.2 Lymph % (Auto) 20.0 [place] % (Auto) 6.4 Eos % (Auto) 1.6 Baso % (Auto) 0.3 Lymph # (Auto) 1.3 [place] # (Auto) 0.4 Eos # (Auto) 0.1 Baso # (Auto) 0.0 Abs Immat Gran (auto) 0.03 Absolute Neuts (auto) 4.5 Absolute Nucleated RBC 0.000 Nucleated RBC % (auto) 0.0 Smear Tech's Comments VERIFIED Anion Gap 12 Estim Creat Clear Calc 145.3 Estimated GFR > 60 Random Glucose 84 Calcium 7.5 L Magnesium 1.7 Total Bilirubin 1.2 H Direct Bilirubin 0.6 H AST 87 H ALT 24 Alkaline Phosphatase 240 H Total Protein 6.4 L Albumin 2.6 L Urine Color Yellow Urine Appearance Clear Urine pH >= 9.0 Ur Specific [place] 1.015 Urine Protein Trace Urine Glucose (UA) Negative Urine Ketones Negative Urine Blood Negative Urine Nitrite Negative Ur Leukocyte Esterase Negative Stool Occult Blood POSITIVE Urine Opiates Screen POSITIVE H Urine Fentanyl Screen Not Detected Ur Barbiturates Screen POSITIVE H Ur Phencyclidine Scrn Not Detected Ur Amphetamines Screen Not Detected U Benzodiazepines Scrn Not Detected Urine Cocaine Screen Not Detected U Marijuana (THC) Screen Not Detected Assessment and Plan (1) Acute cholecystitis: Status: Acute (2) Alcohol withdrawal: Status: Acute (3) Acute GI bleeding: Status: Acute (4) Acute hypokalemia: Status: Acute Plan 52 year old man admitted with acute alcohol intoxication and abdominal pain with bloody stool Abominal pain MRCP showing acute cholecystitis, seen by surgery, plan for cholecystectomy today (06/28) could also have component of etoh gastritis - continue IV PPI Alcohol intoxication/alcohol use disorder/alcohol withdrawal continue phenobarbitol protocol thiamine, folic acid, multivitamin IV fluids addiction medicine following acute on chronic normocytic anemia due to acute blood loss reported bloody stool and stool occult + GI consult pending over transfusion threshold at this time IV PPI Follow CBC Thrombocytopenia secondary to alcohol abuse follow CBC coagulopathy INR 1.2 no hx of liver cirrhosis, no on ac reported bloody stool follow INR daily Hypokalemia/hypomagnesemia secondary to poor nutrition, alcohol use improving with replete with oral supplementation until normal and monitor Transaminitis bili up slightly, ast down secondary to alcohol abuse follow LFTs tobacco dependence smoking cessation advised NRT DVT prophylaxis pneumatic compression boots in light of bloody stool Full code attending - Dr. helms Requires ongoing inpatient stay for management of immediate symptoms and complications that may arise from his chronic alcohol abuse, such as gastrointestinal bleeding, electrolyte abnormalities and coagulopathy. given the multiple ongoing issues, potential complications and need for continuous care it is more appropriate for the patient to remain hospitalized until they were substantial improvement in his condition and stability across all parameters as well as need for surgical intervention/post surgical care for acute cholecystitis Quality Stroke Does the patient have a stroke diagnosis?: No VTE Prior VTE?: No VTE Risk Level:: Medical - moderate - high VTE Device Contraindication: N/A - Device Ordered VTE Drug Contraindication: Treatment Not Indicated
--- NOTE | 2023-06-28 16:23 | PC.NURSE ---
Per Dr Walker pt's case canceled for today and surgery on hold for the near future.
--- NOTE | 2023-06-28 16:33 | MHC.SHP ---
Pre-Procedural Eval Section A Date of Service: 06/29/23 The patient is an INPATIENT: Yes The History & Physical has been completed within 30 days and I have reviewed it.: Yes Section B Chief Complaint: Alcohol intoxication Allergies: Allergies Allergy/AdvReac Type Severity Reaction Status Date / Time levofloxacin Allergy Unknown Unknown Verified 06/27/23 09:10 chlorpromazine Allergy Unknown unknown Uncoded 11/30/22 18:24 Plan I have reviewed the history and physical and performed a pertinent physical examination on my patient. No changes have occurred unless specified. Time Spent With Patient Time: Total time managing care of this patient today ____ minutes.
--- NOTE | 2023-06-28 16:33 | PM.EVENT ---
Event Note Date of Service: 06/28/23 Event Note: GI Consult-History from patient and EMR. Case D/W Dr. Walker Imp/Recs: Alcohol-induced hepatitis with associated cirrhosis, hepatomegaly, ascites, and thrombocytopenia, as well as apparent UGI bleeding with melena and slight drop in Hgb, in a 52 yo male with significant EtOH abuse up until being admitted to the hospital. He also has gallstones with radiologic changes of possible cholecystitis with some GB wall edema, but MRCP negative for biliary disease. Overall, I believe the majority of his RUQ discomfort and tenderness may be in relation to his EtOH-hepatitis and hepatomegaly, as opposed to the gallbladder. The gallbladder wall edema may very well be from the liver disease and hypoalbuminemia, as opposed to cholecystitis. His exam is notable for hepatomegaly on exam with a diffuse RUQ tenderness, as opposed to a more discrete tenderness from the gallbladder. He does not appear toxic, he has been afebrile, his VS have been stable, and his WBC count is normal. Based on all of the above I feel that it would be reasonable to hold off on GB surgery for the time being since he does not appear toxic and the GB may not be the main issue causing his abdominal discomfort. I think his ongoing liver disease and GI bleeding would put him at high risk of post-op complications in relation to worsening liver disease. I would recommend continuation of the current plan of IV antibiotics, NPO, F/U labs,supportive care, pain control, and a HIDA scan. I have also recommended an upper endoscopy tomorrow with me or Dr. Hogan for evaluation of his melena and anemia so as to R/O ulcer disease, portal gastropathy, erosive gastritis, etc. I don't think this represents a variceal bleed. Full consent has been obtained for the upper endoscopy including risks of bleeding and perforation. Depending on the results of his upcoming workup and clinical course he may ultimately need a CCY, or at least a cholecystostomy tube with IR. D/W patient in detail and he is comfortable with this plan. Thanks. Time Spent With Patient Time: Total time managing care of this patient today ____ minutes.
[2023-06-28] MEDS: PHENobarbitaL 15 MG TABLET 45 MG PO (17:57)
[2023-06-28] MEDS: Magnesium Oxide 400 MG TABLET PO (17:58)
[2023-06-28] MEDS: Albuterol Sulfate 90 MCG 8 GM INHALER 2 PUFF INHALE (20:31)
[2023-06-28] MEDS: traZODone HCL 50 MG TABLET PO (20:38)
[2023-06-28] MEDS: Potassium Chloride ER 20 MEQ TAB.ER.PRT PO (20:38)
[2023-06-28] MEDS: Gabapentin 400 MG CAPSULE PO (20:38)
[2023-06-29] VITALS (7 sets, daily range): BP systolic 107–138; BP diastolic 65–87; PULSE 77–90; RESP 14–20; TEMP 36.4–37.5; O2SAT 93–97; BMI 24.3
[2023-06-29] MEDS: Piperacillin Sodium/Tazobactam 3.375 GM in 0.9 % Sodium Chloride 50 ML IV ×3 (00:38→13:07)
[2023-06-29] MEDS: Morphine Sulfate 2 MG/ML CARTRIDGE IVPUSH ×6 (00:38→17:43)
[2023-06-29] MEDS: Lactated Ringers 1,000 ML 125 ML IVCONT (00:44)
--- NOTE | 2023-06-29 03:34 | CONS_ITS ---
DATE OF SERVICE: 06/28/2023 REASON FOR CONSULTATION: Alcohol-induced hepatitis, abdominal pain, cirrhosis, gallstones, and melena. HISTORY OF PRESENT ILLNESS: The patient is a 52-year-old male with a long-standing history of alcohol abuse, most recently drinking 3 pints of whiskey every day. He describes the progressive onset of abdominal pain localized diffusely, as well as in the right upper quadrant, as well as the more recent onset of melena. During this time, he has had some nausea and dry heaves, but no hematemesis nor coffee-grounds emesis. He has not noticed any jaundice nor fevers. He denies any increasing abdominal girth nor edema. He denies any previous history of jaundice in himself. He denies any known family history of liver disease. He denies use of any significant amounts of NSAIDs nor aspirin. He does take occasional acetaminophen. The patient denies any previous history of GI bleeding. He describes an upper endoscopy and colonoscopy at least 4-5 years ago in [place]. He thinks the colonoscopy had a polyp that was removed and does not think the upper endoscopy revealed any significant findings as far as he can recall. He denies any chronic heartburn nor dysphagia. His appetite has been diminished, however. Over the past 2 days at least, he has noticed some blackish dark stool with some dark red blood. Again, aside from the dry heaves and nausea, he has had no vomiting. MEDICATIONS: Current medications at home included Prozac, hydroxyzine, Suboxone, clonidine, gabapentin, trazodone. Medications here in the hospital include IV pantoprazole, acetaminophen, albuterol inhaler p.r.n., Suboxone, bupropion, clonidine p.r.n., Prozac, folic acid, gabapentin, hydroxyzine p.r.n., magnesium, morphine p.r.n., multivitamins, nicotine patch, phenobarbital, IV Zosyn, potassium, thiamin, and trazodone. PAST MEDICAL HISTORY: Back surgery. He describes bilateral partial knee replacements. Depression and anxiety. Alcohol abuse. He denies history of [place], diabetes, stroke, nor kidney disease. He describes a history of emphysema. SOCIAL HISTORY: He is currently single. He does smoke. Alcohol as above. FAMILY HISTORY: Noncontributory. REVIEW OF SYSTEMS: CONSTITUTIONAL: He has been feeling poorly at home due to the abdominal pain and some anorexia. CARDIAC: No chest pain. PULMONARY: No coughing nor hemoptysis. GI: As above. URINARY: No dysuria, no hematuria. NEUROLOGIC: No headache or seizures. PSYCHIATRIC: Depression and anxiety. PHYSICAL EXAMINATION: GENERAL: The patient is a pleasant, alert, cooperative male, in no distress. He has been afebrile. VITAL SIGNS: Stable. SKIN: Warm and dry. Nonjaundiced. Anicteric sclerae. NECK: Supple. CHEST: Reveals some diminished breath sounds bilaterally. CARDIAC: Normal S1, S2. ABDOMEN: Soft and nondistended. He does have an enlarged and tender liver edge with rather diffuse tenderness in the right upper quadrant. There was no definitive ascites. EXTREMITIES: Without edema. NEUROLOGIC: He is alert and oriented and answers questions appropriately. LABORATORY DATA: His imaging studies described gallstones, some thickening of the gallbladder wall, but no evidence of any biliary disease, including the MRCP that is negative for any common duct stones nor biliary obstruction. The imaging does describe some nodularity of the liver along with the enlargement. The imaging studies describes some gallbladder wall thickening as well. He also has some ascites. Laboratories revealed a white blood cell count 6.3, hemoglobin 11.9, platelets 41,000 compared to 149,000 on admission. PT 14.0 with INR 1.1. Normal electrolytes. BUN 5, creatinine 0.6. Total bilirubin 0.9 yesterday and 1.2 today with direct bilirubin of 0.6. AST 113 yesterday and 87 today. ALT 30 yesterday and 24 today. Alkaline phosphatase 283 yesterday and 240 today. Albumin 2.6. Lipase 32. The pancreas appeared unremarkable. Spleen was normal. There were no obvious varices on the CT with IV contrast. IMPRESSION: Given the patient's clinical history, I suspect his abdominal pain and abnormal LFTs are primarily related to alcohol-induced liver disease with some component of alcohol induced hepatitis at the present time superimposed on his underlying chronic liver disease with probable component of cirrhosis. He does not appear toxic. While he does have gallstones and some thickening of the gallbladder wall, the latter may be in relation to the chronic liver disease and alcohol- induced hepatitis, as opposed to cholecystitis. He clearly has some complications of liver disease including that of some ascites and thrombocytopenia. Given what I feel is a fairly significant underlying liver disease with a superimposed acute alcohol-induced hepatitis, some component of upper gastrointestinal bleeding, and worsening thrombocytopenia, I have recommended the cholecystectomy be put on hold for the time being as I do think a lot of his symptoms may be simply related to his liver disease as apposed to cholecystitis, and I also think his ongoing issues with his liver disease and gastrointestinal bleeding could put him at increased risk of postoperative complications including that of worsening liver function, ascites, and further gastrointestinal bleeding. I would recommend upper endoscopy tomorrow with either myself or Dr. Hogan to further evaluate the gastrointestinal bleeding. This may be in relation to peptic ulcer disease, portal gastropathy, or significant gastritis and/or duodenitis. I do not think this represents a variceal bleed given the clinical history. Full consent has been obtained from him for the upper endoscopy, including risks of bleeding and perforation. This will be done with monitored anesthesia care. In the meantime, I will continue his IV PPI for that. In regard to his abdominal pain, I do think this is more related to his alcohol- induced hepatitis and hepatomegaly given his examination and clinical history, as opposed to strictly cholecystitis. However, I would continue the current plan of IV antibiotics, follow up laboratories, n.p.o., supportive care, and analgesics. I would agree with a HIDA scan as well as I think that would be helpful information to have. If the HIDA scan is completely normal with visualization of the gallbladder then that would tend to rule out at least significant cholecystitis. Depending upon the results of his workup including the upper endoscopy, HIDA scan, and laboratories, he may ultimately need a cholecystectomy or at least a cholecystostomy tube placed by Interventional Radiology. However, at this point, it would be better to wait until things are more stable and more well-defined before putting him through anesthesia and cholecystectomy. This has all been discussed in detail with the patient and he is comfortable with the plan. Thank you for the consultation. MD CHERRY Willams/VALORIE / [id number] DEWAYNE
[2023-06-29] MEDS: Pantoprazole Sodium 40 MG/10 ML VIAL IVPUSH ×2 (06:08→16:35)
[2023-06-29 07:41] LABS: Hematocrit 34.8 % (42.0-52.0); Hemoglobin 11.6 g/dl (14.0-18.0); INTERNATIONAL NORM RATIO 1.3 (0.9-1.1); Mean Corpuscular HGB Conc 33.3 g/dl (31.0-36.0); Mean Corpuscular Hemoglobin 33.8 pg (27.0-33.0); Mean Corpuscular Volume 101.5 fL (80.0-98.0); Mean Platelet Volume 12.8 fL (9.4-12.4); Platelet Count 33 X10*3/uL (160-400); Prothrombin Time 15.6 SEC (11.1-13.3); Red Blood Count 3.43 X10*6/uL (4.60-5.80); Red Cell Distribution Width 13.4 % (11.0-16.0); White Blood Count 4.8 X10*3/uL (4.8-10.8)
[2023-06-29 07:55] LABS: Alanine Aminotransferase 22 U/L (0-40); Albumin Level 2.6 g/dL (3.5-5.0); Alkaline Phosphatase 228 U/L (39-117); Anion Gap 12 (12-20); Aspartate Amino Transferase 83 U/L (5-37); Bilirubin Direct 0.6 mg/dL (0.0-0.5); Bilirubin Total 1.4 mg/dL (0.0-1.0); Blood Urea Nitrogen 5 mg/dL (9-16); Calcium 7.6 mg/dL (8.4-10.2); Carbon Dioxide 24 mmol/L (22-29); Chloride 102 mmol/L (96-108); Creatinine Clr Calc Pharmacy 140.6; Estimated Glomerular Filt Rate > 60; Glucose Random 69 mg/dL (60-115); Potassium 3.7 mmol/L (3.3-5.1); Sodium 134 mmol/L (135-145); Total Protein 6.4 g/dL (6.5-8.0)
[2023-06-29] MEDS: FLUoxetine HCl 20 MG CAPSULE 60 MG PO (09:15)
[2023-06-29] MEDS: Gabapentin 400 MG CAPSULE PO ×3 (09:15→20:38)
[2023-06-29] MEDS: Nicotine 14 MG PATCH.TD24 TRANSDERMA (09:15)
[2023-06-29] MEDS: Multivitamin TABLET 1 TAB PO (09:16)
[2023-06-29] MEDS: Potassium Chloride ER 20 MEQ TAB.ER.PRT PO ×2 (09:16→20:38)
[2023-06-29] MEDS: Folic Acid 1 MG TABLET PO (09:16)
[2023-06-29] MEDS: Magnesium Oxide 400 MG TABLET PO ×2 (09:16→16:35)
[2023-06-29] MEDS: Thiamine HCL 100 MG TABLET PO (09:16)
[2023-06-29] MEDS: buPROPion HCl XL 300 MG TAB.ER.24H PO (09:16)
[2023-06-29] MEDS: PHENobarbitaL 15 MG TABLET 45 MG PO ×2 (09:22→20:38)
--- NOTE | 2023-06-29 11:18 | P.CONAN_ITS ---
PENDING SALE TO [facility] Active Problems Active Problems: All Active Problems (Updated 06/28/23 @ 14:03 by Rubni Walker MD) Acute cholecystitis (Acute) Hypomagnesemia (Acute) Alcohol withdrawal (Acute) Alcohol use disorder (Acute) Acute GI bleeding (Acute) Acute hypokalemia (Acute) Abdominal pain (Acute) Community acquired pneumonia (Acute) Headache (Acute) Acute hypokalemia (Acute) MDD (major depressive disorder) (Acute) Medication monitoring encounter (Acute) COPD (chronic obstructive pulmonary disease) (Acute) COPD exacerbation (Acute) Alcohol use disorder, severe, dependence (Acute) MDD (major depressive disorder) (Acute) Past Medical History Medical History (Updated 06/28/23 @ 14:03 by Rubin Walker MD) Opioid use disorder Alcohol use disorder, severe, dependence MDD (major depressive disorder) Pancreatitis Asthma COPD (chronic obstructive pulmonary disease) Surgical History History of Problems with Anesthesia: No Social History Social History Household Members: None Housing: Apartment Housing Other:: being evicted Do you presently have visiting nurse or other home services: No Alcohol intake: current Alcohol intake frequency: 3 or more drinks per day Alcohol type: hard liquor Patient Tobacco Use Status: Current everyday Tobacco user Tobacco use type: Cigarette Cigarette Packs Per Day: 0.5 Cigarettes Per Day: 15 Years Smoked: 40 e-Cigarette/Vaping Use: Never Used Second Hand Smoke Exposure: Yes service: No Sexual orientation: Straight/Heterosexual Meds Allergies Allergy/AdvReac Type Severity Reaction Status Date / Time levofloxacin Allergy Unknown Unknown Verified 06/27/23 09:10 chlorpromazine Allergy Unknown unknown Uncoded 11/30/22 18:24 Active Medications: Current Medications Acetaminophen (Acetaminophen 325 Mg Tablet) 650 mg PO Q6H PRN PRN Reason: Pain, Mild (Pain Scale 1-3) Albuterol Sulfate (Albuterol Sulfate 90 Mcg 8 Gm Inhaler) 2 puff INHALE Q6H PRN PRN Reason: Shortness Of Breath Or Wheezing Last Admin: 06/28/23 20:31 Dose: 2 puff Albuterol Sulfate (Albuterol Sulfate (0.083%) 2.5 Mg/3 Ml Vial.Neb) 2.5 mg INHALE Q4H PRN PRN Reason: Shortness of Breath/Wheezing Buprenorphine/Naloxone (Buprenorphine/Naloxone 8/2 Mg Film) 1 film SUBLINGUAL TID [facility] Last Admin: 06/29/23 09:19 Dose: Not Given Bupropion HCl (Bupropion Hcl Xl 300 Mg Tab.Er.24h) 300 mg PO DAILY [facility] Last Admin: 06/29/23 09:16 Dose: 300 mg Clonidine HCl (Clonidine Hcl 0.1 Mg Tablet) 0.1 mg PO BID PRN; Protocol PRN Reason: anxiety Fluoxetine HCl (Fluoxetine Hcl 20 Mg Capsule) 60 mg PO DAILY [facility] Last Admin: 06/29/23 09:15 Dose: 60 mg Folic Acid (Folic Acid 1 Mg Tablet) 1 mg PO DAILY [facility] Last Admin: 06/29/23 09:16 Dose: 1 mg Gabapentin (Gabapentin 400 Mg Capsule) 400 mg PO TID [facility] Last Admin: 06/29/23 09:15 Dose: 400 mg Hydroxyzine HCl (Hydroxyzine Hcl 25 Mg Tablet) 25 mg PO TID PRN PRN Reason: anxiety Last Admin: 06/27/23 16:08 Dose: 25 mg Lactated Ringer's (Lr) 1,000 mls @ 125 mls/hr IVCONT .Q8H [facility] Last Infusion: 06/29/23 09:27 Dose: Infused Piperacillin Sod/Tazobactam (Sod 3.375 gm/ Sodium Chloride) 50 mls @ 100 mls/hr IV Q6H [facility] Last Infusion: 06/29/23 06:41 Dose: Infused Magnesium Oxide (Magnesium Oxide 400 Mg Tablet) 400 mg PO BIDPC [facility] Last Admin: 06/29/23 09:16 Dose: 400 mg Morphine Sulfate (Morphine Sulfate 2 Mg/Ml Cartridge) 2 mg IVPUSH Q3H PRN; Protocol PRN Reason: Pain, Severe (Pain Scale 7-10) Last Admin: 06/29/23 10:40 Dose: 2 mg Multivitamins/Vitamin C (Multivitamin Tablet) 1 tab PO DAILY [facility] Last Admin: 06/29/23 09:16 Dose: 1 tab Nicotine (Nicotine 14 Mg Patch.Td24) 14 mg TRANSDERMA DAILY [facility] Last Admin: 06/29/23 09:15 Dose: 14 mg Ondansetron HCl (Ondansetron Hcl 4 Mg/2 Ml Vial) 4 mg IVPUSH Q8H PRN PRN Reason: Nausea and Vomiting Last Admin: 06/28/23 09:22 Dose: 4 mg Pantoprazole Sodium (Pantoprazole Sodium 40 Mg/10 Ml Vial) 40 mg IVPUSH BID@0630,1630 [facility] Last Admin: 06/29/23 06:08 Dose: 40 mg Pharmacy Consult (Consult Rx Etoh Phenob Im/Po) 1 each MISCELLANE ONCE PRN; Protocol PRN Reason: Consult order Phenobarbital (Phenobarbital 15 Mg Tablet) 45 mg PO BID [facility]; Protocol Stop: 06/29/23 21:01 Last Admin: 06/29/23 09:22 Dose: 45 mg Phenobarbital (Phenobarbital 30 Mg Tablet) 30 mg PO BID [facility]; Protocol Stop: 07/01/23 21:01 Phenobarbital (Phenobarbital 15 Mg Tablet) 15 mg PO DAILY [facility]; Protocol Stop: 07/03/23 09:01 Potassium Chloride (Potassium Chloride Er 20 Meq Tab.Er.Prt) 20 meq PO BID [facility] Last Admin: 06/29/23 09:16 Dose: 20 meq Sodium Chloride (0.9 % Sodium Chloride Flush 3 Ml Syringe) 3 ml IVFLUSH QSHIFT [facility] Last Admin: 06/29/23 09:05 Dose: Not Given Thiamine HCl (Thiamine Hcl 100 Mg Tablet) 100 mg PO DAILY [facility] Last Admin: 06/29/23 09:16 Dose: 100 mg Trazodone HCl (Trazodone Hcl 50 Mg Tablet) 50 mg PO BEDTIME PRN PRN Reason: insomnia Last Admin: 06/28/23 20:38 Dose: 50 mg Home Medications Medication Instructions Recorded Confirmed Last Taken Type albuterol sulfate 90 mcg/actuation 2 puff inhalation Q6H PRN 11/30/22 06/27/23 Unknown History aerosol inhaler (Ventolin HFA) Shortness Of Breath Or Wheezing buprenorphine 8 mg-naloxone 2 mg 1 film sublingual TID 11/30/22 06/27/23 Unknown History sublingual film (Suboxone) clonidine HCl 0.1 mg tablet 0.1 mg PO BID PRN anxiety 11/30/22 06/27/23 Unknown History fluoxetine 20 mg capsule 60 mg PO DAILY 11/30/22 06/27/23 Unknown History gabapentin 400 mg capsule 400 mg PO TID 11/30/22 06/27/23 Unknown History hydroxyzine pamoate 25 mg capsule 25 mg PO TID PRN anxiety 11/30/22 06/27/23 Unknown History multivitamin 1 tab PO DAILY 11/30/22 06/27/23 Unknown History trazodone 50 mg tablet 50 mg PO BEDTIME PRN insomnia 11/30/22 06/27/23 Unknown History bupropion HCl 300 mg 24 hr tablet, 300 mg PO QAM 06/27/23 06/27/23 Unknown History extended release Exam Height,Weight and Vital Signs: Height 5 ft 10 in Weight 76.9 kg Last Vital Signs Temp 98.6 F 06/29/23 07:50 Pulse 78 06/29/23 07:50 Resp 18 06/29/23 07:50 BP 132/75 06/29/23 07:50 Pulse Ox 95 06/29/23 07:50 O2 Del Method Room Air 06/29/23 07:50 O2 Flow Rate 2 06/28/23 07:06 Pertinent Lab Results Pertinent Lab Results: Laboratory Tests 06/27/23 06/27/23 06/27/23 11:02 11:48 15:46 WBC 9.0 RBC 3.89 L Hgb 13.3 L Hct 38.5 L MCV 99.0 H MCH 34.2 H MCHC 34.5 RDW 13.6 Plt Count 58 L D MPV 10.4 Immature Gran % (Auto) 0.2 Neut % (Auto) 79.9 H Lymph % (Auto) 14.8 L [place] % (Auto) 4.4 Eos % (Auto) 0.4 Baso % (Auto) 0.3 Lymph # (Auto) 1.3 [place] # (Auto) 0.4 Eos # (Auto) 0.0 Baso # (Auto) 0.0 Abs Immat Gran (auto) 0.02 Absolute Neuts (auto) 7.2 Absolute Nucleated RBC 0.000 Nucleated RBC % (auto) 0.0 Smear Tech's Comments PT 14.0 H INR 1.2 H APTT 28.8 Sodium 139 Potassium 3.0 L Chloride 98 Carbon Dioxide 29 Anion Gap 15 BUN 4 L Creatinine 0.79 Estim Creat Clear Calc 110.3 Estimated GFR > 60 Random Glucose 105 Calcium 7.9 L Magnesium 1.5 L Total Bilirubin 0.9 Direct Bilirubin 0.4 AST 113 H ALT 30 Alkaline Phosphatase 283 H Troponin I High Sens < 2.7 Total Protein 7.4 Albumin 3.0 L Lipase 32 Urine Color Urine Appearance Urine pH Ur Specific [place] Urine Protein Urine Glucose (UA) Urine Ketones Urine Blood Urine Nitrite Ur Leukocyte Esterase Stool Occult Blood POSITIVE Urine Opiates Screen Urine Fentanyl Screen Ur Barbiturates Screen Ur Phencyclidine Scrn Ur Amphetamines Screen U Benzodiazepines Scrn Urine Cocaine Screen U Marijuana (THC) Screen Ethyl Alcohol 119 Blood Type AB Positive Antibody Screen NEGATIVE 06/28/23 06/28/23 06/29/23 05:05 11:56 05:34 WBC 6.3 4.8 RBC 3.50 L 3.43 L Hgb 11.9 L 11.6 L Hct 35.0 L 34.8 L MCV 100.0 H 101.5 H MCH 34.0 H 33.8 H MCHC 34.0 33.3 RDW 13.6 13.4 Plt Count 41 L D 33 L MPV 11.6 12.8 H Immature Gran % (Auto) 0.5 H Neut % (Auto) 71.2 Lymph % (Auto) 20.0 [place] % (Auto) 6.4 Eos % (Auto) 1.6 Baso % (Auto) 0.3 Lymph # (Auto) 1.3 [place] # (Auto) 0.4 Eos # (Auto) 0.1 Baso # (Auto) 0.0 Abs Immat Gran (auto) 0.03 Absolute Neuts (auto) 4.5 Absolute Nucleated RBC 0.000 0.000 Nucleated RBC % (auto) 0.0 0.0 Smear Tech's Comments VERIFIED PT 15.6 H INR 1.3 H APTT Sodium 137 134 L Potassium 3.7 D 3.7 Chloride 100 102 Carbon Dioxide 29 24 Anion Gap 12 12 BUN 5 L 5 L Creatinine 0.60 0.62 Estim Creat Clear Calc 145.3 140.6 Estimated GFR > 60 > 60 Random Glucose 84 69 Calcium 7.5 L 7.6 L Magnesium 1.7 Total Bilirubin 1.2 H 1.4 H Direct Bilirubin 0.6 H 0.6 H AST 87 H 83 H ALT 24 22 Alkaline Phosphatase 240 H 228 H Troponin I High Sens Total Protein 6.4 L 6.4 L Albumin 2.6 L 2.6 L Lipase Urine Color Yellow Urine Appearance Clear Urine pH >= 9.0 Ur Specific [place] 1.015 Urine Protein Trace Urine Glucose (UA) Negative Urine Ketones Negative Urine Blood Negative Urine Nitrite Negative Ur Leukocyte Esterase Negative Stool Occult Blood Urine Opiates Screen POSITIVE H Urine Fentanyl Screen Not Detected Ur Barbiturates Screen POSITIVE H Ur Phencyclidine Scrn Not Detected Ur Amphetamines Screen Not Detected U Benzodiazepines Scrn Not Detected Urine Cocaine Screen Not Detected U Marijuana (THC) Screen Not Detected Ethyl Alcohol Blood Type Antibody Screen Airway Mallampati Class: II TM Dist: >3cm Neck ROM: Full Loose/Missing/Broken Teeth: Yes, Upper and Lower Heart: RRR Lungs: CTA Assessment and Plan Assessment Anesthesia Assessment: Anesthesia Plan Discussed and Chart Reviewed Final Anesthetic Review History of Problems with Anesthesia: No NPO: Yes ASA Class: III Final Preanesthetic Review: Meds/Allgs Chart Reviewed, Consent Obtained/Reviewed and Anes Risks/Benef Reviewed Patient Risk: Intermediate Procedure Risk: Intermediate Anesthetic Plan Anesthetic Plan: MAC: Disposition: Standard PACU
[2023-06-29] MEDS: Lactated Ringers 1,000 ML 100 ML IVCONT (11:35)
--- NOTE | 2023-06-29 12:18 | P.PNGS_ITS ---
Subjective Subjective Date of Service: 06/29/23 Interval history: Patient still complaining of right upper quadrant pain. HIDA scan from this morning within normal limits. No evidence of cystic duct obstruction. Physical Exam 2 Vital Signs: Vital Signs: Last Vital Signs Temp 98.6 F 06/29/23 07:50 Pulse 78 06/29/23 07:50 Resp 18 06/29/23 07:50 BP 132/75 06/29/23 07:50 Pulse Ox 95 06/29/23 07:50 O2 Del Method Room Air 06/29/23 07:50 O2 Flow Rate 2 06/28/23 07:06 BMI result Body Mass Index 24.3 GI: Other: Moderate [place] abdomen. Moderate right upper quadrant tenderness. No evidence of guarding, rebound, or rigidity. Objective Data Active Medications Acetaminophen (Acetaminophen 325 Mg Tablet) 650 mg PO Q6H PRN PRN Reason: Pain, Mild (Pain Scale 1-3) Albuterol Sulfate (Albuterol Sulfate 90 Mcg 8 Gm Inhaler) 2 puff INHALE Q6H PRN PRN Reason: Shortness Of Breath Or Wheezing Last Admin: 06/28/23 20:31 Dose: 2 puff Documented By: RADHA Albuterol Sulfate (Albuterol Sulfate (0.083%) 2.5 Mg/3 Ml Vial.Neb) 2.5 mg INHALE Q4H PRN PRN Reason: Shortness of Breath/Wheezing Buprenorphine/Naloxone (Buprenorphine/Naloxone 8/2 Mg Film) 1 film SUBLINGUAL TID [facility] Last Admin: 06/29/23 09:19 Dose: Not Given Documented By: ABEBA Non-Admin Reason: pt refused Bupropion HCl (Bupropion Hcl Xl 300 Mg Tab.Er.24h) 300 mg PO DAILY [facility] Last Admin: 06/29/23 09:16 Dose: 300 mg Documented By: ABEBA Clonidine HCl (Clonidine Hcl 0.1 Mg Tablet) 0.1 mg PO BID PRN; Protocol PRN Reason: anxiety Fluoxetine HCl (Fluoxetine Hcl 20 Mg Capsule) 60 mg PO DAILY [facility] Last Admin: 06/29/23 09:15 Dose: 60 mg Documented By: ABEBA Folic Acid (Folic Acid 1 Mg Tablet) 1 mg PO DAILY [facility] Last Admin: 06/29/23 09:16 Dose: 1 mg Documented By: ABEBA Gabapentin (Gabapentin 400 Mg Capsule) 400 mg PO TID [facility] Last Admin: 06/29/23 09:15 Dose: 400 mg Documented By: ABEBA Hydroxyzine HCl (Hydroxyzine Hcl 25 Mg Tablet) 25 mg PO TID PRN PRN Reason: anxiety Last Admin: 06/27/23 16:08 Dose: 25 mg Documented By: ANNEMARIE Lactated Ringer's (Lr) 1,000 mls @ 125 mls/hr IVCONT .Q8H [facility] Last Admin: 06/29/23 11:35 Dose: 100 mls/hr Documented By: DIMA Piperacillin Sod/Tazobactam (Sod 3.375 gm/ Sodium Chloride) 50 mls @ 100 mls/hr IV Q6H [facility] Last Infusion: 06/29/23 06:41 Dose: Infused Documented By: YVES Magnesium Oxide (Magnesium Oxide 400 Mg Tablet) 400 mg PO BIDPC [facility] Last Admin: 06/29/23 09:16 Dose: 400 mg Documented By: ABEBA Morphine Sulfate (Morphine Sulfate 2 Mg/Ml Cartridge) 2 mg IVPUSH Q3H PRN; Protocol PRN Reason: Pain, Severe (Pain Scale 7-10) Last Admin: 06/29/23 10:40 Dose: 2 mg Documented By: ABEBA Multivitamins/Vitamin C (Multivitamin Tablet) 1 tab PO DAILY [facility] Last Admin: 06/29/23 09:16 Dose: 1 tab Documented By: ABEBA Nicotine (Nicotine 14 Mg Patch.Td24) 14 mg TRANSDERMA DAILY [facility] Last Admin: 06/29/23 09:15 Dose: 14 mg Documented By: ABEBA Ondansetron HCl (Ondansetron Hcl 4 Mg/2 Ml Vial) 4 mg IVPUSH Q8H PRN PRN Reason: Nausea and Vomiting Last Admin: 06/28/23 09:22 Dose: 4 mg Documented By: ABEBA Pantoprazole Sodium (Pantoprazole Sodium 40 Mg/10 Ml Vial) 40 mg IVPUSH BID@0630,1630 [facility] Last Admin: 06/29/23 06:08 Dose: 40 mg Documented By: YVES Pharmacy Consult (Consult Rx Etoh Phenob Im/Po) 1 each MISCELLANE ONCE PRN; Protocol PRN Reason: Consult order Phenobarbital (Phenobarbital 15 Mg Tablet) 45 mg PO BID [facility]; Protocol Stop: 06/29/23 21:01 Last Admin: 06/29/23 09:22 Dose: 45 mg Documented By: ABEBA Phenobarbital (Phenobarbital 30 Mg Tablet) 30 mg PO BID [facility]; Protocol Stop: 07/01/23 21:01 Phenobarbital (Phenobarbital 15 Mg Tablet) 15 mg PO DAILY [facility]; Protocol Stop: 07/03/23 09:01 Potassium Chloride (Potassium Chloride Er 20 Meq Tab.Er.Prt) 20 meq PO BID [facility] Last Admin: 06/29/23 09:16 Dose: 20 meq Documented By: ABEBA Sodium Chloride (0.9 % Sodium Chloride Flush 3 Ml Syringe) 3 ml IVFLUSH QSHIFT [facility] Last Admin: 06/29/23 09:05 Dose: Not Given Documented By: ABEBA Non-Admin Reason: IV Running Thiamine HCl (Thiamine Hcl 100 Mg Tablet) 100 mg PO DAILY [facility] Last Admin: 06/29/23 09:16 Dose: 100 mg Documented By: ABEBA Trazodone HCl (Trazodone Hcl 50 Mg Tablet) 50 mg PO BEDTIME PRN PRN Reason: insomnia Last Admin: 06/28/23 20:38 Dose: 50 mg Documented By: YVES Labs 06/29/23 05:34 06/29/23 05:34 Labs: Laboratory Results - last 24 hr 06/28/23 06/29/23 11:56 05:34 MCV 101.5 H MCH 33.8 H MCHC 33.3 RDW 13.4 Plt Count 33 L MPV 12.8 H Absolute Nucleated RBC 0.000 Nucleated RBC % (auto) 0.0 PT 15.6 H INR 1.3 H Anion Gap 12 Estim Creat Clear Calc 140.6 Estimated GFR > 60 Random Glucose 69 Calcium 7.6 L Total Bilirubin 1.4 H Direct Bilirubin 0.6 H AST 83 H ALT 22 Alkaline Phosphatase 228 H Total Protein 6.4 L Albumin 2.6 L Urine Color Yellow Urine Appearance Clear Urine pH >= 9.0 Ur Specific [place] 1.015 Urine Protein Trace Urine Glucose (UA) Negative Urine Ketones Negative Urine Blood Negative Urine Nitrite Negative Ur Leukocyte Esterase Negative Urine Opiates Screen POSITIVE H Urine Fentanyl Screen Not Detected Ur Barbiturates Screen POSITIVE H Ur Phencyclidine Scrn Not Detected Ur Amphetamines Screen Not Detected U Benzodiazepines Scrn Not Detected Urine Cocaine Screen Not Detected U Marijuana (THC) Screen Not Detected Procedures Date of Service Date of Service: 06/29/23 Progress Note: A&P Assessment and plan (1) Acute GI bleeding: Status: Acute (2) Acute cholecystitis: Status: Acute Plan At present, no indication for cholecystectomy. Patient is scheduled for endoscopy. Time Spent With Patient Time: Total time managing care of this patient today ____ minutes. Quality Stroke Does the patient have a stroke diagnosis?: No VTE Prior VTE?: No VTE Risk Level:: Medical - moderate - high VTE Device Contraindication: N/A - Device Ordered VTE Drug Contraindication: Treatment Not Indicated
--- NOTE | 2023-06-29 12:32 | PM.EVENT ---
Event Note Date of Service: 06/29/23 Event Note: EGD note dictated no bleeding duodenitis and mild portal hypertensive gastropathy. no varices. Rec: start clear liquids continue ppi no alcohol. Time Spent With Patient Time: Total time managing care of this patient today ____ minutes.
--- NOTE | 2023-06-29 13:00 | OP_ITS ---
DATE OF SERVICE: 06/29/2023 SURGEON: Del Hogan MD INDICATIONS: GI bleeding. PREOPERATIVE DIAGNOSIS: POSTOPERATIVE DIAGNOSIS: PROCEDURE PERFORMED: Upper endoscopy. ESTIMATED BLOOD LOSS: COMPLICATIONS: ANESTHESIA: Monitored anesthesia care. ASSISTANTS: SPECIMENS: DESCRIPTION OF PROCEDURE: A history and physical was performed. The risks and benefits of the procedure were explained to the patient. Informed consent was obtained. The patient was placed in a left lateral decubitus position. The Olympus video gastroscope was introduced into the esophagus, stomach, and duodenum. Examination was performed. The scope was removed. He tolerated the procedure well and was returned to the recovery area in stable condition. FINDINGS: Esophagus: The esophagus was normal. No varices were seen. There was no esophagitis. Stomach: The stomach showed mild changes of portal hypertensive gastropathy with some mild cobblestoning mainly in the body and fundus. There was no active bleeding. No ulcer was seen. No gastric varices were seen on retroflexed examination. Duodenum: There was mild duodenitis involving the bulb with no ulcer. There was no bleeding in the bulb or 2nd portion. IMPRESSION: 1. Duodenitis. 2. Mild portal hypertensive gastropathy. RECOMMENDATION: 1. Follow up as needed. 2. Continue proton pump inhibitor. 3. Avoid alcohol. MD FANNY Horton/VALORIE / [phone]
[2023-06-29] MEDS: Albuterol Sulfate 90 MCG 8 GM INHALER 2 PUFF INHALE (13:57)
--- NOTE | 2023-06-29 13:58 | MHC.CM.PN ---
per rounds pt pt jade vargas scan and egb today no dc repoprted
--- NOTE | 2023-06-29 14:03 | P.PNIM_ITS ---
Subjective Subjective Date of Service: 06/29/23 Interval History: seen and examined this afternoon follow up for abdominal pain still with abdominal pain Review of Systems Review of Systems: Yes all other systems are reviewed and are negative Constitutional Constitutional: Denies chills and Denies fever(s) Gastrointestinal Gastrointestinal: Reports abdominal pain and Denies vomiting Physical Exam 2 Vital Signs: Vital Signs: Last Vital Signs Temp 97.7 F 06/29/23 13:25 Pulse 84 06/29/23 13:25 Resp 20 06/29/23 13:25 BP 128/72 06/29/23 13:25 Pulse Ox 93 06/29/23 13:25 O2 Del Method Room Air 06/29/23 13:25 O2 Flow Rate 2 06/28/23 07:06 BMI result Body Mass Index 24.3 Const: General: cooperative, comfortable, alert and awake Nutritional Appearance: average body habitus Orientation/consciousness: patient oriented x3 Resp: Effort & Inspection: normal respiratory effort, able to speak in complete sentences, no respiratory distress and no use of accessory muscles Cardio: Rate: regular rate GI: Other: umbilical hernia Inspection: No distended Palpation (GI): Soft to palpation and Tenderness to palpation present (GI) Neuro: General: patient oriented x3, moves all extremities and CN's II-XI intact bilaterally Extrem: General: Yes no pedal edema Objective Data Active Medications Acetaminophen (Acetaminophen 325 Mg Tablet) 650 mg PO Q6H PRN PRN Reason: Pain, Mild (Pain Scale 1-3) Albuterol Sulfate (Albuterol Sulfate 90 Mcg 8 Gm Inhaler) 2 puff INHALE Q6H PRN PRN Reason: Shortness Of Breath Or Wheezing Last Admin: 06/29/23 13:57 Dose: 2 puff Documented By: ABEBA Albuterol Sulfate (Albuterol Sulfate (0.083%) 2.5 Mg/3 Ml Vial.Neb) 2.5 mg INHALE Q4H PRN PRN Reason: Shortness of Breath/Wheezing Buprenorphine/Naloxone (Buprenorphine/Naloxone 8/2 Mg Film) 1 film SUBLINGUAL TID [facility] Last Admin: 06/29/23 09:19 Dose: Not Given Documented By: ABEBA Non-Admin Reason: pt refused Bupropion HCl (Bupropion Hcl Xl 300 Mg Tab.Er.24h) 300 mg PO DAILY [facility] Last Admin: 06/29/23 09:16 Dose: 300 mg Documented By: ABEBA Clonidine HCl (Clonidine Hcl 0.1 Mg Tablet) 0.1 mg PO BID PRN; Protocol PRN Reason: anxiety Fluoxetine HCl (Fluoxetine Hcl 20 Mg Capsule) 60 mg PO DAILY [facility] Last Admin: 06/29/23 09:15 Dose: 60 mg Documented By: ABEBA Folic Acid (Folic Acid 1 Mg Tablet) 1 mg PO DAILY [facility] Last Admin: 06/29/23 09:16 Dose: 1 mg Documented By: ABEBA Gabapentin (Gabapentin 400 Mg Capsule) 400 mg PO TID [facility] Last Admin: 06/29/23 09:15 Dose: 400 mg Documented By: ABEBA Hydroxyzine HCl (Hydroxyzine Hcl 25 Mg Tablet) 25 mg PO TID PRN PRN Reason: anxiety Last Admin: 06/27/23 16:08 Dose: 25 mg Documented By: ANNEMARIE Lactated Ringer's (Lr) 1,000 mls @ 125 mls/hr IVCONT .Q8H [facility] Last Admin: 06/29/23 11:35 Dose: 100 mls/hr Documented By: DIMA Piperacillin Sod/Tazobactam (Sod 3.375 gm/ Sodium Chloride) 50 mls @ 100 mls/hr IV Q6H [facility] Last Infusion: 06/29/23 13:43 Dose: Infused Documented By: ABEBA Magnesium Oxide (Magnesium Oxide 400 Mg Tablet) 400 mg PO BIDPC [facility] Last Admin: 06/29/23 09:16 Dose: 400 mg Documented By: ABEBA Morphine Sulfate (Morphine Sulfate 2 Mg/Ml Cartridge) 2 mg IVPUSH Q3H PRN; Protocol PRN Reason: Pain, Severe (Pain Scale 7-10) Last Admin: 06/29/23 13:40 Dose: 2 mg Documented By: ABEBA Multivitamins/Vitamin C (Multivitamin Tablet) 1 tab PO DAILY [facility] Last Admin: 06/29/23 09:16 Dose: 1 tab Documented By: ABEBA Nicotine (Nicotine 14 Mg Patch.Td24) 14 mg TRANSDERMA DAILY [facility] Last Admin: 06/29/23 09:15 Dose: 14 mg Documented By: ABEBA Ondansetron HCl (Ondansetron Hcl 4 Mg/2 Ml Vial) 4 mg IVPUSH Q8H PRN PRN Reason: Nausea and Vomiting Last Admin: 06/28/23 09:22 Dose: 4 mg Documented By: ABEBA Pantoprazole Sodium (Pantoprazole Sodium 40 Mg/10 Ml Vial) 40 mg IVPUSH BID@0630,1630 [facility] Last Admin: 06/29/23 06:08 Dose: 40 mg Documented By: YVES Pharmacy Consult (Consult Rx Etoh Phenob Im/Po) 1 each MISCELLANE ONCE PRN; Protocol PRN Reason: Consult order Phenobarbital (Phenobarbital 15 Mg Tablet) 45 mg PO BID [facility]; Protocol Stop: 06/29/23 21:01 Last Admin: 06/29/23 09:22 Dose: 45 mg Documented By: ABEBA Phenobarbital (Phenobarbital 30 Mg Tablet) 30 mg PO BID [facility]; Protocol Stop: 07/01/23 21:01 Phenobarbital (Phenobarbital 15 Mg Tablet) 15 mg PO DAILY [facility]; Protocol Stop: 07/03/23 09:01 Potassium Chloride (Potassium Chloride Er 20 Meq Tab.Er.Prt) 20 meq PO BID [facility] Last Admin: 06/29/23 09:16 Dose: 20 meq Documented By: ABEBA Sodium Chloride (0.9 % Sodium Chloride Flush 3 Ml Syringe) 3 ml IVFLUSH QSHIFT [facility] Last Admin: 06/29/23 09:05 Dose: Not Given Documented By: ABEBA Non-Admin Reason: IV Running Thiamine HCl (Thiamine Hcl 100 Mg Tablet) 100 mg PO DAILY [facility] Last Admin: 06/29/23 09:16 Dose: 100 mg Documented By: ABEBA Trazodone HCl (Trazodone Hcl 50 Mg Tablet) 50 mg PO BEDTIME PRN PRN Reason: insomnia Last Admin: 06/28/23 20:38 Dose: 50 mg Documented By: YVES Labs 06/29/23 05:34 06/29/23 05:34 Labs: Laboratory Results - last 24 hr 06/29/23 05:34 MCV 101.5 H MCH 33.8 H MCHC 33.3 RDW 13.4 Plt Count 33 L MPV 12.8 H Absolute Nucleated RBC 0.000 Nucleated RBC % (auto) 0.0 PT 15.6 H INR 1.3 H Anion Gap 12 Estim Creat Clear Calc 140.6 Estimated GFR > 60 Random Glucose 69 Calcium 7.6 L Total Bilirubin 1.4 H Direct Bilirubin 0.6 H AST 83 H ALT 22 Alkaline Phosphatase 228 H Total Protein 6.4 L Albumin 2.6 L Assessment and Plan (1) Hypomagnesemia: Status: Acute (2) Alcohol withdrawal: Status: Acute (3) Duodenitis: Status: Acute Plan 52 year old male with history of alcohol dependence admitted with acute alcohol intoxication, abdominal pain with bloody stool Abominal pain MRCP showing acute cholecystitis, HIDA negative. will stop zosyn s/p egd 06/28 showing duodenitis continue symptomatic treatment- wean narcotics start clear liquids continue PPI doppler US to eval for portal nanette thrombosis pending Alcohol intoxication/alcohol use disorder/alcohol withdrawal continue phenobarbitol protocol thiamine, folic acid, multivitamin IV fluids addiction medicine following acute on chronic normocytic anemia due to acute blood loss reported bloody stool and stool occult + seen by GI, egd as above showing duodenitis over transfusion threshold at this time continue PPI H/H stable Thrombocytopenia secondary to alcohol abuse follow CBC coagulopathy INR 1.3 no hx of liver cirrhosis, no on ac reported bloody stool follow INR daily Hypokalemia/hypomagnesemia secondary to poor nutrition, alcohol use improving with replete with oral supplementation until normal and monitor Transaminitis bili up slightly, ast down secondary to alcohol abuse follow LFTs tobacco dependence smoking cessation advised NRT DVT prophylaxis pneumatic compression boots in light of bloody stool Full code attending - Dr. helms Requires ongoing inpatient stay for management of immediate symptoms and complications that may arise from his chronic alcohol abuse, such as gastrointestinal bleeding, electrolyte abnormalities and coagulopathy. given the multiple ongoing issues, potential complications and need for continuous care it is more appropriate for the patient to remain hospitalized until they were substantial improvement in his condition and stability across all parameters Quality Stroke Does the patient have a stroke diagnosis?: No VTE Prior VTE?: No VTE Risk Level:: Medical - moderate - high VTE Device Contraindication: N/A - Device Ordered VTE Drug Contraindication: Treatment Not Indicated
--- NOTE | 2023-06-29 15:29 | PC.NURSE ---
SILVIA Haley made aware pt continues to refuse suboxone. Pt states he is afraid it will make him nauseous, pt has otherwise denied nausea and vomiting throughout shift. Pt tolerating clear liquid diet.
--- NOTE | 2023-06-29 15:38 | HO.POSTANES ---
Post Anesthesia Evaluation Post Anesthesia Evaluation Date of Service: 06/29/23 Vital Signs: Vital Signs Temp Pulse Resp BP Pulse Ox O2 Del Method 06/29/23 13:25 97.7 F 84 20 128/72 93 Room Air 06/29/23 12:50 98.4 F 88 16 114/87 95 Room Air 06/29/23 12:35 98.4 F 90 16 107/65 94 Room Air 06/29/23 07:50 98.6 F 78 18 132/75 95 Room Air 06/29/23 04:00 99.5 F 85 14 138/85 93 Room Air Anesthesia: General Endotracheal-GETA Mental Status: Awake Pain Control: Satisfactory Nausea/Vomiting: None Hydration: Adequate Anesthesia-Related Issues: No Anes. Related Issues
[2023-06-29] MEDS: traZODone HCL 50 MG TABLET PO (20:37)
[2023-06-30] MEDS: Morphine Sulfate 2 MG/ML CARTRIDGE IVPUSH ×4 (01:30→14:33)
[2023-06-30] MEDS: 0.9 % Sodium Chloride Flush 3 ML SYRINGE IVFLUSH ×2 (01:31→09:17)
[2023-06-30 04:00] VITALS: BP 115/75; PULSE 81; RESP 18; TEMP 36.1; O2SAT 94
[2023-06-30] MEDS: Pantoprazole Sodium 40 MG/10 ML VIAL IVPUSH (06:33)
[2023-06-30 08:00] VITALS: BP 122/76; PULSE 78; RESP 16; TEMP 37.1; O2SAT 96
[2023-06-30] MEDS: Nicotine 14 MG PATCH.TD24 TRANSDERMA (09:17)
[2023-06-30] MEDS: PHENobarbitaL 30 MG TABLET PO (09:18)
[2023-06-30] MEDS: buPROPion HCl XL 300 MG TAB.ER.24H PO (09:18)
[2023-06-30] MEDS: FLUoxetine HCl 20 MG CAPSULE 60 MG PO (09:18)
[2023-06-30] MEDS: Magnesium Oxide 400 MG TABLET PO (09:18)
[2023-06-30] MEDS: Multivitamin TABLET 1 TAB PO (09:18)
[2023-06-30] MEDS: Potassium Chloride ER 20 MEQ TAB.ER.PRT PO (09:19)
[2023-06-30] MEDS: Folic Acid 1 MG TABLET PO (09:19)
[2023-06-30] MEDS: Thiamine HCL 100 MG TABLET PO (09:19)
[2023-06-30] MEDS: Gabapentin 400 MG CAPSULE PO ×2 (09:19→14:33)
--- NOTE | 2023-06-30 10:52 | MHC.RECOVRN ---
RN met with patient in room 343-1 to check in. MINISTERIO Jung and KAILASH Alaniz were preparing him for DC and administering meds. Case discussed. He is sitting up, speech appears hyper. He is A+Ox3. Plan for DC today. Patient denies any s/s of alcohol withdrawal. Patient reports he initially wanted to come to the hospital to be admitted to for detox support, however he developed abd pain therefore needed to be medically treated. He's been cleared for DC. Discussed options such as ATS, MAT. Patient reports he wants to go to a facility, however can't right now as he needs to move all of his belongings from his current apartment (being evicted) to his mothers home. He has all of the resources needed to call when he is ready. Patient states his goal is to abstain from alcohol completely and hopes to support his girlfriend of 5 months who is currently in a detox facility for alcohol use. Expressed interest in trialing MAT in the meantime. Confirms he has taken Acamprosate and Antabuse in the past, has both at home but would like to try Naltrexone. Discussed inj vs pill. Patient reports it might be difficult for him to get to [facility] after he moves, but is willing to try pill form. Will have [facility] call this week for intake apt, will have script sent to his pharmacy. Confirms he is not taking Suboxone. States I got off that stuff a while ago and I'm not going back on it. I don't like the way it makes me feel. It messes with my stomach. He's refused all doses during this hospitalization. Checked [facility], hasn't filled prescription since Apr (only given 7 day supply). Patient denies opiate use prior to this hospitalization. Patient voiced sadness and stress as he is being forced to rehome his cat as his mother won't let him keep it. He became teary stating it will make it even more difficult to recover having to part with his beloved pet. RN offered to provide him with local shelters or resources to rehome, or even call his mother to report the concern for his health if given up on his behalf. Patient declines. Patient given resources on CCC, MAT, Housing Resources. Discussed with Caryn Draper APRN.
[2023-06-30] MEDS: Albuterol Sulfate 90 MCG 8 GM INHALER 2 PUFF INHALE (11:05)
--- NOTE | 2023-06-30 11:41 | HO.POSTANES ---
Post Anesthesia Evaluation Post Anesthesia Evaluation Date of Service: 06/30/23 Vital Signs: Vital Signs Temp Pulse Resp BP Pulse Ox O2 Del Method 06/30/23 08:00 98.8 F 78 16 122/76 96 Room Air 06/30/23 04:00 97.0 F 81 18 115/75 94 Room Air Anesthesia: TIVA Mental Status: Awake Pain Control: Satisfactory Nausea/Vomiting: None Hydration: Adequate Anesthesia-Related Issues: No Anes. Related Issues
--- NOTE | 2023-06-30 13:20 | P.DS_ITS ---
DS: Providers Provider Date of Service: 06/30/23 Date of admission: 06/27/23 15:15 Primary care physician: Wolf Wolfe MD Consults: 06/27/23 14:53 Consult to Gastroenterology Routine Consulting Provider: Kendall Rivera Reason for consultation: anemia, heme pos, abd pain 06/27/23 15:15 Addiction Medicine Routine Consulting Provider: Saba Vee Reason for consultation: alcohol abuse 06/28/23 11:27 Consult to General Surgery Routine Consulting Provider: [facility] Reason for consultation: abdominal pain, ?cholecystitis Has provider been notified: No DS: Diagnosis Discharge Diagnosis (1) Hypomagnesemia: Status: Acute (2) Alcohol withdrawal: Status: Acute (3) Duodenitis: Status: Acute DS: Summary Hospital Course Hospital Course: 52-year-old male with a history of pneumonia, COPD, asthma alcohol use disorder, pancreatitis, who presents to the emergency department for evaluation of sudden, constant, sharp, upper abdominal pain with associated dark bloody stool, and chills over the last 2 days. Patient continues to drink alcohol. Reports drinking three 3.75 L bottles of whiskey per day. hs had previous admission for the same. In the ED, He was started on phenobarbitol, given potassium and magnesium, PPI, dilaudid, zofran and albuterol in the ED. CXR negative for consolidation, abd ct showing distended gallbladder and no pancreatitis. He will be admitted for further management and treatment of alcohol intoxication and abdominal pain 52-year-old man treated for abdominal pain, alcohol intoxication with withdrawal and anemia. Initially was thought that he had cholecystitis, MRCP showed this but then HIDA scan was negative. He was treated with IV Zosyn. He had EGD on 06/28 showing duodenitis. He was seen evaluated by General surgery who thought that he did not require surgery at this time. He was treated with clear liquid diet but advanced and was able to be without any nausea or vomiting. In terms of his alcohol intoxication treated with phenobarbital, thiamine, folic acid multivitamin along with IV fluids. He was seen evaluated by addiction medicine. He was encouraged to stop drinking alcohol and seek out community resources for assistance with this. He does have a history of a chronic normocytic anemia. He did report bloody stool but had been over transfusion threshold. Patient should follow-up with primary care provider as needed. Tobacco dependence. Discussed importance of smoking cessation and Transaminitis. History of alcohol abuse Time Attestation Discharge coordination time: Greater than 30 minutes Quality: Safe Use of Opioids Does Pt have an Active Cancer Diagnosis on the Problem List?: No Quality: Stroke Does the patient have a stroke diagnosis?: No Physical Exam Vital Signs: Vital Signs: Last Vital Signs Temp 98.8 F 06/30/23 08:00 Pulse 78 06/30/23 08:00 Resp 16 06/30/23 08:00 BP 122/76 06/30/23 08:00 Pulse Ox 96 06/30/23 08:00 O2 Del Method Room Air 06/30/23 08:00 O2 Flow Rate 2 06/28/23 07:06 BMI result Body Mass Index 24.3 Appearing in no acute distress head is normocephalic atraumatic eyes pupils are PERRLA sclera is anicteric mouth throat mucous membranes are intact and moist neck is supple no lymphadenopathy, no JVD noted lung sounds are clear to auscultation heart regular rate rhythm, clear S1, S2 positive bowel sounds, abdomen is soft, nontender neuro patient is alert x3, no focal deficits Discharge Plan Discharge Anticipated Discharge Date/Time: 06/30/23 13:08 Patient Disposition: Home, Self-Care Discharge Diagnosis: Abdominal pain Alcohol intoxication/alcohol use disorder/alcohol withdrawal Hypokalemia/hypomagnesemia Thrombocytopenia Referrals: Wolf Wolfe MD [Primary Care Provider] - 1 Week Discharge Medications: New omeprazole 20 mg capsule,delayed release(DR/EC) 20 mg PO DAILY Qty: 30 0RF Continued bupropion HCl 300 mg tablet extended release 24 hr 300 mg PO QAM multivitamin Tablet 1 tab PO DAILY clonidine HCl 0.1 mg tablet 0.1 mg PO BID PRN (Reason: anxiety) trazodone 50 mg tablet 50 mg PO BEDTIME PRN (Reason: insomnia) gabapentin 400 mg capsule 400 mg PO TID albuterol sulfate [Ventolin HFA] 90 mcg/actuation HFA aerosol inhaler 2 puff INHALATION Q6H PRN (Reason: Shortness Of Breath Or Wheezing) fluoxetine 20 mg capsule 60 mg PO DAILY hydroxyzine pamoate 25 mg capsule 25 mg PO TID PRN (Reason: anxiety) buprenorphine-naloxone [Suboxone] 8-2 mg film 1 film sublingual TID Discharge Orders: Discharge Order (Routine); Ordered 06/30/23 Ordered By: Fabiana Norton Diet: Advance to usual diet Activity on Discharge: As tolerated Stand Alone Forms: Patient Portal Discharge page Care Plan Goals: Do not drink alcohol, Seek out community resources for assistance with this. Health Concerns: Abdominal pain Alcohol intoxication/alcohol use disorder/alcohol withdrawal Hypokalemia/hypomagnesemia Thrombocytopenia Plan of Treatment: Follow up with primary care provider as needed Take all medications as prescribed Assessment: See discharge summary Discharge Date/Time: 06/30/23 14:56
--- NOTE | 2023-06-30 15:51 | MHC.CM.PN ---
PT DISCHARGED HOME TODAY LYFT ARRANGED VIA CM
== END 2023-06-30 14:56 | disposition home or self-care (01) | DRG 280 ==
LOC: HO.ED 14:29 → HO.EDOVER 15:26 → HO.S3 18:22
PROVIDERS: Internal Medicine; Internal Medicine Gastroenterology; Physician Assistant Medical; Admitting Provider Nurse Practitioner Acute Care; Emergency Provider Emergency Medicine Emergency Medical Services; PCP Internal Medicine; Visit Provider Nurse Practitioner Acute Care
PROC: 0DJ08ZZ Inspection of Upper Intestinal Tract, Via Natural or Artificial Opening Endoscopic (ICD-10-PCS; principal; 2023-06-29 13:10)
DX: K70.11 Alcoholic hepatitis with ascites (principal); D68.4 Acquired coagulation factor deficiency; K76.6 Portal hypertension; K29.81 Duodenitis with bleeding; D62 Acute posthemorrhagic anemia; D69.59 Other secondary thrombocytopenia; K31.89 Other diseases of stomach and duodenum; E83.42 Hypomagnesemia; F10.229 Alcohol dependence with intoxication, unspecified; F10.239 Alcohol dependence with withdrawal, unspecified; E87.6 Hypokalemia; F17.210 Nicotine dependence, cigarettes, uncomplicated; Z71.6 Tobacco abuse counseling; Y90.5 Blood alcohol level of 100-119 mg/100 ml; J44.9 Chronic obstructive pulmonary disease, unspecified; Z79.899 Other long term (current) drug therapy
CPT/HCPCS: 36415; 71045; 74177; 74181; 76705; 78226; 80048; 80053; 80076; 80307; 81003; 82248; 82272; 83690; 83735; 84484; 85025; 85027; 85610; 85730; 86850; 86900; 86901; 93005; 93975; 94640; 99285; A9537; C9113; J0665; J1170; J2250; J2270; J2405; J2543; J2560; J2704; J3475; J3480; J7120; Q9967

== ENCOUNTER → 2023-06-27 11:06 | Outpatient (BNV) | payer OTHER, SELFPAY | PROVIDERS: Admitting Provider Nurse Practitioner Acute Care; Emergency Provider Emergency Medicine Emergency Medical Services; PCP Internal Medicine; Visit Provider Internal Medicine | DX: R00.0 Tachycardia, unspecified (principal) | CPT/HCPCS: 93010 ==

== ENCOUNTER → 2023-06-27 15:15 | Outpatient (BNV) | payer OTHER, SELFPAY | PROVIDERS: Admitting Provider Nurse Practitioner Acute Care; Emergency Provider Emergency Medicine Emergency Medical Services; PCP Internal Medicine; Visit Provider Surgery | DX: K92.2 Gastrointestinal hemorrhage, unspecified (principal); K81.0 Acute cholecystitis | CPT/HCPCS: 99222; 99232 ==

== ENCOUNTER → 2023-06-27 15:15 | Outpatient (BNV) | payer OTHER, SELFPAY | PROVIDERS: Admitting Provider Nurse Practitioner Acute Care; Emergency Provider Emergency Medicine Emergency Medical Services; PCP Internal Medicine; Visit Provider Nurse Practitioner Acute Care | DX: E83.42 Hypomagnesemia (principal); F10.930 Alcohol use, unspecified with withdrawal, uncomplicated; K29.80 Duodenitis without bleeding | CPT/HCPCS: 99222; 99232; 99233; 99239 ==